=== PATIENT | female | born 1965 | race Caucasian/White ===

== ENCOUNTER 2019-08-29 07:12 | Day surgery (SDC) | payer MEDICARE, MEDICAID, SELFPAY ==
[2019-08-29 07:32] VITALS: BP 125/84; PULSE 82; RESP 16; TEMP 36.8; O2SAT 97
[2019-08-29] MEDS: Lactated Ringers 1,000 ML 80 ML IV (07:56)
--- NOTE | 2019-08-29 09:19 | HPE_ITS ---
Date of service: 08/29/19 Time of Service: : History of Present Illness History of Present Illness Chief Complaint: Bunion deformity of the right foot. Narrative: This is a 54-year-old female with progressive pain associated with a right bunion deformity. In spite of palliative treatments pain persists interfering with shoe gear daily activities. She is requesting surgical correction. 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 High cholesterol (Chronic) Migraine (Chronic) GLORIA (obstructive sleep apnea) (Chronic) Surgical History Biopsy of breast NEG RIGHT section X 2 Cholecystectomy Endometrial Ablation (~2002) EXCISION,SKIN TAG (09/15/14) [facility] MASTOIDECTOMY (~1995) X 2 Family History Mother Diabetes Father Diabetes Personal history of malignant neoplasm LUNG Social History Smoking/Tobacco Use Status: Never Alcohol Intake: current Alcohol Intake frequency: holidays/special occasions only Drug use: Occasionally Substance use type: marijuana Details: uses edibles for migraines Do you feel safe at home: Yes Additional Social history: recently . Meds Home Medications and Allergies Home Medications Medication Instructions Recorded Confirmed Type aspirin 81 mg PO DAILY 01/17/13 08/29/19 History vitamin B complex 2 ea PO BID 01/17/13 08/27/19 History Lesli Hips 1 tab PO BID 12/11/13 08/27/19 History magnesium oxide [Magox 400] 2 tab PO BID #360 tab 03/23/15 08/29/19 History ammonium lactate 1 applic TOPICAL BID 08/27/19 08/27/19 History ammonium lactate [Lac-Hydrin Five] 1 applic TOPICAL DAILY 08/27/19 08/29/19 History atorvastatin 40 mg PO DAILY 08/27/19 08/27/19 History citalopram 20 mg PO DAILY 08/27/19 08/29/19 History ketoconazole 1 applic TOPICAL DAILY 08/27/19 08/29/19 History terbinafine HCl 250 mg PO DAILY 08/27/19 08/29/19 History Allergies Allergy/AdvReac Type Severity Reaction Status Date / Time codeine Allergy Severe Anaphylaxsi Unverified 08/29/19 07:30 s diazepam [From Valium] Allergy Severe Anaphylaxsi Unverified 08/29/19 07:30 s hydrocodone Allergy Severe Anaphylaxsi Unverified 08/29/19 07:30 s morphine Allergy Severe Anaphylaxsi Unverified 08/29/19 07:30 s amoxicillin trihydrate Allergy Intermediate Rash Unverified 08/29/19 07:30 [From Augmentin] potassium clavulanate Allergy Intermediate Rash Unverified 08/29/19 07:30 [From Augmentin] Exam Narrative Exam Narrative: Carlee is awake and oriented x3. Vitals show a BP 125/84, pulse 82, respirations 16, temp 36.8, O2 sat at room air is 97%. Head is normocephalic, eyes PERRLA, hearing is adequate. Oral pharynx is clear with uvula midline. No suspicious oral lesions were identified. Heart had regular rate and rhythm without gallops rubs murmurs heard. Lung cramer are clear. Abdomen was soft. Nontender. Bowel sounds x4. Peripheral pulses are manually palpable at the ankles, CFT is under 3 seconds without edema. Calves are soft to palpation. A dorsal bunion deformity is appreciated affecting the right foot with low-grade periarticular inflammation and exostosis formations easily palpable. There is decreased range of motion with pain on dorsiflexion of the hallux. Assessment: Hallux limitus deformity right foot/dorsal bunion deformity Plan: Carlee is being brought to the OR for service surgical intervention for correction right dorsal bunion deformity. Proposed procedure is a cheilectomy bunionectomy with Adiel modification. All of her questions have been previously answered. She understands potential risk and complications pert aining to pain scarring infection wound dehiscence continued discomfort around the great toe joint potentially requiring revisional procedures. Informed consent has been obtained no promises made to the final outcome of surgery. Results Last Vital Signs Temp 36.8 C 08/29/19 07:32 Pulse 82 08/29/19 07:32 Resp 16 08/29/19 07:32 BP 125/84 08/29/19 07:32 Pulse Ox 97 08/29/19 07:32
[2019-08-29] MEDS: CLINDAMYCIN 600 MG/50 ML BAG 100 MG IVPB (09:50)
[2019-08-29] MEDS: Bupivacaine 0.5% Pres-Free 30 ML VIAL (09:53)
[2019-08-29] MEDS: Lidocaine 1% Multi-Dose 50 ML VIAL (09:53)
[2019-08-29] MEDS: Dexamethasone 4 MG/ML VIAL (10:25)
--- NOTE | 2019-08-29 10:42 | W.PM.DSUDISC ---
Discharge Plan Disposition Patient Disposition: HOME Condition: Good Discharge Details Reason For Visit: correction hallux limitus right foot Attending Provider: Chandrakant Fitch Primary Care Provider: Zaheer Fox [place] Meds and New Rx's Prescriptions: New ibuprofen 600 mg tablet 600 mg PO QID Qty: 60 RF: 0 Continued Lesli Hips 1 tab PO BID RF: 0 magnesium oxide [MagOx] 400 MG tablet 2 tab PO BID Qty: 360 RF: 12 aspirin 81 MG tablet,chewable 81 mg PO DAILY RF: 0 vitamin B complex 1 EACH capsule 2 ea PO BID RF: 0 atorvastatin 40 mg Tablet 40 mg PO DAILY RF: 0 terbinafine HCl 250 mg Tablet 250 mg PO DAILY RF: 0 citalopram 20 mg Tablet 20 mg PO DAILY RF: 0 ammonium lactate 12 % Cream 1 applic TOPICAL BID RF: 0 ketoconazole 2 % Cream 1 applic TOPICAL DAILY RF: 0 Lac-Hydrin Five 5 % Lotion 1 applic TOPICAL DAILY RF: 0 Discharge Instructions Activity:: Elevate Remove Dressings/Wound Care:: Do Not Remove Shower/Bathe:: Cover Diet:: Normal Diet Discharge Orders Discharge Orders: Discharge Order (Routine); Ordered 08/29/19 Ordered By: Chandrakant Fitch DS: Diagnosis Discharge Diagnosis (1) Hallux limitus of right foot: Status: Acute
[2019-08-29 11:15] VITALS: BP 114/58; PULSE 64; RESP 16; TEMP 36.3; O2SAT 98
--- NOTE | 2019-08-29 12:00 | ROE_ITS ---
DATE OF PROCEDURE: August 29, 2019 PREOPERATIVE DIAGNOSIS: Symptomatic right hallux limitus deformity. POSTOPERATIVE DIAGNOSIS: Same. PROCEDURE: Cheilectomy, bunionectomy with Wilder modification. SURGEON: Chandrakant Fitch D.P.M. ANESTHESIA: Monitored Anesthesia Care with local block first ray utilizing 10 cc's 50:50 mixture, 1% Lidocaine plain, 0.5% Marcaine plain, then supplemented with 3 mL of Lidocaine with epinephrine. OPERATIVE INDICATIONS: 54-year-old female with unrelenting pain associated with hallux limitus defor mity of the right foot. Nonoperative treatments have failed to provide lasting relief of symptoms. She is opting for surgical intervention. She understands risks and complications of surgery pertaini ng to pain, scarring, infection, ongoing discomfort of the joint potentially requiring revisional pro cedures. Informed consent has been obtained. No promises made to the final outcome of surgery. REPORT OF OPERATION: Carlee was brought to the operative suite, placed in the supine position, right f oot prepped and draped in the usual standard podiatric fashion. A time-out was performed. Attention was now directed to the right foot, which was exsanguinated, a well-padded ankle tourniquet inflated 250 mmHg. Attention was directed to the first MPJ where a 4 cm incision was made directly over the joint, medial to the EHL tendon. The incision was deepened in controlled depth fashion; hem ostasis acquired with electrocautery. Dissection was carried down to the joint capsule. A midline c apsulotomy was performed; the capsule was reflected. Extensive degenerative changes were noted on th e dorsal aspect of both sides of the joint. The joint surface itself showed significant erosion over the dorsal lateral portion of the metatarsal head. Picture was obtained at this point for her Chart . With power instrumentation the dorsal, medial and lateral hyperostosis from the first metatarsal h ead was resected. I then took off the top portion of the first metatarsal head through a Wilder trevor hnique. All rough and bony edges were then rasped smooth. Attention was directed to the base of the proximal phalanx. With a rongeur the dorsal hyperostoses w ere resected. All rough and bony edges were then removed with power mary jane instrumentation. She had g ood correction with much improved range of motion. Copious irrigation was performed. The joint caps ule was repaired with simple interrupted suture #3-0 Vicryl. The subcutaneous layer was repaired wit h #4-0 Vicryl and a running subcuticular stitch was used of #4-0 Monocryl. Four milligrams of dexame thasone phosphate was infused deeply into the wound. Mastisol, half-inch Steri-Strips, Xeroform, gau ze fluff compression dressings were applied. The tourniquet was released at thirty-three minutes wit h vascularity returning immediately to all toes. Carlee left the OR with vital signs stable, vascular status intact. She will be followed by me in the office next week. cc: Zaheer Fox D.O.
== END 2019-08-29 11:34 | disposition home or self-care (01) ==
PROVIDERS: PCP Neuromusculoskeletal Medicine & OMM; Visit Provider Podiatrist
PROC: (CPT 28289; principal; 2019-08-29 10:00)
DX: M20.5X1 Other deformities of toe(s) (acquired), right foot (principal); M21.611 Bunion of right foot; J45.909 Unspecified asthma, uncomplicated; G47.33 Obstructive sleep apnea (adult) (pediatric); F32.9 Major depressive disorder, single episode, unspecified
CPT/HCPCS: 28299; 99236; J1100; J2250

== ENCOUNTER 2019-11-07 17:26 | Inpatient (IN) | payer MEDICARE, MEDICAID, SELFPAY ==
[2019-11-07] VITALS (20 sets, daily range): BP systolic 111–140; BP diastolic 66–76; PULSE 54–71; RESP 13–21; TEMP 36.8–37.2; O2SAT 96–100
--- NOTE | 2019-11-07 17:30 | DI.RAD_ITS ---
EXAM: XR CHEST 2V PA AND LATERAL INDICATION: STROKE. COMPARISON: No exams were available for comparison TECHNIQUE: 2D digital imaging was performed. FINDINGS: The heart is enlarged. The lungs are not well inflated on either view. There is respiratory motion on the lateral view. There are increased densities in the left lung, which could represent atelectas is versus infiltrate. No effusions are seen. IMPRESSION: Limited exam. Question of left-sided infiltrate versus atelectasis. DATA REPOSITORY: RADIATION DOSE DELIVERED:
--- NOTE | 2019-11-07 17:32 | ED.GENADUL_ITS ---
Discharge Plan Disposition Patient Disposition: [facility] INPATIENT Condition: Poor Discharge Details Chief Complaint: CVA/TIA Clinical Impression: Acute CVA (cerebrovascular accident) Admit Date/Time: 11/07/19 20:20 Admit Provider: Bishop Fisher Attending Provider: Bishop Fisher Primary Care Provider: Zaheer Fox ED Provider: Agueda Mckeon Discharge Data Discharge Date/Time-TO BE ENTERED AT DEPARTURE: 11/07/19 21:00 Medical Decision Making Patient is a pleasant 54-year-old female presenting today with chief complaint of headache and right-sided hemiplegia. Patient reports she has a history of migraines and she will like she had migraine present approximately 3 weeks ago. She has used multiple antimigraine as options without any relief. She states that the headache did come on suddenly and has progressively worsening. She was seen by her primary care yesterday who treated her with Toradol. States that 3 days ago she began noting hemiplegia, change in her speech pattern and right- sided facial droop. Patient was seen by her daughter today who insisted she come to the hospital. 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 Family and patient report that despite the diagnosis of Marquez's palsy, she had full resolution of her symptoms and is not typically demonstrating the weakness is evident today. She reports that the stroke was around 2011 and was treated at [facility]. She denies any fevers or chills. No recent travel. No pain in her neck. Exam, patient is resting comfortably. Vital signs within normal limits. Patient has right-sided facial droop. She is able to elevate the right side of her forehead equal to the contralateral side. She does have a good gag reflex, extraocular movements are intact. She has weakness in the right upper and right lower extremity. However, her daughter reports that she was able to ambulate across the street to her house today to discuss her persistent symptoms. No sensory deficits are appreciated. Holding Patient is on daily aspirin which she did take today. Patient is out of the window for treatment given the length of her symptoms. I feel that CT and labs are appropriate at this time. Discussed this plan with the patient and her family who are in agreement. EKG was reviewed by Dr. Granda. Patient is in normal sinus rhythm with a rate of 67. No acute ischemic changes are noted. Labs reviewed. No leukocytosis, patient is not anemic. Creatinine is slightly elevated 1.18. No electrolyte abnormalities. Troponin less than 0.05. Urine significant for trace amount of blood otherwise without significant abnormality. CTA was reviewed by radiologist: FINDINGS: Right internal carotid artery: Unremarkable. Intracranial segment is patent with no significant stenosis. No aneurysm. Right anterior cerebral artery: Unremarkable. No occlusion or significant stenosis. No aneurysm. Right middle cerebral artery: Unremarkable. No occlusion or significant stenosis. No aneurysm. Right posterior cerebral artery: Unremarkable. No occlusion or significant stenosis. No aneurysm. Right vertebral artery: The right vertebral artery is hypoplastic. No occlusion or significant stenosis. No aneurysm. Left internal carotid artery: Unremarkable. Intracranial segment is patent with no significant stenosis. No aneurysm. Left anterior cerebral artery: Unremarkable. No occlusion or significant stenosis. No aneurysm. Left middle cerebral artery: Unremarkable. No occlusion or significant stenosis. No aneurysm. Left posterior cerebral artery: Unremarkable. No occlusion or significant stenosis. No aneurysm. Left vertebral artery: Unremarkable. No occlusion or significant stenosis. No aneurysm. Basilar artery: Unremarkable. No occlusion or significant stenosis. No aneurysm. IMPRESSION: No arterial occlusion or significant stenosis. No aneurysm. FINDINGS: Lungs: There is a hazy opacity in the left midlung zone, which may represent atelectasis versus pneumonia. The lung volumes are low. Pleural space: No pleural effusion. No pneumothorax. Heart/Mediastinum: Unremarkable. No cardiomegaly. Diaphragm: There is elevation of the right hemidiaphragm. Bones/joints: Unremarkable. IMPRESSION: Hazy opacity in the left midlung zone which may represent atelectasis versus pneumonia. Correlate with clinical findings. Discussed findings with the patient and her family. I did review the notes from neurology. Patient was last seen on September 26, 2019. At that time she was evaluated, patient did not have any acute neurologic complaints. In the time she was evaluated, this was apparently concerning her migraines ensuring migraine treatment was appropriate. They do note that she did have expressive language problems which is baseline for the patient associated with her migraines. Patient reports that this is a typical language change associated with her migraine which she considers aura, is what delayed her presentation today she was thinking that her symptoms would resolve as the headache began to resolve. Consulted with Dr. Fisher regarding the patient's presentation with likely CVA resulting in hemiplegia. This does come to be a recurrent issue for the patient. She did do well with speech therapy and physical therapy after her stroke which was reported to be associated with MCA occlusion and reports no lasting deficits. Dr. Fisher agrees to admission for further evaluation. Patient is unable to care for herself at home she is unable to perform simple tasks with the right-sided weakness. Family is at bedside and does seem very supportive. All the questions and concerns were addressed in agreement this plan. HPI General Mode of arrival: wheelchair . Date/Time Provider Initiated Documentation: 11/07/19 17:32 . Limitations to Documentation: no limitations . Information obtained by: patient, family (Daughters) and RN notes reviewed . History of Present Illness 54 year old F presents to the emergency department with the chief complaint of Headache, speech difficulty, right-sided hemiplegia, described as severe and similar to prior episodes (Patient reports CVA with similar episode in 2010 or 2012), Quality is described as aching, and is localized to the head. Patient reports no radiation. Patient started experiencing this week(s) (3) and it has been constant (worening with hemiplegia x 3 days). No relieving factors improve symptom(s), No exacerbating factors reported . Patient notes headaches, loss of appetite and weakness; denies confusion, chest pain, cough, diaphoresis, fever/chills, nausea/vomiting, rash, shortness of breath and syncope. Patient did receive the following treatments prior to arrival, NSAID Related Data Home Medications Medication Instructions Recorded Confirmed aspirin 81 mg PO DAILY 01/17/13 11/07/19 vitamin B complex 2 ea PO BID 01/17/13 11/07/19 Lesli Hips 1 tab PO BID 12/11/13 11/07/19 magnesium oxide [MagOx] 2 tab PO BID #360 tab 03/23/15 11/07/19 Lac-Hydrin Five 1 applic TOPICAL DAILY 08/27/19 11/07/19 ammonium lactate 1 applic TOPICAL BID 08/27/19 11/07/19 citalopram 20 mg PO DAILY 08/27/19 11/07/19 ketoconazole 1 applic TOPICAL DAILY 08/27/19 11/07/19 ibuprofen 600 mg PO QID #60 tab NS 08/29/19 11/07/19 Previous Rx's Medication Instructions Recorded ibuprofen 600 mg PO QID #60 tab NS 08/29/19 Allergies Allergy/AdvReac Type Severity Reaction Status Date / Time codeine Allergy Severe Anaphylaxsi Unverified 08/29/19 07:30 s diazepam [From Valium] Allergy Severe Anaphylaxsi Unverified 08/29/19 07:30 s hydrocodone Allergy Severe Anaphylaxsi Unverified 08/29/19 07:30 s morphine Allergy Severe Anaphylaxsi Unverified 08/29/19 07:30 s amoxicillin trihydrate Allergy Intermediate Rash Unverified 08/29/19 07:30 [From Augmentin] potassium clavulanate Allergy Intermediate Rash Unverified 08/29/19 07:30 [From Augmentin] Review of Systems Constitutional Constitutional: Reports as per HPI, Denies chills, Reports fatigue, Denies fever(s), Denies frequent falls, Reports headache(s), Reports poor appetite, Denies snoring and Reports weakness Eyes Eyes: Reports as per HPI, Denies blurry vision, Denies change in vision and Reports photophobia ENT Ears, Nose, Mouth, and Throat: Denies vertigo, Reports headache(s) and Denies neck pain Cardiovascular Cardiovascular: Reports as per HPI, Denies chest pain, Denies lightheadedness, Denies radiating jaw, neck or arm pain, Denies dyspnea and Denies dyspnea on exertion Respiratory Respiratory: Reports as per HPI, Denies chest congestion, Denies cough, Denies dyspnea, Denies dyspnea on exertion, Denies snoring, Denies stridor and Denies wheezing Gastrointestinal Gastrointestinal: Reports as per HPI, Denies abdominal pain, Denies change in bowel habits, Denies nausea and Denies vomiting Musculoskeletal Musculoskeletal: Reports as per HPI, Denies back pain, Denies myalgias, Denies muscle cramps, Denies neck pain and Denies numbness Integumentary/Breasts Skin/Breast: Reports as per HPI and Denies rash Neurologic Neurologic: Reports as per HPI, Reports abnormal movements, Reports abnormal speech, Denies behavioral changes, Denies confusion, Denies vertigo, Denies frequent falls, Reports headache(s), Reports focal weakness, Denies numbness, Denies sensory deficit and Reports weakness Psychiatric Psychiatric: Denies behavioral changes and Denies confusion Endocrine Endocrine: Reports fatigue Allergic/Immunologic Allergic/Immunologic: Denies wheezing [facility] Medical History (Updated 11/08/19 @ 00:39 by DANIELLA Castillo) Asthma (Chronic) Compression of right sciatic nerve (Acute) Depressed (Chronic) recently lost Depression (Chronic) 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 GERD (gastroesophageal reflux disease) (Chronic) High cholesterol (Chronic) Hyperlipidemia (Acute) Migraine (Chronic) GLORIA (obstructive sleep apnea) (Chronic) Type 2 diabetes mellitus (Acute) Surgical History Biopsy of breast NEG RIGHT section X 2 Cholecystectomy Endometrial Ablation (~2002) EXCISION,SKIN TAG (09/15/14) [facility] MASTOIDECTOMY (~1995) X 2 Social History Smoking/Tobacco Use Status: Never Alcohol Intake: current Alcohol Intake frequency: holidays/special occasions only Drug use: Occasionally Substance use type: marijuana Details: uses edibles for migraines Do you feel safe at home: Yes Exam Const General: cooperative, healthy appearing, comfortable, no acute distress, well developed and well groomed Nutritional Appearance: well nourished and obese Orientation: alert, awake and oriented x3 HENMT Head: normal to inspection, no palpable skull fracture, normocephalic and atraumatic Ears: hearing grossly normal bilaterally, external ears normal and TM's normal bilaterally General nose exam: external nose normal Face and sinus: abnormal facial exam (Right-sided facial droop) Mouth: oral mucosae normal and moist mucous membranes Throat: posterior oropharynx normal Eyes General: appearance normal, both eyes and all related structures Alignment and Position: alignment normal Periorbital: periorbital findings normal Eyelids: eyelids normal Sclera: sclerae normal Cornea: corneas normal Pupils: PERRL EOM: EOM intact bilaterally and No nystagmus Neck Neck: normal visual inspection, full ROM, no lymphadenopathy and no meningeal signs Resp Effort & Inspection: normal respiratory effort, able to speak in complete sentences and no respiratory distress Auscultation: clear to auscultation bilaterally, no rales, no rhonchi and no wheezes Cardio Rate: regular rate Rhythm: regular rhythm Heart Sounds: S1 normal and S2 normal GI Inspection: normal to inspection and non-distended Palpation: soft, no hepatosplenomegaly, not firm, no guarding, not rigid and nontender Percussion: normal to percussion Auscultation: normal bowel sounds Back/Spine/Pelvis Cervical Spine: normal cervical lordosis and cervical ROM normal Skin General skin exam: no rashes or lesions noted Neuro General: alert, awake and oriented x3 Cranial Nerves: abnormalities within CN's II-XII, PERRL, accommodation normal, no nystagmus, facial strength abnormal (Right-sided weakness), tongue midline, gag reflex normal, hearing abnormal (Patient family report chronic right-sided deafness), unable to rotate head bilaterally (Unable to rotate to the right), unable to elevate shoulders bilaterally (Unable to lift right side), no nystagmus and Symmetric palate elevation Cognition: normal cognition Speech: abnormal speech (Slow) Motor: tone not normal throughout, strength not 5/5 throughout (Patient is unable to elevate right upper extremity or right lower extremity), no fasciculations, no tremors, pronator drift pronator drift of right upper extremity and strength abnormal (Right upper and lower extremities) Sensory Exam: no sensory deficits noted DTR's: Rt Triceps: 1+, Lt Triceps: 1+, Rt Biceps: 1+, Lt Biceps: 1+, Rt Brachi oradialis: 1+, Lt Brachioradialis: 1+, Rt Patellar: 1+, Lt Patellar: 1+, Rt Ankle: 1+ and Lt Ankle: 1+ Plantar Reflexes: Equivocal: bilateral Coordination: [id number] test abnormal (Able to do so on the left) and [id number] test normal (Able to do so on the left) Extrem General: normal to inspection, normal capillary refill, no pedal edema and no calf tenderness Psych Appearance: grossly normal and well kempt Mental Status: mental status grossly normal Speech and Movement: speech and movement normal
--- NOTE | 2019-11-07 17:45 | DI.CT_ITS ---
EXAM: CT BRAIN AND NECK CTA CLINICAL HISTORY: RIGHT-SIDED HEMIPARESIS TECHNIQUE: Noncontrast head CT followed by CT angiography of the head and neck. Axial CT angiograph y was performed with multislice acquisition and multiplanar and/or 3D reconstructions. COMPARISON: No exams were available for comparison FINDINGS: Noncontrast Head CT: There is a right lateral posterior fossa craniotomy. There is a peripheral area of encephalomalacia involving the right cerebellar hemisphere. No intracranial hemorrhage, mass or ac sherri infarct is seen. There is no significant atrophy. The ventricles are normal in size. There is a s mall amount of fluid in the right mastoid air cells. The sinuses appear clear. CT Angiography of the Head and Neck: There are no abnormal enhancing lesions in the brain. The common , internal, external carotid arteries and the left vertebral arteries show no evidence of occlusion, stenosis or dissection. The right vertebral artery appears hypoplastic. The intracranial vasculature is patent. There is no gross evidence of an aneurysm. There is no evidence of occlusion or significan t stenosis. IMPRESSION: No evidence of acute infarct. Right cerebellar encephalomalacia and right posterior fossa craniotomy. Diminutive right vertebral artery. No evidence of dissection, occlusion or significant stenosis in t he head or neck.
[2019-11-07 17:56] LABS: Absolute Basophil Count 0.02 k/cumm (0.0-0.2); Absolute Eosinophil Count 0.14 k/cumm (0.0-0.7); Absolute Lymphocyte Count 1.62 k/cumm (1.2-3.4); Absolute Monocyte Count 0.38 k/cumm (0.11-0.7); Absolute Neutrophil Count 3.09 k/cumm (1.2-6.7); Basophils % 0.4; Eosinophils % 2.7; HCT 40.1 % (36.0-46.0); HGB 13.9 g/dL (12.0-15.5); Lymphocytes % 30.9; Mean Corp. HGB Concentration 34.7 g/dL (32.0-36.0); Mean Corpuscular Hemoglobin 30.4 pg (27.0-33.0); Mean Corpuscular Volume 87.7 fL (80-95); Mean Platelet Volume 9.2 fL (8.0-11.0); Monocytes % 7.2; Neutrophils % 58.8; Platelet Count 289 x1000/uL (130-400); RBC 4.57 m/cumm (4.00-5.20); RBC Distribution Width 12.4 % (11.7-14.6); White Blood Cell Count 5.25 k/cumm (4.4-10.8)
[2019-11-07 18:15] LABS: ALT 34 U/L (14-59); AST 17 U/L (15-37); Albumin 3.6 g/dL (3.4-5.0); Alkaline Phosphatase 84 U/L (46-116); Anion Gap 6.3 mmol/L (3-11); BUN 18 mg/dL (7-18); Bilirubin, Total 0.4 mg/dL (0.2-1.0); CO2 28.7 mmol/L (21.0-32.0); CREATININE 1.18 mg/dL (0.55-1.02); Calcium 8.5 mg/dL (8.5-10.1); Chloride 103 mmol/L (98-107); Estimated GFR 47.91 (mL/min/1.73m2); Glucose 102 mg/dL (74-106); Potassium 3.9 mmol/L (3.5-5.1); Sodium 138 mmol/L (136-145); Total Protein 6.9 g/dL (6.4-8.2)
[2019-11-07 18:16] LABS: Troponin I < 0.05 ng/Ml (<0.06)
[2019-11-07] MEDS: Omnipaque 350 MG/ML 100 ML BTL IJ (18:19)
[2019-11-07] MEDS: Normal Saline 1,000 ML 125 ML IV (18:36)
--- NOTE | 2019-11-07 18:42 | DI.VRAD_ITS ---
PROCEDURE INFORMATION: Exam: CT Angiography Head With Contrast Exam date and time: 11/07/2019 5:50 PM Age: 54 years old Clinical indication: Patient HX: R side hemiparesis; Per PT: Symptoms for 2 weeks TECHNIQUE: Imaging protocol: Computed tomography angiography of the head with intravenous contrast. 3D rendering: MIP and/or 3D reconstructed images were created by the technologist. COMPARISON: No relevant prior studies available. FINDINGS: Right internal carotid artery: Unremarkable. Intracranial segment is patent with no significant stenosis. No aneurysm. Right anterior cerebral artery: Unremarkable. No occlusion or significant stenosis. No aneurysm. Right middle cerebral artery: Unremarkable. No occlusion or significant stenosis. No aneurysm. Right posterior cerebral artery: Unremarkable. No occlusion or significant stenosis. No aneurysm. Right vertebral artery: The right vertebral artery is hypoplastic. No occlusion or significant stenosis. No aneurysm. Left internal carotid artery: Unremarkable. Intracranial segment is patent with no significant stenosis. No aneurysm. Left anterior cerebral artery: Unremarkable. No occlusion or significant stenosis. No aneurysm. Left middle cerebral artery: Unremarkable. No occlusion or significant stenosis. No aneurysm. Left posterior cerebral artery: Unremarkable. No occlusion or significant stenosis. No aneurysm. Left vertebral artery: Unremarkable. No occlusion or significant stenosis. No aneurysm. Basilar artery: Unremarkable. No occlusion or significant stenosis. No aneurysm. IMPRESSION: No arterial occlusion or significant stenosis. No aneurysm. PROCEDURE INFORMATION: Exam: CT Head Without Contrast Exam date and time: 11/07/2019 5:50 PM Age: 54 years old Clinical indication: Patient HX: R side hemiparesis; Per PT: Symptoms for 2 weeks TECHNIQUE: Imaging protocol: Computed tomography of the head without contrast. Other technique: STROKE PROTOCOL was implemented. COMPARISON: No relevant prior studies available. FINDINGS: Brain: Encephalomalacia in the right cerebellar hemisphere is likely postsurgical in nature. No hemorrhage. Unremarkable white matter. No mass effect. No large acute territorial infarct. Ventricles: Normal. No ventriculomegaly. Bones/joints: The patient is status post right occipital bone craniectomy. Right mastoidectomy changes are noted. No acute fracture. Sinuses: Visualized sinuses are unremarkable. No fluid levels. Mastoid air cells: There is a small amount of fluid in the right mastoid air cells. Soft tissues: Unremarkable. IMPRESSION: 1. No acute intracranial abnormality. 2. Small right mastoid air cell effusion. ASSESSMENT: ASPECTS (Lay Stroke Program Early CT Score) is 10. PROCEDURE INFORMATION: Exam: CT Angiography Neck With Contrast Exam date and time: 11/07/2019 5:50 PM Age: 54 years old Clinical indication: Patient HX: R side hemiparesis; Per PT: Symptoms for 2 weeks TECHNIQUE: Imaging protocol: Computed tomography angiography of the neck with intravenous contrast. 3D rendering: MIP and/or 3D reconstructed images were created by the technologist. COMPARISON: No relevant prior studies available. FINDINGS: VASCULATURE: Right common carotid artery: Unremarkable. No stenosis. No dissection or occlusion. Right internal carotid artery: Unremarkable extracranial segment. No stenosis. No dissection or occlusion. Right external carotid artery: Unremarkable. No occlusion or stenosis of the origin. Right vertebral artery: Unremarkable. No stenosis. No dissection or occlusion. Left common carotid artery: Unremarkable. No stenosis. No dissection or occlusion. Left internal carotid artery: Unremarkable extracranial segment. No stenosis. No dissection or occlusion. Left external carotid artery: Unremarkable. No occlusion or stenosis of the origin. Left vertebral artery: Unremarkable. No stenosis. No dissection or occlusion. NECK: Bones/joints: No acute fracture. Soft tissues: No significant soft tissue swelling. There is mild asymmetry of the submandibular glands. IMPRESSION: No arterial occlusion or hemodynamically significant stenosis. No dissection or pseudoaneurysm. COMMENTS: Using NASCET method for measuring degree of carotid artery stenosis: Mild is less than 50% stenosis. Moderate is 50-69% stenosis. Severe is 70-94% stenosis. Near occlusion is 95-99% stenosis. Dictated and Authenticated by: Eli Ignacio MD. Ordering:PURNIMA Romeo MD
--- NOTE | 2019-11-07 18:44 | DI.VRAD_ITS ---
PROCEDURE INFORMATION: Exam: XR Chest, 2 Views Exam date and time: 11/07/2019 6:16 PM Age: 54 years old Clinical indication: Other: Stroke TECHNIQUE: Imaging protocol: XR of the chest Views: 2 views. COMPARISON: RF BARIUM SWALLOW W PA LAT CXR 10/28/2015 10:22 AM FINDINGS: Lungs: There is a hazy opacity in the left midlung zone, which may represent atelectasis versus pneumonia. The lung volumes are low. Pleural space: No pleural effusion. No pneumothorax. Heart/Mediastinum: Unremarkable. No cardiomegaly. Diaphragm: There is elevation of the right hemidiaphragm. Bones/joints: Unremarkable. IMPRESSION: Hazy opacity in the left midlung zone which may represent atelectasis versus pneumonia. Correlate with clinical findings. Dictated and Authenticated by: Eli Ignacio MD. Ordering:PURNIMA Romeo MD
[2019-11-07] MEDS: Clopidogrel 75 MG TAB PO (19:17)
[2019-11-07 19:28] LABS: Bilirubin Negative (Negative); Blood Trace-intact (Negative); Clarity Clear (Clear); Glucose Negative (Negative); Ketones Negative (Negative); Leukocyte Esterase Negative (Negative); Nitrite Negative (Negative); Specific Gravity <= 1.005 (1.005-1.025); Urobilinogen 0.2 EU/dL (Up TO 0.2); pH 6.5 (5-8)
[2019-11-07 19:35] LABS: Epithelial Cells Moderate HPF (Negative); RBC 0-2 HPF (0-2); WBC 0-2 HPF (0-5)
[2019-11-07 19:36] LABS: Bacteria Negative HPF (Negative); C & S Indicated? No/Sq. Contamination; Casts Negative LPF (Negative); Crystals Negative HPF (Negative); Mucus Negative (Negative)
--- NOTE | 2019-11-07 20:34 | W.PM.HP.N ---
Date of service: 11/07/19 Time of Service: 20:34 Assessment and Plan Assessment and plan (1) Migraine headache: Status: Chronic Assessment and plan: It is possible that her focal neurologic findings are migraine in origin but the duration of symptoms is certainly atypical. Her treatment cascade as an outpatient has failed to control her headache which is included several different NSAIDs, Aimovig and THC products. I am going to hydrate her overnight, offer oxygen overnight, see how she responds to the diphenhydramine and Compazine given in the emergency room. Follow clinical exam. Consider neurologic consultation if none of these interventions are helpful. (2) Right hemiplegia: Status: Acute Assessment and plan: Her examination is atypical for CVA although this is certainly possible. CT of brain and CT angiography did not show any arterial occlusions or new stroke which does not rule out the possibility of an ischemic stroke. She will need an MRI, not available until Sunday. Past neurologic consultation, albeit 8 years ago, raise concern about possible conversion disorder. Presentation atypical for demyelinating disease and no symptoms to suggest an infectious process driving this. For now I am going to presume ischemic stroke, monitor rhythm on telemetry. I am not sure if this justifies dual antiplatelet therapy but will continue with her aspirin and she received a single standard dose of clopidogrel in the emergency room. Decision will need to be made as to whether or not justified to continue with dual antiplatelet therapy based on level of suspicion for stroke/TIA. Prophylactic dose of Lovenox. Monitor blood pressure. Order has been placed for echocardiogram but this can be canceled if the clinical course does not support stroke as the diagnosis. (3) Type 2 diabetes mellitus: Status: Acute Assessment and plan: Has this on her problem list but is not on any medications. Presumably diet-controlled? Check hemoglobin A1c and if it is elevated monitor fingerstick blood sugars with treatment depending upon results. (4) Hyperlipidemia: Status: Acute Assessment and plan: It is unclear why statin was discontinued. Given the ambiguity as to whether or not she has had a new ischemic event I am holding off on empirically starting a statin this evening. Check lipids tomorrow with the decision as to whether or not there is sufficient evidence to justify resuming atorvastatin. It does not sound like she had an adverse effects from the medication. (5) GERD (gastroesophageal reflux disease): Status: Chronic Assessment and plan: With use of NSAIDs she has had periodic symptoms managed with oral antacid. I will place her on pantoprazole. (6) Depression: Status: Chronic Assessment and plan: This may be contributing to her presentation. Continue citalopram at outpatient dose. History of Present Illness History of Present Illness Chief Complaint: Continued headache, right-sided weakness Narrative: 54-year-old woman with a history of focal neurologic deficits dating back since at least 2011 and perhaps 2007, presented to the emergency room with continued headache, change in speech, drooping of the face more than typical, right arm greater than right leg weakness. She reports a history of migraine headaches which have been recalcitrant to many different medications. For the past 3 weeks she has been dealing with a protracted headache that has not responded to various NSAIDs, including a dose of IM ketorolac yesterday and her primary direct care supervisor's office, Aimovig, other oral NSAIDs, and edible THC products (has medical marijuana card). 3 days ago began developing weakness more than her usual in the right arm as well as drooping of her right face. She was seen by her primary direct care supervisor yesterday because of these concerns with office note reporting some weakness of the right arm, drooping of the face and for which she was given of the IM dose of ketorolac. The ketorolac did not help with her headache nor improve the function of her right arm and so she presented to the emergency room. She has not been very hungry but has been taking oral medications and liquids. She is not had vomiting. Reports blurred vision but not necessarily double vision?history is a little difficult to clarify. She has been able to ambulate but seems struggling more than typical. She ordinarily is independent on her own and driving. She reports minimal residual from the event in 2011 or 2007?dates are uncertain from old records. There may be a little bit of right-sided facial drooping chronically as well as periodic right arm weakness. Neurology consultation note from [facility] obtained dated from 2011 in which concern is raised that although she may have cerebrovascular disease and may have had a stroke, features are atypical and on the differential were stress and conversion reaction. She has been taking low-dose aspirin daily. She had been on atorvastatin in the past but discontinued it sometime within the past few years. Reason is not clear but she alludes to the fact that during the time she was caring for her now , she did not take good care of herself and may have simply stopped the medication at that time and never refilled it. On presentation she was found to have weakness of the right arm more than right leg, right facial drooping and a somewhat staccato mono phrase speaking pattern. CT angiography of the brain and neck did not show any acute infarct nor any significant intracranial or extracranial vascular disease. No dysrhythmias have been detected on the monitor. She has no known history of any A. fib or other cardiac problems. She carries a label of sleep apnea but does not endorse this. She also has a diagnosis of type 2 diabetes but is on no medication for this. She is being admitted for further evaluation to determine whether or not current presentation is due to a subacute cerebral ischemic event versus very protracted migraine versus somatization disorder. Review of Systems Narrative: As per HPI. No choking episodes. No cough. No chest pains. No nausea or vomiting although appetite has been depressed. No incontinence. No dysuria. Reports diminished sensation in the right arm and leg. No recent falls. No seizures. No loss of consciousness. 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 GERD (gastroesophageal reflux disease) (Chronic) High cholesterol (Chronic) Hyperlipidemia (Acute) Migraine (Chronic) GLORIA (obstructive sleep apnea) (Chronic) Type 2 diabetes mellitus (Acute) Surgical History Biopsy of breast NEG RIGHT section X 2 Cholecystectomy Endometrial Ablation (~2002) EXCISION,SKIN TAG (09/15/14) [facility] MASTOIDECTOMY (~1995) X 2 Social History Smoking/Tobacco Use Status: Never Alcohol Intake: current Alcohol Intake frequency: holidays/special occasions only Drug use: Occasionally Substance use type: marijuana Details: uses edibles for migraines Do you feel safe at home: Yes Meds Home Medications and Allergies Home Medications Medication Instructions Recorded Confirmed Type aspirin 81 mg PO DAILY 01/17/13 11/07/19 History vitamin B complex 2 ea PO BID 01/17/13 11/07/19 History Lesli Hips 1 tab PO BID 12/11/13 11/07/19 History magnesium oxide [MagOx] 2 tab PO BID #360 tab 03/23/15 11/07/19 History Lac-Hydrin Five 1 applic TOPICAL DAILY 08/27/19 11/07/19 History ammonium lactate 1 applic TOPICAL BID 08/27/19 11/07/19 History citalopram 20 mg PO DAILY 08/27/19 11/07/19 History ketoconazole 1 applic TOPICAL DAILY 08/27/19 11/07/19 History ibuprofen 600 mg PO QID #60 tab NS 08/29/19 11/07/19 Rx Allergies Allergy/AdvReac Type Severity Reaction Status Date / Time codeine Allergy Severe Anaphylaxsi Unverified 08/29/19 07:30 s diazepam [From Valium] Allergy Severe Anaphylaxsi Unverified 08/29/19 07:30 s hydrocodone Allergy Severe Anaphylaxsi Unverified 08/29/19 07:30 s morphine Allergy Severe Anaphylaxsi Unverified 08/29/19 07:30 s amoxicillin trihydrate Allergy Intermediate Rash Unverified 08/29/19 07:30 [From Augmentin] potassium clavulanate Allergy Intermediate Rash Unverified 08/29/19 07:30 [From Augmentin] Exam Narrative Exam Narrative: Woman appearing a little older than her chronologic age, obvious right facial drooping including minimal lines on the forehead. She is able to speak, which is soft, 1 or 2 words at a time and somewhat staccato phrases but no gross dysarthria. She is afebrile blood pressure 111/76 pulse rate in the 60s on the monitor sinus rhythm present. SaO2 99% on room air. Right eye lid droops down, she can open it with her hand. Tracks symmetrically, ambivalent when asked if she sees double or just blurred. No nystagmus. Tongue midline. Weak effort on requested protrusion, no tremor or deviation. No JVD visible although neck is somewhat large. No carotid bruits heard. Sits up with minimal assistance. Lungs clear to the bases. Regular heart rhythm no murmur S3 or S4. Abdomen obese soft nontender with active bowel sounds. Extremities warm good pulses distally. Bruise on the left second toe dorsal surface. She has no voluntary movement of the right arm when requested to move her hand or forearm. She has a little bit of shoulder shrug. Passive elevation of her right arm results in a gradual lowering of her right arm. It is not flaccid. No resort keeper on request. Normal resort keeper on the left. She can lift her right leg against gravity, on individual limb testing it is weaker than the left. I do not get DTRs anyplace. She is alert and oriented x4. Results CT angiography of head and neck as per HPI. EKG with nonspecific T wave changes?Little change from EKG from 2012. Chest x-ray poor quality film due to positioning and poor inspiration, basically uninterpretable. Labs Result diagrams: 11/07/19 17:35 11/07/19 17:35 Labs: Laboratory Results - last 24 hr 11/07/19 11/07/19 11/07/19 17:35 17:35 19:20 WBC 5.25 RBC 4.57 Hgb 13.9 Hct 40.1 MCV 87.7 MCH 30.4 MCHC 34.7 RDW 12.4 Plt Count 289 MPV 9.2 Immature Gran % 0.0 Neutrophils % 58.8 Lymphocytes % 30.9 Monocytes % 7.2 Eosinophils % 2.7 Basophils % 0.4 Absolute Neutrophils 3.09 Absolute Lymphocytes 1.62 Absolute Monocytes 0.38 Absolute Eosinophils 0.14 Absolute Basophils 0.02 Sodium 138 Potassium 3.9 Chloride 103 Carbon Dioxide 28.7 Anion Gap 6.3 BUN 18 Creatinine 1.18 H Estimated GFR/1.73 m2 47.91 Glucose 102 Calcium 8.5 Magnesium 2.0 Total Bilirubin 0.4 AST 17 ALT 34 Alkaline Phosphatase 84 Troponin I < 0.05 Total Protein 6.9 Albumin 3.6 Urine Color Yellow Urine Clarity Clear Urine pH 6.5 Ur Specific [place] <= 1.005 Urine Protein Negative Urine Ketones Negative Urine Blood Trace-intact H Urine Nitrite Negative Urine Bilirubin Negative Urine Urobilinogen 0.2 Ur Leukocyte Esterase Negative Urine RBC 0-2 Urine WBC 0-2 Ur Epithelial Cells Moderate Urine Crystals Negative Urine Bacteria Negative Urine Casts Negative Urine Mucus Negative Ur Culture Indicated? No/sq. contamination Urine Glucose Negative Last Vital Signs Temp 36.8 C 11/07/19 17:40 Pulse 63 11/07/19 18:28 Resp 14 11/07/19 19:50 BP 140/76 11/07/19 18:28 Pulse Ox 100 11/07/19 19:00
[2019-11-07] MEDS: Enoxaparin 40 MG/0.4 ML SYR SC (21:56)
[2019-11-07] MEDS: Lactated Ringers 1,000 ML 100 ML IV (23:35)
[2019-11-08] VITALS (8 sets, daily range): BP systolic 100–137; BP diastolic 63–83; PULSE 53–64; RESP 17–24; TEMP 36.5–37; O2SAT 97–99
[2019-11-08] MEDS: Acetaminophen 325 MG TAB 650 MG PO ×2 (02:52→18:59)
[2019-11-08 06:56] LABS: HCT 38.2 % (36.0-46.0); HGB 12.7 g/dL (12.0-15.5); Mean Corp. HGB Concentration 33.2 g/dL (32.0-36.0); Mean Corpuscular Hemoglobin 29.7 pg (27.0-33.0); Mean Corpuscular Volume 89.5 fL (80-95); Mean Platelet Volume 9.1 fL (8.0-11.0); Platelet Count 248 x1000/uL (130-400); RBC 4.27 m/cumm (4.00-5.20); RBC Distribution Width 12.9 % (11.7-14.6); White Blood Cell Count 4.49 k/cumm (4.4-10.8)
[2019-11-08 07:03] LABS: Anion Gap 4.9 mmol/L (3-11); BUN 23 mg/dL (7-18); CO2 29.1 mmol/L (21.0-32.0); CREATININE 1.11 mg/dL (0.55-1.02); Calcium 8.6 mg/dL (8.5-10.1); Chloride 105 mmol/L (98-107); Estimated GFR 51.42 (mL/min/1.73m2); Glucose 93 mg/dL (74-106); Potassium 4.1 mmol/L (3.5-5.1); Sodium 139 mmol/L (136-145)
[2019-11-08 07:07] LABS: Calculated LDL 207 mg/dL (<100); Cholesterol 268 mg/dL (<200); HDL Cholesterol 33 mg/dL (40-60); Magnesium 2.1 mg/dL (1.8-2.4); Triglyceride 140 mg/dL (<150)
[2019-11-08 07:22] LABS: Hemoglobin A1C 5.5 % (3.8-5.6)
[2019-11-08] MEDS: Pantoprazole 40 MG TABCR PO (08:35)
[2019-11-08] MEDS: Magnesium Oxide 400 MG TAB 800 MG PO ×2 (08:35→20:25)
[2019-11-08] MEDS: Ibuprofen 600 MG TAB PO ×2 (08:38→12:31)
[2019-11-08] MEDS: Aspirin 81 MG CHEW PO (08:38)
[2019-11-08] MEDS: Citalopram 20 MG TAB PO (08:38)
[2019-11-08] MEDS: Lactated Ringers 1,000 ML 100 ML IV ×2 (10:25→20:24)
--- NOTE | 2019-11-08 12:50 | IN_ITS ---
PT Notes Visit Reasons: HEADACHE RIGHT HEMIPLEGIA Inpatient Physical Therapy Evaluation Date: 11/08/2019 Referring Doctor: Bishop Fisher MD PT Orders: PT CONSULT: Migraine with right hemiplegia Precautions: Fall Patient Profile/Admitting Diagnosis: 54-year-old female with chronic migraines w ho developed onset of right-sided weakness yesterday admitted to the hospital. She has CT scan which is negative and is scheduled for an MRI on Sunday. PMHX: Type 2 diabetes and hyperlipidemia, GERD's and depression Social History/Home Situation: Is a , lives alone in her home and [place]. She is 2 steps into the house and one in the doorway without a railing Current Functional Limitations: Is independent with all ADLs, driving, preparing meals etc. Would recommend an OT evaluation to further determine her functional skills. Equipment Owned/DME: Has a combo tub shower with flexible hose. No grab bars. Her washer and dryer on the first floor Subjective: [] Objective: [] General Observation: I into the room while the patient is walking from the bathroom to a chair holding onto her IV pole with good stability with standby supervision by nurse. She is pleasant and no abnormal pain behavior noted Mental Status: Alert and oriented x4 Pain: No complaints of pain offered, other than her chronic headache which she reports is mild ROM: She is full active assistive range of motion throughout without pain on movement or endrange discomfort. Her cervical rotation right creates some mild discomfort throughout the posterior lateral cervical spine on the right. Strength: Her strength along left side is 5/5. Initially she is unable to move her right upper extremity, but I passively move her right arm overhead and she is able to hold this position. She eventually is able to supinate and pronate her forearm along with wrist extension, and active MP motion of the digits individually. Muscle grade of 2/5 and she is able to move outside any synergistic pattern. Her right lower extremity strength is rated 3/5. She has a right facial droop, but is able to slightly wink on the right side and pucker her lips but with dysfunction on the right. She has positive gag reflex Neuro: Upper extremity reflexes are hyporeflexive, KJ's are +2 and AJ's are +1 and symmetrical. No spasticity or rigidity noted along the right side. She has diminished sensation light touch throughout a stocking glove distribution of her right side but proprioception is intact. She is negative Babinski bilaterally, negative hemianopsia. She has inconsistent dysarthria Bed Mobility/Transfers: Independent with assuming the supine to sitting to standing positions and vice versa. Gait: Requires contact guarding with ambulating and more so when attempting to walk on heels and toes which she is capable of doing. Her distance greater than 25 feet. I recommend using a cane for the time being Balance: Raphael balance test was performed he scored a less than a 40/56. Score 45 or less indicates a fall risk Static Sitting: Normal Dynamic Sitting: Normal Static Standing: Good Dynamic Standing: Fair, she requires contact guarding with unilateral standing of greater than 5 seconds on the right Special Tests: Mobility Limitations Standardized Measure [facility] 6 clicks Basic Mobility Inpatient Short Form: Raw Score: 16 standardized Score: 35.96 CMS Score: 53.32% CMS Modifier: Next field CK [] Informed Consent/Education: Patient instructed in purpose of PT consult and plan of care. Assessment: Patient is a 54 year old female referred to physical therapy services with the diagnosis of right hemiplegia. Patient presents with clinical signs and symptoms consistent with this diagnosis, as demonstrated by the following impairment level findings: Right-sided weakness, right upper extremity greater than lower extremity. She does have motor function in her right upper extremity outside of synergistic patterns and hopefully she will continue to have further strength gains over the next few days.. Impairments are contributing to the following functional limitations: AMPAC score. Patient is assessed as a Moderate 99590 complexity based on the following: History: See comorbidities and social history Examination: See above for functional imitations impairments Presentation: Evolving Decision Making: Moderate complexity based on her clinical findings Goals: Goals X1 week 1. Increase strength along her right side to 3/5 the right upper extremity and 4/5 in the right lower extremity 2. Improved gait stability and independent ambulation with a cane for greater than 300 feet 3. Minimize fall risk Plan of Care/Treatment Plan: 1-2x/day, 7 days/week x 1 week. Plan of care has been reviewed with the FAMILY PRESERVATION WORKER providing the service under Physical Therapy direction. Initiate Physical Therapy intervention for strengthening, bed mobility, transfers, gait, stairs, balance training, use of assistive device. She was instructed in frequent supine straight leg raises on the right along with grasping activities, etc. DISCHARGE RECOMMENDATIONS: Patient is adamant about returning home and her sister states that the family will be able to assist. I recommend an OT evaluation to assess her ADL skills. She will need a cane TREATMENT CODE/TIME: 9716 11/16 7110 Treatment time: 60 minutes Disclaimer: This note was created using [email or web address] voice recognition software. It was reviewed for major content. However, there may be multiple small discrepancies and errors due to the voice recognition aspects of the software.
--- NOTE | 2019-11-08 13:37 | W.PM.PROGNOT ---
Date of Service Date of service: 11/08/19 Time of Service: 13:38 Assessment and Plan Assessment and plan (1) Migraine headache: Status: Chronic Assessment and plan: Per patient/family, ongoing for about 3 weeks. Reviewed [facility] [place] exactly 1 year ago - the patient had similar sx then. Will trial toradol, bolus of magnesium sulfate, continue IVF and provide prn antiemetics. Long-lasting migraines can be associated with CVA from prolonged vasospasm and can be associated with PFO's. Obtain MRI brain, echo with bubble study, neurology consultation. (2) Right hemiplegia: Status: Acute Assessment and plan: These sx were also seen at [facility] 1 year ago and were felt to be due to a functional/conversion d/o and CBT was recommended. Based on the findings on today's exam, I completely agree with that assessment. On discharge, CBT is recommended. For now, consult PT/OT. (3) Type 2 diabetes mellitus: Status: Acute Assessment and plan: A1C of 5.5 does not support this diagnosis. (4) Hyperlipidemia: Status: Acute Assessment and plan: The patient has not been taking pravastatin since March of 2019, when her . Her LDL of 207 does require therapy - will start atorvastatin 40 mg PO Qhs. (5) GERD (gastroesophageal reflux disease): Status: Chronic Assessment and plan: Continue protonix. I suspect that the chest discomfort now is due to GERD. (6) Depression: Status: Chronic Assessment and plan: Agree that current presentation may be triggered by underlying grief/depression. Continue citalopram. (7) Chest discomfort: Status: Acute Assessment and plan: Check EKG. Trial mylanta as my suspicion is that this is due to GERD. Obtain echo. (8) DVT prophylaxis: Status: Acute Assessment and plan: lovenox SC (9) Discharge planning issues: Status: Acute Assessment and plan: Full code Anticipate discharge home on Sunday post neurology consultation. Subjective Subjective Interval history since last seen: Ms Rangel reports a headache 3/10 on the L-side of her head, as well as photophobia, RUE/RLE numbness and weakness. The patient states that she feels unstable, but not dizzy. Endorses mid-sternal chest tightness. Denies nausea/vomiting. Appetite poor. Got dizzy/lightheaded with oxygen on - now taken off. Exam Narrative Exam Narrative: General: Pleasant obese female, sitting up in bed, R facial droop disappears when she smiles to family, but returns when I ask her to smile for me; stuttering - speech was fluent when I first walk in, but becomes dysarthric with difficulty pronouncing the word weak and simplified sentence structure when I examine her. RUE weakness is not consistently reproduced - able to hold her arm up. 4/5 RLE strenght; intact LUE/LLE strength. HEENT: EOMI, MMM Heart: RRR, no m/r/g Lungs: CTAB Abdomen: soft, nontender, nondistended Extremities: no e/c/c BLE's Objective Objective Clinical Data: Abnormal lab results 11/07/19 11/07/19 11/08/19 Range/Units 17:35 19:20 06:42 BUN (7-18) mg/dL Creatinine 1.18 H (0.55-1.02) mg/dL Total Cholesterol 268 H (<200) mg/dL LDL Cholesterol, Calc 207 H (<100) mg/dL HDL Cholesterol 33 L (40-60) mg/dL Urine Blood Trace-intact H (Negative) 11/08/19 Range/Units 06:42 BUN 23 H (7-18) mg/dL Creatinine 1.11 H (0.55-1.02) mg/dL Total Cholesterol (<200) mg/dL LDL Cholesterol, Calc (<100) mg/dL HDL Cholesterol (40-60) mg/dL Urine Blood (Negative) Vital Signs Temperature 36.6 C 11/08/19 11:40 Temperature Source Temporal Artery Scan 11/08/19 11:40 Pulse 54 L 11/08/19 11:40 Pulse Rhythm Regular 11/08/19 08:39 Pulse 60 11/07/19 20:40 Respiratory Rate 20 11/08/19 11:40 Respiratory Effort Non-Labored 11/08/19 08:39 Respiratory Depth Normal 11/08/19 08:39 Respiratory Pattern Normal 11/08/19 08:39 Blood Pressure 126/82 11/08/19 11:40 Blood Pressure Mean 92 11/07/19 18:28 Blood Pressure Position Sitting 11/07/19 17:40 Pulse Oximetry 99 11/08/19 11:40 Oxygen Delivery Method Room Air 11/08/19 11:40 Oxygen Flow Rate 0 11/08/19 11:40 Pain Level 4 11/08/19 05:14 Intake & Output 11/07/19 11/08/19 11/08/19 23:59 11:59 23:59 Intake Total 633.333 / 323.028 3063 / 1610 Balance 633.333 / 315.183 5635 / 1610 Weight 122.47 kg Intake: IV 633.333 / 563.096 6662 / 1000 Oral 610 / 610 Other: Urine Color Yellow Urine Appearance Clear Clear Comment Voided in the toilet Voiding Methods Toilet Laboratory Results WBC 4.49 k/cumm (4.4-10.8) 11/08/19 06:42 RBC 4.27 m/cumm (4.00-5.20) 11/08/19 06:42 Hgb 12.7 g/dL (12.0-15.5) 11/08/19 06:42 Hct 38.2 % (36.0-46.0) 11/08/19 06:42 MCV 89.5 fL (80-95) 11/08/19 06:42 MCH 29.7 pg (27.0-33.0) 11/08/19 06:42 MCHC 33.2 g/dL (32.0-36.0) 11/08/19 06:42 RDW 12.9 % (11.7-14.6) 11/08/19 06:42 Plt Count 248 x1000/uL (130-400) 11/08/19 06:42 MPV 9.1 fL (8.0-11.0) 11/08/19 06:42 Immature Gran % 0.0 % 11/07/19 17:35 Neutrophils % 58.8 11/07/19 17:35 Lymphocytes % 30.9 11/07/19 17:35 Monocytes % 7.2 11/07/19 17:35 Eosinophils % 2.7 11/07/19 17:35 Basophils % 0.4 11/07/19 17:35 Absolute Neutrophils 3.09 k/cumm (1.2-6.7) 11/07/19 17:35 Absolute Lymphocytes 1.62 k/cumm (1.2-3.4) 11/07/19 17:35 Absolute Monocytes 0.38 k/cumm (0.11-0.7) 11/07/19 17:35 Absolute Eosinophils 0.14 k/cumm (0.0-0.7) 11/07/19 17:35 Absolute Basophils 0.02 k/cumm (0.0-0.2) 11/07/19 17:35 Sodium 139 mmol/L (136-145) 11/08/19 06:42 Potassium 4.1 mmol/L (3.5-5.1) 11/08/19 06:42 Chloride 105 mmol/L (98-107) 11/08/19 06:42 Carbon Dioxide 29.1 mmol/L (21.0-32.0) 11/08/19 06:42 Anion Gap 4.9 mmol/L (3-11) 11/08/19 06:42 BUN 23 mg/dL (7-18) H 11/08/19 06:42 Creatinine 1.11 mg/dL (0.55-1.02) H 11/08/19 06:42 Estimated GFR/1.73 m2 51.42 (mL/min/1.73m2) 11/08/19 06:42 Glucose 93 mg/dL (74-106) 11/08/19 06:42 Hemoglobin A1c 5.5 % (3.8-5.6) 11/08/19 06:42 Calcium 8.6 mg/dL (8.5-10.1) 11/08/19 06:42 Magnesium 2.1 mg/dL (1.8-2.4) 11/08/19 06:42 Total Bilirubin 0.4 mg/dL (0.2-1.0) 11/07/19 17:35 AST 17 U/L (15-37) 11/07/19 17:35 ALT 34 U/L (14-59) 11/07/19 17:35 Alkaline Phosphatase 84 U/L (46-116) 11/07/19 17:35 Troponin I < 0.05 ng/Ml (<0.06) 11/07/19 17:35 Total Protein 6.9 g/dL (6.4-8.2) 11/07/19 17:35 Albumin 3.6 g/dL (3.4-5.0) 11/07/19 17:35 Triglycerides 140 mg/dL (<150) 11/08/19 06:42 Total Cholesterol 268 mg/dL (<200) H 11/08/19 06:42 LDL Cholesterol, Calc 207 mg/dL (<100) H 11/08/19 06:42 HDL Cholesterol 33 mg/dL (40-60) L 11/08/19 06:42 Urine Color Yellow (Yellow) 11/07/19 19:20 Urine Clarity Clear (Clear) 11/07/19 19:20 Urine pH 6.5 (5-8) 11/07/19 19:20 Ur Specific [place] <= 1.005 (1.005-1.025) 11/07/19 19:20 Urine Protein Negative mg/dL (Negative) 11/07/19 19:20 Urine Ketones Negative mg/dL (Negative) 11/07/19 19:20 Urine Blood Trace-intact (Negative) H 11/07/19 19:20 Urine Nitrite Negative (Negative) 11/07/19 19:20 Urine Bilirubin Negative (Negative) 11/07/19 19:20 Urine Urobilinogen 0.2 EU/dL (Up TO 0.2) 11/07/19 19:20 Ur Leukocyte Esterase Negative (Negative) 11/07/19 19:20 Urine RBC 0-2 HPF (0-2) 11/07/19 19:20 Urine WBC 0-2 HPF (0-5) 11/07/19 19:20 Ur Epithelial Cells Moderate HPF (Negative) 11/07/19 19:20 Urine Crystals Negative HPF (Negative) 11/07/19 19:20 Urine Bacteria Negative HPF (Negative) 11/07/19 19:20 Urine Casts Negative LPF (Negative) 11/07/19 19:20 Urine Mucus Negative (Negative) 11/07/19 19:20 Ur Culture Indicated? No/sq. contamination 11/07/19 19:20 Urine Glucose Negative mg/dL (Negative) 11/07/19 19:20 EKG pending
[2019-11-08] MEDS: Mylanta Suspension 30 ML CUP PO (13:42)
--- NOTE | 2019-11-08 13:55 | PDOC.CMIN ---
- If Service Date Differs Date of service: 11/08/19 Time of Service: 13:55 Care Management Initial Assess REASON FOR HOSPITALIZATION:: Headache right hemiplegia PAST MEDICAL HISTORY/PAST SURGICAL HISTORY:: Medical History (Updated 11/07/19 @ 20:42 by Bishop Fisher MD). Asthma (Chronic). Compression of right sciatic nerve (Acute). Depressed (Chronic). recently lost . Depression (Chronic). 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 GERD (gastroesophageal reflux disease) (Chronic). High cholesterol (Chronic). Hyperlipidemia (Acute). Migraine (Chronic). GLORIA (obstructive sleep apnea) (Chronic). Type 2 diabetes mellitus (Acute). Surgical History . Biopsy of breast. NEG RIGHT. section. X 2. Cholecystectomy. Endometrial Ablation (~2002). EXCISION,SKIN TAG (09/15/14). WWC. MASTOIDECTOMY (~1995). X 2 PREVIOUS FUNCTIONAL STATUS/SOCIAL/FAMILY SUPPORTS:: Carlee lives in [place], [place]. She is recently , as her last year. She has three adult children who live locally. She is independent at baseline. CURRENT FUNCTIONAL STATUS:: Carlee was lying in bed when CM met with her. She had family in the room, visiting. Carlee stated that she was not feeling well, and she is hopeful to find answers, but she has struggled with terrible migraines for a long time. She reported that oxygen therapy was tried today, but it did not improve her symptoms. She stated that she would prefer to be home, but is happy to meet with the neurologist on Sunday. Throughout the conversation she had difficulty with speech and her eyes would remain closed for long periods of time. She was very pleasant and attempted to stay engaged through the conversation. CM will continue to follow. ADVANCE DIRECTIVES:: None on file. Has patient been provided with information about the portal?: No Did the patient sign up for the portal?: No CODE STATUS:: Full Code INSURANCE COVERAGE / FINANCIAL ISSUES:: [facility] CURRENT HOME/COMMUNITY SERVICES/EQUIPMENT:: Carlee currently does not have services in the community or equipment. PRIMARY CARE PHYSICIAN:: Zaheer Fox POTENTIAL DISCHARGE NEEDS:: Evaluations for further needs, follow up appointments PATIENT/FAMILY EDUCATION NEEDS:: Review discharge instructions regarding activity levels and medications, discussion of self care needs including ask me three ANTICIPATED BARRIERS TO DISCHARGE:: None identified at this time. TRANSPORTATION:: Anticipate Carlee will be driven home via private vehicle by family. PLAN:: Anticipate Carlee will return home when medically cleared. No anticipated services upon discharge. She will follow up with her PCP and discharge plan of care, as recommended. She will be driven home by family via private vehicle. CM will continue to follow and support discharge planning considerations.
[2019-11-08] MEDS: MAGNESIUM SULFATE 1 GM/100 ML BAG IVPB (14:15)
[2019-11-08] MEDS: Ketorolac 30 MG/ML VIAL IVP ×2 (14:15→21:53)
[2019-11-08] MEDS: Atorvastatin 40 MG TAB PO (20:25)
[2019-11-08] MEDS: Enoxaparin 40 MG/0.4 ML SYR SC (21:52)
[2019-11-08] MEDS: Normal Saline Flush 10 ML SYR IVP (21:54)
[2019-11-09] VITALS (8 sets, daily range): BP systolic 108–152; BP diastolic 71–101; PULSE 52–71; RESP 16–20; TEMP 36.4–37.1; O2SAT 93–100
[2019-11-09] MEDS: Ketorolac 30 MG/ML VIAL IVP ×3 (05:23→20:05)
[2019-11-09] MEDS: Lactated Ringers 1,000 ML 100 ML IV (05:55)
[2019-11-09] MEDS: Aspirin 81 MG CHEW PO (08:20)
[2019-11-09] MEDS: Acetaminophen 325 MG TAB 650 MG PO ×2 (08:20→18:24)
[2019-11-09] MEDS: Pantoprazole 40 MG TABCR PO (08:20)
[2019-11-09] MEDS: Citalopram 20 MG TAB PO (08:20)
[2019-11-09] MEDS: Magnesium Oxide 400 MG TAB 800 MG PO (08:21)
--- NOTE | 2019-11-09 10:22 | PT.INTREAT ---
Date of service: 11/09/19 Time of Service: 10:22 PT Notes Visit Reasons: HEADACHE RIGHT HEMIPLEGIA 11/09/2019 SUBJECTIVE: Carlee stating that her head is pounding today. She thinks that she is moving her right arm with better ease. OBJECTIVE: Seated in her recliner. Agreeable to PT treatment. TRANSFERS Sit to stand: I Stand to sit: I GAIT Device: No device, pt pushes IV pole Weight bearing: Full Assist: SBA Distance: 200'+25' THEREX: Pt performs seated UE/LE strengthening. Instruct pt in AAROM for the right UE if needed with use of the left arm. She also performs stating balance exercises with good tolerance and minimal sway with small JAZZ activities. ASSESSMENT: No LOB with gait today or with small JAZZ activities. She is able to actively move the right arm although slow speed. 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 Encouraged pt to continue with active shoulder flexion and seated LAQ throughout the day. PLAN: Continue current POC. Treatment time: 25' [id number], [id number] Tamy Riggs PTA
[2019-11-09] MEDS: MAGNESIUM SULFATE 1 GM/100 ML BAG IVPB (11:14)
--- NOTE | 2019-11-09 13:00 | DI.US_ITS ---
APPROVED REPORT EXAM: Comprehensive 2D, Doppler, and color-flow Echocardiogram Patient Location: In-Patient Room/Bed: 214A Indications: Possiblle CVA Conclusion Left Ventricle : The left ventricle is normal size. The left ventricular systolic function is normal . The left ventricular ejection fraction is within the normal range. There is normal left ventricula r wall thickness. There is normal LV segmental wall motion. Diastolic function is indeterminate. LVE F is 60-64%. Right Ventricle : The right ventricle is normal size. The right ventricular systolic function is norm al. Atria : The left atrium size is normal. The right atrium size is normal. There was no ASD/PFO by col or Doppler. Bubble study was not performed. Valves: There are no more dynamically significant valvular lesions Great Vessels : IVC is normal in size and collapses >50% with inspiration. There was no evidence of a cardiovascular source of emboli. If suspicion remains high would suggest JUAN M or surface study with bubbles. There is no prior echocardiogram available for comparison. Wall motion Left Ventricle The left ventricle is normal size. The left ventricular systolic function is normal. The left ventric ular ejection fraction is within the normal range. There is normal left ventricular wall thickness. T here is normal LV segmental wall motion. Diastolic function is indeterminate. LVEF is 60-64%. Right Ventricle The right ventricle is normal size. The right ventricular systolic function is normal. Atria The left atrium size is normal. The right atrium size is normal. Aortic Valve The aortic valve is normal in structure. Aortic valve is trileaflet. There is no aortic valvular sten osis. Trace aortic regurgitation. Mitral Valve The mitral valve is normal in structure. No evidence of mitral valve stenosis. Trace mitral regurgita tion. Tricuspid Valve The tricuspid valve is normal in structure. There is no tricuspid valve stenosis. Trace tricuspid reg urgitation. Pulmonic Valve The pulmonary valve is normal in structure. Trace pulmonic regurgitation. Great Vessels The aortic root is normal in size. The ascending aorta is normal in size. IVC is normal in size and c ollapses >50% with inspiration. Pericardium There is no pericardial effusion. 2D Dimensions IVSD d PLAX 0.98 cm F: 0.6-1.0 LV Vol A2C d MOD 85.9 mL LVPW d PLAX 0.96 cm F: 0.6 - 1.0 LV Vol A4C d MOD 111.5 mL LVID d PLAX 4.61 cm F: 3.8 - 5.2 LA vol/ BSA A2C s A-L 22.5 mL/m2 LVDs 2.90 cm F: 2.2 - 3.5 LA vol/ BSA A4C s A-L 39.7 mL/m2 Ao Root d 2.72 cm F: 2.7 - 3.3 LA Vol/ BSA Biplane s A-L 31.1 mL/m2 RA Area A4C 20.08 cm2 LA Area A4C s MOD 24.93 cm2 RA Vol/ BSA A4C s A-L 27.2 mL/m2 LA Area A2C s MOD 18.05 cm2 Ao Asc Diam d 3.51 cm F: 2.3 - 3.1 LV EF A4C MOD 63.4 % LV EF Teichholz 66.6 % LV EF A2C MOD 64.4 % LVEF (Munoz's) 64.56 % F: 54 - 74 LV EF Biplane MOD 64.6 % LV Volume 72.47 mL F: 46 - 106 LV Volume Index 32.64 mL/m2 F: 29 - 61 LV Vol Biplane MOD 100.0 mL FS 36.70 % LV Diastology MV E' medial 0.085 (>0.07 m/s) E/A Ratio 1.4 LV E/e MED 13.40 (<14) MV E Vmax 1.14 (0.4-1.3 m/s) MV E' lateral 0.079 (>0.1 m/s) MV A Vmax 0.80 (0.4-1.3 m/s) LV E/e LAT 14.40 (<14) MV E/A Ratio 1.40 MV E/E' medial 13.44 MV E/E' lateral 14.41 Aortic Valve LVOT Area 2.78 cm2 AoV Area Vmax 1.81 cm2 LVOT Vmax 1.22 m/s AoV Area/ BSA (Vmax) 0.81 cm2/m2 LVOT Mean Khang. 0.77 m/s AMANDA Mean Khang. 1.69 cm2 LVOT Peak Grad 5.9 mmHg AMANDA Mean Khang. Index 0.76 cm2/m2 LVOT Mean Grad 2.9 mmHg LVOT VTI 0.323 m LVOT Diam s 1.85 cm (M/F) 1.5-2.5 AoV Vmax 1.87 (0.5-1.3 m/s) Velocity Ratio 0.65 AoV Mean Khang. 1.27 m/s AoV Peak Grad 14.0 mmHg LVOT SV 89.52 mL AoV Mean Grad 7.3 (<5 mmHg) AoV VTI 0.456 (0.18-0.25 m) AoV Area VTI 1.96 (2.5-4.5 cm2) AoV Area/ BSA (VTI) 0.88 cm/m2 Mitral Valve MV DT 232 (160-240 msec) MV PHT 67 msec MV Area PHT 3.27 cm2 Pulmonary Valve PV Vmax 0.87 (0.5-1.5 m/s) RVOT Peak Gr. 2.15 mmHg PV Peak Grad 3.0 mmHg RVOT Mean Gr. 1.25 mmHg PV Mean Grad 1.9 mmHg RVOT VTI 0.198 m PV VTI 0.259 m RVOT Vmax 0.73 m/s Tricuspid Valve TR Peak Grad 26.5 mmHg TR Vmax 2.57 m/s RA Pressure 3.00 mmHg RVSP (TR) 29.5 mmHg
--- NOTE | 2019-11-09 13:35 | W.PM.PROGNOT ---
Date of Service Date of service: 11/09/19 Time of Service: 13:35 Assessment and Plan Assessment and plan (1) Migraine headache: Status: Chronic Assessment and plan: Acute on chronic. Per patient/family, ongoing for about 3 weeks. Could be related to poor sleep/untreated GLORIA. Similar sx seen a year ago at [facility]. Continue toradol; bolus of magnesium sulfate really helped today's migraine as well. Provide prn antiemetics. Long-lasting migraines can be associated with CVA from prolonged vasospasm and can be associated with PFO's. Await MRI brain, echo with bubble study, neurology consultation. (2) Right hemiplegia: Status: Resolved Assessment and plan: These sx were also seen at [facility] 1 year ago and were felt to be due to a functional/conversion d/o and CBT was recommended. The patient is aware of emotional origin of her somatic symptoms and will follow up with outpatient mental health for CBT. Continue working with PT/OT. (3) Type 2 diabetes mellitus: Status: Acute Assessment and plan: Current A1C of 5.5 does not support this diagnosis. (4) Hyperlipidemia: Status: Acute Assessment and plan: Continue atorvastatin 40 mg PO Qhs. (5) GERD (gastroesophageal reflux disease): Status: Chronic Assessment and plan: Continue protonix. (6) Depression: Status: Chronic Assessment and plan: Agree that current presentation may be triggered by underlying grief/depression. Continue citalopram. Recommend outpatient mental health follow up. (7) Chest discomfort: Status: Resolved Assessment and plan: Await echo results. Low suspicion for ACS. Could also be a part of conversion d/o. Monitor on tele. Continue PPI (8) DVT prophylaxis: Status: Acute Assessment and plan: lovenox SC (9) Discharge planning issues: Status: Acute Assessment and plan: Full code Anticipate discharge home tomorrow post neurology consultation. Subjective Subjective Interval history since last seen: The patient's headache had improved this morning, and the weakness/numbness in her RUE/RLE has also improved, to the point that she was able to ambulate without an assistive device. Numbness has not completely resolved, per patient. However, shortly after passing near the room where her had in March, the patient reported an excruciating, 20/10 L-sided headache with photophobia and was taken back to her room. After about 5 minutes of simply sitting in the dark, the headache improved to 9/10. The patient denied dizziness, chest pain, shortness of breath, nausea. I spoke with the patient in presence of her two daughters about the fact that emotional triggers can cause migraines, but that her body/brain is also choosing to process emotional information in shape of physical symptoms and that CBT would be strongly recommended. She is interested in names of therapists for follow up with whom she could work on it. Endorses difficulty sleeping. We talked about following up with sleep clinic and trying melatonin tonight. We also talked about how lack of sleep can contribute to headaches/migraines. Exam Narrative Exam Narrative: General: Pleasant obese female, sitting in a chair, improved R facial droop, 5/5 strength in BUE/BLE. No dysarthria/stuttering; fluent speech. HEENT: EOMI, MMM Heart: RRR, no m/r/g Lungs: CTAB Abdomen: soft, nontender, nondistended Extremities: no e/c/c BLE's Objective Objective Clinical Data: Vital Signs Temperature 37.1 C 11/09/19 10:45 Temperature Source Temporal Artery Scan 11/09/19 10:45 Pulse 59 L 11/09/19 10:45 Pulse Rhythm Regular 11/09/19 04:30 Pulse 60 11/07/19 20:40 Respiratory Rate 20 11/09/19 10:45 Respiratory Effort Non-Labored 11/09/19 04:30 Respiratory Depth Normal 11/09/19 04:30 Respiratory Pattern Normal 11/09/19 04:30 Blood Pressure 117/80 11/09/19 10:45 Blood Pressure Mean 92 11/07/19 18:28 Blood Pressure Position Sitting 11/07/19 17:40 Pulse Oximetry 100 11/09/19 10:45 Oxygen Delivery Method Room Air 11/09/19 10:30 Oxygen Flow Rate 0 11/09/19 10:30 Pain Level 9 11/09/19 10:45 Comment 11/08/19 13:48 Intake & Output 11/08/19 11/09/19 11/09/19 23:59 11:59 23:59 Intake Total 1238.333 / 2848.333 1481.667 / 1481.667 Output Total 550 / 550 Balance 1238.333 / 2848.333 931.667 / 931.667 Intake: IV 8.333 / 7513.520 8382.667 / 1481.667 Oral 240 / 850 Output: Urine 550 / 550 Other: Urine Color Yellow Pale Urine Appearance Clear Clear Urine Odor Normal Voiding Methods Toilet Toilet Laboratory Results WBC 4.49 k/cumm (4.4-10.8) 11/08/19 06:42 RBC 4.27 m/cumm (4.00-5.20) 11/08/19 06:42 Hgb 12.7 g/dL (12.0-15.5) 11/08/19 06:42 Hct 38.2 % (36.0-46.0) 11/08/19 06:42 MCV 89.5 fL (80-95) 11/08/19 06:42 MCH 29.7 pg (27.0-33.0) 11/08/19 06:42 MCHC 33.2 g/dL (32.0-36.0) 11/08/19 06:42 RDW 12.9 % (11.7-14.6) 11/08/19 06:42 Plt Count 248 x1000/uL (130-400) 11/08/19 06:42 MPV 9.1 fL (8.0-11.0) 11/08/19 06:42 Immature Gran % 0.0 % 11/07/19 17:35 Neutrophils % 58.8 11/07/19 17:35 Lymphocytes % 30.9 11/07/19 17:35 Monocytes % 7.2 11/07/19 17:35 Eosinophils % 2.7 11/07/19 17:35 Basophils % 0.4 11/07/19 17:35 Absolute Neutrophils 3.09 k/cumm (1.2-6.7) 11/07/19 17:35 Absolute Lymphocytes 1.62 k/cumm (1.2-3.4) 11/07/19 17:35 Absolute Monocytes 0.38 k/cumm (0.11-0.7) 11/07/19 17:35 Absolute Eosinophils 0.14 k/cumm (0.0-0.7) 11/07/19 17:35 Absolute Basophils 0.02 k/cumm (0.0-0.2) 11/07/19 17:35 Sodium 139 mmol/L (136-145) 11/08/19 06:42 Potassium 4.1 mmol/L (3.5-5.1) 11/08/19 06:42 Chloride 105 mmol/L (98-107) 11/08/19 06:42 Carbon Dioxide 29.1 mmol/L (21.0-32.0) 11/08/19 06:42 Anion Gap 4.9 mmol/L (3-11) 11/08/19 06:42 BUN 23 mg/dL (7-18) H 11/08/19 06:42 Creatinine 1.11 mg/dL (0.55-1.02) H 11/08/19 06:42 Estimated GFR/1.73 m2 51.42 (mL/min/1.73m2) 11/08/19 06:42 Glucose 93 mg/dL (74-106) 11/08/19 06:42 Hemoglobin A1c 5.5 % (3.8-5.6) 11/08/19 06:42 Calcium 8.6 mg/dL (8.5-10.1) 11/08/19 06:42 Magnesium 2.1 mg/dL (1.8-2.4) 11/08/19 06:42 Total Bilirubin 0.4 mg/dL (0.2-1.0) 11/07/19 17:35 AST 17 U/L (15-37) 11/07/19 17:35 ALT 34 U/L (14-59) 11/07/19 17:35 Alkaline Phosphatase 84 U/L (46-116) 11/07/19 17:35 Troponin I < 0.05 ng/Ml (<0.06) 11/07/19 17:35 Total Protein 6.9 g/dL (6.4-8.2) 11/07/19 17:35 Albumin 3.6 g/dL (3.4-5.0) 11/07/19 17:35 Triglycerides 140 mg/dL (<150) 11/08/19 06:42 Total Cholesterol 268 mg/dL (<200) H 11/08/19 06:42 LDL Cholesterol, Calc 207 mg/dL (<100) H 11/08/19 06:42 HDL Cholesterol 33 mg/dL (40-60) L 11/08/19 06:42 Urine Color Yellow (Yellow) 11/07/19 19:20 Urine Clarity Clear (Clear) 11/07/19 19:20 Urine pH 6.5 (5-8) 11/07/19 19:20 Ur Specific [place] <= 1.005 (1.005-1.025) 11/07/19 19:20 Urine Protein Negative mg/dL (Negative) 11/07/19 19: Urine Ketones Negative mg/dL (Negative) 11/07/19 19: Urine Blood Trace-intact (Negative) H 11/07/19 19:20 Urine Nitrite Negative (Negative) 11/07/19 19: Urine Bilirubin Negative (Negative) 11/07/19 19: Urine Urobilinogen 0.2 EU/dL (Up TO 0.2) 11/07/19 19:20 Ur Leukocyte Esterase Negative (Negative) 11/07/19 19:20 Urine RBC 0-2 HPF (0-2) 11/07/19 19:20 Urine WBC 0-2 HPF (0-5) 11/07/19 19:20 Ur Epithelial Cells Moderate HPF (Negative) 11/07/19 19:20 Urine Crystals Negative HPF (Negative) 11/07/19 19:20 Urine Bacteria Negative HPF (Negative) 11/07/19 19:20 Urine Casts Negative LPF (Negative) 11/07/19 19: Urine Mucus Negative (Negative) 11/07/19 19:20 Ur Culture Indicated? No/sq. contamination 11/07/19 19:20 Urine Glucose Negative mg/dL (Negative) 11/07/19:
[2019-11-09] MEDS: Docusate Sodium 100 MG CAP PO (14:03)
[2019-11-09] MEDS: Normal Saline Flush 10 ML SYR IVP ×2 (14:05→20:06)
--- NOTE | 2019-11-09 19:35 | PDOC.CMPRO ---
- If Service Date Differs Date of service: 11/09/19 Time of Service: 19:35 Care Management Progress Note S/O: Cralee was sitting up in her chair when CM met with her. She reported that her provider discussed the connection between her migraines and mental health today. She acknowledges that she has not had enough time to properly process her grief, as it has only been seven months since her , and he was her everything. She reported that she currently goes to a grief support group that meets once a month, and she stated that it has helped her get out of the house and it helps to have other people to talk with who can relate to her grief. She expressed concern with her children not understanding that her grief is real and that although it has been several months, she has still not adjusted to living on her own without her partner of 35 years. CM will provide additional information regarding local providers for cognitive behavioral therapy, as well as education for her family around the grief process. CM will continue to follow. A: Carlee is a 54 year old female admitted to [facility] on 11/07/19 for headache right hemiplegia. P: Anticipate Carlee will return home when medically cleared. CM will fax a referral to [facility] for insurance support, and will provide resources for local therapists. She will be driven home via private vehicle by family. She will follow up with her PCP. She will also have a referral for a new sleep study to re evaluate her GLORIA. CM will continue to provide support to Carlee and her family with discharge planning considerations.
[2019-11-09] MEDS: Atorvastatin 40 MG TAB PO (20:05)
[2019-11-09] MEDS: Melatonin 3 MG TAB PO (21:05)
[2019-11-09] MEDS: Enoxaparin 40 MG/0.4 ML SYR SC (21:05)
[2019-11-10 00:14] VITALS: BP 111/73; PULSE 57; RESP 18; TEMP 36.2; O2SAT 97
[2019-11-10 05:45] VITALS: BP 126/85; PULSE 64; RESP 20; TEMP 36.7; O2SAT 98
[2019-11-10] MEDS: Ketorolac 30 MG/ML VIAL IVP ×2 (05:47→11:34)
[2019-11-10] MEDS: Normal Saline Flush 10 ML SYR IVP ×2 (05:48→10:56)
[2019-11-10] MEDS: Acetaminophen 325 MG TAB 650 MG PO ×2 (05:48→10:56)
[2019-11-10 06:55] LABS: Anion Gap 7.3 mmol/L (3-11); BUN 13 mg/dL (7-18); CO2 28.7 mmol/L (21.0-32.0); CREATININE 0.97 mg/dL (0.55-1.02); Calcium 8.3 mg/dL (8.5-10.1); Chloride 106 mmol/L (98-107); Glucose 93 mg/dL (74-106); Potassium 3.9 mmol/L (3.5-5.1); Sodium 142 mmol/L (136-145)
[2019-11-10 07:41] VITALS: BP 132/82; PULSE 61; RESP 17; TEMP 36.8; O2SAT 97
--- NOTE | 2019-11-10 08:22 | OTIE_ITS ---
Occupational Therapy Notes Inpatient Occupational Therapy Evaluation Date: 11/10/19 Referring Doctor: Yana aWde MD OT Orders: Non-Urgent: Limited Ability Precautions: Fall, Standard PATIENT PROFILE/ADMITTING DIAGNOSIS: Pt is a 54 year old female who presented to the ER on 11/07/19 with c/o headache with hemiplegia. She was admitted to [facility] the following dx including migraine, (R) hemiplegia, Type II DM, hyperlipidemia, GERD, Depression, chest discomfort. 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 She states that she does have children who live locally and are close by as well as a sister who states that she is willing to come and stay with her. Pt states that she was (I) at her baseline level of function. She has 3 steps in with a landing and then one step into the house. She does not use an assistive device for functional mobility unless she feels unstable and then she uses a cane. 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 Pt stat es that she has a hard time getting in and out of her tub shower and reports that she has fallen due to this. Otherwise pt notes that she has a basement but this has a chairlift. Equipment owned/DME: Chairlift, cane, grab bars SUBJECTIVE: Pt was sitting in bed when OT arrived. She was agreeable to OT session and notes that she is going on week 3 of a migraine that just wont go away. She reports that she does feel that she is (I) in aspects of ADLs/IADLs. OBJECTIVE: General Observation: Pleasant and answers questions appropriately. IV (L) UE not connected. Slow speech which could be due to pts hx of CVA. Mental Status: A&Ox4 Pain: no c/o pain except headache pain at 5/10 ROM: RUE AROM WNL L UE AROM WNL STRENGTH: RUE Shoulder flexion 3+/5, bicep/tricep 3+/5, wrist extensors 4/5, wrist flexors 4/5, janitorial account manager 3+/5 symmetrically LUE Shoulder flexion 4/5, bicep/tricep 4/5, wrist extensors 4/5, wrist flexors 4/5, janitorial account manager 3+/5 symmetrically FUNCTIONAL MOBILITY/ADLS: Transfers w/o (A) device Supine-sit (I) Sit-supine (I) Sit-Stand (I) Stand-sit (I) Bed-Bathroom (S) Bathroom-Chair (S) BATHING Standing at sink Bathing UE (I) with (I) set up at sink Bathing LE (I) (B) LE, abdomen and [place] area with min vc for hand support otherwise (I) OT educates pt on use of shower bench at home to increase her safety awareness and general bathing routine completion. Pt is receptive to this. DRESSING Standing at sink Dressing UE (I) don and doffing [facility] gown Dressing LE Sitting on side of bed with leg to core (I) don and doffing (B) socks GROOMING Standing at sink (I) with washing hands. BALANCE: Static sitting Normal Dynamic Sitting Normal Static Standing Normal Dynamic Standing Normal SPECIAL TESTS: Daily Activity Limitations Standardized Measure [facility] AM -PAC ?6 clicks? Daily Activity Inpatient Short Form: Raw score: 23 Standardized score: 51.12 CMS score: 15.86% INFORMED CONSENT/EDUCATION: Pt instructed in purpose of OT Consult and plan of care. ASSESSMENT: Patient is a 54-year-old female referred to occupational therapy services with diagnosis of migraine, (R) hemiplegia, Type II DM, hyperlipidemia, GERD, Depression, chest discomfort. Pt functionally is able to perform her ADL s/IADLs at her baseline level of function. She has ideal standing and sitting tolerance. She states that her functional deficits include getting in and out of the tub, OT feels that a shower bench would present pt with increased safety awareness. Otherwise with discussion with pt, pt is at her baseline level of function. Pt states that she is not agreeable to SNF and her sister will be able to (A) her as needed. Pt is receptive to HHPT/OT which OT feels that pt may benefit just for assessment of pts functional (I) in her home setting including her bathing routine as pt has reported decreased safety awareness during this. Patient is assessed as a Low 91578 complexity based on the following: History: See Above Examination: See Above Presentation: Evolving Decision Making: AMPAC score 23 GOALS N/A PLAN OF CARE/TREATMENT PLAN: OT consult only. DISCHARGE RECOMMENDATIONS Home with HH services. OT recommends pt have a shower bench with back for pt to increase her (I) in her bathing routine and decrease her fall risk during her ADLs/IADLs. Pt has a small shower and would need this to fit into her tub. TREATMENT TIME/MINUTES/CODES 98272, [id number], 30 minutes (07:10) Tonya Buckner OTR/[facility]
--- NOTE | 2019-11-10 09:14 | DI.MRI_ITS ---
EXAM: MR BRAIN WO CLINICAL HISTORY: cva vs atypical migraine. TECHNIQUE: Multiplanar multisequence MRI was performed. COMPARISON: CT BRAIN NECK CTA from 11/07/2019 FINDINGS: There is mild frontal atrophy. A right posterior fossa craniotomy is noted. Deformity of the latera l aspect of the cerebellum on the right. No acute infarct, hemorrhage or mass is seen. Ventricles a re normal in size. There are minimal tiny high signal lesions in the white matter. The orbits and p ituitary are unremarkable. A small right mastoid air cell effusion is seen. The vascular flow voids appear intact. IMPRESSION: Old right cerebellar encephalomalacia and adjacent craniotomy defect. No acute abnormality is seen. DATA REPOSITORY:
[2019-11-10] MEDS: Aspirin 81 MG CHEW PO (09:31)
[2019-11-10] MEDS: Citalopram 20 MG TAB PO (09:31)
[2019-11-10] MEDS: Pantoprazole 40 MG TABCR PO (09:31)
[2019-11-10 11:05] VITALS: BP 123/83; PULSE 62; RESP 17; TEMP 36.9; O2SAT 98
--- NOTE | 2019-11-10 12:51 | PT.INTREAT ---
Date of service: 11/10/19 Time of Service: 11:17 PT Notes Visit Reasons: HEADACHE RIGHT HEMIPLEGIA Inpatient Physical Therapy Treatment Note [facility] Date: 11/10/2019 PRECAUTIONS: Standard. Fall. Activity as tolerated. SUBJECTIVE: Pt reports that she is still able to notice a decrease in strength on her right side. She notes that her daughter lives across the street and is able to help her. Notes that she often feels off balance due to her migraines and uses a cane once in a while or ?surfs? along the furniture in her house. OBJECTIVE: IV line detach from IV pole in R UE. PAIN: 0/10 BED MOBILITY/TRANSFERS Rolling L/R: NT Supine-sit: NT Sit-supine: NT Sit-stand: independent Stand-sit: independent Bed-Chair: independent Chair-bed: independent GAIT: Pt was able to ambulate 200 feet, full weightbearing, without the use of an assistive device. Supervision provided by PT and PT student. Reciprocal, step through gait pattern. When asked she notes an increase in her migraine. STAIRS: Pt was able to ascend and descend the 4-inch step x3 + 6-inch step x 2 using with no upper extremity support. Sideways step to pattern with descending steps and [id number] with ascending. Supervision provided by PT and PT student. ASSESSMENT: Pt demonstrated improvements in ambulation as she did not require the use of an assistive device or IV pole for safe ambulation. She was able to tolerate negotiation of the steps without upper extremity support and no losses of balance. She continues to demonstrate improvements in her balance. Pt would continue to benefit from skilled physical therapy 1x/day. PLAN: Continue with established POC. Discharge to home. TREATMENT CODE/TIME: 79375 x 16 minutes beginning at 11:17 A.M. Daysi Zavala SPT Doctor of Physical Therapy Student [facility] Supervision provided by Grace Rosales PT, DPT, CLT [facility] [place], [place]
--- NOTE | 2019-11-10 13:59 | DSE_ITS ---
Date of service: 11/10/19 Time of Service: 13:59 DS: Diagnosis Discharge Diagnosis (1) Migraine headache: Status: Chronic (2) Right hemiplegia: Status: Resolved (3) Type 2 diabetes mellitus: Status: Acute (4) Hyperlipidemia: Status: Acute (5) GERD (gastroesophageal reflux disease): Status: Chronic (6) Depression: Status: Chronic (7) Chest discomfort: Status: Resolved (8) Conversion disorder: Status: Acute (9) Mild pulmonary hypertension: Status: Acute (10) GLORIA (obstructive sleep apnea): Status: Chronic Asessment and Plan: untreated (11) Obesity, morbid, BMI 40.0-49.9: Status: Acute Discharge Plan Disposition Patient Disposition: HOME Condition: Stable Discharge Details Chief Complaint: CVA/TIA Clinical Impression: Acute CVA (cerebrovascular accident) Reason For Visit: HEADACHE RIGHT HEMIPLEGIA Admit Date/Time: 11/07/19 20:20 Admit Provider: Bishop Fisher Attending Provider: Bishop Fisher Primary Care Provider: Zaheer Fox ED Provider: Agueda Mckeon [facility] Hospital Course: Ms Rangel is a 54 year old female with h/o complex migraines, possible cerebellar infarct circa 10 years ago, functional neurological/conversion disorder, obstructive sleep apnea, noncompliant with prescription mouthpiece, h/o vestibular schwannoma s/p multiple surgeries, and depression, who was admitted to [facility] hospitalist service on 11/07/2019 with a three week-long migraine headache, accompanied by R facial droop, dysarthria, right upper and right lower extremity numbness and weakness. The patient had an almost identical presentation at [facility] neurology office 1 year ago, where her RUE/RLE symptoms we re deemed disconnected from her migraine symptoms and were attributed to functional neurological/conversion disorder with recommendation for outpatient CBT. For migraines, the patient was recommended treatment with NSAIDs, IVF, compazine/zofran, and magnesium sulfate, which is what we essentially did for Ms Rangel on this admission with significant clinical improvement. She did have a noncontrast MRI of her brain, ruling out any new infarct, given the prolonged nature of this migraine. She will see her neurologist as an outpatient later this week, but is stable for discharge home today. Of note, the patient was not compliant with her medical therapy at home, and her prescriptions are being renewed on discharge. Additionally, the patient is being given resources for CBT as outpatient. Finally, she must follow up with sleep clinic to discuss other modalities for treatment of her obstructive sleep apnea, which is also probably a factor in her headaches. She is medically stable for discharge home today. Care for patient on day of discharge as well as completion of her discharge paperwork took 45 minutes. Home Meds and New Rx's Prescriptions: New atorvastatin [Lipitor] 40 mg Tablet 40 mg PO QPM Qty: 30 RF: 0 pantoprazole 40 mg Tablet,Delayed Release (Dr/Ec) 40 mg PO DAILY@0730 Qty: 30 RF: 0 docusate sodium [Colace] 100 mg Capsule 100 mg PO BID Qty: 60 RF: 0 melatonin 3 mg Tablet Extended Release 3 mg PO HS Qty: 30 RF: 0 prochlorperazine maleate [Compazine] 10 mg tablet 10 mg PO Q8H PRN (Reason: nausea/migraines) Qty: 10 RF: 0 Continued Lesli Hips 1 tab PO BID RF: 0 aspirin 81 MG tablet,chewable 81 mg PO DAILY RF: 0 vitamin B complex 1 EACH capsule 2 ea PO BID RF: 0 ammonium lactate 12 % Cream 1 applic TOPICAL BID RF: 0 ketoconazole 2 % Cream 1 applic TOPICAL DAILY RF: 0 Lac-Hydrin Five 5 % Lotion 1 applic TOPICAL DAILY RF: 0 citalopram 20 mg Tablet 20 mg PO DAILY Qty: 30 RF: 0 magnesium oxide [MagOx] 400 MG tablet 2 tab PO BID Qty: 120 RF: 12 ibuprofen 600 mg tablet 600 mg PO QID Qty: 60 RF: 0 Discharge Instructions Instructions: Migraine Headache (DC), Depression (DC), Cognitive Behavioral Therapy (DC) Additional Instructions: Follow up with your PCP and your neurologist within 1 week. Return to the hospital with migraine unmanageable at home, fever, bleeding, chest pain, or shortness of breath. Follow up with sleep clinic for your sleep apnea. Follow up with psychotherapy for cognitive behavioral therapy. Referrals: SLEEP CLINIC,[facility] [OTHER] - Zaheer Fox [Primary Care Provider] - Eliud Jacobo [ NON-[facility] STAFF PHYSICIAN] - Activity:: Activity as Tolerated Equipment/Supplies:: No Equipment Needed Diet:: As Tolerated Discharge Orders Discharge Orders: Discharge Order (Routine); Ordered 03/02/20 Ordered By: Yana Wade DS: Summary Status at Discharge Functional status at discharge: independent ambulation Overall status at discharge: patient is back to baseline Mental Status: mental status grossly normal Speech and Movement: speech and movement normal Mood: congruent mood Affect: normal affect Exam Narrative Exam Narrative: General: Pleasant obese female, sitting in a chair, no facial droop, only occasional stuttering heard, but otherwise fluent speech, 5/5 strength in BUE/BLE. HEENT: EOMI, MMM Heart: RRR, no m/r/g Lungs: CTAB Abdomen: soft, nontender, nondistended Extremities: no e/c/c BLE's Psych Mental Status: mental status grossly normal Speech and Movement: speech and movement normal Mood: congruent mood Affect: normal affect DS: Data Vitals/I&O Vitals and I&O: Vital Signs Temperature 36.8 C 11/10/19 07:41 Temperature Source Tympanic 11/10/19 07:41 Pulse 61 11/10/19 07:41 Pulse Rhythm Regular 11/10/19 11:14 Pulse 60 11/07/19 20:40 Respiratory Rate 17 11/10/19 07:41 Respiratory Effort Non-Labored 11/10/19 11:14 Respiratory Depth Normal 11/10/19 11:14 Respiratory Pattern Normal 11/10/19 11:14 Blood Pressure 132/82 11/10/19 07:41 Blood Pressure Mean 92 11/07/19 18:28 Blood Pressure Position Sitting 11/07/19 17:40 Pulse Oximetry 97 11/10/19 07:41 Oxygen Delivery Method Room Air 11/10/19 07:41 Oxygen Flow Rate 0 11/10/19 07:41 Pain Level 3 11/10/19 11:34 Comment 11/08/19 13:48 Intake & Output 11/09/19 11/10/19 11/10/19 23:59 11:59 23:59 Intake Total 360 / 1841.667 Output Total 1999 1000 / 1000 Balance -1640 / -1408.333 -990 / -990 Intake: IV Oral 360 / 360 Output: Urine 1999 / 3249 1000 / 1000 Other: Urine Color Yellow Yellow Urine Appearance Clear Clear Urine Odor Normal Normal Comment Total of 2 voids. Voiding Methods Toilet Toilet Data Completed and Pending Completed studies during hospitalization [Text1]: CT head without contrast 11/07/2019: 1. No acute intracranial abnormality. 2. Small right mastoid air cell effusion. CTA head with contrast 11/07/2019: No arterial occlusion or significant stenosis. No aneurysm. CTA neck with contrast 11/07/2019: No arterial occlusion or hemodynamically significant stenosis. No dissection or pseudoaneurysm. CXR 11/07/2019: Hazy opacity in the left midlung zone which may represent atelectasis versus pneumonia. Correlate with clinical findings. (Clinically, atelectasis) 2D echo 11/09/2019: Left Ventricle : The left ventricle is normal size. The left ventricular systolic function is normal. The left ventricular ejection fraction is within the normal range. There is normal left ventricular wall thickness. There is normal LV segmental wall motion. Diastolic function is indeterminate. LVEF is 60-64%. Right Ventricle : The right ventricle is normal size. The right ventricular systolic function is normal. Atria : The left atrium size is normal. The right atrium size is normal. There was no ASD/PFO by color Doppler. Bubble study was not performed. Valves: There are no more dynamically significant valvular lesions Great Vessels : IVC is normal in size and collapses >50% with inspiration. RVSP: 29.5 mmHg. There was no evidence of a cardiovascular source of emboli. If suspicion remains high would suggest JUAN M or surface study with bubbles. There is no prior echocardiogram available for comparison. MR Brain w/o contrast 11/10/2019: Old right cerebellar encephalomalacia and adjacent craniotomy defect. No acute abnormality is seen. 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 GERD (gastroesophageal reflux disease) (Chronic) High cholesterol (Chronic) Hyperlipidemia (Acute) Migraine (Chronic) Obesity, morbid, BMI 40.0-49.9 (Acute) GLORIA (obstructive sleep apnea) (Chronic) Type 2 diabetes mellitus (Acute) Surgical History Biopsy of breast NEG RIGHT section X 2 Cholecystectomy Endometrial Ablation (~2002) EXCISION,SKIN TAG (09/15/14) [facility]WC MASTOIDECTOMY (~1995) X 2 Social History Smoking/Tobacco Use Status: Never Alcohol Intake: current Alcohol Intake frequency: holidays/special occasions only Drug use: Occasionally Substance use type: marijuana Details: uses edibles for migraines Do you feel safe at home: Yes
[2019-11-10 14:39] VITALS: PULSE 59
--- NOTE | 2019-11-10 14:40 | W.SPEECHNOTE ---
Date of service: 11/17/19 Time of Service: 14:40 Speech Therapy Visit Note Note: Swallow Screen Completed. Pt has no h/o dysphagia. Pt is managing regular texture solids and thin liquids without difficulty. Pt does not c/o globus sensation or other difficulty swallowing. Pt is being discharged home today and was instructed to f/u with her PCP if future concerns develop. 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
--- NOTE | 2019-11-10 14:44 | CHAPLAIN ---
Carlee was sitting in her chair when I visited. She talked about the series of deaths, her mom's, a brother in law, her father and a close friend, the she experienced before her seven months ago. They have been nearly 35 years, so met him when she was 19 or so. Carlee talked about dramatically her life has changed without her and how difficult it is to be alone. We talked about a new abnormal that is difficult to get use to. She said her children are concerned that she is not moving forward as she should. Carlee attends a monthly bereavement groups offered by [facility] and she said it has been helpful. She also recently took a five week stained glass class and created a design with two hearts, representing her and her . Carlee also has some financial concerns and is trying to get approved for disability.
--- NOTE | 2019-11-10 15:17 | CMDISCH_ITS ---
- If Service Date Differs Date of service: 11/10/19 Time of Service: 15:17 LACE Index Scoring Tool - Questions: Length of Stay (in days): 4 - 6 Acuity (Admit via E.D.?): Yes Comorbidities: Cerebrovascular Disease, Diabetes w/o Complication E.D. Visits: 1 - Answers: Total Score: 10 Risk of Readmission: High Risk Care Management Discharge Reason for Hospitalization: Headache right hemiplegia Discharge Plan: Carlee will return home with no additional services. CM offered resources for a local grief support group who gathers in [place]. CM also offered a list of cognitive behavioral therapists in [facility] for [place] to contact and begin treatment with. Carlee will be driven home via private vehicle with family. She will follow up with Neurology, a local Psychiatrist, and her PCP, as recommended. She is agreeable to the plan. Patient/Family Education Needs: Review discharge instructions regarding activity levels and medications, discussion of self care needs including ask me three
== END 2019-11-10 15:32 | disposition home or self-care (01) | DRG 880 ==
LOC: ER 20:50 → MS 21:03
PROVIDERS: Internal Medicine; Admitting Provider Internal Medicine; Emergency Provider Physician Assistant; PCP Neuromusculoskeletal Medicine & OMM; Visit Provider Internal Medicine
DX: F44.4 Conversion disorder with motor symptom or deficit (principal); G81.91 Hemiplegia, unspecified affecting right dominant side; Z68.42 Body mass index [BMI] 45.0-49.9, adult; G43.909 Migraine, unspecified, not intractable, without status migrainosus; R47.1 Dysarthria and anarthria; I27.20 Pulmonary hypertension, unspecified; E11.9 Type 2 diabetes mellitus without complications; E78.5 Hyperlipidemia, unspecified; K21.9 Gastro-esophageal reflux disease without esophagitis; F32.9 Major depressive disorder, single episode, unspecified; R29.810 Facial weakness; J45.909 Unspecified asthma, uncomplicated; E78.00 Pure hypercholesterolemia, unspecified; G47.33 Obstructive sleep apnea (adult) (pediatric); R07.89 Other chest pain; E66.01 Morbid (severe) obesity due to excess calories; Z91.14 Patient's other noncompliance with medication regimen
CPT/HCPCS: 36415; 36416; 70496; 70498; 80048; 80053; 80061; 82962; 85027; 93005; 93306; 96360; 96361; 97110; 97162; 97165; 97530; 97535; 99223; 99232; 99239; 99285; J1650; NC; 70551; 71046; 81003; 81015; 83036; 83735; 84484; 85025; 93010; J1885; J3475; J3490; L3650

== ENCOUNTER 2020-09-17 19:52 | Emergency (ER) | payer MEDICARE, MEDICAID, SELFPAY ==
[2020-09-17 19:58] VITALS: BP 148/80; PULSE 81; RESP 16; TEMP 36.6; O2SAT 96
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
--- NOTE | 2020-09-17 20:15 | RT.EKG_ITS ---
APPROVED REPORT Exam: Resting ECG Patient Location: E HR:70 bpm ECG Measurements Heart Rate 70 AXIS AZ 163 P 31 QRSd 85 QRS 15 QT 415 T 28 QTc 448 Conclusion Sinus rhythm...normal P axis, V-rate 60- 99 Consider anterior infarct...Q >30mS in V2-V5 Normal Helm Low Voltage Poor R wave progression NS ST flattening
--- NOTE | 2020-09-17 20:15 | DI.CT_ITS ---
EXAM: CT HEAD WO CLINICAL HISTORY: MOYER. TECHNIQUE: Imaging Protocol: Axial computed tomography images with coronal and sagittal reformatted images were created and reviewed COMPARISON: 07 Nov 2019 FINDINGS: Ventricles and Extra axial spaces: Normal in size and morphology for the patient's age. Hemorrhage: None. Cerebral parenchyma: Normal. Midline shift: None. Brainstem/Cerebellum: Stable area of encephalomalacia in the right lateral cerebellum. Calvarium: Old right occipital craniotomy Visualized Paranasal sinuses/Mastoids: Clear. Soft Tissues: Unremarkable. IMPRESSION: No acute intracranial process. RADIATION DOSE DELIVERED: 781.95mGy.cm Total DLP DATA REPOSITORY: All CT scans at this facility are submitted to the National Radiology Data Registry (NRDR) Dose Index Registry (DIR) with the [employer] (A[employer]). RADIATION OPTIMIZATION: All CT scans at this facility use at least one of these dose optimization te chniques: automated exposure control; mA and/or kV adjustment per patient size (includes targeted exa ms where dose is matched to clinical indication); or iterative reconstruction.
[2020-09-17] MEDS: diphenhydrAMINE 50 MG/ML VIAL 25 MG IVP (20:43)
[2020-09-17] MEDS: Prochlorperazine 10 MG/2 ML VIAL IVP (20:45)
[2020-09-17] MEDS: Dexamethasone 10 MG/ML VIAL IVP (20:46)
[2020-09-17] MEDS: Normal Saline 1,000 ML 150 ML IV (20:47)
[2020-09-17 20:56] LABS: Abs Immature Grans 0.02 10^3/uL (0.0-0.06); Absolute Basophil Count 0.03 10^3/uL (0.0-0.2); Absolute Eosinophil Count 0.11 10^3/uL (0.0-0.7); Absolute Lymphocyte Count 1.35 10^3/uL (1.2-3.4); Absolute Monocyte Count 0.48 10^3/uL (0.1-0.8); Absolute Neutrophil Count 3.94 10^3/uL (1.2-6.7); Basophils % 0.5; Eosinophils % 1.9; HGB 12.8 g/dL (11.2-15.7); Immature Grans % 0.3; Lymphocytes % 22.8; MCH 29.2 pg (27.0-33.0); MCHC 32.8 % (32.0-36.0); Monocytes % 8.1; Neutrophils % 66.4; Nucleated RBC 0 %; Platelet Count 241 10^3/uL (130-400); RBC 4.38 10^6/uL (3.93-5.22); RDW 12.8 % (11.7-14.6); RDW-SD 42.1 fL; WBC 5.93 10^3/uL (4.4-10.8)
[2020-09-17 21:09] LABS: ALT 38 U/L (14-59); AST 22 U/L (15-37); Albumin 3.4 g/dL (3.4-5.0); Alkaline Phosphatase 91 U/L (46-116); Anion Gap 5.8 mmol/L (3-11); BUN 15 mg/dL (7-18); Bilirubin, Total 0.4 mg/dL (0.2-1.0); CO2 28.2 mmol/L (21.0-32.0); CREATININE 0.99 mg/dL (0.55-1.02); Calcium 8.4 mg/dL (8.5-10.1); Chloride 105 mmol/L (98-107); Estimated GFR 58.45 (mL/min/1.73m2); Glucose 102 mg/dL (74-106); Potassium 4.1 mmol/L (3.5-5.1); Sodium 139 mmol/L (136-145); Total Protein 6.7 g/dL (6.4-8.2)
[2020-09-17 21:10] LABS: Prothrombin Time 9.7 sec (9.3-11.0)
--- NOTE | 2020-09-17 21:21 | DI.VRAD_ITS ---
PROCEDURE INFORMATION: Exam: CT Head Without Contrast Exam date and time: 09/17/2020 8:25 PM Age: 55 years old Clinical indication: Headache not specified; Patient HX: Headache x9 days, increasing pain today with visual chamges, blurry vision. No head trauma, no surgeries. TECHNIQUE: Imaging protocol: Computed tomography of the head without contrast. Radiation optimization: All CT scans at this facility use at least one of these dose optimization techniques: automated exposure control; mA and/or kV adjustment per patient size (includes targeted exams where dose is matched to clinical indication); or iterative reconstruction. COMPARISON: CT BRAIN NECK CTA 11/07/2019 6:00 PM FINDINGS: Brain: There is generalized atrophy. No acute hemorrhage. No mass effect or midline shift. No extra-axial collection. Stable encephalomalacia in the right cerebellum. Cerebral ventricles: No hydrocephalus. Bones/joints: Postsurgical changes in the right temporal bone and occipital bone. Paranasal sinuses: Visualized sinuses are unremarkable. No fluid levels. Mastoid air cells: Partial opacification of the right mastoid air cells. This is similar to prior. Soft tissues: Unremarkable. IMPRESSION: 1. No acute intracranial abnormality. 2. No significant change from the prior exam. Dictated and Authenticated by: Ousmane Reyna MD. Ordering:PURNIMA Romeo MD
[2020-09-17] MEDS: Ketorolac 30 MG/ML VIAL IVP (21:31)
[2020-09-17 22:01] VITALS: BP 140/82; PULSE 82; RESP 16; TEMP 36.6; O2SAT 96
== END 2020-09-17 21:55 | disposition home or self-care (01) ==
PROVIDERS: Emergency Provider Physician Assistant; PCP Neuromusculoskeletal Medicine & OMM
DX: G43.809 Other migraine, not intractable, without status migrainosus (principal); E11.9 Type 2 diabetes mellitus without complications
CPT/HCPCS: 36415; 80053; 93005; 96361; 96374; 96375; 99285; 70450; 85025; 85610; 85730; 93010; J0780; J1100; J1200; J1885

== ENCOUNTER 2020-12-07 15:58 | Outpatient (CLI) | payer MEDICARE, MEDICAID, SELFPAY ==
--- NOTE | 2020-12-07 14:15 | DI.RAD_ITS ---
EXAM: XR CERVICAL SPINE COMP 4-5V CLINICAL HISTORY: pain and numbness. TECHNIQUE: 2D digital imaging was performed. COMPARISON: No exams were available for comparison FINDINGS: BONES: No fracture or destructive lesion. Vertebral bodies are unremarkable. Facet joint hypertrophy is noted, greatest at C3-4. There is no significant neural foraminal narrowing. DISKS: Slight narrowing of the C3-4 and C4-5 disc spaces. The remaining intervertebral disc spaces a re maintained. ALIGNMENT: Cervical spinal alignment is within normal limits. The odontoid and atlantoaxial articulat ions are normal. SOFT TISSUE: Normal. The lung apices are clear. IMPRESSION: Mild degenerative disc changes and facet degenerative changes, greatest at C3-4 and C4-5. DATA REPOSITORY: RADIATION DOSE DELIVERED:
--- NOTE | 2020-12-07 14:15 | DI.RAD_ITS ---
EXAM: XR SHOULDER LT COMPLETE 2+V CLINICAL HISTORY: pain and numbnes. TECHNIQUE: 2D digital imaging was performed. COMPARISON: No exams were available for comparison FINDINGS: BONES: No acute fracture is present. No bony destructive lesion is seen. JOINTS: No dislocation present. No significant degenerative changes at the AC joint or glenohumeral joint. SOFT TISSUE: Normal. IMPRESSION: Unremarkable radiographs of the left shoulder. DATA REPOSITORY: RADIATION DOSE DELIVERED:
== END 2020-12-07 15:59 | disposition home or self-care (01) ==
LOC: DIORS 15:58
PROVIDERS: PCP Neuromusculoskeletal Medicine & OMM; Referring Provider Neuromusculoskeletal Medicine & OMM; Visit Provider Student in an Organized Health Care Education/Training Program
DX: M54.12 Radiculopathy, cervical region (principal); M75.52 Bursitis of left shoulder; M75.22 Bicipital tendinitis, left shoulder; E11.9 Type 2 diabetes mellitus without complications
CPT/HCPCS: 99203; 99213; 72050; 73030

== ENCOUNTER 2022-01-09 09:54 | Outpatient (REF) | payer MEDICARE, MEDICAID, SELFPAY ==
--- NOTE | 2022-01-09 09:00 | PAPFT_PTH ---
PATIENT: Carlee Rangel LOC: [facility] U#:[id number] AGE/SX: 56/F ROOM: RE01/09/[address]: IVONNE Brown : 1965 BED: DIS: 01/09/2022 SPEC #: [id number] RECD: 01/09/22 12:53 STATUS: ARMIDA REQ #: [id number] [place]: 01/09/22 09:[address]: Kaylee Beck DEPT: [facility] Cytology RECD BY: Janna Garrett ENTERED: 01/09/22 12:54 SP TYPE: PAPFT OTHR DR: Zaheer Fox Tissues: 1 - CX/ENDOCX FOR PAP SMEARS Procedures: PAP THIN PREP/UVM Screening HPV DNA PROBE Comments: [id number]
== END 2022-01-09 09:55 | disposition home or self-care (01) ==
LOC: LBN 09:54
PROVIDERS: PCP Neuromusculoskeletal Medicine & OMM; Visit Provider Nurse Practitioner Family
DX: Z12.4 Encounter for screening for malignant neoplasm of cervix (principal); Z11.51 Encounter for screening for human papillomavirus (HPV)
CPT/HCPCS: 88142; 87624

== ENCOUNTER 2022-01-10 00:33 | Outpatient (CLI) | payer MEDICARE, MEDICAID, SELFPAY ==
--- NOTE | 2022-01-10 10:15 | DI.MAMMO_ITS ---
Exam(s) MAMMO SCREENING EXAM: MAMMO SCREENING CLINICAL HISTORY: screening. TECHNIQUE: Bilateral full field digital CC and MLO mammographic images were obtained with 3D tomosyn thesis and utilizing computer aided detection (CAD). COMPARISON: Prior mammograms were reviewed, the most recent being November 2017. FINDINGS: There has been no significant change in appearance and distribution of the fibroglandular tissue most ly fatty in nature. There are no new spiculated masses nor malignant appearing microcalcification groups. There is no significant architectural distortion nor skin thickening-retraction. IMPRESSION: No radiographic evidence of malignancy. BI-RADS Category 1 - Negative Breast Density - Category A - Almost entirely fatty Breast density Category C or D implies that the patient has dense breast tissue. Dense breast tissue can make it harder to find cancer on a mammogram. Dense breast tissue is also associated with an incr eased risk of breast cancer. This information about the result of the mammogram report was provided to the patient to raise their awareness. Use this report when you speak with the patient about their risks for breast cancer, which includes their family history. At that time, you may recommend additional screening tests (Ultrasoun d or MRI) as these tests may add significant information. A negative radiographic report should not delay biopsy if a dominant or clinically suspicious mass is present. Up to ten percent of cancers are not identified on mammography. A negative report may reinforce clinical impression. Adenosis and dense breasts may obscure an underlying neoplasm. False positive reports average 6 to 10%. Patient will receive a letter notifying them of these results.
== END 2022-01-10 00:53 ==
PROVIDERS: PCP Neuromusculoskeletal Medicine & OMM; Visit Provider Nurse Practitioner Family
DX: Z12.31 Encounter for screening mammogram for malignant neoplasm of breast (principal)
CPT/HCPCS: 77063; 77067

== ENCOUNTER → 2022-03-21 10:19 | Outpatient (BNVA) | payer MEDICARE, MEDICAID, SELFPAY | PROVIDERS: PCP Neuromusculoskeletal Medicine & OMM; Referring Provider Neuromusculoskeletal Medicine & OMM; Visit Provider Psychiatry & Neurology Neurology | DX: G43.009 Migraine without aura, not intractable, without status migrainosus (principal); G43.109 Migraine with aura, not intractable, without status migrainosus; G47.33 Obstructive sleep apnea (adult) (pediatric); E11.9 Type 2 diabetes mellitus without complications; R26.89 Other abnormalities of gait and mobility; F44.7 Conversion disorder with mixed symptom presentation; F80.81 Childhood onset fluency disorder | CPT/HCPCS: 99215; G2212 ==

== ENCOUNTER 2022-04-12 12:13 | Outpatient (REF) | payer MEDICARE, MEDICAID, SELFPAY ==
--- NOTE | 2022-04-12 11:00 | ENDOMET_PTH ---
PATIENT: Carlee Rangel LOC: [facility] U#:[id number] AGE/SX: 57/F ROOM: RE04/12/[address]: Criss Peck DO : 1965 BED: DIS: 04/12/2022 SPEC #: [id number] RECD: 04/12/22 12:46 STATUS: ARMIDA REQ #: [id number] [place]: 04/12/22 11:[address]: Criss Peck DEPT: Surgical Specimen RECD BY: Janna Garrett ENTERED: 04/12/22 12:46 SP TYPE: Endomet OTHR DR: Zaheer Fox Tissues: 1 - ENDOMETRIUM BX/OSIRIS Procedures: GROSS AND MICRO LEVEL 4 Comments: [id number]
--- OUTSIDE RECORDS SUMMARY | 2022-04-12 12:19 | XMS_ITS | Encounter Summary ---
:1965 Author Organization [facility] [place] [address] Care Team Providers Name Role Phone Rhianna Cox MD Primary Care Provider Encounter Details Date Type Department Care Team Description 02/13/2015 Hospital Encounter MRI at [facility], DR BRAD[facility] Eliud Jacobo MD [address] [place] [address] [place] [address] [place] [address] Social History Tobacco Use Types Packs/Day Years Used Date Never Smoker Smokeless Tobacco: Never Used Alcohol Use Standard Drinks/Week Comments No 0 (1 standard drink = 0.6 oz pure alcoho l) Sex Assigned at Date Recorded Not on file documented as of this encounter Medications at Time of Discharge Medication Sig Dispensed Refills Start Date End Date b complex vitamins tablet Take 2 tablets by 0 mouth daily. aspirin 81 mg tablet Take 81 mg by mouth 0 daily. Once every day magnesium oxide (MAG-OX) Take 2 tablets by 0 400 mg tablet mouth daily. butalbital-acetaminophen- Take 2 tablets by 0 11/11/2015 caffeine (FIORICET, mouth every 4 hours ESGIC) per tablet as needed. May take up to 4 times daily. naproxen sodium (ANAPROX) Take 550 mg by mouth 0 08/26/2019 550 mg tablet 2 times daily as needed. pravastatin (PRAVACHOL) Take 40 mg by mouth 0 08/26/2019 40 mg tablet daily. albuterol (PROVENTIL Inhale 2 puffs into 0 08/26/2019 HFA;VENTOLIN HFA) 90 the lungs every 4 mcg/actuation inhaler hours as needed. Cholecalciferol, Vitamin Take 2,000 Int'l 0 08/26/2019 D3, (VITAMIN D-3) 2,000 Units by mouth 2 unit Cap times daily. amlodipine (NORVASC) 2.5 Take 1 tablet by 30 tablet 11 06/2011/11/2015 mg tablet mouth daily. documented as of this encounter Plan of Treatment Not on filedocumented as of this encounter Procedures Procedure Name Priority Date/Time Associated Diagnosis Comme nts MRI LUMBAR SPINE Routine 02/13/2015 12:31 PM Resu lts for this WITHOUT CONTRAST EDT procedure a re in the results section. documented in this encounter Results MRI lumbar spine without contrast (02/13/2015 12:31 PM EDT) Anatomical Region Laterality Modality L-spine Magnetic Resonance Specimen (Source) Anatomical Collection Method Collection Time Re ceived Time Location / / Volume Laterality 02/13/2015 12:31 PM EDT Impressions 02/13/2015 9:34 PM EDT IMPRESSION: ?Mild lumbar spondylosis and lower lumbar facet arthropathy. Mild to moderate right L3-L4 neural foraminal and subarti cular recess stenosis. Comment: The following findings are so c ommon in people without low back pain that while we report their presence, the y must be interpreted with caution and in context of the clinical situation (Re ace- Jamesk et al, Spine 2001). Findings: (Prevalence in patients withou t low back pain), disc degeneration (decreased T2 signal, height loss, bulge ) (91%), disc T2-signal loss (83%), disc height loss (56%), disc bulge (64%), dis c protrusion (32%), annular fissure (38%). Narrative 02/13/2015 9:34 PM EDT EXAMINATION: MR Lumbar Spine WO CLINICAL HISTORY: R SCIATICA R/O L4-5, L 5-S1 HNP R TECHNIQUE: MRI of the lumbar spine was p erformed without contrast, routine radiculopathy protocol. ? COMPARISON: MRI of the lumbar spine 2009 FINDINGS: Mild exaggerated lumbar lordos is. No spondylolisthesis. The regional bone marrow is unchanged without focal l esion. The vertebral body heights are maintained. The conus is normal in signa l and caliber, terminating at approximately L1-L2. Visualized retroper itoneal contents are unremarkable. Dependent edema in the posterior soft ti ssues. Findings at individual levels: T12-L1: ??Minimal disc bulge which inden ts the ventral thecal sac. No significant spinal canal or neural foraminal stenosi s. L1-L2: ??No significant spinal canal or neural foraminal stenosis. ? L2-L3: ??Disc desiccation and mild facet arthropathy. Mild right subarticular recess narrowing. No significant central canal or neural foraminal stenosis. ? L3-L4: Progressive disc desiccation. Sim ilar mild facet arthropathy, right greater than left. Mild to moderate righ t subarticular recess stenosis. No significant central canal stenosis. ??Mi ld to moderate right and mild left neural foraminal stenosis. ? L4-L5: ??No significant spinal canal heydi nosis. ??Mild facet arthropathy contributes to mild right neural foramin al stenosis. ? L5-S1: ??No significant spinal canal or neural foraminal stenosis. ? Procedure Note Corinne Swain MD - 02/13/2015Form atting of this note might be different from the original. EXAMINATION: MR Lumbar Spine WO CLINICAL HISTORY: R SCIATICA R/O L4-5, L 5-S1 HNP R TECHNIQUE: MRI of the lumbar spine was p erformed without contrast, routine radiculopathy protocol. COMPARISON: MRI of the lumbar spine 2009 FINDINGS: Mild exaggerated lumbar lordos is. No spondylolisthesis. The regional bone marrow is unchanged without focal l esion. The vertebral body heights are maintained. The conus is normal in signa l and caliber, terminating at approximately L1-L2. Visualized retroper itoneal contents are unremarkable. Dependent edema in the posterior soft ti ssues. Findings at individual levels: T12-L1: Minimal disc bulge which indents the ventral thecal sac. No significant spinal canal or neural foraminal stenosi s. L1-L2: No significant spinal canal or ne ural foraminal stenosis. L2-L3: Disc desiccation and mild facet a rthropathy. Mild right subarticular recess narrowing. No significant central canal or neural foraminal stenosis. L3-L4: Progressive disc desiccation. Sim ilar mild facet arthropathy, right greater than left. Mild to moderate righ t subarticular recess stenosis. No significant central canal stenosis. Mild to moderate right and mild left neural foraminal stenosis. L4-L5: No significant spinal canal steno sis. Mild facet arthropathy contributes to mild right neural foramin al stenosis. L5-S1: No significant spinal canal or ne ural foraminal stenosis. IMPRESSION IMPRESSION: Mild lumbar spondylosis and lower lumba r facet arthropathy. Mild to moderate right L3-L4 neural foraminal and subarti cular recess stenosis. Comment: The following findings are so c ommon in people without low back pain that while we report their presence, the y must be interpreted with caution and in context of the clinical situation (Re ace- Jamesk et al, Spine 2001). Findings: (Prevalence in patients withou t low back pain), disc degeneration (decreased T2 signal, height loss, bulge ) (91%), disc T2-signal loss (83%), disc height loss (56%), disc bulge (64%), dis c protrusion (32%), annular fissure (38%). 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
--- OUTSIDE RECORDS SUMMARY | 2022-04-12 12:19 | XMS_ITS | Encounter Summary ---
:1965 Author Organization [facility] Address [address] [place] [address] Care Team Providers Name Role Phone Rhianna Cox MD Primary Care Provider Reason for Visit Reason Comments Facial Pain Encounter Details Date Type Department Care Team Description 01/08/2018 Emergency Emergency Department Ana Luisa Hurtado sherri otitis media, unspecified otitis media type; [facility] Acute laryngitis; [facility] Sensation of fullness in lef t ear; [place] [address] Nasal congestion [phone] Social History Tobacco Use Types Packs/Day Years Used Date Never Smoker Smokeless Tobacco: Never Used Alcohol Use Standard Drinks/Week Comments No 0 (1 standard drink = 0.6 oz pure alcoho l) Sex Assigned at Date Recorded Not on file documented as of this encounter Last Filed Vital Signs Vital Sign Reading Time Taken Comments Blood Pressure 157/100 01/08/2018 10:29 AM EDT Pulse 76 01/08/2018 10:29 AM EDT Temperature 36.5 ??C (97.7 ??F) 01/08/2018 10:29 AM EDT Respiratory Rate 16 01/08/2018 10:29 AM EDT Oxygen Saturation 98% 01/08/2018 10:29 AM EDT Inhaled Oxygen Concentration - - Weight - - Height - - Body Mass Index - - documented in this encounter Discharge Instructions Discharge InstructionsSchAndrew quezada PA - 01/08/2018 10:48 AM EDT Continue your current medications as prescribed Azithromycin as prescribed Conserve your voice to improve your laryngitis Salt water gargles as helpful Reevaluate with any worsening symptoms. AttachmentsThe following attachments cannot be sent through Care Everywhere. OTITIS MEDIA (GABONESE)LARYNGITIS (GABONESE)documented in this encounter Medications at Time of Discharge Medication Sig Dispensed Refills Start Date End Date b complex vitamins Take 2 tablets by 0 tablet mouth daily. aspirin 81 mg tablet Take 81 mg by mouth 0 daily. Once every day magnesium oxide (MAG-OX) Take 2 tablets by 0 400 mg tablet mouth daily. indomethacin (INDOCIN) Take 25 mg by mouth 0 25 mg Capsule as needed. Migraine headaches citalopram (CELEXA) 20 Take 40 mg by mouth 0 mg Tablet daily. naproxen sodium Take 550 mg by mouth 0 08/26/2019 (ANAPROX) 550 mg tablet 2 times daily as needed. pravastatin (PRAVACHOL) Take 40 mg by mouth 0 08/26/2019 40 mg tablet daily. albuterol (PROVENTIL Inhale 2 puffs into 0 08/26/2019 HFA;VENTOLIN HFA) 90 the lungs every 4 mcg/actuation inhaler hours as needed. azithromycin (ZITHROMAX) Take 2 tablets on the 6 tablet 0 01/08/2018 08/26/2019 250 mg Tablet first day, then 1 tablet each day for the next 4 days cholecalciferol, Vitamin Take by mouth daily. 0 08/26/2019 D3, 2,000 unit Capsule topiramate (TOPAMAX) 200 Take 200 mg by mouth 0 08/26/2019 mg Tablet 2 times daily. ranitidine (ZANTAC) 150 Take 150 mg by mouth 0 08/26/2019 mg Tablet 2 times daily. Gissel Take by mouth 2 times 0 Rjjz-Oyinghcl-Lyrislipz daily. Ac 1,000 mg Capsule Cholecalciferol, Vitamin Take 2,000 Int'l 0 08/26/2019 D3, (VITAMIN D-3) 2,000 Units by mouth 2 unit Cap times daily. documented as of this encounter ED Notes Andrew Mendoza PA - 01/08/2018 10:45 AM EDT Chief Complaint Patient presents with ??? Facial Pain The history is provided by the patient. 52-year-old female comes in today for evaluation of laryngitis as well as bilateral ear discomfort and nasal congestion since Sunday. She has not had fevers or chills. Denies any cough. Denies body aches. She says both of her ears feel plugged and her left feels especially painful. She has been using o [id number] medications with minimal improvement. She denies any other associated symptoms at this time. Allergies Allergen Reactions ??? Codeine Phosphate Nausea And Vomiting Throat Swelling ??? Percocet [Oxycodone-Acetaminophen] Anaphylaxis ??? Adhesive Tape Rash Localized Reaction ??? Augmentin [Amoxicillin-Pot Clavulanate] Nausea And Vomiting and Rash ??? Divalproex Sodium Rash ??? Morphine Sulfate Nausea And Vomiting ??? Secobarbital Sodium Rash ??? Bacitracin Rash ??? Verapamil Tongue numb and tingly Review of Systems Constitutional: Negative for chills and fever. HENT: Positive for ear pain and voice change. Negative for sore throat and trouble swallowing. Respiratory: Negative for cough and shortness of breath. Gastrointestinal: Negative for nausea and vomiting. Genitourinary: Negative for dysuria, frequency and urgency. Musculoskeletal: Negative for back pain and myalgias. Skin: Negative for rash and wound. Neurological: Negative for headaches. Physical Exam Constitutional: She appears well-developed and well-nourished. HENT: Head: Normocephalic and atraumatic. Right Ear: Tympanic membrane and external ear normal. Left Ear: Hearing normal. Tympanic membrane is erythematous and retracted. Tympanic membrane is not perforated. A middle ear effusion is present. Nose: Mucosal edema and rhinorrhea present. Right sinus exhibits maxillary sinus tenderness. Left sinus exhibits maxillary sinus tenderness. Mouth/Throat: Oropharynx is clear and moist. Eyes: Conjunctivae are normal. Neck: Normal range of motion. Neck supple. Cardiovascular: Normal rate, regular rhythm and normal heart sounds. Pulmonary/Chest: Effort normal and breath sounds normal. Lymphadenopathy: She has no cervical adenopathy. Neurological: She is alert. Skin: Skin is warm and dry. Psychiatric: She has a normal mood and affect. Her behavior is normal. Nursing note and vitals reviewed. Procedures MDM ED Course: The patient was evaluated as above. She has findings consistent with left otitis media and possible early sinusitis. She will be started on azithromycin. Salt water gargles were also encouraged. Tylenol or ibuprofen as helpful though she can use her Indocin instead of ibuprofen. ED Course Andrew Mendoza PA 01/08/18 1047 documented in this encounter Miscellaneous Notes ED Triage - Lucero Torres RN - 01/08/2018 10:26 AM EDT Pt presents to ED reporting fullness in her ears and facial pressure since Sunday. Also reports somenasal congestion. Denies fever. Skin pwd. Resps equal and non labored. 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
--- OUTSIDE RECORDS SUMMARY | 2022-04-12 12:19 | XMS_ITS | Encounter Summary ---
:1965 Author Organization [facility] Address [address] [place] [address] Care Team Providers Name Role Phone Rhianna Cox MD Primary Care Provider Encounter Details Date Type Department Care Team Description 11/06/2018 Emergency Emergency Department Cespedes MD [address] [place] [address] [place] [address] Migraine without status En Moeller MD [facility] [place] [address] migrainosus, [facility] un[place] [address] Social History Tobacco Use Types Packs/Day Years Used Date Never Smoker Smokeless Tobacco: Never Used Alcohol Use Standard Drinks/Week Comments No 0 (1 standard drink = 0.6 oz pure alcoho l) Sex Assigned at Date Recorded Not on file documented as of this encounter Last Filed Vital Signs Vital Sign Reading Time Taken Comments Blood Pressure 154/86 11/06/2018 4:15 PM EST Pulse 74 11/06/2018 4:15 PM EST Temperature 36.8 ??C (98.2 ??F) 11/06/2018 3:37 PM EST Respiratory Rate 12 11/06/2018 4:15 PM EST Oxygen Saturation 97% 11/06/2018 4:15 PM EST Inhaled Oxygen Concentration - - Weight 136.1 kg (300 lb) 11/06/2018 10:49 AM EST Height - - Body Mass Index 51.49 11/11/2015 8:36 AM EST documented in this encounter Discharge Instructions Discharge InstructionsEn Pitts MD - 11/06/2018 4:25 PM EST You were seen in the emergency department for a facial droop and the neurologist evaluated you and felt this is a complex migraine. Your imaging was unremarkable. They do not recommend any additional imaging or admission. They recommend symptom medic treatment for your migraine. You should follow up with your primary care provider within 1 week for re- evaluation and to make sure you are improving. Please call your doctor to set up an appointment. Please return to the emergency department if you develop any fevers, chest pain, shortness of breath, feeling like you are going to pass out or passing out, unusual weakness or numbness, blurred or double vision, headache, or have worsening of your current symptoms or develop new symptoms that are concerning to you and require immediate attention. AttachmentsThe following attachments cannot be sent through Care Everywhere. Migraine Headache (Citizen Of [place])documented in this encounter Medications at Time of [...] Gissel Take by mouth 2 times 0 [id number] daily. Ac 1,000 mg Capsule Cholecalciferol, Vitamin Take 2,000 Int'l 0 08/26/2019 D3, (VITAMIN D-3) 2,000 Units by mouth 2 unit Cap times daily. documented as of this encounter ED Notes En Pitts MD - 11/06/2018 4:23 PM EST Emergency department attending follow-up note: I received signout from Dr. Martin. The patient has a history of complex migraine with facial droop. She was evaluated by neurology and her migraine was treated. I reevaluated her at 4:20 PM. Her symptoms were improving and she and her felt comfortable going home. We reviewed return precautions and she will follow-up with her doctor. MD Gisselle Palacios Matthew A, MD 11/06/18 1624 Geneva Montano RN - 11/06/2018 1:14 PM EST Pt to CT. Mitchell Martin MD - 11/06/2018 11:05 AM EST ED NOTE Carlee Rangel is an 53 y.o. female who presents to the ED with: No chief complaint on file. I saw this patient 11/06/2018 at ~11:05 AM HPI Carlee Rangel is a 53 y.o. female with PMH significant for stroke roughly 9 years ago, complex migraines with right facial droop in the past who presents to the Emergency Department with complains of right-sided facial droop, intermittent right upper extremity and hand weakness, right facial numbness, and right-sided headache especially with eye movements. She does states she has an aura and does havesome pain over the right side of her face mostly in the jaw area, but this does not feel typical of her complex migraines in the past. The symptoms started last Sunday, roughly 6 days ago. She thought it may be related to her migraines but this is acting differently and is lasting much longer. She hasbeen taking ibuprofen and Tylenol at home without significant relief. She has become nervous becausethe facial droop has worsened on the right side and she feels her left eye is working normally but her right eye is difficult to close and her vision is blurry mostly at the medial aspect of the right eye. She is concerned that she might have a stroke since she had symptoms very similar to this 9 years ago and was diagnosed with a stroke on MRI. She does see an outpatient neurologist. She is on baby aspirin daily. Patient denies weakness in her lower extremity's. Denies weakness in her left upper extremity. Denies numbness in her upper or lower extremities. Denies confusion. She is able to walk around and does not have any balance issues, but does states that she feels off due to the facial symptoms. Review of Symptoms: General: No fever, chills, malaise HEENT: No eye pain, sore throat Neck: No neck pain Pulm: No cough, SOB Card: No chest pain Abd: No abd pain, vomiting : No dysuria, urgency Skin: No rashes, wounds Neuro: Positive headache, right eye visual field deficit, right facial droop, right facial numbness,right hand weakness MSK: No back pain, joint pain Psych: No confusion Physical Exam: Nursing notes and vitals were reviewed Most Recent Vitals: 11/06/18 1049 BP: (!) 173/91 Pulse: 80 Resp: 16 Temp: 36.5 ??C (97.7 ??F) SpO2: 100% I have reviewed the vital signs, which demonstrate: Elevated blood pressure General: Obese female lying in bed no acute distress HEENT: PERRL, extraocular exam was limited due to discomfort but she is Neck: Supple, no midline ttp Pulm: Clear to auscultation bilaterally with no w/r/r Cardiac: normal S1S2 with no m/g/r, normal pulses throughout Abd: soft, ND, NT without rebound/guarding Skin: No rashes or petechiae Neuro: A&O x 3, mild dysarthric speech with no expressive aphasia. There is obvious facial droopto the right face involving the eyes and mouth and patient is unable to fully close the right eye. Forehead does appear symmetric., visual cramer shows a questionable homonymous hemianopsia but lookingmedial but no involvement of the left eye. Moving all extremities appropriately and has 5 out of 5 strength upper and lower extremities with the exception of the right hand brain picker where there is 4-5 strength. Patient does complain of numbness when sensation to light touch is performed over the right side of face in the V1 through 3 distribution. Sensation is intact to light touch in the upper and lowerextremities bilaterally. Negative pronator drift. Normal finger to nose and rapid alternating hand movements. MSK: No lower extremity swelling or tenderness Psych: Normal mood, thought and affect ED Course: Medications, allergies and past medical history reviewed Medications/fluids Administered: Tylenol, 1 L normal saline Labwork was reviewed by me: Recent Results (from the past 24 hour(s)) Basic Metabolic Panel (non-fasting) Result Value Ref Range Glucose Lvl 96 65 - 199 mg/dL BUN 12 8 - 18 mg/dL Creatinine 0.87 0.70 - 1.20 mg/dL Sodium 141 135 - 145 mmol/L Potassium 4.3 3.5 - 5.0 mmol/L Chloride 104 98 - 107 mmol/L CO2 25 22 - 31 mmol/L Anion Gap 12 5 - 15 mmol/L Calcium 9.1 8.5 - 10.5 mg/dL eGFR 77 >=60 mL/min/1.73 m?? eGFR 89 >=60 mL/min/1.73 m?? Troponin Result Value Ref Range Troponin-T <0.01 0.00 - 0.00 ng/mL Hemogram Result Value Ref Range WBC 4.9 4.0 - 9.5 x10(3)/mcL RBC 5.19 4.00 - 5.21 x10(6)/mcL Hemoglobin 14.9 11.7 - 15.5 gm/dL Hematocrit 45.2 35.7 - 45.8 % MCV 87.1 82.6 - 94.4 fL MCH 28.7 27.1 - 32.0 pg MCHC 33.0 31.7 - 35.0 gm/dL Platelets 276 145 - 357 x10(3)/mcL RDWSD 40.1 37.0 - 46.0 fL RDWCV 12.7 11.5 - 14.1 % MPV 9.2 7.6 - 12.9 fL nRBC % Auto 0.0 % nRBC Abs Auto 0.000 0.000 - 0.000 x10(3)/mcL Differential, Automated Result Value Ref Range Neutrophils % 64.2 % Neutr Abs (ANC) 3.17 1.70 - 6.10 x10(3)/mcL Lymphocytes % 25.1 % Lymphocytes Abs 1.2 0.9 - 3.2 x10(3)/mcL Monocytes % 7.1 % Monocyte Abs 0.4 0.3 - 0.9 x10(3)/mcL Eosinophils % 2.6 % Eosinophils Abs 0.1 0.0 - 0.4 x10(3)/mcL Basophils % 0.8 % Basophils Abs 0.0 0.0 - 0.1 x10(3)/mcL Immature Gran % 0.20 % Josephine Gran Abs 0.01 0.00 - 0.04 x10(3)/mcL Gold Tube HOLD Result Value Ref Range Gold Hold Sample in lab. Urinalysis with reflex Culture Result Value Ref Range Glucose UA Negative Negative mg/dL Protein UA Negative Negative mg/dL Bilirubin UA Negative Negative mg/dL Urobilinogen UA Normal Normal mg/dL pH UA 7.0 5.0 - 8.0 Blood UA Negative Negative mg/dL Ketones UA Negative Negative mg/dL Nitrite UA Negative Negative Leukocytes UA Negative Negative mcL Appearance UA Clear Clear Spec [place] UA 1.011 1.002 - 1.030 Color UA Yellow Yellow Culture Reflexed No Prothrombin Time Result Value Ref Range PT 12.1 9.4 - 12.5 sec INR 1.1 APTT Result Value Ref Range PTT 34 25 - 37 sec EKG was reviewed by me: NSR with no acute ST or T wave changes Imaging reviewed by me: CT head: No acute intracranial process MDM: Carlee Rangel is a 53 y.o. female who presents to the Emergency Department with complains of right-sided facial droop, right-sided facial numbness, mild dysarthric speech, right hand weakness. Patient has a complex history including complex migraines which may be contributing to her symptoms, and does report a history of stroke though I cannot see this in her past scans. This could definitely be a stroke. She is not in the TPA window as this has been going on for several days. I also considered Marquez's palsy, though the patient has forehead sparing and can wrinkle the forehead making this less likely. EKG, labs, UA, and CT head were ordered per stroke workup. Neurology was consulted. Patient treated with Tylenol and 1 L of normal saline was offered other medication for headache but did not wish to have it as this is mild. I do envision she will likely need to come in for further management and potential MRI to look for stroke if her imaging workup are unremarkable. Labs, EKG, and CT imaging are unremarkable. UA with no signs of infection. Troponin negative. Patient was evaluated by the neurology team at roughly 2:30 PM and we are awaiting their recommendations. Neuro evaluated the patient and the recommendations at 3 PM include symptomatic treatment for her complex migraine as a feel the symptoms are all related to a complex migraine in the do not have concerns for acute stroke. They recommended headache treatment with magnesium, Toradol, Compazine and reassessment. I will sign the patient out to the ED evening team with these medications ordered and patient will need symptomatic treatments and if she improves, outpatient management will be deemed safe. Diagnosis: Facial droop related to complex migraine Plan: -Currently getting IV magnesium, Toradol, Compazine -Reassess for symptomatic management -Sign out to ED evening team with anticipation for outpatient management pending symptomatic management Mitchell Martin MD 11/06/18 1501 documented in this encounter Miscellaneous Notes Consult Note - Li Beauchamp MD - 11/06/2018 1:46 PM EST Neurology Inpatient Consult Note Patient name:Carlee Rangel Date of :1965 Admit date: 11/06/2018 CC: Right Facial Droop We have been asked to see Carlee Rangel by Dr. Martin for right sided facial droop. HPI: Carlee Rangel is a 53 y.o. female with a PMH of stroke (reportedly 9 years ago, on daily aspirin), complex migraines (with right facial droop aura) who presents with right-sided facial droop. For the past 5 days she has had a right sided facial droop, which seems to have worsened over the past 2 days. She notes that she can't blink her right eye as often. There were no preceding symptoms toher facial droop. There is also some tearing and redness / swelling of her right face. The facial droop is associated with right ear pain, which has been constant for the past several days. She also notes numbness and tingling of the right arm, which has also been constant since on the onset of her right facial droop. She reports some pain on up gaze but no pain on down or lateral gaze. She denies any preceding symptoms to these events. Specifically no rashes, fevers, cold/flu like illnesses. She specifically denies a history of shingles but did have chicken pox as a child. She has a history of complex migraines with associated right facial droop. Migraines are usually preceded by an aura. She reports nearly 10 years of migraines, occurring approximately monthly. Per chart review, there are multiple ED presentations for similar complaints dating back at least 12 years. Headaches are sometimes associated with facial swelling, redness, and tearing on the right side. She recalls being told she had a stroke in the past but does not recall a specific event in the past. On review, notes from 10 years ago note a possible small cerebellar infarct seen on MRI but can find no other documented event. 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 Has had increased stress over the past year with the of her father, best friend, and . 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 Past Medical History: No past medical history on file. No past surgical history on file. Medications: Aspirin 81 mg daily B complex Vit D3 Magnesium oxide 400 mg daily Indomethacin as needed for migraine Naproxen PRN Pravastatin 40 mg daily Allergies: Allergies Allergen Reactions ??? Codeine Phosphate Nausea And Vomiting Throat Swelling ??? Percocet [Oxycodone-Acetaminophen] Anaphylaxis ??? Adhesive Tape Rash Localized Reaction ??? Augmentin [Amoxicillin-Pot Clavulanate] Nausea And Vomiting and Rash ??? Divalproex Sodium Rash ??? Morphine Sulfate Nausea And Vomiting ??? Secobarbital Sodium Rash ??? Bacitracin Rash ??? Verapamil Tongue numb and tingly Family history: No family history on file. Social history: Social History Socioeconomic History ??? Marital status: Spouse name: Not on file ??? Number of children: Not on file ??? Years of education: Not on file ??? Highest education level: Not on file Social Needs ??? Financial resource strain: Not on file ??? Food insecurity - worry: Not on file ??? Food insecurity - inability: Not on file ??? Transportation needs - medical: Not on file ??? Transportation needs - non-medical: Not on file Occupational History ??? Not on file Tobacco Use ??? Smoking status: Never Smoker ??? Smokeless tobacco: Never Used Substance and Sexual Activity ??? Alcohol use: No ??? Drug use: Yes Types: Marijuana Comment: for migraines ??? Sexual activity: Not on file Comment: question deferred Other Topics Concern ??? Not on file Social History Narrative ??? Not on file Review of systems: Constitutional: No fevers or chills Eyes: No vision changes, no diplopia, no blurry vision ENT: No rhinorrhea or pharyngitis, no meningismus CV: No chest pain or palpitations Resp: No cough, no shortness of breath GI: No nausea, vomiting, diarrhea or constipation : No dysuria, no incontinence Heme: No bleeding or bruising Endo: No diabetes or thyroid disease Neuro: See HPI Psych: No depression, normal sleep [x] Review of systems otherwise negative Physical Exam: Most Recent Vitals: 11/06/18 1049 BP: (!) 173/91 Pulse: 80 Resp: 16 Temp: 36.5 ??C (97.7 ??F) SpO2: 100% General: alert, NAD HEENT: oral mucosa moist, no thrush, no carotid bruits, no thyromegaly, no lymphadenopathy Abd: soft, nontender, nondistended Ext: no edema, adequate pulses Neuro exam: MS: Awake, alert, oriented to person, place, year, month 3/3 Immediate, 3/3 Delayed recall Able to state months of year backwards, mimic complex hand gestures Language fluent, cooperative with neuro exam Mild dysarthria with intermittent stuttering speech Stuttering does not resolve with singing or speaking in concert with examiner Slow on reading phrases CN: Pupils 4mm ERRL, EOMI, visual cramer full to confrontation Right facial droop, reduced blink on right Right face appears more swollen and reddened than left Reduced sensation to light touch over right V1-V3 distribution Hearing intact to voice Palate elevates symmetrically, tongue protrudes midline SCM and trap strength intact Motor: Normal bulk and tone. 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) LE: 4/5 R, 5/5 L Hip flexion 4/5 R, 5/5 L Knee extension 4/5 R, 5/5 L Knee flexion 4/5 R, 5/5 L Foot dorsiflexion 4/5 R, 5/5 L Foot plantar flexion + Koenig's sign on right Sensation: Intact to light touch, temperature throughout Reflexes: DTRs 2+ R, 2+ L Biceps 2+ R, 2+ L Brachioradialis 2+ R, 2+ L Triceps 2+ R, 2+ L Patellar 2+ R, 2+ L Achilles tendon Babinski - R down, L down Coordination: Finger to nose slowed but intact, no dysmetria Heel-cantor intact on left, slowed but intact on right No tremor Gait: Did not assess NIH Stroke Scale: (bold applicable choices) NIH Stroke Scale at Admission: 1.a. Level of consciousness: 0-Alert 1-Not alert, but arousable with minimal stimulation 2-Not alert, requires repeat stimulation to attend 3-Coma 1.b. Ask patient the month and their age: 0-Answers both correctly 1-Answers one correctly 2-Both incorrect 1.c. Ask patient to open and close eyes: 0-Obeys both correctly 1-Obeys one correctly 2-Both incorrect 2. Best gaze (horizontal eye movement): 0-Normal 1-Partial gaze palsy 2-Forced deviation 3. Visual field testin-No visual field loss 1-Partial hemianopia 2-Complete hemianopia 3-Bilateral hemianopia (blind including cortical blindness) 4. Facial paresis (Ask patient to show teeth or raise eyebrows and close eyes tightly): 0-Normal symmetrical movement 1-Minor paralysis (flattened nasolabial fold, asymmetry on smiling) 2-Partial paralysis (total or near paralysis of lower face) 3-Complete paralysis of one or both sides (absence of facial movement in the upper and lower face) 5. Motor function right arm: 0-Normal (extends arm 90 degrees for 10 seconds without drift) 1-Drift 2-Some effort against gravity 3-No effort against gravity 4-No movement 9-Untestable (Joint fused or limb amputated) 5. Motor function- left arm: 0-Normal (extends arm 90 degrees for 10 seconds without drift) 1-Drift 2-Some effort against gravity 3-No effort against gravity (but baseline) 4-No movement 9-Untestable (Joint fused or limb amputated) 6. Motor function right le-Normal (extends leg 30 degrees for 5 seconds without drift) 1-Drift 2-Some effort against gravity 3-No effort against gravity 4-No movement 9-Untestable (Joint fused or limb amputated) 6. Motor function-left le-Normal (extends leg 30 degrees for 5 seconds without drift) 1-Drift 2-Some effort against gravity 3-No effort against gravity 4-No movement 9-Untestable (Joint fused or limb amputated) 7. Limb ataxia: 0-No ataxia 1-Present in one limb 2-Present in two limbs 8. Sensory (Use pinprick to test arms, legs, trunk and face compare side to side): 0-Normal 1-Mild to moderate decrease in sensation 2-Severe to total sensory loss 9. Best language (describe picture, name items, read sentences): 0-No aphasia 1-Mild to moderate aphasia 2-Severe aphasia 3-Mute 10. Dysarthria (read several words): 0-Normal articulation 1-Mild to moderate slurring of words 2-Near unintelligible or unable to speak 9-Intubated or other physical barrier 11. Extinction and inattention: 0-Normal 1-Inattention or extinction to bilateral simultaneous in one of the sensory modalities 2-Severe juve-inattention or juve-inattention to more than one modality TOTAL SCORE: 3 Labs: Recent Results (from the past 24 hour(s)) Basic Metabolic Panel (non-fasting) Result Value Ref Range Glucose Lvl 96 65 - 199 mg/dL BUN 12 8 - 18 mg/dL Creatinine 0.87 0.70 - 1.20 mg/dL Sodium 141 135 - 145 mmol/L Potassium 4.3 3.5 - 5.0 mmol/L Chloride 104 98 - 107 mmol/L CO2 25 22 - 31 mmol/L Anion Gap 12 5 - 15 mmol/L Calcium 9.1 8.5 - 10.5 mg/dL eGFR 77 >=60 mL/min/1.73 m?? eGFR 89 >=60 mL/min/1.73 m?? Troponin Result Value Ref Range Troponin-T <0.01 0.00 - 0.00 ng/mL Hemogram Result Value Ref Range WBC 4.9 4.0 - 9.5 x10(3)/mcL RBC 5.19 4.00 - 5.21 x10(6)/mcL Hemoglobin 14.9 11.7 - 15.5 gm/dL Hematocrit 45.2 35.7 - 45.8 % MCV 87.1 82.6 - 94.4 fL MCH 28.7 27.1 - 32.0 pg MCHC 33.0 31.7 - 35.0 gm/dL Platelets 276 145 - 357 x10(3)/mcL RDWSD 40.1 37.0 - 46.0 fL RDWCV 12.7 11.5 - 14.1 % MPV 9.2 7.6 - 12.9 fL nRBC % Auto 0.0 % nRBC Abs Auto 0.000 0.000 - 0.000 x10(3)/mcL Differential, Automated Result Value Ref Range Neutrophils % 64.2 % Neutr Abs (ANC) 3.17 1.70 - 6.10 x10(3)/mcL Lymphocytes % 25.1 % Lymphocytes Abs 1.2 0.9 - 3.2 x10(3)/mcL Monocytes % 7.1 % Monocyte Abs 0.4 0.3 - 0.9 x10(3)/mcL Eosinophils % 2.6 % Eosinophils Abs 0.1 0.0 - 0.4 x10(3)/mcL Basophils % 0.8 % Basophils Abs 0.0 0.0 - 0.1 x10(3)/mcL Immature Gran % 0.20 % Josephine Gran Abs 0.01 0.00 - 0.04 x10(3)/mcL Gold Tube HOLD Result Value Ref Range Gold Hold Sample in lab. Urinalysis with reflex Culture Result Value Ref Range Glucose UA Negative Negative mg/dL Protein UA Negative Negative mg/dL Bilirubin UA Negative Negative mg/dL Urobilinogen UA Normal Normal mg/dL pH UA 7.0 5.0 - 8.0 Blood UA Negative Negative mg/dL Ketones UA Negative Negative mg/dL Nitrite UA Negative Negative Leukocytes UA Negative Negative mcL Appearance UA Clear Clear Spec [place] UA 1.011 1.002 - 1.030 Color UA Yellow Yellow Culture Reflexed No Prothrombin Time Result Value Ref Range PT 12.1 9.4 - 12.5 sec INR 1.1 APTT Result Value Ref Range PTT 34 25 - 37 sec Diagnostic Tests and Imaging: CT Head (11/06/18): IMPRESSION No intracranial hemorrhage. No CT evidence of acute infarct. Assessment: Carlee Rangel is a 53 y.o. female with a PMH of complex migraine and possible cerebellar infarct (approximately 9 years ago, on ASA and statin) who presents with right sided facial droop x 5 days. Her facial droop is consistent with her previous migraine headaches. She does report some preceding aura and nausea but the facial droop has not been accompanied by the associated headache as she normally has. 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 She is already followed by a neurologist, but if interested she can consider a referral to headache clinic here for further management. In the meantime, would treat her headache symptomatically with magnesium, fluids, NSAIDs and antiemetic. Regarding her new symptoms of right sided weakness, dysarthria with stuttering speech, and parasthesias, these are all non-physiologic in nature. Her stuttering speech does not improve with singing or speaking in concert with an examiner (which true stuttering does). She has significiant risk factors for functional/conversion disorders, including recent deaths in her life. Treatment for these is referral to psychiatry for cognitive behavioral therapy and reassurance. I have included patient information below that can be included in her AVS on discharge. Recommendations: Dysarthria and stuttering speech: Nonphysiological, psychogenic functional disorder Right sided weakness: Nonphysiological, psychogenic functional disorder Right facial droop: Likely part of her headache syndrome, would treat symptomatically. - She does have a neurologist but could benefit from referral to headache clinic if interested. - Treat symptomatically: - IV magnesium 1g over 15 minutes - Fluid: 500 cc bolus - Toradol - Antiemetic: Reglan or zofran Information that can be included in the patient's AVS: Functional Neurological Disorder (FND) This is when someone has: ??? NEUROLOGICAL SYMPTOMS (such as limb weakness, numbness, shaking or blackouts) ??? REAL (and not imagined) ??? and due to a PROBLEM with the FUNCTIONING of the nervous system ??? not due to damage or structural disease of the nervous system ??? causing difficulties for the person who experiences then Some people have troublesome symptoms that they wish to understand without necessarily having a 'disorder' - these are called functional neurological symptoms. FND and functional symptoms surprisingly common but can be difficult for patients and health professionals to understand. We discussed that there is no structural issue or damage to the nervous system but will take time toresolve. Often treatment of anxiety, with medication or counseling, can be useful in treating this disorder. For more information, please visit [email or web address] ?? Consult service will continue to follow patient. X Recommendations are above, please page if further consultation required. ?? Nikki Orosco MD 11/06/2018 Consult Neurology Pager [phone] Neurology Attending Attestation I evaluated the patient with Dr. Orosco in the ED. I have reviewed the medical records and patient's history, as well as the resident???s and student's history and examination findings and I agree with the details as written. My neurologic examination confirms the resident???s findings. We formulated the assessment and plan after a detailed discussion, as documented. Li Beauchamp MD Vascular Neurology ED Triage - Eddie Mendez RN - 11/06/2018 10:51 AM EST Pt presents with a worsening MOYER with Rt sided facial droop and tingling that has been progressively worse since Sunday. She states she frequently gets facial droop with her complex migraines, this one is a little different. She has no sxs in her extrems, no nausea, her pain is current under the angle of her jaw on the right side. No expressive aphasia noted. documented in this encounter Plan of Treatment Not on filedocumented as of this encounter Procedures Procedure Name Priority Date/Time Associated Comments Diagnosis CT HEAD WO CONTRAST STAT 11/06/2018 1:24 PM Re sults for this (GENERIC) EST procedure are i n the results section. APTT STAT 11/06/2018 1:12 PM Results f or this EST procedure are i n the results section. PROTHROMBIN TIME STAT 11/06/2018 1:12 PM Resul ts for this EST procedure are i n the results section. URINALYSIS WITH STAT 11/06/2018 12:27 Results for this REFLEX CULTURE PM EST procedure are in the results section. HEMOGRAM STAT 11/06/2018 11:50 Results for this AM EST procedure are i n the results section. DIFFERENTIAL, STAT 11/06/2018 11:50 Results fo r this AUTOMATED AM EST procedure are i n the results section. GOLD TUBE HOLD STAT 11/06/2018 11:50 Results f or this AM EST procedure are i n the results section. CBC (WITH DIFF) STAT 11/06/2018 11:50 AM EST TROPONIN STAT 11/06/2018 11:50 Results for this AM EST procedure are i n the results section. BASIC METABOLIC PANEL STAT 11/06/2018 11:50 Re sults for this (NON-FASTING) AM EST procedure are in the results section. EKG 12-LEAD STAT 11/06/2018 11:21 Results for this AM EST procedure are i n the results section. documented in this encounter Results CT Head wo Contrast (Generic) (11/06/2018 1:24 PM EST) Anatomical Region Laterality Modality Head Computed Tomography Specimen (Source) Anatomical Location Collection Method / Collectio n Time Received Time / Laterality Volume Impressions 11/06/2018 2:32 PM EST No intracranial hemorrhage. No CT evidence of acute infarct. Preliminary report signed by: Yash lopez at 11/06/2018 1:37 PM I have personally reviewed the image(s) and the residents interpretation and agree with the findings, Dimitry Sexton at 11/06/2018 2:32 PM Thank you for letting us participate in the care of this patient. For questions regarding this report, please contact e number below. ? Electronically signed by: Dimitry lopez [facility] ([phone]), at 11/06/2018 2:32 PM Narrative 11/06/2018 2:32 PM EST EXAMINATION: CT HEAD WO CONTRAST (GENERIC) CLINICAL HISTORY: facial droop, MOYER. Hx o f stroke TECHNIQUE: CT head performed without intravenous co ntrast administration. COMPARISON: CT head 03/05/2012. FINDINGS: Postsurgical changes consistent with pre vious right mastoidectomy and retrosigmoid craniectomy. 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 No intracranial hemorrhage. Ramos-white matter differentiation is maintained. No intracranial mass or mass effect. The ventricles are normal in size and configuration. The visualized paranasal sinuses are mirian ar. Intraorbital contents are normal. Procedure Note Dimitry Sexton MD - 11/06/2018Formatt ing of this note might be different from the original. EXAMINATION: CT HEAD WO CONTRAST (GENERI C) CLINICAL HISTORY: facial droop, MOYER. Hx o f stroke TECHNIQUE: CT head performed without intravenous co ntrast administration. COMPARISON: CT head 03/05/2012. FINDINGS: Postsurgical changes consistent with pre vious right mastoidectomy and retrosigmoid craniectomy. 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 No intracranial hemorrhage. Ramos-white matter differentiation is maintained. No intracranial mass or mass effect. The ventricles are normal in size and configuration. The visualized paranasal sinuses are mirian ar. Intraorbital contents are normal. IMPRESSION No intracranial hemorrhage. No CT eviden ce of acute infarct. Preliminary report signed by: Yash lopez at 11/06/2018 1:37 PM I have personally reviewed the image(s) and the residents interpretation and agree with the findings, Dimitry Sexton at 11/06/2018 2:32 PM Thank you for letting us participate in the care of this patient. For questions regarding this report, please contact e number below. Mitchell Martin MD IMG CT ORDERABLES APTT (11/06/2018 1:12 PM EST) P athologist Signature PTT 34 25 - 37 sec [facility] Comment: The PTT is NOT appropriate for heparin m onitoring. Use the Anti-Xa level for heparin monitoring (HEP UFH) or LMWH mon itoring (HEP LMW). A PTT less than 37 seconds generally indicates adequate hem ostasis. Specimen Anatomical Collection Method Collection Time Receive d Time (Source) Location / / Volume Laterality Blood specimen 11/06/2018 1:12 PM 019 1:21 (specimen) EST PM EST Resulting Agency Comment Spec In Lab Mitchell Martin MD HEMATOLOGY ORDERABLES Performing Organization Address City/[facility]/[place] [address] Prothrombin Time (11/06/2018 1:12 PM EST) athologist Signature PT 12.1 9.4 - 12.5 [facility] LABORATORY INR 1.1 [facility] Comment: An INR <2.0 indicates adequate procoagul ant activity for hemostasis in most patients without underlying bleeding dis orders, though the INR may not adequately reflect hemostatic capacity i n patients with liver disease and synthetic impairment. The recommended ta rget INR range for therapeutic anticoagulation is 2.0 ? 3.0 for most applications, though lower and higher ranges may be appropriate depending on c linical circumstances. Specimen Anatomical Collection Method Collection Time Receive d Time (Source) Location / / Volume Laterality Blood specimen 11/06/2018 1:12 PM 019 1:21 (specimen) EST PM EST Resulting Agency Comment Spec In Lab Mitchell Martin MD HEMATOLOGY ORDERABLES Performing Organization Address City/[facility]/[place] [address] Urinalysis with reflex Culture (11/06/2018 12:27 PM EST) Patholo gist Method Time Signature Glucose UA Negative Negative [facility] mg/dL [facility] Protein UA Negative Negative [facility] mg/dL [facility] Bilirubin UA Negative Negative [facility] mg/dL [facility] Comment: Clinical correlation required for positi ve Urine Bilirubin results as false positive may occur with some drugs and d rug related products. If a false positive is suspected a serum total bili lynn should be considered if clinically indicated. Urobilinogen UA Normal Normal mg/dL [facility] pH UA 7.0 5.0 - 8.0 [facility] Blood UA Negative Negative mg/dL [facility] Ketones UA Negative Negative mg/dL [facility] Nitrite UA Negative Negative [facility] Leukocytes UA Negative Negative [facility]ORY Appearance UA Clear Clear [facility] Spec [place] UA 1.011 1.002 - 1.030 [facility] Color UA Yellow Yellow [facility] Culture Reflexed No [facility] Specimen (Source) Anatomical Collection Method Collection Time Re ceived Time Location / / Volume Laterality Urine specimen 11/06/2018 12:27 9 1:08 obtained by clean PM EST PM EST catch procedure (specimen) Resulting Agency Comment Spec In Lab Mitchell Martin MD URINE ORDERABLES Performing Organization Address City/State/[place] [address] Gold Tube HOLD (11/06/2018 11:50 AM EST) P athologist Signature Gold Hold Sample in [facility] LABORATORY Specimen Anatomical Collection Method Collection Time Receive d Time (Source) Location / / Volume Laterality Blood specimen Venous Draw / 11/06/2018 11:50 11/06/19 19 (specimen) Unknown AM EST 12:03 PM EST Mitchell Martin MD CHEMISTRY ORDERABLES Performing Organization Address City/State/ZIP Code Phon e Number [address] Differential, Automated (11/06/2018 11:50 AM EST) P athologist Signature Neutrophils % 64.2 % [facility] Neutr Abs (ANC) 3.17 1.70 - [facility] 6.[address] [facility] x10(3)/[facility] LABORATORY Lymphocytes % 25.1 % [facility] Lymphocytes Abs 1.2 0.9 - 3.2 [facility] x10(3)/[facility] LABORATORY Monocytes % 7.1 % [facility] Monocyte Abs 0.4 0.3 - 0.9 [facility] x10(3)/[facility] LABORATORY Eosinophils % 2.6 % [facility] Eosinophils Abs 0.1 0.0 - 0.4 [facility] x10(3)/[facility] LABORATORY Basophils % 0.8 % [facility] Basophils Abs 0.0 0.0 - 0.1 [facility] x10(3)/[facility] LABORATORY Immature Gran % 0.20 % [facility] Comment: Immature granulocytes(IG's)percentage an d absolute count will include metamyelocytes, myelocytes, and promyelo cytes. Blood smears from CBCs yielding IG's will be scanned manually for concor dance. If this scan disagrees with the automated IG or if promyelocytes are not ed, a manual differential will be performed. Josephine Gran Abs 0.01 0.00 - 0.04 x10(3)/[facility] Y [facility] LABORATORY Specimen Anatomical Collection Method Collection Time Receive d Time (Source) Location / / Volume Laterality Blood specimen 11/06/2018 11:50 9 (specimen) AM EST 12:02 PM EST Resulting Agency Comment Spec In Lab Mitchell Martin MD HEMATOLOGY ORDERABLES Performing Organization Address City/State/ZIP [place] [address] Hemogram (11/06/2018 11:50 AM EST) P athologist Signature WBC 4.9 4.0 - 9.5 [facility] x10(3)/[facility] LABORATORY RBC 5.19 4.00 - [facility] [address] [facility] x10(6)/[facility] LABORATORY Hemoglobin 14.9 11.7 - [facility] 15.5 gm/dL [facility] Hematocrit 45.2 35.7 - [facility] 45.8 % [facility] MCV 87.1 82.6 - [facility] 94.4 [facility] LABORATORY MCH 28.7 27.1 - [facility] 32.0 pg [facility] MCHC 33.0 31.7 - [facility] 35.0 gm/dL [facility] Platelets 276 145 - 357 [facility] x10(3)/[facility] LABORATORY RDWSD 40.1 37.0 - [facility] 46.0 [facility] LABORATORY RDWCV 12.7 11.5 - [facility] 14.1 % [facility] MPV 9.2 7.6 - 12.9 [facility] LABORATORY nRBC % Auto 0.0 % [facility] nRBC Abs Auto 0.000 0.000 - [facility] 0.[address] [facility] x10(3)/[facility] LABORATORY Specimen Anatomical Collection Method Collection Time Receive d Time (Source) Location / / Volume Laterality Blood specimen 11/06/2018 11:50 9 (specimen) AM EST 12:02 PM EST Resulting Agency Comment Spec In Lab Mitchell Martin MD HEMATOLOGY ORDERABLES Performing Organization Address City/State/ZIP [place] [address] Troponin (11/06/2018 11:50 AM EST) P athologist Signature Troponin-T <0.01 0.00 - 0.00 [facility] ng/mL [facility] Comment: The 99th percentile for Troponin T is le ss than 0.01 ng/mL, any detectable cTnT concentration using this assay should be considered elevated. According to the third universal definit ion of myocardial infarction the following criteria with a clinical prese ntation consistent with acute myocardial ischemia meets the diagnosis for a myocardial infarction ([place]). Detection of a rise and/or fall of cTnT, with at least one value greater than the 99th percentile (> or = 0.01) and wi th at least one of the following ?? Symptoms of ischemia ?? New or presumed new significant ST-se gment-T wave (ST-T) changes or new left bundle branch block (LBBB) ?? Development of pathologic Q waves in the ECG ?? Imaging evidence of new loss of viabl e myocardium or new regional wall motion abnormality ?? Identification of an intracoronary th rombus by angiography or autopsy Samples for cTnT testing should be obtai fernando serially upon first assessment and again 3 to 6 hours later. If the clinica l suspicion is high and previous samples have been negative an additional sample may be indicated. Reference: Third Rhodes Definition of Myocardial Infarction. Journal of [employer] [place] [employer] 2012;60:1581-98 Specimen Anatomical Collection Method Collection Time Receive d Time (Source) Location / / Volume Laterality Blood specimen 11/06/2018 11:50 9 (specimen) AM EST 12:02 PM EST Resulting Agency Comment Spec In Lab Mitchell Martin MD CHEMISTRY ORDERABLES Performing Organization Address City/State/ZIP [place] [address] Basic Metabolic Panel (non-fasting) (11/06/2018 11:50 AM EST) P athologist Signature Glucose Lvl 96 65 - 199 [facility] mg/dL [facility] Comment: Diabetes: >=200 mg/dL plus symp toms BUN 12 8 - 18 mg/dL [facility] Creatinine 0.87 0.70 - 1.20 mg/dL [facility] Sodium 141 135 - 145 mmol/L [facility] Potassium 4.3 3.5 - 5.0 mmol/L [facility] Comment: Please note: ??Patients with WBC >100,00 0 may have falsely elevated Potassium levels. ??For accurate Potassium quantif ication in these patients send serum separator tube (gold top) for subsequent determinations. ??Contact the Clinical Chemistry Laboratory if there are any qu estions. Chloride 104 98 - 107 mmol/L [facility] CO2 25 22 - 31 mmol/L [facility] Anion Gap 12 5 - 15 mmol/L [facility] Calcium 9.1 8.5 - 10.5 mg/dL [facility] Estimated GFR 77 >=60 mL/min/1.73 m?? [facility] Comment: The eGFR was calculated using the CKD-EP I equation. As with all creatinine based estimates of kidney function, eGFR values calculated with the CKD-EPI equation are not accurate in patients wi th acute kidney failure, extremes of body mass or the acutely ill. [email or web address] eGFR 89 >=60 mL/min/1.73 m?? [facility] Comment: The eGFR was calculated using the CKD-EP I equation. As with all creatinine based estimates of kidney function, eGFR values calculated with the CKD-EPI equation are not accurate in patients wi th acute kidney failure, extremes of body mass or the acutely ill. [email or web address] Specimen Anatomical Collection Method Collection Time Receive d Time (Source) Location / / Volume Laterality Blood specimen 11/06/2018 11:50 9 (specimen) AM EST 12:02 PM EST Resulting Agency Comment Spec In Lab Mitchell Martin MD CHEMISTRY ORDERABLES Performing Organization Address City/State/Z[place] [address] EKG 12 Lead (11/06/2018 11:21 AM EST) Component Value Ref Range Test Analysis Performed Pathologis t Method Time At Signature Ventricular rate 74 BPM MUSE SYSTEM Atrial Rate 74 BPM MUSE SYSTEM P-R Interval 162 ms MUSE SYSTEM QRS Duration 82 ms MUSE SYSTEM Q-T Interval 416 ms MUSE SYSTEM QTC Calculated 461 ms MUSE SYSTEM (Bezet) Calculated P [place] 27 degrees MUSE SYSTEM Calculated R [place] 11 degrees MUSE SYSTEM Calculated T [place] 17 degrees MUSE SYSTEM INTERPRETATION Normal sinus rhythm MUSE SYSTEM Poor R-wave progression Abnormal ECG When compared with ECG of 05-MAR-2012 14:12, No significant change was found Confirmed by MD JAYSON, COLETTE ([id number]) on 11/06/2018 1:36:24 PM Specimen Anatomical Collection Method Collection Time Receive d Time (Source) Location / / Volume Laterality 11/06/2018 11:21 11/06/2018 1:36 AM EST PM EST Mitchell Martin MD ECG ORDERABLES Performing Organization Address City/State/ZIP Code [facility] e Number MUSE SYSTEM documented in this encounter Visit Diagnoses Diagnosis Migraine without status migrainosus, not intractable, unspecified migraine type documented in this encounter Administered Medications Inactive Administered Medications - up to 3 most recent administrations Medication Order MAR Action Action Date Dose Rate Site acetaminophen (TYLENOL) tablet Given 11/06/2018 11:46 AM EST 1,0 00 mg 1,000 mg 1,000 mg, Oral, ONCE, 1 dose, On Sun11/06/18 at 1125, Maximum dose of acetaminophen is 4000 mg from all sources in 24 hours., STAT aspirin tablet 325 mg Given 11/06/2018 2:09 PM EST 325 mg 325 mg, Oral, ONCE, 1 dose, On Sun11/06/18 at 1343, STAT ketorolac (TORADOL) injection 15 mg Given 11/06/2018 3:34 PM EST 15 mg 15 mg, Intravenous, ONCE, 1 dose, On Sun11/06/18 at 1500, Routine magnesium sulfate 2 g in sterile water New Bag 11/06/2018 3:42 PM EST 2 g 25 mL/hr 50 mL 2 g, Intravenous, ONCE, 1 dose, On Sun11/06/18 at 1500, Administer over 120 Minutes, Give over 20 minutes prochlorperazine (COMPAZINE) injection 1 0 mg Given 11/06/2018 3:36 PM EST 10 mg 10 mg, Intravenous, ONCE, 1 dose, On Sun11/06/18 at 1500, STAT sodium chloride 0.9% 1,000 mL IV bolus New Bag 11/06/2018 11:46 AM EST Intravenous, ONCE, 1 dose, On Sun11/06/18 at 1125 documented in this encounter Active and Recently Administered Medications Times are shown in EST. Scheduled Medication Order 11/04/2018 11/05/2018 11/06/2018 acetaminophen (TYLENOL) tablet 1,000 mg (COMPLETED) 1146 (Given - Provider: Geneva Montano RN) 1,000 mg, Oral, ONCE, 1 dose, Sun 9 at 1125, Maximum dose of acetaminophen is 4000 mg from all sources in 24 hours., STAT aspirin tablet 325 mg (COMPLETED) 1409 (Given - Provider: Rachel Carvajal) 325 mg, Oral, ONCE, 1 dose, Sun11/06/18 at 1343, STAT ketorolac (TORADOL) injection 15 mg (COMPLETED) 1534 (Given - Provider: Kwaku Guillory, RAQUEL) 15 mg, Intravenous, ONCE, 1 dose, Sun11/06/18 at 1500, Routine magnesium sulfate 2 g in sterile water 50 mL (COMPLETED) 1542 (New Bag - Provider: Kwaku Guillory, RAQUEL)1615 (Stopped - Provider: Kwaku Guillory RN)1742 (Due: Stopped - Provider: Kwaku Guillory RN) 2 g, Intravenous, ONCE, 1 dose, 11/06 at 1500, Administer over 120 Minutes, Give over 20 minutes prochlorperazine (COMPAZINE) injection 10 mg (COMPLETED) 1536 (Given - Provider: Kwaku Guillory RN) 10 mg, Intravenous, ONCE, 1 dose, Sun11/06/18 at 1500, STAT sodium chloride 0.9% 1,000 mL IV bolus (COMPLETED) 1146 (New Bag - Provider: Geneva Montano RN)1626 (Stopped - Provider: Jess Ng, RAQUEL) Intravenous, ONCE, 1 dose, On Sun11/06/18 at 1125 documented in this encounter Care Teams Fire Extinguisher Charger Relationship Specialty Start Date End Date Rhianna Cox MD PCP - General 12/22/11 08/25/[address] [place] [address] documented as of this encounter
--- OUTSIDE RECORDS SUMMARY | 2022-04-12 12:19 | XMS_ITS | Encounter Summary ---
:1965 Author Organization [facility] Address [address] [place] [address] Care Team Providers Name Role Phone Zaheer Fox DO Primary Care Provider Reason for Visit Consultation (Routine) - Authorized Specialty Diagnoses / Procedures Referred By Contact Refer red To Contact Neurology Diagnoses Other abnormalities of gait and mobility IMPAIRMENT OF BALANCE Zaheer Fox DO [facility] [address] [address] [place] [phone] [place] [phone] Fax: Referral ID Status Reason Start Expiration Visits Visits Date Date Requested Authorized [id number] Authorized Consult, 08/25/2022 6 6 Test & Treat 1 [facility] PCP Updated and/or Approved Encounter Details Date Type Department Care Team Description 12/15/2021 Office Visit Neurology at [facility] [place] Julianne Mark MD [address] [place] [address] [place] [address] [facility] Jin Connor MD [facility] [place] [address] with status [place], [place] migrainosus [phone] Social History Tobacco Use Types Packs/Day Years Used Date Never Smoker Smokeless Tobacco: Never Used Alcohol Use Standard Drinks/Week Comments No 0 (1 standard drink = 0.6 oz pure alcoho l) Sex Assigned at Date Recorded Not on file documented as of this encounter Last Filed Vital Signs Vital Sign Reading Time Taken Comments Blood Pressure 137/77 12/15/2021 2:18 PM EDT Pulse 80 12/15/2021 2:18 PM EDT Temperature - - Respiratory Rate - - Oxygen Saturation - - Inhaled Oxygen Concentration - - Weight 127 kg (280 lb) 12/15/2021 2:18 PM EDT reported Height 160 cm (5' 3) 12/15/2021 2:18 PM EDT reported Body Mass Index 49.6 12/15/2021 2:18 PM EDT documented in this encounter Progress Notes Jin Connor MD - 12/15/2021 2:30 PM EDT Images from the original note were not included. Admit Date (Not on file) ( Hospital Day 0 days ) Responsible Attending: No att. providers found Primary Provider: Zaheer Fox DO [phone] Consult Question Dizziness Patient ID 56 yo F with pmhx complicated migraine headaches with R sided hemiplegia + dysphasia, R meralgia paresthetica, HLD, GLORIA, asthma, depression, insomnia, presenting for evaluation and treatment of episodes of dizziness. History of Presenting Illness: She was previously followed by Dr Jacobo for her migraines and vertigo - used indomethacin and was started on Aimovig. 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 At the last visit he too noted attacksof disequilibrium, imbalance, unsteadiness that occurred with headaches. Today she describes the imbalance as occurring more recently - says it has been six months since shehas the sensation of poor balance which seems brand new. Given her prior history of endolymphatic fistula she went to Dr. Sigala her ENT and her ears checked in September. After that she went to optometry/ophthalmology for further evaluation with to clear cause. Bending over made it worse, head turns tothe right seemed to make it worse. Tilting head backwards also seems to make it worse. She gets aura prior to headaches and dizziness episodes - right sided weakness, speech difficulties,balance gets worse. If these symptoms are slight then she will try tylenol or ibuprofen (once or twice per week), fioricet - once or twice per week. She also takes a chewable marijuana tab if she has already taken the Fioricet this week. Storms/low pressure systems seem to make it worse. In a one month period she will get 18-20 days of headaches. One or two of these weeks she will have a crash and be out for the entire week. ROS (+) Headaches, dizziness ROS (-) weight loss, fevers, chills, night sweats, photophobia, rhinitis, sore throat, neck stiffness, chest pain, cough, dyspnea, abdominal pain, nausea, vomiting, diarrhea, hematemesis, hematochezia,melena, dysuria, edema. Allergies Allergen Reactions ??? Codeine Phosphate Nausea And Vomiting Throat Swelling ??? Percocet [Oxycodone-Acetaminophen] Anaphylaxis ??? Adhesive Tape Rash Localized Reaction ??? Augmentin [Amoxicillin-Pot Clavulanate] Nausea And Vomiting and Rash ??? Divalproex Sodium Rash ??? Morphine Sulfate Nausea And Vomiting ??? Secobarbital Sodium Rash ??? Bacitracin Rash ??? Verapamil Tongue numb and tingly Past Medical History: Diagnosis Date ??? Arthritis ??? Asthma ??? 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 Chronic otitis media ??? Depression ??? GERD (gastroesophageal reflux disease) ??? Kidney disease ??? Migraine ??? Obstructive sleep apnea Past Surgical History: Procedure Laterality Date ??? SECTION times 2 ??? CHOLECYSTECTOMY ??? ENDOMETRIAL ABLATION Family History Problem Relation Age of Onset ??? Cerebrovascular Accident Mother ??? Heart Disease Mother ??? Diabetes Mother ??? Diabetes Brother ??? Heart Disease Brother Social History Socioeconomic History ??? Marital status: Spouse name: Not on file ??? Number of children: Not on file ??? Years of education: Not on file ??? Highest education level: Not on file Occupational History ??? Not on file Tobacco Use ??? Smoking status: Never Smoker ??? Smokeless tobacco: Never Used Vaping Use ??? Vaping Use: Never used Substance and Sexual Activity ??? Alcohol use: No ??? Drug use: Yes Types: Marijuana Comment: for migraines ??? Sexual activity: Not on file Comment: question deferred Other Topics Concern ??? Do You live alone? Not Asked ??? Tobacco in Home Not Asked Social History Narrative ??? Not on file Social Determinants of Health Financial Resource Strain: Not on file Food Insecurity: Not on file Transportation Needs: Not on file Physical Activity: Not on file Housing Stability: Not on file Physical Exam BP 137/77 Pulse 80 Ht 160 cm (5' 3) Comment: reported Wt 127 kg (280 lb) Comment: reported BMI 49.60 kg/m?? Gen: Patient of apparent stated age, well nourished, well developed, awake, alert, NAD Neck: Supple, no meningismus Abd: soft, nontender, nondistended Ext: No edema. No bony deformity Neuro Exam: MS: AAOx4, clear language, some intermittent slowing and trailing off of speech, follows commands CN: PERRL, EOMI, visual cramer full Facial sensation intact, no facial asymmetry Hearing intact to conversation Palate elevates symmetrically, tongue protrudes midline SCM and trap strength intact Motor: Normal bulk and tone. Segment Muscle Action Left Right C5 Deltoid Shoulder Abduction 5 5 C6 Biceps Elbow flexion 5 5 C6 Extensor carpi radialis Wrist extension 5 5 C7 Triceps Elbow extension 5 5 C8 Finger flexors Grasp 5 5 T1 Interossei Finger abduction 5 5 L2 Iliopsoas Hip flexion 5 5 L3 Quadriceps Knee extension 5 5 L4 Tibialis anterior Dorsiflexion 5 5 L5 Extensor hallucis Great toe extension 5 5 S1 Gastrocnemius Plantar flexion 5 5 Sensation: Intact to light touch and vibration throughout Reflexes: DTRs 2+ R, 2+ L Biceps 2+ R, 2+ L Brachioradialis 2+ R, 2+ L Triceps 2+ R, 2+ L Patellar - brisk 2+ R, 2+ L Achilles tendon Bond's negative Toes - R down, L down Preston Daniel-Lander is negative bilaterally Coordination: Finger to nose intact, no dysmetria Rapid alternating movements & finger tapping smooth and symmetric No tremor Gait: Stable, steady, Romberg with sway but not positive BMP No results for input(s): NA, K, CL, CO2, BUN, CREATININE, GLUCOSE in the last 168 hours. No results for input(s): CALCIUM, MAGNESIUM, PHOS in the last 168 hours. CBC No results for input(s): WBC, HGB, HCT, PLATELET, MCV, NEUTROABS in the last 168 hours. Hepatic Function Tests and Coags No results for input(s): AST, ALT, ALKPHOS, BILITOT, BILIDIR, LDH in the last 168 hours. No results for input(s): INR, PT, PTT in the last 72 hours. Diabetes and Lipids No results for input(s): HA1C, NCYVQ7O, JTG3DYMH, LABGLUC2, MICROALBUR in the last 168 hours. No results for input(s): CHLPL, HDL, TRIG, LDLDIRECT in the last 168 hours. Additional Testing No results for input(s): PHART, HBG4PYO, PO2ART, FGV5TPQ in the last 168 hours. No results for input(s): LDH, HAPTOGLOBIN, URICACID in the last 168 hours. Micro Microbiology Results (Last 30 days) No results found for the last 720 hours. Pending Labwork No current labs Imaging/EKG MRI Brain wwo 03/19/2013 There is no evidence of acute infarct. ??The ventricles are unchanged in size or contour. ??There is no intracranial mass, mass effect or shift. ??There is no abnormal enhancement. ??An area of volume loss is present in the right cerebellar hemisphere, unchanged compared to the prior exam. ??There is slightly increased T2 signal in the posterior left mesial temporal lobe, but the appearance is similar to the previous exam. ?? Impression ? 1. No evidence of recent infarct. ? 2. Elevated T2 signal in the posterior left hippocampus, the etiology of this is uncertain, and this could represent an area of gliosis related to prior injury. Correlation with seizure historysuggested. 05/07/2012 Brainstem Auditory Evoked Potentials Conclusion: Absent brainstem auditory evoked response on the right. Normal on the left. ??This couldbe due to auditory tract dysfunction or technical difficulties. 04/22/2012 Visual Evoked Potentials Conclusion: Normal visual evoked potentials. ??No evidence of demyelination on this study. 05/11/2015 NM Perfusion Scan Normal-appearing symmetric activity in all cortical and subcortical regions of the brain. No significant change compared to prior exam of 11/01/20092007 EEG + 1997 EEG INTERPRETATION: This EEG is normal during the awake and sleep states as well as during the activation procedure of photic stimulation. PRIOR EE: This EEG is mildly abnormal due to brief paroxysmal bilateral posterior theta activity which has at times a left sided emphasis. No definite epileptiform activity in form of spike wave discharges were noted however this paroxysmal theta could nevertheless indicate a lower seizure threshold. CLINICAL CORRELATION: There are no findings on this EEG that suggest seizure activity. Note that a normal EEG does not exclude the possibility of seizures. Assessment/Plan 56 yo F with pmhx complicated migraine headaches with R sided hemiplegia + dysphasia, R meralgia paresthetica, HLD, GLORIA, asthma, depression, insomnia, presenting for evaluation and treatment of episodes of dizziness. This is a very interesting case which has been worked up many times over the last 20 years or so by Dr. Rodriguez, Dr. Jacobo and others on ED visits. There is some vague possibility of left sided pathology on her EEG from 1997 and MRI from 2012 but there was some concern during an EEG evaluation where her right sided deficits were notably worse in the presence of an examiner, she did say that stress seems to make things worse and her recently passed from cancer 2-3 years ago I believe around this time. As a working diagnosis Hemiplegic migraine fits best and like Dr. Jacobo would tailor treatments towards her headaches. Would resume Aimovig at the prior dose and will refer her to the headache clinic for further evaluation. I think memantine or verapamil (tongue numb and tingly as an allergy might beavoided with slow up-titration) might be good options to trial. There are genetic tests which could be sent and may provide diagnostic clarity but it is unclear to me if it would alter treatment. Regarding her dizziness as she has had evaluations with ENT, Optometry, trialed meclizine, is currently on SSRI + SNRI without much improvement despite prior trials of dose increases, and does not currently want further PT treatment options are limited. Could consider cervicogenic dizziness as a causehowever her headaches are likely contributing as well. # Dizziness # Suspected Hemiplegic Migraine Headaches - resume Aimovig - deferred vestibular PT per patient wishes - could consider MRI C-spine to assess for high cervical radiculopathy Jin Connor PGY-[address] Mark Literature Review Ofelia Duran V, Giovani MG, Ruba N, et al. Diagnostic and therapeutic aspects of hemiplegic migraine. J Neurol Neurosurg Psychiatry. 2020;91(7):764- 771. doi:10.1136/[id number] Jesse Randall M. Tolerability and Efficacy of Memantine as Add on Therapy in Patients with Migraine. Jerry J Pharm Res. 2017;16(2):791-797. Julianne Mark MD - 12/15/2021 2:30 PM EDT I saw and evaluated the patient with the resident. I have reviewed the medical records and the patient's history during the visit and I agree with the details as written. My physical examination confirms the findings. ?? The assessment and plan were formulated in discussion with me at the time of the visit and I agree with them as documented. 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
--- OUTSIDE RECORDS SUMMARY | 2022-04-12 12:19 | XMS_ITS | Encounter Summary ---
:1965 [place] [address] Care Team Providers Name Role Phone Rhianna Cox MD Primary Care Provider Reason for Visit Reason Comments Extremity Weakness Encounter Details Date Type Department Care Team Description 03/05/2012 Emergency Emergency Department Deandre Robles MD [facility] [place] [address] [place] [address] [phone] (Wo rk) Social History Tobacco Use Types Packs/Day Years Used Date Never Assessed Sex Assigned at Date Recorded Not on file documented as of this encounter Last Filed Vital Signs Vital Sign Reading Time Taken Comments Blood Pressure 151/76 03/05/2012 4:14 PM EDT Pulse 64 03/05/2012 2:45 PM EDT Temperature 38.4 ??C (101.1 ??F) 03/05/2012 1:59 PM EDT Respiratory Rate 21 03/05/2012 2:45 PM EDT Oxygen Saturation 99% 03/05/2012 4:14 PM EDT Inhaled Oxygen Concentration - - Weight 137 kg (302 lb) 03/05/2012 1:59 PM EDT Height - - Body Mass Index - - documented in this encounter Discharge Instructions Discharge InstructionsDeandre Pablo MD - 03/05/2012 4:46 PM EDT Follow up with Dr. Jacobo documented in this encounter ED Notes Francine Bui RN - 03/05/2012 4:36 PM EDT Magnesium 2 gram complete. Pt reports improved symptoms. Speech is less hesitant and right side is stronger with almost equal grasps left-right. Francine Bui RN - 03/05/2012 3:00 PM EDT Neurology in room with patient and . Deandre Pablo MD - 03/05/2012 2:20 PM EDT Chief Complaint Patient presents with ??? Extremity Weakness HPI HISTORY OF PRESENT ILLNESS: The patient is a 47-year-old female who presents with right-sided facial droop, dysarthria, and right upper extremity weakness. The patient has a history of complicated migraine with a previous admission in 2007 for right-sided facial droop and right-sided weakness. She had an extensive stroke workup at that time including carotid studies, MRI, and MRA. She has been maintained on Topamax. Over the last week, she has had a stuttering pattern according to her of difficulty speaking and he has noticed right-sided facial droop and she is complaining of weakness in her right upper extremity. She has had a frontal headache without photophobia or neck pain. She has had no visual changes. Symptoms worsened today. She presented to the emergency room. She has a history of chronic back pain. She denies chest pain, shortness of breath, or palpitations. She has had no recent cough or cold symptoms. No abdominal pain or diarrhea. No urinary symptoms. REVIEW OF SYSTEMS: As above. All other systems are negative. PAST MEDICAL HISTORY: Past medical history has been reviewed in detail. MEDICATIONS: Reviewed. ALLERGIES: REVIEWED. SOCIAL HISTORY: Nonsmoker. She is . No illicit drug use. PHYSICAL EXAMINATION: On exam, the patient is nontoxic appearing. Temperature is 38.4, pulse 68, respiratory rate 22, and blood pressure 131/85. HEENT Exam: Pupils are equal, round, and reactive to light. Funduscopic exam is normal. No nystagmus. There is very mild right-sided facial droop. Tongue deviates slightly to the right. Neck is supple. No bruits. Neck veins are not elevated. Lungs are clear. Heart has regular rate and rhythm without murmurs or gallops. Abdomen is obese, soft, and nontender. Extremities are warm and well perfused without cyanosis, clubbing, or edema. Neurologically, she is awake and alert. Cranial Nerve Exam: Notable for facial droop and the tongue deviation. She does not squeeze or will not exert any effort with the carbon paper coating machine setter testing on the right nor biceps or triceps. Reflexes are brisk in both biceps. She is able to flex her hip and knees against gravity. Toes are downgoing. She has a stuttering speech pattern. Head CT is pending. EKG was personally reviewed by me shows sinus brachycardia. No evidence of arrhythmia. Routine laboratory studies are pending. Urinalysis is pending. The patient is being treated with saline. ASSESSMENT: A 47-year-old female with right-sided facial droop, headache, and right upper extremity weakness, rule out cerebrovascular accident. Other considerations would be complicated migraine. Psychogenic disorder is also possibility. PLAN: Neurology evaluation. ADDENDUM: CT was personally reviewed, no acute abnormality. Labs reviewed. Neuro consulted- suspect migraine. Pt rxd with magnesium and saline- sxs improved. Allergies Allergen Reactions ??? Oxycodone-acetaminophen CIS - Anaphylaxis ??? Morphine Sulfate CIS - Nausea/Vomiting ??? Codeine Phos CIS - Nausea/Vomiting ??? Secobarbital Sodium CIS - Rash ??? Amoxicillin-pot Clavulanate CIS - Nausea/Vomiting ??? Divalproex Sodium CIS - Rash ??? Adhesive Tape CIS - Localized Reaction ??? Cis Free Text Allergy Bacitracin. CIS - Rash Review of Systems Physical Exam Procedures [facility] ED Course: Deandre Pablo MD 03/05/12 2143 Francine Bui RN - 03/05/2012 2:05 PM EDT Pt AOx4, denies pain. Speech is clear and logical. However, pt is exhibiting significant word finding difficulties. Pupils equal and brisk, EOMI, right sided blurry vision w/o field cut. Face asymmetrical w/ R droop, tongue midline. + sensataion throughout but right tingling. Strengths= 5/5 on the left and 4/4 on the right, + rt drift. Per pt and these symptoms have been off and on since stroke 2.5 yrs ago, Dr. Alvarado has been following. However, symptoms have progressively worsened for the last week. Pt also recently d/c'd her Lamictal per MD advise. documented in this encounter Miscellaneous Notes Discharge Summary - Provider, Scanning - 03/06/2012 9:05 AM EDT Miscellaneous - Provider, Scanning - 03/05/2012 10:48 PM EDT Consult Note - Theodore Cho Jr., DO - 03/05/2012 3:31 PM EDT NEUROLOGY CONSULTATION NOTE PATIENT DETAILS Patient name:Liana Rangel Date of :1965 Admit date: 03/05/2012 Chief complaint Worsened right sided weakness, speech disturbance History of Presenting Illness Consulted from ED for evaluation of 47 F with worsening right seided weakness and speech difficulties. History provided by as patient has dysarthria. According to him patient has history of of right sided weakness and episodic dysarthria since 2007. She was admitted here and had extensive workup at the time. She was believed to have complicated migraines. She follows with Dr. Ortez for her migraines. Her migaine medications were recently changed due to rashes. She was on lamictal and developed rashe due to which it was stopped. She was prescribed cyproheptadine by her neurologist today which she hasn't taken. Patient has been having fluctuatingweakness of right side. She was getting PT few days ago and her weakness worsened during PT. For past few days her right sided weakness and speech deficits have worsened compared to her baseline. Called Dr. Ortez today to discuss the worsening weakness and was advised to come to the ED. Past Medical History history of complicated migraines. cholecystectomy depression. anxiety asthma back pain craniotomy, vestibular nerve section in the past ? Remote cerebellar infarct Family History non contributory Personal/ Socioeconomic history non smoker, non alcoholic lives at house with , takes care of grand children Medications/ Allergy Allergiec to Morphine, codeine scolpolamine, oxycodone, depakote, amoxicillin, adhesive tape Meds; Aspirin 81 , MgO, Thorazoine, indomethacin, zoldpidem, mortrin. Vitals: Temp: [38.4 ??C (101.1 ??F)] Heart Rate: [60-68] Resp: [15-22] BP: (99-134)/(63-90) SpO2: [97 %-98 %] Physical Examination Mod built, obese Lungs clear S1S2 normal Abdomen soft No edema Neurological Examination Alert and oriented Speech: non physiologic fluctuating dysarthria Pupils equal, mild fluctuating facial asymmetry Diminished hearing right side tongue midline, no weakness Giveaway weakness on right side Normal strength on left Diminished vibration on right side of forehead in comparison to left Labs/ Imaging CT head: no acute events, encephalomalacia right cerebellum, old R suboccipital craniotomy. MRI: 12/20 : encephalomalacia right lateral inferior cerebellum Cerebral perfusion 10/2009: Negative Assessment and Plan 47 F with h/o complicated migraines, depression/ anxiety admitted with fluctuating and worsening weakness right side with speech deficits. Neurological examination suggestive of non physiologic examination findings with giveaway strength testing. CT head negative. Previous imaging workup negative . Discussed with patient's neurologist Dr Ortez at [facility]. Patient was prescribed cyproheptadine today. Impression: R sided weakness, dysarthria Etiology: not identified, ? complicated migraine Recommendation IV fluid, Magnesium IV 2g May discharge home following IV magnesium Patient has been prescribed cyproheptadine by her neurologist for migraine prophylaxis. F/up with Dr. Ortez in 1-2 days. Mikel Carrera MD Resident Physician Neurology Pager [phone] Neurology (Staff) Addendum I saw and evaluated the patient with Dr. Carrera on 03/05/2012. I have reviewed the resident's history,physical examination findings, assessment and plan during the visit and I agree with the details as written, unless otherwise specified as below. 47 y/o woman with history of right mastoid surgery for endolymphatic fistula, migraine headaches (with complicated features characterized as aphasia, right sided weakness) who is managed by Dr. Jacobo in [place] advised to come to [facility] for symptoms of aphasia and right sided weakness in setting of headache and having recently stopped lamotrigine (Rx'd for migraine) owing to rash. Pt says ( confirms) she has baseline mild word finding difficulty and right sided weakness attributed to migraine. It has been worse over the last week and particularly over the last two days after she had stopped lamotrigine 100mg daily (d/t rash). She was Rx'd cyproheptadine 4mg qid but has not started it. Shewas advised to come to the ER today. Exam shows nontoxic woman, alert, attentive. Speech is slow, deliberate, saccadic. No dysarthria. Naming worse with confrontation testing. PERRL, no ptosis, EOMI, VFIC. Pt appears to hold right side offace taut with request to smile. Vacillating R hemiparesis (MRC 3-4+ in arm and leg). Report of right anesthesia but also right side paresthesia. Splitting of midline sensory loss on face. Pt able to stand, romberg neg. Head CT -s/p right cerebellar surgery; no ICH or territorial infarct. Imp: Suspect complex migraine given history of the same, recent d/c of migraine ppx medication, >2d symptoms but nondiagnostic head CT. -IVF; Mg -if symptoms improve, suggest starting cyproheptadine, f/u w/ Dr. Jacobo. ED Triage - Francine Bui RN - 03/05/2012 2:02 PM EDT Pt arrived to ED with c/o right sided weakness, tingling, and word searching. Immediately brought back to [address] Pablo at bedside. documented in this encounter Plan of Treatment Not on filedocumented as of this encounter Procedures Procedure Name Priority Date/Time Associated Comments Diagnosis POCT URINE DIPSTICK STAT 03/05/2012 2:43 PM Re sults for this EDT procedure are i n the results section. URINALYSIS WITH STAT 03/05/2012 2:42 PM Result s for this REFLEX CULTURE EDT procedure are in the results section. BLOOD CULTURE STAT 03/05/2012 2:40 PM Results for this EDT procedure are i n the results section. CT HEAD WO CONTRAST STAT 03/05/2012 2:28 PM Re sults for this (GENERIC) EDT procedure are i n the results section. EKG 12-LEAD STAT 03/05/2012 2:12 PM Results f or this EDT procedure are i n the results section. DIFFERENTIAL, STAT 03/05/2012 2:00 PM Results for this AUTOMATED EDT procedure are i n the results section. CREATININE STAT 03/05/2012 2:00 PM Results f or this EDT procedure are i n the results section. PROTHROMBIN TIME STAT 03/05/2012 2:00 PM Resul ts for this EDT procedure are i n the results section. CBC (WITH DIFF) STAT 03/05/2012 2:00 PM Result s for this EDT procedure are i n the results section. BUN STAT 03/05/2012 2:00 PM Results f or this EDT procedure are i n the results section. GLUCOSE, RANDOM STAT 03/05/2012 2:00 PM Result s for this EDT procedure are i n the results section. ELECTROLYTES PANEL STAT 03/05/2012 2:00 PM Res ults for this EDT procedure are i n the results section. POCT URINE STAT 03/05/2012 Results for this procedure are i n the results section. documented in this encounter Results POCT urine dipstick (03/05/2012 2:43 PM EDT) P athologist Signature POC Sp Whitfield 1.010 1.002 - 1.030 POC pH, UA 5 5.0 - 8.5 POC Leuk, UA neg Negative - Negative POC Nitrite, neg Negative - UA Negative POC Protein, neg Negative - UA Negative mg/dL POC Glucose, norm Normal - UA Normal mg/dL POC Ketone, UA neg Negative - Negative POC Urobil, UA 0.8 0.2 - 1.0 mg/dL POC Bili, UA neg Negative - Negative POC Blood, UA neg Negative - Negative stanislaw/uL Specimen (Source) Anatomical Collection Method Collection Time Re ceived Time Location / / Volume Laterality Urine specimen 03/05/2012 2:43 PM (specimen) EDT Deandre Pablo MD POINT OF CARE TEST ORDERABLE S (ABNORMAL) Urinalysis with microscopic (03/05/2012 2:42 PM EDT) [facility] [employer] Method Time Signature Glucose UA Negative Negative CERNER mg/dL MILLENNIUM Protein UA Negative mg/dL CERNER MILLENNIUM Bilirubin UA Negative Negative CERNER mg/dL MILLENNIUM Urobilinogen UA Normal mg/dL CERNER MILLENNIUM pH UA 5.0 5.0 - 8.0 CERNER MILLENNIUM Blood UA Negative mg/dL CERNER MILLENNIUM Ketones UA Negative mg/dL CERNER MILLENNIUM Nitrite UA Negative CERNER MILLENNIUM Leukocytes UA Negative mcL CERNER MILLENNIUM Appearance UA Clear Clear CERNER MILLENNIUM Spec Whitfield UA 1.005 1.002 - CERNER 1.030 MILLENNIUM Color UA Yellow Yellow CERNER MILLENNIUM RBC UA Not Present 0 - 4 CERNER MILLENNIUM WBC UA <1 0 - 5 /HPF CERNER MILLENNIUM Bacteria UA Rare (A) None /HPF CERNER MILLENNIUM Squam Epith UA 2 <=4 /HPF CERNER MILLENNIUM Specimen Anatomical Collection Method Collection Time Receive d Time (Source) Location / / Volume Laterality Urine specimen 03/05/2012 2:42 PM 012 2:54 (specimen) EDT PM EDT Resulting Agency Comment Spec In Lab Deandre Pablo MD URINE ORDERABLES Performing Organization Address City/State/ZIP Code Phon e Number [place] [id number] CERNER MILLENNIUM Blood culture (03/05/2012 2:40 PM EDT) [facility] Method Time Signature Blood Culture CERNER ? Patient Name: LIANA RANGEL ?Ordered By: DEANDRE PABLOCAPE [facility] ? MR#: [id number] ?LOC: ??ED ? /Sex: ??1965 (47 years), ? Female ? PROCEDURE: Blood Culture ?SOURCE: Blood ? COLLECTED: 03/05/2012 14:40 ? BODY SITE: Peripheral ? STARTED: 03/05/2012 15:01 ?FREE TEXT SOURCE: right hand ? FINAL REPORT ? Final Report ? Verified:03/11/2012 15:07 ? No growth at 5 days. ? PRELIMINARY REPORT ? Preliminary Report ? Verified:03/09/2012 15:07 ? No growth at 4 days. ? Specimen Anatomical Collection Method Collection Time Receive d Time (Source) Location / / Volume Laterality Blood specimen 03/05/2012 2:40 PM 012 3:01 (specimen) EDT PM EDT (Peripheral) Resulting Agency Comment Spec In Lab Deandre Pablo MD MICROBIOLOGY - BLOOD ORDERAB LES Performing Organization Address City/State/[place] [address] NICOLETTE [employer] CT HEAD WO CONTRAST (03/05/2012 2:28 PM EDT) Anatomical Region Laterality Modality Head Computed Tomography Specimen (Source) Anatomical Collection Method Collection Time Re ceived Time Location / / Volume Laterality 03/05/2012 2:28 PM EDT Narrative 03/05/2012 2:[address] Head Without Contrast Clinical History Reason for exam and clinical history: ri ght sided weakness. ???CVA; Comparison MRI 12/26/2011. Technique CT Head without contrast. Findings There is encephalomalacia within the rig ht posterior inferior cerebellar hemisphere with adjacent craniectomy def ect. ??No intracranial masses mass effect or extra-axial collections. ??The christian-white differentiation is well preserved. No acute hemorrhages. Impression No evidence for acute infarct or hemorrh age. Procedure Note Vadim Choudhary MD - 03/05/2012Formatti ng of this note might be different from the original. Examination CT Head Without Contrast Clinical History Reason for exam and clinical history: ri ght sided weakness. ?CVA; Comparison MRI 12/26/2011. Technique CT Head without contrast. Findings There is encephalomalacia within the rig ht posterior inferior cerebellar hemisphere with adjacent craniectomy def ect. No intracranial masses mass effect or extra-axial collections. The g ray-white differentiation is well preserved. No acute hemorrhages. Impression No evidence for acute infarct or hemorrh age. Deandre Pablo MD IMG CT ORDERABLES EKG 12 Lead (03/05/2012 2:12 PM EDT) Component Value Ref Range Test Analysis Performed Pathologis t Method Time At Signature Ventricular rate 59 BPM MUSE SYSTEM Atrial Rate 59 BPM MUSE SYSTEM P-R Interval 158 ms MUSE SYSTEM QRS Duration 92 ms MUSE SYSTEM Q-T Interval 426 ms MUSE SYSTEM QTC Calculated 421 ms MUSE SYSTEM (Bezet) Calculated P Markle 35 degrees MUSE SYSTEM Calculated R Markle 19 degrees MUSE SYSTEM Calculated T Markle 16 degrees MUSE SYSTEM INTERPRETATION Sinus bradycardia MUSE SY STEM Otherwise normal ECG When compared with ECG of 20-JUL-2008 16:43, No significant change was found Confirmed by MD Sreedhar, Misael ([id number]) on 03/06/2012 7:27:48 AM Specimen Anatomical Collection Method Collection Time Receive d Time (Source) Location / / Volume Laterality 03/05/2012 2:12 PM 2 7:27 EDT AM EDT Deandre Pablo MD ECG ORDERABLES Performing Organization Address City/State/ZIP Code Phon e Number MUSE SYSTEM DIFFERENTIAL, AUTOMATED (03/05/2012 2:00 PM EDT) P athologist Signature Neutrophils % 61.7 34.0 - CERNER 71.0 % MILLENNIUM Neutr Abs (ANC) 3.94 1.50 - CERNER 6.30 MILLENNIUM x10(3)/mcL Lymphocytes % 30.5 19.0 - CERNER 53.0 % MILLENNIUM Lymphocytes Abs 2.0 1.0 - 3.6 CERNER x10(3)/mcL MILLENNIUM Monocytes % 5.3 4.0 - 13.0 CERNER % MILLENNIUM Monocyte Abs 0.3 0.2 - 1.0 CERNER x10(3)/mcL MILLENNIUM Eosinophils % 2.0 0.0 - 7.0 CERNER % MILLENNIUM Eosinophils Abs 0.1 0.0 - 0.5 CERNER x10(3)/mcL MILLENNIUM Basophils % 0.3 0.0 - 2.0 CERNER % MILLENNIUM Basophils Abs 0.0 0.0 - 0.2 CERNER x10(3)/mcL MILLENNIUM Immature Gran % 0.20 0.00 - CERNER 0.66 % MILLENNIUM Comment: Immature granulocytes(IG's)percentage an d absolute count will include metamyelocytes, myelocytes, and promyelo cytes. Blood smears from CBCs yielding IG's will be scanned manually for concor dance. If this scan disagrees with the automated IG or if promyelocytes are not ed, a manual differential will be performed. Josephine Gran Abs 0.01 0.00 - 0.05 x10(3)/mcL CER NER MILLENNIUM Specimen Anatomical Collection Method Collection Time Receive d Time (Source) Location / / Volume Laterality Blood specimen 03/05/2012 2:00 PM 012 2:12 (specimen) EDT PM EDT Deandre Pablo MD HEMATOLOGY ORDERABLES Performing Organization Address City/State/[place] [address] CERNER MILLENNIUM Prothrombin Time (03/05/2012 2:00 PM EDT) P athologist Signature PT 12.0 11.9 - 14.7 CERNER sec MILLENNIUM Comment: [facility] Transfusion Committee Guidelines: I NR less than 2.0, PTT less than OR equal to 43.5 seconds, or Fibrinogen gre ater than or equal to 100 mg/dl indicate adequate procoagulant activity for hemostasis in patients without underlying bleeding disorders. INR 0.9 0.9 - 1.1 CERNER MILLENNIUM Specimen Anatomical Collection Method Collection Time Receive d Time (Source) Location / / Volume Laterality Blood specimen 03/05/2012 2:00 PM 012 2:12 (specimen) EDT PM EDT Resulting Agency Comment Spec In Lab Deandre Pablo MD HEMATOLOGY ORDERABLES Performing Organization Address City/[facility]/ZIP [facility] [place] [address] CERNER MILLENNIUM Glucose, random (03/05/2012 2:00 PM EDT) athologist Signature Glucose Lvl 116 60 - 199 CERNER mg/dL MILLENNIUM Comment: Diabetes: >=200 mg/dL plus symp toms Specimen Anatomical Collection Method Collection Time Receive d Time (Source) Location / / Volume Laterality Blood specimen 03/05/2012 2:00 PM 012 2:12 (specimen) EDT PM EDT Resulting Agency Comment Spec In Lab Deandre Pablo MD CHEMISTRY ORDERABLES Performing Organization Address City/[facility] [place] [address] CERNER MILLENNIUM Creatinine, serum (03/05/2012 2:00 PM EDT) athologist Signature Creatinine 0.70 0.70 - 1.20 CERNER mg/dL MILLENNIUM Comment: Please note that the pediatric reference intervals supplied above were not validated at [facility]. Results from pediatri c patients should be interpreted in conjunction to the patient's age, height and muscle mass. Estimated GFR >60 >=60 NICOLETTE REEVESU M Comment: The National Kidney Disease Education Pr ogram (NKDEP) has recommended all laboratories report estimated GFR (eGFR) along with plasma creatinine measurements to assist you with recognit ion of early kidney disease. Caveats: ??Plasma creatinine should be a t steady-state (unchanged within the past week). For patient s multiply eGFR by 1.2. The MDRD equation was developed using patients be tween the ages of 18 and 70 years. ?? The MDRD equation has not been validated for patients < 18 years of age and should not be used to assess renal function in the pediatric population. ??The MDRD eGFR equation will also overestimate the true GFR of patients above the age of 70. ??This overestimation is variable bu t increases with age. At present, NKDEP does NOT recommend usi ng the MDRD equation for drug dosing purposes and pharmacists should continue to use their current dosing methods. In addition, numerical eGFR values great er than 60 ml/min/1.73 square meters should be treated as > 60, and not an ex act number due to greater inaccuracies at these higher values. Per NKDEP, they classify normal renal function as any GFR >60ml/min/1.73 square meters; chronic kidney disease wh en GFR <60, and renal failure when GFR <15. ??This calculation may not be valid for patients with atypical muscle mass (very lean or obese), acute renal failur e, and in patients with diabetic kidney disease. References: http://nkdep.nih.gov/resources/NKDEP_Sug gestn4Labs_0606_508.pdf http://www.kidney.org/professionals/kls/ pdf/faq_gfr.pdf Ranjana K, Cristal NA, Annalise AK, Ernie TS, Keisha AD, Efren CLAIRE. Relative performance of the MDRD and CKD-EPI equa tions for estimating glomerular filtration rate among patients with vari ed clinical presentations. Clin J Am Soc Nephrol;6:1963-72. Specimen Anatomical Collection Method Collection Time Receive d Time (Source) Location / / Volume Laterality Blood specimen 03/05/2012 2:00 PM 012 2:12 (specimen) EDT PM EDT Resulting Agency Comment Spec In Lab Deandre Pablo MD CHEMISTRY ORDERABLES Performing Organization Address City/State/ZIP [place] [address] CERNER MILLENNIUM BUN (03/05/2012 2:00 PM EDT) P athologist Signature BUN 12 8 - 18 CERNER mg/dL MILLENNIUM Specimen Anatomical Collection Method Collection Time Receive d Time (Source) Location / / Volume Laterality Blood specimen 03/05/2012 2:00 PM 012 2:12 (specimen) EDT PM EDT Resulting Agency Comment Spec In Lab Deandre Pablo MD CHEMISTRY ORDERABLES Performing Organization Address City/[facility]/[place] [address] CERNER MILLENNIUM Electrolytes panel (03/05/2012 2:00 PM EDT) athologist Signature Sodium 139 135 - 145 CERNER mmol/L MILLENNIUM Potassium 3.8 3.5 - 5.0 CERNER mmol/L MILLENNIUM Comment: Please note: ??Patients with WBC >100,00 0 may have falsely elevated Potassium levels. ??For accurate Potassium quantif ication in these patients send serum separator tube (gold top) for subsequent determinations. ??Contact the Clinical Chemistry Laboratory if there are any qu estions. Chloride 106 98 - 107 mmol/L CERNER MILLENN IUM CO2 26 22 - 31 mmol/L CERNER MILLENNI UM Anion Gap 7 5 - 15 mmol/L CERNER MILLENNIU M Specimen Anatomical Collection Method Collection Time Receive d Time (Source) Location / / Volume Laterality Blood specimen 03/05/2012 2:00 PM 012 2:12 (specimen) EDT PM EDT Resulting Agency Comment Spec In Lab Deandre Pablo MD CHEMISTRY ORDERABLES Performing Organization Address [facility] [place] [address] CERNER MILLENNIUM CBC (with Diff) (03/05/2012 2:00 PM EDT) P athologist Signature WBC 6.4 4.0 - 10.0 CERNER x10(3)/mcL MILLENNIUM RBC 4.55 3.93 - 5.22 CERNER x10(6)/mcL MILLENNIUM Hemoglobin 13.6 11.2 - 15.7 CERNER gm/dL MILLENNIUM Hematocrit 39.4 34.0 - 45.0 CERNER % MILLENNIUM MCV 86.6 79.0 - 94.0 CERNER fL MILLENNIUM MCH 29.9 26.6 - 32.2 CERNER pg MILLENNIUM MCHC 34.5 32.0 - 36.5 CERNER gm/dL [facility] Platelets 248 145 - 370 CERNER x10(3)/mcL MILLENNIUM RDWSD 39.1 35.0 - 46.0 CERNER fL MILLENNIUM RDWCV 12.4 10.9 - 14.4 CERNER % [facility] MPV 9.4 9.0 - 12.0 [facility]ERNER fL [facility] Specimen Anatomical Collection Method Collection Time Receive d Time (Source) Location / / Volume Laterality Blood specimen 03/05/2012 2:00 PM 012 2:12 (specimen) EDT PM EDT Resulting Agency Comment Spec In Lab Deandre Pablo MD HEMATOLOGY ORDERABLES Performing Organization Address City/State/ZIP Code Phon e Number [place] [phone] [facility] POCT urine (03/05/2012) [facility] gist Method Time Signature POC Urine HCG Negative Negative - Negative POC Control Internal Controls Acceptable Specimen (Source) Anatomical Location Collection Method / Collectio n Time Received Time / Laterality Volume Urine specimen (specimen) Deandre Pablo MD POINT OF CARE TEST ORDERABLE S documented in this encounter Visit Diagnoses Not on filedocumented in this encounter Administered Medications Inactive Administered Medications - up to 3 most recent administrations Medication Order MAR Action Action Date Dose Rate Site magnesium sulfate 1g in Given 03/05/2012 3:45 PM EDT 1 g 100 mL/hr dextrose 5% 100mL 1 g, Intravenous, ONCE, 1 dose, On Sun03/05/12 at 1545, Administer over 60 Minutes magnesium sulfate 1g in dextrose 5% Given 03/05/2012 4:16 PM EDT 1 g 100 mL/hr 100mL 1 g, Intravenous, ONCE, 1 dose, On e 03/05/12 at 1545, Administer over 60 Minutes sodium chloride 0.9% 1,000 mL IV bolus Given 03/05/2012 3:22 PM EDT 1 L 1 L, Intravenous, ONCE, 1 dose, On Sun03/05/12 at 1445 documented in this encounter Active and Recently Administered Medications Times are shown in EDT. Scheduled Medication Order 03/03/2012 03/04/2012 03/05/2012 magnesium sulfate 1g in dextrose 5% 100mL (COMPLETED) 1545 (Given - Provider: Francine Bui, RN) 1 g, Intravenous, ONCE, 1 dose, 03/05/12 at 1545, for 60 Marcie ashley magnesium sulfate 1g in dextrose 5% 100mL (COMPLETED) 1616 (Given - Provider: Francine Bui, RN) 1 g, Intravenous, ONCE, 1 dose, 03/05/12 at 1545, for 60 Marcie ashley sodium chloride 0.9% 1,000 mL IV bolus (COMPLETED) 1522 (Given - Provider: Francine Bui, RAQUEL) 1 L, Intravenous, ONCE, 1 dose, 03/05/12 at 1445 documented in this encounter Care Teams Manager Investment Relationship Specialty Start Date End Date Rhianna Cox MD PCP - General 12/22/11 08/25/[address] [place] [address] documented as of this encounter
--- OUTSIDE RECORDS SUMMARY | 2022-04-12 12:19 | XMS_ITS | Encounter Summary ---
:1965 Author Organization [facility] [place] [address] Care Team Providers Name Role Phone Rhianna Cox MD Primary Care Provider Reason for Visit Reason Comments Headache Encounter Details Date Type Department Care Team Description 04/22/2012 Office Visit Neurology at [facility] Mikel Rodriguez, Migraine (Primary Dx) [facility] [place] [address] NEUROLOGY DEPT. [phone] [place], [place] [address] Social History Tobacco Use Types Packs/Day Years Used Date Never Smoker Smokeless Tobacco: Never Used Alcohol Use Standard Drinks/Week Comments No 0 (1 standard drink = 0.6 oz pure alcoho l) Sex Assigned at Date Recorded Not on file documented as of this encounter Last Filed Vital Signs Vital Sign Reading Time Taken Comments Blood Pressure 122/82 04/22/2012 10:41 AM EDT Pulse 74 04/22/2012 10:41 AM EDT Temperature - - Respiratory Rate - - Oxygen Saturation - - Inhaled Oxygen Concentration - - Weight 136.1 kg (300 lb) 04/22/2012 10:41 AM EDT report ed Height 162.6 cm (5' 4) 04/22/2012 10:41 AM EDT reporte d Body Mass Index 51.49 04/22/2012 10:41 AM EDT documented in this encounter Patient Instructions Patient InstructionsMikel Rodriguez MD - 04/22/2012 12:37 PM EDT This is somewhat complicated, but basically I don't think you have any new or serious neurological disease. I don't think you have multiple sclerosis. 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 You do definitely have damage to your brain, and organs of balance near your ear, from her earlier surgeries and the small stroke that you suffered. I suggest we adjust your medicines for migraine, and my advice is that you take 3 pills of the Cyproheptadine all at night, and not to take it one pill 4 times a day. I also suggest that you start taking verapamil one pill daily. I sent a prescription to your pharmacy. We will do some blood tests today and I will arrange for some electrical tests to be done when I seeyou next in a few weeks. I also suggest that you speak to Dr. Cox about an overnight sleep study, since sleep apnea is associated with a worsening of headaches. I'll see you back in a few weeks documented in this encounter Progress Notes Mikel Rodriguez MD - 04/22/2012 1:50 PM EDT Neurology attending consultation note CC: dizziness History: The patient is 47 years old and right handed, and is referred for second opinion and neurological consultation by Dr. Cox. The patient had a normal and early development. She walked and talked normally. She did all right in school. There is no history of major childhood illnesses. She started to have dizzy spells at age 15. These were not diagnosed or treated for a long time. 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 Symptoms were still not relieved, and she had sectioning of vestibular nerves in 1998. In 1999 she required labyrinthectomy with resultant loss of hearing. Her balance and dizziness improved markedly. About 6 years ago, around 2005 she developed migrainous headaches which begin posteriorly and radiates to the vertex. These are bilateral. Sometimes they're associated with blurring of vision and tinnitus. She also feels off balance. Sometimes her right side feels weak. She also describes cutaneous allodynia of the scalp. These happen every few weeks. They respond to treatment with Fioricet. She can also get milder not specifically migrainous headaches for which she takes naproxen. Some headaches are associated with dysphasia, but can also had episodic dysphagia with a headache. This has been investigated with MRI scan and nuclear medicine SPECT scan which was unrevealing. She has been treated prophylactically with Depakote and Topamax, which helped, but then she had breakthrough headaches. She has more recently been placed on cyproheptadine which she is taking 4 mg 4 times a day. This has helped the headaches. However, the past month she is complaining of imbalance precious loss of depth perception and some rather vague feelings in the head that are not exactly dizzinessor vertigo. The picture is complicated by some unusual events in 2007. She appeared to present with a right-sided weakness that was thought initially to be a stroke. However, MRI scan of the brain and MRA of extracranial intracranial vessels was unremarkable. Lumbar puncture was unremarkable including special inflammatory studies in such as oligoclonal bands in mind basic protein. There was concern about seizureactivity, and she was placed on video EEG monitoring, and her right side was noted to move more thanit did when she was being tested. There was concern about a conversion disorder. Her symptoms improved spontaneously. She thinks she was left with residual mild right facial droop. The MRI scan of the b rain did show a right cerebellar scar/infarct, but that is seen on MRI scans as far back as 1997, and is thought to be a complication of her suboccipital craniectomy one of her other surgeries. Her complaints of the last month enter around bad balance, dizziness, visual disturbance, and I noteshe had a visual field study that appeared to show a right-sided visual field deficit. PMH: Patient Active Problem List Diagnoses Code ??? S/P cholecystectomy V45.79D ??? S/P 669.70BS ??? Depression 311L ??? Arthritis 716.90R ??? Migraine 346.90A ??? Stroke 434.91FW FH: Family history is positive for diabetes, heart disease and cancer. This is in her mother son. She does not know who her father was. SH: The patient is . She is on disability. She has 3 children. ROS: 1. Eating: Normal 2. Sleeping: Normal 3. Bowels: Normal 4. Bladder: Normal 5. All other systems were reviewed and were normal except as otherwise noted in history Medications: Current outpatient prescriptions Medication Sig Dispense Refill ??? cholecalciferol, Vitamin D3, (VITAMIN D) 1,000 unit Tab tablet Take 1,000 Units by mouth daily. ??? b complex vitamins tablet Take 2 tablets by mouth daily. ??? ulkgzhpbme-naroypivqalri-ywroliqd (FIORICET, ESGIC) per tablet Take 2 tablets by mouth every 4 hours as needed. May take up to 4 times daily. ??? naproxen sodium (ANAPROX) 550 mg tablet Take 550 mg by mouth 2 times daily as needed. ??? pravastatin (PRAVACHOL) 40 mg tablet Take 40 mg by mouth daily. ??? citalopram (CELEXA) 20 mg tablet Take 20 mg by mouth daily. ??? cyproheptadine (PERIACTIN) 4 mg tablet Take by mouth. Take 3 pills at night 90 tablet 11 ??? albuterol (PROVENTIL HFA;VENTOLIN HFA) 90 mcg/actuation inhaler Inhale 2 puffs into the lungs every 4 hours as needed. ??? aspirin 81 mg tablet Take 81 mg by mouth daily. ??? magnesium oxide (MAG-OX) 400 mg tablet Take 2 tablets by mouth 4 times daily. ??? verapamil (CALAN-SR) 120 mg CR tablet Take 1 tablet by mouth nightly. 30 tablet 11 Allergies: Codeine phos, Percocet, Morphine sulfate, Secobarbital sodium, Divalproex sodium, Adhesive tape and Bacitracin Physical Exam: VS: BP 122/82 Pulse 74 Ht 162.6 cm (5' 4) Wt 136.079 kg (300 lb) BMI 51.49 kg/m2 HEENT: Normal Heart: Normal S1, S2, no abnormal sounds Lungs: Clear Abdomen: Benign Extremities: Normal Neurological exam: Mental state: Normal Speech: Normal Cranial nerves: I: Not tested II: Normal vision 20/25 left and 20/30 right using the 14 inch card and without her reading glasses.Optic discs are flat. Visual cramer are normal to confrontation testing with with a height and red pin-heads III, IV, : EOMs full V: Facial sensation decreased on the right side VII: Facial strength normal, possible very mild right facial droop with flattening of the nasolabialfold VIII: Hearing normal on the left, absent on the right. Preston-Hallpike maneuvers produced discomfort but no pathological nystagmus. IX, X: Palate movement normal XI: Shoulder shrug normal XII: Tongue movement normal Motor: Strength: Normal 5/5 on the left, 5-/5 on the right, with some give way weakness Fine motor: Normal left, slow right Tone: Normal Abnormal movements: None DTR: 1+ Babinski sign: None Other reflexes: Not tested Sensation: Touch: Normal left, decreased right Pin: Normal left, decreased right Position: Normal Vibration: Normal left, decreased right Neglect/extinction: None Graphesthesia: Normal Cerebellar: Finger to nose: Normal left, slow right Heel to cantor: Normal but somewhat awkward because of her weight Gait: Mildly ataxic in a nonspecific manner Labs: Orders Placed This Encounter Procedure ??? Hepatic function panel ??? Basic metabolic panel (non-fasting) ??? Tsh ??? Vitamin b12 ??? T4 ??? Cbc (with diff) ??? Sedimentation rate ? ? Lyme igg & igm antibody ??? Tissue transglutaminase, iga ??? Garth ??? Protein electrophoresis, serum ??? Hemoglobin a1c ??? Ck ??? Angiotensin converting enzyme ??? Vit d total evaluation ??? Cardiolipin antibody screen ??? Differential, automated ??? Brainstem auditory evoked potentials ??? Visual evoked potential test MRI scan: Findings as noted above Impression and suggestions: This is a rather complex situation with several inter-related issues. #1 It seems certain that she had chronic vestibular dysfunction with perilymph fistula, culminating in a labyrinthectomy which relieved dizziness and vertigo. However it left her with hearing loss and perhaps mildly impaired balance. I also suspect that as a complication of one of her surgeries she had some scarring of the right cerebellum which partially explains some of her weakness and awkwardnesson that side. I think these issues are stable. #2 She appears to have a migraine headache. I could not at this point given her a diagnosis of hemiplegic migraine, but intermittent vestibular dysfunction dysphasia and right-sided weakness seemed to be part of it. There is also evidence that some of her symptoms represent a stress reaction or conversion disorder. Her headaches are better on the cyproheptadine which was started a month ago by Dr. Jacobo. However I believe that 4 milligrams 4 times a day may be contributing to daytime sedation as well as to her rather nonspecific complaints of imbalance. I suggested instead that she take 12 mg eachbedtime. In addition for migraine prevention I have taken the liberty of starting her on verapamil 120 mg daily. Her acute symptomatic relief we can use naproxen or Fioricet. #3 Some of her dysphasic and visual symptoms may be part of a migraine disorder, but I also wonder about a stress reaction. Concern is raised about multiple sclerosis, but I doubt she has that based onthe results of her MRI scans, and also the normal lumbar puncture a few years ago. I am screening her with blood tests to rule out imitators of multiple sclerosis as well as comorbid conditions, and I will obtain a brainstem and visual evoked potential study. Visual testing today with careful confrontation testing revealed no visual field deficit, and I don't think is necessary to repeat a formal visual field study, or to refer her to neuro-ophthalmology at this time #4. I suspect that the lesion seen in her right cerebellum is a postsurgical scar, but it is also possible that she has had one or more strokes. I am screening her with blood tests as noted above. I don't think necessary to reimage her brain or blood vessels at this time. She should stay on aspirin. #5 She is obese, and according to her snores a lot at night. He does not describe sleep apnea. However she is certainly at risk. I think a sleep study would be reasonable since intractable headaches often remain intractable until sleep apnea has been treated. Thank you for this consultation I will see the patient back in 4-6 weeks Mikel Rodriguez MD Department [place] [address] Pager: [phone], #[phone] Email: [email or web address] CC: Dr. Kenny Jacobo documented in this encounter Plan of Treatment Not on filedocumented as of this encounter Procedures Procedure Name Priority Date/Time Associated Comments Diagnosis LYME IGG & IGM Routine 04/22/2012 1:09 PM Migraine Results for this ANTIBODY EDT procedure are i n the results section. DIFFERENTIAL, Routine 04/22/2012 1:09 PM Results for this AUTOMATED EDT procedure are i n the results section. TISSUE Routine 04/22/2012 1:09 PM Migraine Results f or this TRANSGLUTAMINASE, IGA EDT proced ure are in the results section. VITAMIN D, 25-HYDROXY Routine 04/22/2012 1:09 PM Migraine Results for this EDT procedure are i n the results section. CARDIOLIPIN ANTIBODY Routine 04/22/2012 1:09 PM Migraine R esults for this SCREEN EDT procedure are i n the results section. SEDIMENTATION RATE Routine 04/22/2012 1:09 PM Migraine Res ults for this EDT procedure are i n the results section. CBC (WITH DIFF) Routine 04/22/2012 1:09 PM Migraine Result s for this EDT procedure are i n the results section. ANGIOTENSIN CONVERTING Routine 04/22/2012 1:09 PM Migraine Results for this ENZYME EDT procedure are i n the results section. GARTH Routine 04/22/2012 1:09 PM Migraine Results f or this EDT procedure are i n the results section. TSH Routine 04/22/2012 1:09 PM Migraine Results f or this EDT procedure are i n the results section. T4 TOTAL Routine 04/22/2012 1:09 PM Migraine Results f or this EDT procedure are i n the results section. PROTEIN Routine 04/22/2012 1:09 PM Migraine Results f or this ELECTROPHORESIS, SERUM EDT proce dure are in the results section. HEMOGLOBIN A1C Routine 04/22/2012 1:09 PM Migraine Results for this EDT procedure are i n the results section. VITAMIN B12 Routine 04/22/2012 1:09 PM Migraine Results f or this EDT procedure are i n the results section. CK Routine 04/22/2012 1:09 PM Migraine Results f or this EDT procedure are i n the results section. HEPATIC FUNCTION PANEL Routine 04/22/2012 1:09 PM Migraine Results for this EDT procedure are i n the results section. BASIC METABOLIC PANEL Routine 04/22/2012 1:09 PM Migraine Results for this (NON-FASTING) EDT procedure are in the results section. documented in this encounter Results BRAINSTEM AUDITORY EVOKED POTENTIALS (05/07/2012 10:19 AM EDT) Narrative Davie Hernandez MD - 05/07/2012 1 0:19 AM EDT ? BAEP#: 143/12 Brainstem Auditory Evoked Potentials (BA EP) Patient: ? Carlee Rangel Date of Study: ?? 04/30/2012 Referring Physician: ? Willow Cox Patient's Date of : ?1965 Clinical History: ?This is a 47 year old female with possible demyelination disease. Procedure: ??Brainstem auditory evoked p otentials were recorded with click ?stimulation at ??(60 dB above threshold) ??in one ear with white ? noise in the opposite ear. ? Latency (msec) Generator Wave Left ??Right Normal ?? Dorsal Cochlear Nucleus I 1.26 NR < 2.15 Superior Olivary Body III 3.56 NR < 4.47 Inferior Colliculus V 5.86 NR < 6.65 ?Latency (msec) Interwave Left ??Right Normal ?? I - III 2.30 NA ??< 2.55 III - V 2.30 NA < 2.44 I - V 4.60 NA < 4.63 NR = Not Reproducible NA = Not Applicable Findings: Waveforms are well formed, rep roducible, with normal amplitude and latency on the left side. ??On the r ight side waveforms are not seen. ?? Conclusion: Absent brainstem auditory ev oked response on the right. ?? Normal on the left. ??This could be due to auditory tract dysfunction or technical difficulties. Lakeshia Jaquez MD I reviewed the ADAIR and I agree with the interpretation as written. Procedure Note PalomaLucas mack Teo - 04/30/2012 10:04 AM EDT BAEP#: 143/12 Brainstem Auditory Evoked Potentials (BA EP) Patient: Carlee Rangel Date of Study: 04/30/2012 Referring Physician: Rhianna Cox Patient's Date of : 1965 Clinical History: This is a 47 year old female with possible demyelination disease. Procedure: Brainstem auditory evoked pot entials were recorded with click stimulation at (60 dB above threshold) in one ear with white noise in the opposite ear. Latency (msec) Generator Wave Left Right Normal Dorsal Cochlear Nucleus I 1.26 NR < 2.15 Superior Olivary Body III 3.56 NR < 4.47 Inferior Colliculus V 5.86 NR < 6.65 Latency (msec) Interwave Left Right Normal I - III 2.30 NA < 2.55 III - V 2.30 NA < 2.44 I - V 4.60 NA < 4.63 NR = Not Reproducible NA = Not Applicable Findings: Waveforms are well formed, rep roducible, with normal amplitude and latency on the left side. On the right side waveforms are not seen. Conclusion: Absent brainstem auditory ev oked response on the right. Normal on the left. This could be due to auditory tract dysfunction or technical difficulties. Lakeshia Jaquez MD I reviewed the ADAIR and I agree with the interpretation as written. Mikel Rodriguez MD NEUROLOGY ORDERABLES Visual evoked potential test (05/07/2012 10:17 AM EDT) Narrative Davie Hernandez MD - 05/07/2012 1 0:17 AM EDT ? VEP#: 142/12 Visual Evoked Potentials (VEP) Name: ?Carlee Rangel Date of Study: ??04/30/2012 Referring Provider: Rhianna Cox Clinical History: This is a 47 year old female with possible demyelination disease. Procedure: ??Monocular, whole field, 16- check pattern-reversal visual evoked potentials ??were recorded over mid-occipital and right and left occipital cortices. Visual Acuity Left ??Right 20/70 20/50 ?Latency (msec) Generator Wave Left Right Left/Right Difference Normal Occipital Neocortex P100 106.0 100.0 7.2 < 117.6 (Difference < 7.3) NR = Not Reproducible NA = Not Applicable Findings: Waveforms are well formed, rep roducible, with normal amplitude and latency. Conclusion: Normal visual evoked potenti als. ??No evidence of demyelination on this study. Lakeshia Jaquez MD I reviewed the VEPs and I agree with the interpretation as written. Procedure Note Lucas Dow - 04/30/2012 10:00 AM EDT VEP#: 142/12 Visual Evoked Potentials (VEP) Name: Carlee Rangel Date of Study: 04/30/2012 Referring Provider: Rhianna Cox Clinical History: This is a 47 year old female with possible demyelination disease. Procedure: Monocular, whole field, 16-ch chilo pattern-reversal visual evoked potentials were recorded over mid-occipital and ri ght and left occipital cortices. Visual Acuity Left Right 20/70 20/50 Latency (msec) Generator Wave Left Right Left/Right Difference Normal Occipital Neocortex P100 106.0 100.0 7.2 < 117.6 (Difference < 7.3) NR = Not Reproducible NA = Not Applicable Findings: Waveforms are well formed, rep roducible, with normal amplitude and latency. Conclusion: Normal visual evoked potenti als. No evidence of demyelination on this study. Lakeshia Jaquez MD I reviewed the VEPs and I agree with the interpretation as written. Mikel Rodriguez MD NEUROLOGY ORDERABLES DIFFERENTIAL, AUTOMATED (04/22/2012 1:09 PM EDT) P athologist Signature Neutrophils % 64.2 34.0 - CERNER 71.0 % MILLENNIUM Neutr Abs (ANC) 3.57 1.50 - CERNER 6.30 MILLENNIUM x10(3)/mcL Lymphocytes % 28.4 19.0 - CERNER 53.0 % MILLENNIUM Lymphocytes Abs 1.6 1.0 - 3.6 CERNER x10(3)/mcL MILLENNIUM Monocytes % 4.7 4.0 - 13.0 CERNER % MILLENNIUM Monocyte Abs 0.3 0.2 - 1.0 CERNER x10(3)/mcL MILLENNIUM Eosinophils % 2.3 0.0 - 7.0 CERNER % MILLENNIUM Eosinophils Abs 0.1 0.0 - 0.5 CERNER x10(3)/mcL MILLENNIUM Basophils % 0.4 0.0 - 2.0 CERNER % MILLENNIUM Basophils Abs 0.0 0.0 - 0.2 CERNER x10(3)/mcL MILLENNIUM Immature Gran % 0.00 0.00 - CERNER 0.66 % MILLENNIUM Comment: Immature granulocytes(IG's)percentage an d absolute count will include metamyelocytes, myelocytes, and promyelo cytes. Blood smears from CBCs yielding IG's will be scanned manually for hosea danaraceli. If this scan disagrees with the automated IG or if promyelocytes are not ed, a manual differential will be performed. Josephine Gran Abs 0.00 0.00 - 0.05 x10(3)/mcL CER NER MILLENNIUM Specimen Anatomical Collection Method Collection Time Receive d Time (Source) Location / / Volume Laterality Blood specimen 04/22/2012 1:09 PM 012 1:12 (specimen) EDT PM EDT Mikel Rodriguez MD HEMATOLOGY ORDERABLES Performing Organization Address City/State/ZIP [place] [address] [facility] Cardiolipin Antibody Screen (04/22/2012 1:09 PM EDT) P athologist Signature Cardiolipin IgG <23 <=22 GPL CERNER unit(s) MILLENNIUM Comment: Ranges ? GPL ------- ? ------ Normal ?<23 Low Positive ? 23-35 Moderate Positive ?36 -50 High Positive ? >5 0 Cardiolipin IgM <11 <=10 MPL unit(s) CERNER MILLENNIUM Comment: Ranges ?MPL ----- ?----- Normal ?<11 Low Positive ? 11-20 Moderate Positive ?21 -30 High Positive ? >3 0 Specimen Anatomical Collection Method Collection Time Receive d Time (Source) Location / / Volume Laterality Blood specimen 04/22/2012 1:09 PM 012 8:25 (specimen) EDT AM EDT Resulting Agency Comment Spec In Lab Mikel Rodriguez MD IMMUNOLOGY ORDERABLES Performing Organization Address City/[facility]/[place] [address] CERNER MILLENNIUM (ABNORMAL) VIT D Total Evaluation (04/22/2012 1:09 PM EDT) P athologist Signature 25-OH Vit D 28 (L) 30 - 100 CERNER Total ng/mL MILLENNIUM Comment: Deficient <10 ng/mL Insufficient 10 to 29 ng/mL Sufficient 30 to 100 ng/mL Potential Intoxication >100 ng/mL According to the [place] National Osteoporosi s Foundation, Vitamin D concentrations >30 ng/mL are sufficient to protect bone health. ??The National Kidney Foundation has similarly stated that pat ients with Vitamin D concentrations <30ng/mL should be considered to be insu fficient or deficient. http://www.kidney.org/professionals/KDOQ I/guidelines_bone/Guide7.htm http://www.nof.org/professionals/clinica l-guidelines The IDS iSYS Vitamin D Immunoassay detec ts both 25-OH Vitamin D2 and 25-OH Vitamin D3, but only a total Vitamin D c oncentration is reported. Specimen Anatomical Collection Method Collection Time Receive d Time (Source) Location / / Volume Laterality Blood specimen 04/22/2012 1:09 PM 012 1:12 (specimen) EDT PM EDT Resulting Agency Comment Spec In Lab Mikel Rodriguez MD CHEMISTRY ORDERABLES Performing Organization Address City/[facility]/[place] [address] [facility] MILLENNIUM Angiotensin Converting Enzyme (04/22/2012 1:09 PM EDT) P athologist Signature PRINCE 51 8 - 53 CERNER unit/L MILLENNIUM Comment: Test Performed by: [employer] [address], [place] [address] Guest Services Director: Janna Delarosa, Ph. D. Specimen Anatomical Collection Method Collection Time Receive d Time (Source) Location / / Volume Laterality Blood specimen 04/22/2012 1:09 PM 012 3:45 (specimen) EDT PM EDT Resulting Agency Comment Spec In Lab Mikel Rodriguez MD CHEMISTRY ORDERABLES Performing Organization Address City/State/ZIP Code Phon e Number [place] [address] CERNER MILLENNIUM CK (04/22/2012 1:09 PM EDT) athologist Signature CK, Total 96 0 - 160 CERNER unit/L MILLENNIUM Specimen Anatomical Collection Method Collection Time Receive d Time (Source) Location / / Volume Laterality Blood specimen 04/22/2012 1:09 PM 012 1:12 (specimen) EDT PM EDT Resulting Agency Comment Spec In Lab Mikel Rodriguez MD CHEMISTRY ORDERABLES Performing Organization Address City/[facility]/ZIP Code Phon e Number [place] [address] CERNER MILLENNIUM Hemoglobin A1c (04/22/2012 1:09 PM EDT) athologist Signature Hemoglobin A1C 5.5 4.3 - 6.1 CERNER % MILLENNIUM Est Avg Gluc 111 mg/dL CERNER MILLENNIUM Comment: eAG equivalents for HbA1c percentages: HbA1c(%) ?eAG(mg/dL) 6.0 ?126 6.5 ?140 7.0 ?154 7.5 ?169 8.0 ?183 8.5 ?197 9.0 ?212 9.5 ?226 10.0 ? 240 Limitations: The eAG calculation has not been validated on women, individuals below 18 years old and above 70 years old, and individuals with hemoglobinopathies. Additional resources are available on th e ADA website: ??http://professional.diabetes.org/gluc osecalculator.aspx Reference: Grover ARIZA, Teresa J, Michelle R, et al. ??Tr anslating the A1C assay into estimated average glucose values. ??Diabetes Care 2008:31(8):6795-7378. Specimen Anatomical Collection Method Collection Time Receive d Time (Source) Location / / Volume Laterality Blood specimen 04/22/2012 1:09 PM 012 1:12 (specimen) EDT PM EDT Resulting Agency Comment Spec In Lab Mikel Rodriguez MD CHEMISTRY ORDERABLES Performing Organization Address City/[facility] Phon e Number [address] CERNER MILLENNIUM Protein Electrophoresis, serum (04/22/2012 1:09 PM EDT) [facility] gist Method Time Signature Total Prot 6.6 6.1 - 8.0 CERNER Elec gm/dL MILLENNIUM Albumin Elect 4.17 3.60 - 6.00 CERNER gm/dL MILLENNIUM Alpha1-Globul 0.18 0.10 - 0.30 CERNER in gm/dL MILLENNIUM Alpha2-Globul 0.75 0.40 - 0.90 CERNER in gm/dL MILLENNIUM Beta Globulin 0.76 0.50 - 1.00 CERNER gm/dL MILLENNIUM Gamma 0.74 0.50 - 1.30 CERNER Globulin gm/dL MILLENNIUM M1 Band None None CERNER Detected Detected MILLENNIUM gm/dL Scan See Note CERNER MILLENNIUM Comment: Please see scanned report in Ch art Review under the [facility] Laboratory Heading. Specimen Anatomical Collection Method Collection Time Receive d Time (Source) Location / / Volume Laterality Blood specimen 04/22/2012 1:09 PM 012 1:12 (specimen) EDT PM EDT Narrative This result has an attachment that is no t available. Resulting Agency Comment Spec In Lab Mikel Rodriguez MD CHEMISTRY ORDERABLES Performing Organization Address City/[facility]/ZIP [facility] Phon e Number [address] CERNER MILLENNIUM GARTH (04/22/2012 1:09 PM EDT) athologist Signature GARTH Neg Neg CERNER MILLENNIUM Specimen Anatomical Collection Method Collection Time Receive d Time (Source) Location / / Volume Laterality Blood specimen 04/22/2012 1:09 PM 012 8:18 (specimen) EDT AM EDT Resulting Agency Comment Spec In Lab Mikel Rodriguez MD IMMUNOLOGY ORDERABLES Performing Organization Address City/[facility]/ZIP Code Phon e Number [address] CERNER MILLENNIUM Tissue transglutaminase, IgA (04/22/2012 1:09 PM EDT) athologist Signature TTG IgA Ab <4.0 <=3.9 u/ml CERNER MILLENNIUM Comment: Result Interpretation: Negative: ?<4 U/mL Weak Positive: ??4-10 U/mL Positive: ?>10 U/mL Specimen Anatomical Collection Method Collection Time Receive d Time (Source) Location / / Volume Laterality Blood specimen 04/22/2012 1:09 PM 012 8:25 (specimen) EDT AM EDT Resulting Agency Comment Spec In Lab Mikel Rodriguez MD IMMUNOLOGY ORDERABLES Performing Organization Address City/[facility]/ZIP Code Phon e Number [address] CERNER MILLENNIUM Lyme IgG & IgM Antibody (04/22/2012 1:09 PM EDT) Analysis Performed At [facility] logist Time Signature Lyme Screening Negative Negative CERNER Antibody MILLENNIUM Specimen Anatomical Collection Method Collection Time Receive d Time (Source) Location / / Volume Laterality Blood specimen 04/22/2012 1:09 PM 012 9:12 (specimen) EDT AM EDT Resulting Agency Comment Spec In Lab Mikel Rodriguez MD IMMUNOLOGY ORDERABLES Performing Organization Address City/[facility]/ZIP [facility] [address] CERNER MILLENNIUM Sedimentation rate (04/22/2012 1:09 PM EDT) athologist Signature Sed Rate 19 0 - 20 CERNER mm/hr MILLENNIUM Specimen Anatomical Collection Method Collection Time Receive d Time (Source) Location / / Volume Laterality Blood specimen 04/22/2012 1:09 PM 012 1:12 (specimen) EDT PM EDT Resulting Agency Comment Spec In Lab Mikel Rodriguez MD HEMATOLOGY ORDERABLES Performing Organization Address City/[facility]/ZIP Code Phon e Number [address] CERNER MILLENNIUM CBC (with Diff) (04/22/2012 1:09 PM EDT) athologist Signature WBC 5.6 4.0 - 10.0 CERNER x10(3)/mcL MILLENNIUM RBC 4.33 3.93 - 5.22 CERNER x10(6)/mcL MILLENNIUM Hemoglobin 13.1 11.2 - 15.7 CERNER gm/dL MILLENNIUM Hematocrit 38.3 34.0 - 45.0 CERNER % MILLENNIUM MCV 88.5 79.0 - 94.0 CERNER fL MILLENNIUM MCH 30.3 26.6 - 32.2 CERNER pg MILLENNIUM MCHC 34.2 32.0 - 36.5 CERNER gm/dL MILLENNIUM Platelets 221 145 - 370 CERNER x10(3)/mcL MILLENNIUM RDWSD 41.6 35.0 - 46.0 CERNER fL MILLENNIUM RDWCV 12.8 10.9 - 14.4 CERNER % MILLENNIUM MPV 9.1 9.0 - 12.0 CERNER fL MILLENNIUM Specimen Anatomical Collection Method Collection Time Receive d Time (Source) Location / / Volume Laterality Blood specimen 04/22/2012 1:09 PM 012 1:12 (specimen) EDT PM EDT Resulting Agency Comment Spec In Lab Mikel Rodriguez MD HEMATOLOGY ORDERABLES Performing Organization Address City/[facility]/ZIP Code Phon e Number [address] CERNER MILLENNIUM T4 (04/22/2012 1:09 PM EDT) athologist Signature T4, total 5.2 5.1 - 10.8 CERNER mcg/dL [facility] Comment: Reference Range: Bly Cord Blood: ??6.9-14.4 mcg/dL Females: ??7.2-14.2 mcg/dL Pediatric ranges: ??Interpret with cauti on-ranges have not been verified Specimen Anatomical Collection Method Collection Time Receive d Time (Source) Location / / Volume Laterality Blood specimen 04/22/2012 1:09 PM 012 1:12 (specimen) EDT PM EDT Resulting Agency Comment Spec In Lab Mikel Rodriguez MD CHEMISTRY ORDERABLES Performing Organization Address City/[facility]/ZIP [facility] Phon e Number [address] [facility] (ABNORMAL) Vitamin B12 (04/22/2012 1:09 PM EDT) Analysis Performed At Patho logist Time Signature Vitamin B-12 >2000 (H) 207 - 974 CERNER pg/mL [facility] Specimen Anatomical Collection Method Collection Time Receive d Time (Source) Location / / Volume Laterality Blood specimen 04/22/2012 1:09 PM 012 1:12 (specimen) EDT PM EDT Resulting Agency Comment Spec In Lab Mikel Rodriguez MD CHEMISTRY ORDERABLES Performing Organization Address City/[facility]/ZIP Code Phon e Number [address] [facility] TSH (04/22/2012 1:09 PM EDT) P athologist Signature TSH 2.49 0.27 - 4.20 CERNER mcIU/mL [facility] Specimen Anatomical Collection Method Collection Time Receive d Time (Source) Location / / Volume Laterality Blood specimen 04/22/2012 1:09 PM 012 1:12 (specimen) EDT PM EDT Resulting Agency Comment Spec In Lab Mikel Rodriguez MD CHEMISTRY ORDERABLES Performing Organization Address City/[facility]/ZIP [facility] Phon e Number [address] [facility] Basic Metabolic Panel (non-fasting) (04/22/2012 1:09 PM EDT) athologist Signature Glucose Lvl 94 60 - 199 CERNER mg/dL MILLENNIUM Comment: Diabetes: >=200 mg/dL plus symp toms BUN 12 8 - 18 mg/dL CERNER MILLENNIUM Creatinine 0.74 0.70 - 1.20 mg/dL CERNER MILL ENNIUM Comment: Please note that the pediatric reference intervals supplied above were not validated at [facility]. Results from pediatri c patients should be interpreted in conjunction to the patient's age, height and muscle mass. Sodium 139 135 - 145 mmol/L CERNER CESAR NIUM Potassium 3.9 3.5 - 5.0 mmol/L CERNER CESAR NIUM Comment: Please note: ??Patients with WBC >100,00 0 may have falsely elevated Potassium levels. ??For accurate Potassium quantif ication in these patients send serum separator tube (gold top) for subsequent determinations. ??Contact the Clinical Chemistry Laboratory if there are any qu estions. Chloride 103 98 - 107 mmol/L CERNER MILLENN IUM CO2 27 22 - 31 mmol/L CERNER MILLENNI UM Anion Gap 9 5 - 15 mmol/L CERNER MILLENNIU M Calcium 9.1 8.5 - 10.5 mg/dL CERNER CESAR NIUM Estimated GFR >60 >=60 CERNER MILLENNIU M Comment: The National Kidney Disease Education [...] Location / / Volume Laterality Blood specimen 04/22/2012 1:09 PM 012 1:12 (specimen) EDT PM EDT Resulting Agency Comment Spec In Lab Mikel Rodriguez MD CHEMISTRY ORDERABLES Performing Organization Address City/State/ZIP Code Phon e Number [place] [phone] CERNER MILLENNIUM (ABNORMAL) Hepatic Function Panel (04/22/2012 1:09 PM EDT) P athologist Signature Total Protein 7.0 6.4 - 8.3 CERNER gm/dL MILLENNIUM Albumin 4.2 3.2 - 5.2 CERNER gm/dL MILLENNIUM AST 30 0 - 30 CERNER unit/L MILLENNIUM ALT 44 (H) 0 - 30 CERNER unit/L MILLENNIUM Alk Phos 86 40 - 104 CERNER unit/L MILLENNIUM Total 0.2 0.2 - 1.3 CERNER Bilirubin mg/dL MILLENNIUM Bili, Direct 0.1 0.0 - 0.3 CERNER mg/dL MILLENNIUM Specimen Anatomical Collection Method Collection Time Receive d Time (Source) Location / / Volume Laterality Blood specimen 04/22/2012 1:09 PM 012 1:12 (specimen) EDT PM EDT Resulting Agency Comment Spec In Lab Mikel Rodriguez MD CHEMISTRY ORDERABLES Performing Organization Address City/State/[place] [address] [facility] documented in this encounter Visit Diagnoses Diagnosis Migraine - Primary Migraine, unspecified, without mention o f intractable migraine without mention of status migrainosus Migraine - Primary Migraine, unspecified, without mention o f intractable migraine without mention of status migrainosus Migraine Migraine, unspecified, without mention o f intractable migraine without mention of status migrainosus documented in this encounter Care Teams Floor Coverings Installer Relationship Specialty Start Date End Date Rhianna Cox MD PCP - General 12/22/11 08/25/[address] [place] [address] documented as of this encounter
--- OUTSIDE RECORDS SUMMARY | 2022-04-12 12:19 | XMS_ITS | Encounter Summary ---
:1965 Author Organization [facility] [place] [address] Care Team Providers Name Role Phone Rhianna Cox MD Primary Care Provider Reason for Visit Reason Onset Date Comments Other 05/20/2012 results of tests Encounter Details Date Type Department Care Team Description 05/20/[address] [facility] [place]el Gillespie, Santos (results of [facility] MD tests) [place] [address] NEUROLOGY DEPT. [place], [place] [address] (Wo rk) Social History Tobacco Use Types Packs/Day Years Used Date Never Smoker Smokeless Tobacco: Never Used Alcohol Use Standard Drinks/Week Comments No 0 (1 standard drink = 0.6 oz pure alcoho l) Sex Assigned at Date Recorded Not on file documented as of this encounter Miscellaneous Notes Telephone Encounter - Brenda Horvath RN - 05/20/2012 4:34 PM EDT Called patient and reviewed results briefly. Advised she call back on Sunday when Dr. gillespie is back to discuss results Telephone Encounter - Amy Woodson - 05/20/2012 2:15 PM EDT Please call the patient with the results of recent tests. Evoked potentials. documented in this encounter Plan of Treatment Not on filedocumented as of this encounter Visit Diagnoses Not on filedocumented in this encounter Care Teams Link Trainer Relationship Specialty Start Date End Date Rhianna Cox MD PCP - General 12/22/11 08/25/[address] [place] [address] documented as of this encounter
--- OUTSIDE RECORDS SUMMARY | 2022-04-12 12:19 | XMS_ITS | Encounter Summary ---
:1965 Author Organization [facility] [place] [address] Care Team Providers Name Role Phone Rhianna Cox MD Primary Care Provider Reason for Visit Reason Onset Date Comments Other 04/22/2012 vitamin d Encounter Details Date Type Department Care Team Description 04/22/2012 Telephone Neurology at [facility] Olivia Hines MD Other (vitamin d) [facility] [place] [address] NEUROLOGY DEPT. [phone] [place], [place] [address] (Wo rk) Social History Tobacco Use Types Packs/Day Years Used Date Never Smoker Smokeless Tobacco: Never Used Alcohol Use Standard Drinks/Week Comments No 0 (1 standard drink = 0.6 oz pure alcoho l) Sex Assigned at Date Recorded Not on file documented as of this encounter Miscellaneous Notes Telephone Encounter - Brenda Horvath RN - 04/22/2012 4:35 PM EDT Noted. Called patient left message on machine with info noted below. Telephone Encounter - Brenda Horvath RN - 04/22/2012 4:33 PM EDT Message copied by BRENDA HORVATH on SunApr 22, 2012 4:33 PM ------ Message from: OLIVIA HINES Created: SunApr 22, 2012 4:17 PM Hi, Would you please give hear call, and put her on vitamin D 1000 units daily. olivia Cruz ----- Message ----- From: Lab [facility] Sent: 04/22/2012 1:24 PM To: Olivia Hines MD documented in this encounter Plan of Treatment Not on filedocumented as of this encounter Visit Diagnoses Not on filedocumented in this encounter Care Teams Demonstrator Knitting Relationship Specialty Start Date End Date Rhianna Cox MD PCP - General 12/22/11 08/25/19 [facility] [address] [place] [address] documented as of this encounter
--- OUTSIDE RECORDS SUMMARY | 2022-04-12 12:19 | XMS_ITS | Encounter Summary ---
:1965 [place] [address] Care Team Providers Name Role Phone Rhianna Cox MD Primary Care Provider Reason for Visit Reason Onset Date Comments Other 06/18/2012 Pt needs prior- auth orization for PERIACTIN Encounter Details Date Type Department Care Team Description 06/18/2012 Telephone Neurology at [facility] Mikel Rodriguez, Other (Pt needs prior- [facility] authorization for [facility] PERIACTIN) [place] [address] NEUROLOGY DEPT. [place], [place] [address] Social History Tobacco Use Types Packs/Day Years Used Date Never Smoker Smokeless Tobacco: Never Used Alcohol Use Standard Drinks/Week Comments No 0 (1 standard drink = 0.6 oz pure alcoho l) Sex Assigned at Date Recorded Not on file documented as of this encounter Miscellaneous Notes Telephone Encounter - Ana Luisa Whitten LPN - 06/18/2012 10:59 AM EDT 06/18/12 Follow up call: I spoke to Carlee and explained that when Dr Rodriguez wrote the script for periactin on 04/22/12 it required a prior authorization from [employer] Part D. A PA was submitted but denied outright. Patient tells me there have been no changes in her insurance coverage. When it wasoriginally prescribed by Dr Alvarado she was able to get it twice so she doesn't understand why the insurance refuses to pay for it now. I advised that she would have to call her insurance company to ask that exact question. I asked that she call our office if there was any way we could help if she hadnew information. She was appreciative of this gesture and agreed to do so. Telephone Encounter - Clara Robles - 06/18/2012 10:26 AM EDT Med was denied, per other note. Telephone Encounter - Kimber Torrez - 06/18/2012 8:43 AM EDT cyproheptadine (PERIACTIN) 4 mg tablet 90 tablet 11 04/22/2012 Sig - Route: Take by mouth. Take 3 pills at night - Oral Pharmacy: [address] documented in this encounter Plan of Treatment Not on filedocumented as of this encounter Visit Diagnoses Not on filedocumented in this encounter Care Teams Tank Worker Relationship Specialty Start Date End Date Rhianna Cox MD PCP - General 12/22/11 08/25/[address] [place] [address] documented as of this encounter
--- OUTSIDE RECORDS SUMMARY | 2022-04-12 12:19 | XMS_ITS | Encounter Summary ---
:1965 Author Organization [facility] [address] Care Team Providers Name Role Phone Zaheer Fox DO Primary Care Provider Reason for Visit Reason Onset Date Comments Migraine 09/30/2020 Encounter Details Date Type Department Care Team Description 09/30/2020 Telephone Neurology at [facility] [address] [place] [address] Social History Tobacco Use Types Packs/Day Years Used Date Never Smoker Smokeless Tobacco: Never Used Alcohol Use Standard Drinks/Week Comments No 0 (1 standard drink = 0.6 oz pure alcoho l) Sex Assigned at Date Recorded Not on file documented as of this encounter Miscellaneous Notes Telephone Encounter - Selene Rios - 09/30/2020 10:55 AM EST Pt reports migraine is going on week three. Wants to hear from Dr. Jacobo. Please call. Pt did not want to go into detail. Victorina documented in this encounter Plan of Treatment Not on filedocumented as of this encounter Visit Diagnoses Not on filedocumented in this encounter Care Teams Insulation Power Unit Tender Relationship Specialty Start Date End Date Zaeher Fox DO PCP - General Family Medicine 08/26/[address] [place] [id number] documented as of this encounter
--- OUTSIDE RECORDS SUMMARY | 2022-04-12 12:19 | XMS_ITS | Encounter Summary ---
:1965 Author Organization [facility] [place] [address] Care Team Providers Name Role Phone Rhianna Cox MD Primary Care Provider Reason for Visit Reason Comments Migraine Encounter Details Date Type Department Care Team Description 06/20/2012 Follow-Up Neurology at [facility] Mikel Rodriguez, Migraine (Primary Dx) [place] [address] NEUROLOGY DEPT. [place], [place] [address] (Wo rk) Social History Tobacco Use Types Packs/Day Years Used Date Never Smoker Smokeless Tobacco: Never Used Alcohol Use Standard Drinks/Week Comments No 0 (1 standard drink = 0.6 oz pure alcoho l) Sex Assigned at Date Recorded Not on file documented as of this encounter Last Filed Vital Signs Vital Sign Reading Time Taken Comments Blood Pressure 140/87 06/20/2012 10:18 AM EDT Pulse 90 06/20/2012 10:18 AM EDT Temperature - - Respiratory Rate - - Oxygen Saturation - - Inhaled Oxygen Concentration - - Weight 150.2 kg (331 lb 1.6 oz) 06/20/2012 10:18 AM EDT Height 162.6 cm (5' 4) 06/20/2012 10:18 AM EDT Body Mass Index 56.83 06/20/2012 10:18 AM EDT documented in this encounter Patient Instructions Patient InstructionsMikel Rodriguez MD - 06/20/2012 11:13 AM EDT I think you're doing reasonably well. I think we have fairly good explanation for the weakness in the right side. MRI scan shows signs of an old stroke that the brain which I suspect is a complication of one of the surgeries. For prevention I suggest to stay on aspirin. For prevention of headaches I think you should try some Norvasc, take one pill daily. If you get a headache you can start treatment with naproxen as you do, and if that doesn't work then go on to the Fioricet. Please wean off the periactin. Go down from 3 pills at night to 2 now, next week go down to 1 every night, and the week after stop it completely, so that you are off it for a week before you do the sleep study. If your headache or dizziness gets worse, then we will been a strong position to write a letter to the insurance company to get it paid for. I would like to see you back in August, please call if any problems arise before that documented in this encounter Progress Notes Mikel Rodriguez MD - 06/20/2012 11:09 AM EDT Neurology attending consultation note CC: dizziness History: She is seen in followup today. The patient is 47 years old and right handed, and is referred for second opinion and neurological consultation by Dr. Cox . The patient had a normal and early [...] around bad balance, dizziness, visual disturbance, and and persistent headaches usually to 4 days a month around the time of her period. She is not sure whether she has benefited at all from Periactin. She thinks she had an allergic reaction verapamil with numbness and tingling in the mouth, and she has discontinued it PMH: Patient Active Problem List Diagnoses Code ??? S/P cholecystectomy V45.79D ??? S/P 669.70BS ??? Depression 311L ??? Arthritis 716.90R ??? Migraine 346.90A ??? Stroke 434.91FW FH: Family history is positive for diabetes, heart disease and cancer. This is in her mother's family. She does not know who her father was. SH: The patient is . She is on disability. She has 3 children. ROS: 1. Eating: Normal 2. Sleeping: snoring and some disturbance according to her 3. Bowels: Normal 4. Bladder: Normal Medications: Current outpatient prescriptions Medication Sig Dispense Refill ??? Cholecalciferol, Vitamin D3, (VITAMIN D-3) 2,000 unit Cap Take 2,000 Int'l Units by mouth 2 times daily. ??? b complex vitamins tablet Take 2 tablets by mouth daily. ??? cphunpzdje-opfhbvtpkthzt-bxnvrkqj (FIORICET, ESGIC) per tablet Take 2 tablets by mouth every 4 hours as needed. May take up to 4 times daily. ??? naproxen sodium (ANAPROX) 550 mg tablet Take 550 mg by mouth 2 times daily as needed. ??? pravastatin (PRAVACHOL) 40 mg tablet Take 40 mg by mouth daily. ??? DISCONTD: cyproheptadine (PERIACTIN) 4 mg tablet Take by mouth. Take 3 pills at night 90 tablet 11 ??? albuterol (PROVENTIL HFA;VENTOLIN HFA) 90 mcg/actuation inhaler Inhale 2 puffs into the lungs every 4 hours as needed. ??? aspirin 81 mg tablet Take 81 mg by mouth daily. ??? magnesium oxide (MAG-OX) 400 mg tablet Take 2 tablets by mouth 4 times daily. ??? amlodipine (NORVASC) 2.5 mg tablet Take 1 tablet by mouth daily. 30 tablet 11 Allergies: Codeine phos, Percocet, Morphine sulfate, Secobarbital sodium, Divalproex sodium, Adhesive tape, Verapamil, and Bacitracin Physical Exam: BP 140/87 Pulse 90 Ht 162.6 cm (5' 4) Wt 150.186 kg (331 lb 1.6 oz) BMI 56.83 kg/m2 HEENT: Normal Heart: Normal S1, S2, no abnormal sounds Lungs: Clear Abdomen: Benign Extremities: Normal Neurological exam: Mental state: Normal Speech: Normal Cranial nerves: I: Not tested II: Normal vision 20/25 left and 20/30 right using the 14 inch card and without her reading glasses.Optic discs are flat. Visual cramer are normal to confrontation testing with white and red pin-heads III, IV, : EOMs full V: Facial sensation decreased on the right side VII: Facial strength normal , possible very mild right facial droop with flattening of the nasolabial fold VIII: Hearing normal on the left, absent on the right. Preston-Hallpike maneuvers produced discomfort but no pathological nystagmus. IX, X: Palate movement normal XI: Shoulder shrug normal XII: Tongue movement normal Motor: Strength: Normal 5/5 on the left, 5-/5 on the right, with some give way weakness Fine motor: Normal left, slow right Tone: Normal Abnormal movements: None DTR: 1 +, Babinski sign: None Sensation: Touch: Normal left, decreased right Pin: Normal left, decreased right Position: Normal Vibration: Normal left, decreased right Neglect/extinction: None Graphesthesia: Normal Cerebellar: Finger to nose: Normal left, slow right Heel to cantor: Normal but somewhat awkward because of her weight Gait: Mildly ataxic in a nonspecific manner Labs: All unremarkable ??? Hepatic function panel ??? Basic metabolic panel (non-fasting) ??? Tsh ??? Vitamin b12 ??? T4 ??? Cbc (with diff) ??? Sedimentation rate ? ? Lyme igg & igm antibody ??? Tissue transglutaminase, iga ??? Taya ??? Protein electrophoresis, serum ??? Hemoglobin a1c ??? Ck ??? Angiotensin converting enzyme ??? Vit d total evaluation ??? Cardiolipin antibody screen ??? Differential, automated ??? Brainstem auditory evoked potentials: Normal except for hearing loss on one side ??? Visual evoked potential test : Normal MRI scan: No signs of demyelination. Normal orbits. Old right cerebellar infarct Impression and suggestions: This is a rather [...] side. I think these issues are stable. I think she should stay on aspirin #2 She appears to have migraine headaches. I could not at this point given her a diagnosis of hemiplegic migraine, but intermittent vestibular dysfunction dysphasia and right-sided weakness seemed to be part of it. There is also evidence that some of her symptoms represent a stress reaction or conversion disorder. Her headaches seemed better on the cyproheptadine which was started a month ago by Dr. Jacobo. However I believed that 4 milligrams 4 times a day may be contributing to daytime sedation aswell as to her rather nonspecific complaints of imbalance. I suggested instead that she take 12 mg each bedtime. She is not sure that any of it is made any difference. Also insurance is not willing to pay for it. I suggested she taper it off over the next 2 weeks, and I given her a schedule. We will also get a more balanced the study she's not taking it. If her symptoms worsen we can always put her back on it and I will be the decision of the insurance company. In addition for migraine prevention I h ramo taken the liberty of starting her on Norvasc 2.5 mg daily, in place of the verapamil. For acute symptomatic relief she can use naproxen or Fioricet. #3 Some of her dysphasic and visual symptoms may be part of a migraine disorder, but I also wonder about a stress reaction. Concern is raised about multiple sclerosis, but I doubt she has that based onthe results of her MRI scans, and also the normal lumbar puncture a few years ago. blood tests to rule out imitators of multiple sclerosis as well as comorbid conditions are all unremarkable. Brainstemand visual evoked potential study also do not suggest a demyelinating process. Visual testing today with careful confrontation testing revealed no visual field deficit, and I don't think is necessary to repeat a formal visual field study, or to refer her to neuro-ophthalmology at this time #4. I suspect that the lesion seen in her right cerebellum is a postsurgical scar, but it is also possible that she has had one or more strokes. I screened her with blood tests as noted above. I don't think necessary to reimage her brain or blood vessels at this time. She should stay on aspirin. #5 She is obese, and according to her snores a lot at night. He does not describe sleep apnea. However she is certainly at risk. He is going to get a sleep study, and in anticipation of that has been taken off citalopram. I have also recommended tapering the pericatin Thank you for this consultation I will see the patient back in 4-6 weeks Mikel Rodriguez MD [place] [address] Pager: [phone], #[phone] Email: [email or web address] CC: Dr. Kenny Jacobo documented in this encounter Plan of Treatment Not on filedocumented as of this encounter Visit Diagnoses Diagnosis Migraine - Primary Migraine, unspecified, without mention o f intractable migraine without mention of status migrainosus documented in this encounter Care Teams Branch Associate Teller Relationship Specialty Start Date End Date Rhianna Cox MD PCP - General 12/22/11 08/25/[address] [place] [address] documented as of this encounter
--- OUTSIDE RECORDS SUMMARY | 2022-04-12 12:19 | XMS_ITS | Encounter Summary ---
:1965 Author Organization [facility] [place] [address] Care Team Providers Name Role Phone Rhianna Cox MD Primary Care Provider Encounter Details Date Type Department Care Team Description 04/15/2012 Abstract Neurology at [facility] Mikel Rodriguez MD [facility] [place] [address] NEUROLOGY DEPT. [phone] [place], [place] [address] (Wo rk) Social History Tobacco Use Types Packs/Day Years Used Date Never Assessed Sex Assigned at Date Recorded Not on file documented as of this encounter Plan of Treatment Not on filedocumented as of this encounter Visit Diagnoses Not on filedocumented in this encounter Care Teams Corporate Compliance Manager Relationship Specialty Start Date End Date Rhianna Cox MD PCP - General 12/22/11 08/25/[address] [place], [place] [id number] documented as of this encounter
--- OUTSIDE RECORDS SUMMARY | 2022-04-12 12:19 | XMS_ITS | Encounter Summary ---
:1965 Author Organization [facility] [place] [address] Care Team Providers Name Role Phone Rhianna Cox MD Primary Care Provider Encounter Details Date Type Department Care Team Description 04/12/2012 Hospital Encounter MRI at [facility] [place] [address] Social History Tobacco Use Types Packs/Day Years Used Date Never Assessed Sex Assigned at Date Recorded Not on file documented as of this encounter Miscellaneous Notes Miscellaneous - Provider, Scanning - 05/09/2012 10:46 AM EDT documented in this encounter Plan of Treatment Not on filedocumented as of this encounter Procedures Procedure Name Priority Date/Time Associated Diagnosis Comme nts MRI ORBIT WWO Routine 04/12/2012 2:10 PM Results for this CONTRAST EDT procedure are i n the results section. documented in this encounter Results MRI ORBIT WITH/WO CONTRAST (04/12/2012 2:10 PM EDT) Anatomical Region Laterality Modality Head Magnetic Resonance Specimen (Source) Anatomical Collection Method Collection Time Re ceived Time Location / / Volume Laterality 04/12/2012 2:10 PM EDT Narrative 04/12/2012 3:01 PM EDT Examination MR BRAIN W/WO CONTRAST Clinical History IMPINGEMENT ON OPTIC NERVE PER OPTOMOTRI ST Comparison MRI of the brain of 12/26/2011. ??CT hea d of 03/05/2012. Technique MRIs of the brain and orbits rage perfor med both before and after the administration of 20 mL Magnevist. Findings Ventricles and sulci are unchanged in si ze and configuration. ??The postsurgical changes and area of tissue loss in the l ateral right cerebellar hemisphere show no interval alteration. ??No new intra-a xial lesion is present. ??There is no mass, abnormal enhancement, extra-axial collection, or intracranial hemorrhage. ?? Intracranial flow voids show no abnormal ity. ??Paranasal sinuses and mastoids are clear. Orbits Orbital structures including the eyeball , optic nerve, and extraocular muscles appear normal. ??There is no mass or abn ormal enhancement. ??The optic chiasm and pituitary appear normal. Impression ? 1. Area of tissue loss in the rig ht lateral cerebellar hemisphere without change. ? 2. Normal MRI of the orbits. Procedure Note Quentin Chong MD - 04/12/2012Format ting of this note might be different from the original. Examination MR BRAIN W/WO CONTRAST Clinical History IMPINGEMENT ON OPTIC NERVE PER OPTOMOTRI ST Comparison MRI of the brain of 12/26/2011. CT head of 03/05/2012. Technique MRIs of the brain and orbits rage perfor med both before and after the administration of 20 mL Magnevist. Findings Ventricles and sulci are unchanged in si ze and configuration. The postsurgical changes and area of tissue loss in the l ateral right cerebellar hemisphere show no interval alteration. No new intra-axi al lesion is present. There is no mass, abnormal enhancement, extra-axial collection, or intracranial hemorrhage. Intracranial flow voids show no abnormal ity. Paranasal sinuses and mastoids are clear. Orbits Orbital structures including the eyeball , optic nerve, and extraocular muscles appear normal. There is no mass or abnor mal enhancement. The optic chiasm and pituitary appear normal. Impression 1. Area of tissue loss in the right lat eral cerebellar hemisphere without change. 2. Normal MRI of the orbits. Rhianna Cox MD IMG MRI ORDERABLES documented in this encounter Visit Diagnoses Not on filedocumented in this encounter Care Teams Hr Assistant Relationship Specialty Start Date End Date Rhianna Cox MD PCP - General 12/22/11 08/25/[address] [place] [address] documented as of this encounter
--- OUTSIDE RECORDS SUMMARY | 2022-04-12 12:19 | XMS_ITS | Clinical Summary ---
:1965 Author Organization [facility] Address [address] [place] [address] Care Team Providers Name Role Phone Ruddy Zaheer Webber Primary Care Provider Allergies Active Allergy Reactions Severity Noted Date Comments Adhesive Tape Rash Medium Localized Reac tion Amoxicillin-Pot Nausea And Vomiting, Medium Clavulanate Rash Bacitracin Rash 03/29/2012 Codeine Phosphate Nausea And Vomiting High Thr oat Swelling Divalproex Sodium Rash Medium Morphine Sulfate Nausea And Vomiting Medium Oxycodone-Acetaminophen Anaphylaxis High Secobarbital Sodium Rash Medium Verapamil 06/20/2012 Tongue numb and tingly Medications Medication Sig Dispensed Refills Start Date End Date Status aspirin 81 mg Take 81 mg by mouth 0 Active tablet daily. Once every day magnesium oxide Take 2 tablets by 0 Active (MAG-OX) 400 mg mouth daily. tablet b complex vitamins Take 2 tablets by 0 Active tablet mouth daily. indomethacin Take 25 mg by mouth 0 Active (INDOCIN) 25 mg as needed. Migraine Capsule headaches citalopram (CELEXA) Take 40 mg by mouth 0 Active 20 mg Tablet daily. famotidine (PEPCID) 1 tablet as needed. 0 07/30/2019 Active 20 mg Tablet atorvastatin Take 40 mg by mouth 0 07/26/2021 Active (Lipitor) 40 mg daily. Tablet venlafaxine XR Take 150 mg by mouth 0 10/16/2021 Active (Effexor-XR) 75 mg daily. Once a day Capsule, Sust. Release 24 hr erenumab-aooe Inject 2 mLs 2 mL 5 12/21/2021 Ac tive (Aimovig subcutaneously every Autoinjector) 70 30 days. mg/mL Auto-Injector Active Problems Problem Noted Date Bronchitis 09/17/2020 Laryngitis 09/17/2020 Paralysis 09/17/2020 Increased body mass index 09/17/2020 Hyperlipidemia 09/17/2020 Hearing loss 09/17/2020 Elevation of level of transaminase or lactic acid dehy drogenase (LDH) 09/17/2020 Asthma 09/17/2020 Low back pain, non-specific 08/26/2019 Right lumbar radiculitis 08/26/2019 Sacroiliac joint somatic dysfunction 08/26/2019 Segmental and somatic dysfunction of lumbar region Ear, nose and throat disorder 10/25/2015 Skin tag 09/29/2014 S/P cholecystectomy 04/22/2012 S/P 04/22/2012 Overview: Two C-sections, 1 . Depression 04/22/2012 Arthritis 04/22/2012 Migraine 04/22/2012 Stroke 04/22/2012 Immunizations Name Administration Dates Next Due Influenza Vaccine, Whole 08/04/2009, 07/17/2008, 07/12/2006 Td, adult 09/30/2004 Family History Medical History Relation Comments Diabetes Brother Heart Disease Brother Cerebrovascular Accident Mother Diabetes Mother Heart Disease Mother Relation Status Comments Brother Mother Social History Tobacco Use Types Packs/Day Years Used Date Never Smoker Smokeless Tobacco: Never Used Alcohol Use Standard Drinks/Week Comments No 0 (1 standard drink = 0.6 oz pure alcoho l) Sex Assigned at Date Recorded Not on file Last Filed Vital Signs Vital Sign Reading Time Taken Comments Blood Pressure 137/77 12/15/2021 2:18 PM EDT Pulse 80 12/15/2021 2:18 PM EDT Temperature 36.8 ??C (98.2 ??F) 11/06/2018 3:37 PM EST Respiratory Rate 12 11/06/2018 4:15 PM EST Oxygen Saturation 97% 11/06/2018 4:15 PM EST Inhaled Oxygen Concentration - - Weight 127 kg (280 lb) 12/15/2021 2:18 PM EDT reported Height 160 cm (5' 3) 12/15/2021 2:18 PM EDT reported Body Mass Index 49.6 12/15/2021 2:18 PM EDT Plan of Treatment Health Maintenance Due Date Last Done Comments Covid-19 Vaccine (#1) 1971 Pneumococcal Vaccine: At-Risk 01/21/1972 5-64yrs (1 - PCV) HIV screen 01/21/1984 Hepatitis C Screening 01/21/1984 Tdap adult 1985 HPV test 01/21/1996 PAP Smear 01/21/1996 Breast Cancer Share Decision 2006 Needed Colonoscopy 2011 Tetanus vaccine 09/30/2014 09/30/2004 Breast Cancer screening 01/21/2016 Zoster vaccine (1 of 2) 01/21/2016 Advance Directive 2021 Diabetes Screening (HgbA1C or 11/06/2021 11/06/2018, 2011, Glucose) 04/22/2012, Additional history exists Influenza (Flu) vaccine (1 of 1 - 05/11/2022 08/04/2009, , Influenza standard series) 07/12/2006 Insurance Payer Benefit Plan / Subscriber ID Effective Dates Phone Addre ss Type Group MEDICARE MEDICARE PART [id number] 2012-Elvi [phone] [place] [address] [place] [id number] 2019-Jeison [phone] [address] [place] [address] Care Teams Car Ferry Master Relationship Specialty Start Date End Date Zaheer Fox DO PCP - General Family Medicine 08/26/19 [address] [place] [address]
--- OUTSIDE RECORDS SUMMARY | 2022-04-12 12:19 | XMS_ITS | Encounter Summary ---
:1965 Author Organization [facility] Address [facility] [place] [address] Care Team Providers Name Role Phone Rhianna Cox MD Primary Care Provider Encounter Details Date Type Department Care Team Description 02/13/2015 Hospital Encounter XRay at [address] [place] [address] Social History Tobacco Use Types Packs/Day [...] Name Priority Date/Time Associated Diagnosis Comme nts XR SHOULDER Routine 02/13/2015 10:18 AM Results for this EDT procedure are i n the results section . documented in this encounter Results XR shoulder (02/13/2015 10:18 AM EDT) Anatomical Region Laterality Modality Shoulder N/A Radiographic Imaging Specimen (Source) Anatomical Collection Method Collection Time Re ceived Time Location / / Volume Laterality 02/13/2015 10:18 AM EDT Impressions 02/13/2015 1:50 PM EDT IMPRESSION: No significant osseous findings. Narrative 02/13/2015 1:50 PM EDT EXAMINATION: SHOULDER MINIMUM TWO VIEWS/RIGHT CLINICAL HISTORY: right shoulder pain. ? ?r/o djd, bursitis TECHNIQUE: 4 views of the right shoulder . COMPARISON: None FINDINGS: The osseous structures are nor zara mineralized and aligned. The glenohumeral and acromioclavicular joint s appear intact. No fracture is seen. The humeral head is rounded and smooth i n contour. No productive, cystic or erosive changes are identified. No soft tissue calcifications are observed. Procedure Note Joleen Ponce MD - 02/13/2015Formatt ing of this note might be different from the original. EXAMINATION: SHOULDER MINIMUM TWO VIEWS/ RIGHT CLINICAL HISTORY: right shoulder pain. r /o djd, bursitis TECHNIQUE: 4 views of the right shoulder . COMPARISON: None FINDINGS: The osseous structures are nor zara mineralized and aligned. The glenohumeral and acromioclavicular joint s appear intact. No fracture is seen. The humeral head is rounded and smooth i n contour. No productive, cystic or erosive changes are identified. No soft tissue calcifications are observed. IMPRESSION IMPRESSION: No significant osseous findings. Eliud Jacobo MD IMG DX ORDERABLES documented in this encounter Visit Diagnoses Not on filedocumented in this encounter Care Teams Road Traffic Controller Relationship Specialty Start Date End Date Rhianna Cox MD PCP - General 12/22/11 08/25/[address] [place] [address] documented as of this encounter
--- OUTSIDE RECORDS SUMMARY | 2022-04-12 12:19 | XMS_ITS | Encounter Summary ---
:1965 [place] [address] Care Team Providers Name Role Phone Rhianna Cox MD Primary Care Provider Reason for Referral Speech Therapy (Routine) - Closed Specialty Diagnoses / Procedures Referred By Contact Refer red To Contact Speech Pathology / Diagnoses Voice disorder Jeremy Chappell PA [facility] Piece Dye Worker Rehab Speech Therapy [facility] enter [address] [phone] Fax: Referral ID Status Reason Start Date Expiration Date Visits V isits Requested Authorized [id number] Closed Evaluate and 11/11/2015 11/10/2016 12 12 Treat Reason for Visit Reason Comments Establish Care throat disorder Consultation (Routine) - Closed Specialty Diagnoses / Procedures Referred By Contact Refer red To Contact Otolaryngology Diagnoses throat disorder Rhianna Cox MD [facility] [address] [address] [address] [place], [place] [address] Referral ID Status Reason Start Date Expiration Date Visits V isits Requested Authorized [id number] Closed Consult, 10/26/2015 10/25/2016 1 1 [facility] Encounter Details Date Type Department Care Team Description 11/11/2015 Office Visit Otolaryngology at [facility] Jeremy Chappell PA Voice disorder [facility] [place] [address] OTOLARYNGOLOGY DEPT. [place], [place] [address] (Wo rk) Social History Tobacco Use Types Packs/Day Years Used Date Never Smoker Smokeless Tobacco: Never Used Alcohol Use Standard Drinks/Week Comments No 0 (1 standard drink = 0.6 oz pure alcoho l) Sex Assigned at Date Recorded Not on file documented as of this encounter Last Filed Vital Signs Vital Sign Reading Time Taken Comments Blood Pressure 114/67 11/11/2015 8:36 AM EST Pulse 61 11/11/2015 8:36 AM EST Temperature - - Respiratory Rate - - Oxygen Saturation - - Inhaled Oxygen - - Concentration Weight 129.3 kg (285 lb) 11/11/2015 8:36 AM Reported by patient. EST Height 162.6 cm (5' 4) 11/11/2015 8:36 AM EST Body Mass Index 48.92 11/11/2015 8:36 AM EST documented in this encounter Progress Notes Jeremy Chappell PA - 11/11/2015 9:11 AM EST Carlee Rangel is 50 years of age and presents today for evaluation of cough and voice change. She also describes a sense that her throat closes up at times. She reports a year ago she developed a cough which she found very annoying. She was seen by her primary care physician who recommended oesu-tyb-eqzhlnh medications such as Robitussin. She tried other siwi-nfp-hvmwior medications also without any relief of her chronic cough. The cough seems to be worseeven though she did not feel sick. Last month she noted increasing cough and some voice change. She has had 2 chest x-rays and a CT of the chest which she reports were normal. She has been tried on antibiotics with no change in her symptoms. She describes the symptoms localizing to the throat feeling as though there is some restriction. With physical activity standing up she feels it is hard to catchher breath. She actually reports she has lost consciousness with it. Yawning will hurt her throat. She denies any dysphasia or any reflux symptoms. She has been placed on Zantac over the last 2 weeks with no change in her symptoms. Her health otherwise is significant for migraine headache and a history of stroke. She is followed by neurology for this. Otherwise her health is stable other than being overweight. Surgical history includes cholecystectomy. Social history: She is . Tobacco: Lifelong non-user. Alcohol: Very occasional use. On physical exam she appears healthy in no acute distress. She did not cough during our 30 minute visit today. She speaks in a whisper. Palpation of the neck reveals no palpable adenopathy or mass. Oral cavity: Tongue, floor of mouth, buccal mucosa, buccal gutters, gums, palate, and posterior pharyngeal wall appear normal. Otologic exam reveals patent external auditory canals bilaterally. The right tympanic membrane demonstrates surgical change but no middle ear pathology detected. The left tympanic membrane appears normal without middle ear pathology. Procedure note: Fiberoptic laryngoscopy was completed through the right nostril under topical lidocaine and Privine. No intranasal pathology was identified. The nasopharynx, oropharynx, hypopharynx andunremarkable. A severe tongue and vallecula are clear. Epiglottis is crisp without erythema or edema. Vocal cords are normal without discrete lesion, irritation, or paralysis. Postcricoid region and piriform sinuses are clear. The esophageal inlet demonstrate no erythema or edema. I did have the patient phonate and speak and she was using her true vocal cords during this exam at her voice normalized. After the exam her voice did normalize although she was still straining a bit. My impression is that she has developed a voice disorder. I cannot tell whether or not this may be contributing to her cough but certainly may be contributing to excess use of her laryngeal muscles which may be perceived as straining. I do feel she would benefit with evaluation in speech therapy. The patient would like to pursue this. I have strongly reassured her I see no other laryngeal pathology. Jeremy Chappell PA-C Department of Otolaryngology [facility] [place] [address] Office Phone - documented in this encounter Plan of Treatment Scheduled Referrals Name Type Priority Associated Diagnoses Order S chedule Referral to Speech Outpatient Referral Routine Voice disorder Ordered: Therapy 11/11/2015 documented as of this encounter Visit Diagnoses Diagnosis Voice disorder Voice and resonance disorder, unspecifie d documented in this encounter Care Teams Antichecking Iron Worker Relationship Specialty Start Date End Date Rhianna Cox MD PCP - General 12/22/11 08/25/[address] [place] [address] documented as of this encounter
--- OUTSIDE RECORDS SUMMARY | 2022-04-12 12:19 | XMS_ITS | Encounter Summary ---
:1965 Author Organization [facility] [place] [address] Care Team Providers Name Role Phone Rhianna Cox MD Primary Care Provider Reason for Visit Reason Onset Date Comments Other 04/24/2012 clarification on dos age of medications Encounter Details Date Type Department Care Team Description 04/24/2012 Telephone Neurology at [facility] Mikel Rodriguez Other (clarification on [facility] MD dosage of medications) [place] [address] NEUROLOGY DEPT. [place], [place] [address] (Wo rk) Social History Tobacco Use Types Packs/Day Years Used Date Never Smoker Smokeless Tobacco: Never Used Alcohol Use Standard Drinks/Week Comments No 0 (1 standard drink = 0.6 oz pure alcoho l) Sex Assigned at Date Recorded Not on file documented as of this encounter Miscellaneous Notes Telephone Encounter - Ana Luisa Whitten LPN - 04/24/2012 12:35 PM EDT Follow up call: I spoke to the patient to inform her to take it as prescribed which says nightly on her script. She was agreeable and appreciative of my call back. Telephone Encounter - Lala Cleary - 04/24/2012 10:55 AM EDT Patient called today for clarification on when the new medication, Verapamil should be taken. Patient is not sure if it should be taken in the evening or in the morning. Please call the patient to advise. documented in this encounter Plan of Treatment Not on filedocumented as of this encounter Visit Diagnoses Not on filedocumented in this encounter Care Teams Rag Sorter Relationship Specialty Start Date End Date Rhianna Cox MD PCP - General 12/22/11 08/25/[address] [place] [address] documented as of this encounter
--- OUTSIDE RECORDS SUMMARY | 2022-04-12 12:19 | XMS_ITS | Encounter Summary ---
:1965 [place] [address] Care Team Providers Name Role Phone Rhianna Cox MD Primary Care Provider Reason for Visit Reason Comments Procedure VEP Encounter Details Date Type Department Care Team Description 04/30/2012 Procedure visit Neurology at [facility] [place] [address] Social History Tobacco Use Types Packs/Day Years Used Date Never Smoker Smokeless Tobacco: Never Used Alcohol Use Standard Drinks/Week Comments No 0 (1 standard drink = 0.6 oz pure alcoho l) Sex Assigned at Date Recorded Not on file documented as of this encounter Procedure Notes Lucas Dow - 04/30/2012 10:00 AM EDTAssociated Order(s): VISUAL EVOKED POTENTIAL TEST Pre-Procedure Diagnose(s): Migraine; Tinnitus Post-Procedure Diagnose(s): Tinnitus; Visual disturbance VEP#: 142/12 Visual Evoked Potentials (VEP) Name: Carlee Rangel Date of Study: 04/30/2012 Referring Provider: Rhianna Cox Clinical History: This is a 47 year old female with possible demyelination disease. Procedure: Monocular, whole field, 16-check pattern-reversal visual evoked potentials were recorded over mid-occipital and right and left occipital cortices. Visual Acuity Left Right 20/70 20/50 Latency (msec) Generator Wave Left Right Left/Right Difference Normal Occipital Neocortex P100 106.0 100.0 7.2 < 117.6 (Difference < 7.3) NR = Not Reproducible NA = Not Applicable Findings: Waveforms are well formed, reproducible, with normal amplitude and latency. Conclusion: Normal visual evoked potentials. No evidence of demyelination on this study. Lakeshia Jaquez MD I reviewed the VEPs and I agree with the interpretation as written. documented in this encounter Plan of Treatment Not on filedocumented as of this encounter Procedures Procedure Name Priority Date/Time Associated Diagnosis Comme nts VISUAL EVOKED Routine 05/07/2012 10:17 AM Migraine Results for this POTENTIAL TEST EDT procedure are in the results section. documented in this encounter Results Visual evoked potential test (05/07/2012 10:17 AM [...] as written. Mikel Rodriguez MD NEUROLOGY ORDERABLES documented in this encounter Visit Diagnoses Diagnosis Migraine Migraine, unspecified, without mention o f intractable migraine without mention of status migrainosus documented in this encounter Care Teams Hospitality Manager Relationship Specialty Start Date End Date Rhianna Cox MD PCP - General 12/22/11 08/25/[address] [place] [address] documented as of this encounter
--- OUTSIDE RECORDS SUMMARY | 2022-04-12 12:19 | XMS_ITS | Encounter Summary ---
:1965 [place] [address] Care Team Providers Name Role Phone Rhianna Cox MD Primary Care Provider Reason for Visit Reason Comments Procedure BAR Encounter Details Date Type Department Care Team Description 04/30/2012 Procedure visit Neurology at [facility] ELECTROENCEPHALOGRAM, NEURO [facility] [place] [address] Migraine ([facility] Rhianna Cox MD [address] [place], [place] [address] Dx) [place] [id number] Social History Tobacco Use Types Packs/Day Years Used Date Never Smoker Smokeless Tobacco: Never Used Alcohol Use Standard Drinks/Week Comments No 0 (1 standard drink = 0.6 oz pure alcoho l) Sex Assigned at Date Recorded Not on file documented as of this encounter Procedure Notes Lucas Dow - 04/30/2012 10:04 AM EDTAssociated Order(s): BRAINSTEM AUDITORY EVOKED POTENTIALS Procedure(s): BRAINSTEM AUDITORY EVOKED POTENTIALS Pre-Procedure Diagnose(s): Tinnitus Post-Procedure Diagnose(s): Tinnitus BAEP#: 143/12 Brainstem Auditory Evoked Potentials (BAEP) Patient: Carlee Rangel Date of Study: 04/30/2012 Referring Physician: Rhianna Cox Patient's Date of : 1965 Clinical History: This is a 47 year old female with possible demyelination disease. Procedure: Brainstem auditory evoked potentials were recorded with click stimulation at (60 dB abovethreshold) in one ear with white noise in [...] well formed, reproducible, with normal amplitude and latency on the left side. On the right side waveforms are not seen. Conclusion: Absent brainstem auditory evoked response on the right. Normal on the left. This could be due to auditory tract dysfunction or technical difficulties. Lakeshia Jaquez MD I reviewed the ADAIR and I agree with the interpretation as written. documented in this encounter Plan of Treatment Not on filedocumented as of this encounter Procedures Procedure Name Priority Date/Time Associated Comments Diagnosis BRAINSTEM AUDITORY Routine 05/07/2012 10:19 AM Migraine Re sults for this EVOKED POTENTIALS EDT procedure are in the results section. documented in this encounter Results BRAINSTEM AUDITORY EVOKED POTENTIALS (05/07/2012 10:19 AM EDT) Narrative Davie Hernandez MD - 05/07/2012 1 0:19 AM EDT ? BAEP#: 143/12 Brainstem Auditory Evoked Potentials (BA EP) Patient: ? Cralee Rangel Date of Study: ?? 04/30/2012 Referring [...] written. Procedure Note Lucas Dow - 04/30/2012 10:04 AM EDT BAEP#: 143/12 [...] migrainosus documented in this encounter Care Teams Municipal Court Magistrate Relationship Specialty Start Date End Date Rhianna Cox MD PCP - General 12/22/11 08/25/[address] [place] [address] documented as of this encounter
--- OUTSIDE RECORDS SUMMARY | 2022-04-12 12:19 | XMS_ITS | Encounter Summary ---
:1965 Author Organization [facility] [place] [address] Care Team Providers Name Role Phone Rhianna Cox MD Primary Care Provider Encounter Details Date Type Department Care Team Description 03/19/2013 Hospital Encounter MRI [place] [facility] Eliud Jacobo MD [address] [place] [address] [place] [address] [place] [address] Social History Tobacco Use Types Packs/Day Years Used Date Never Smoker Smokeless Tobacco: Never Used Alcohol Use Standard Drinks/Week Comments No 0 (1 standard drink = 0.6 oz pure alcoho l) Sex Assigned at Date Recorded Not on file documented as of this encounter Last Filed Vital Signs Vital Sign Reading Time Taken Comments Blood Pressure - - Pulse - - Temperature - - Respiratory Rate - - Oxygen Saturation - - Inhaled Oxygen Concentration - - Weight 136.1 kg (300 lb) 03/19/2013 6:47 AM EDT Height - - Body Mass Index 51.49 06/20/2012 10:18 AM EDT documented in this encounter Medications at Time of [...] mouth daily. documented as of this encounter Miscellaneous Notes Miscellaneous - Provider, Scanning - 03/31/2013 8:26 AM EDT documented in this encounter Plan of Treatment Not on filedocumented as of this encounter Procedures Procedure Name Priority Date/Time Associated Diagnosis Comme nts MRI BRAIN WWO Routine 03/19/2013 7:10 PM Results for this CONTRAST (GENERIC) EDT procedure are in the results section. documented in this encounter Results MRI brain with/WO contrast (03/19/2013 7:10 PM EDT) Anatomical Region Laterality Modality Head Magnetic Resonance Specimen (Source) Anatomical Collection Method Collection Time Re ceived Time Location / / Volume Laterality 03/19/2013 7:10 PM EDT Narrative 03/19/2013 8:32 PM EDT Examination MR BRAIN W/WO CONTRAST Clinical History RIGHT HEMIPARESIS WEAKNESS AND DYSARTHRI A R/O NEW STROKE Comparison 04/12/2012. Technique MRI of the brain performed prior to and following intravenous administration of 20 mL Magnevist. Findings There is no evidence of acute infarct. ? ?The ventricles are unchanged in size or contour. ??There is no intracranial mass , mass effect or shift. ??There is no abnormal enhancement. ??An area of volum e loss is present in the right cerebellar hemisphere, unchanged compare d to the prior exam. ??There is slightly increased T2 signal in the posterior lef t mesial temporal lobe, but the appearance is similar to the previous ex am. Impression ? 1. No evidence of recent infarct. ? 2. Elevated T2 signal in the post erior left hippocampus, the etiology of this is uncertain, and this could repres ent an area of gliosis related to prior injury. ??Correlation with seizure histo ry suggested. Procedure Note Sukumar Perez MD - 03/19/2013Format ting of this note might be different from the original. Examination MR BRAIN W/WO CONTRAST Clinical History RIGHT HEMIPARESIS WEAKNESS AND DYSARTHRI A R/O NEW STROKE Comparison 04/12/2012. Technique MRI of the brain performed prior to and following intravenous administration of 20 mL Magnevist. Findings There is no evidence of acute infarct. T he ventricles are unchanged in size or contour. There is no intracranial mass, mass effect or shift. There is no abnormal enhancement. An area of volume loss is present in the right cerebellar hemisphere, unchanged compare d to the prior exam. There is slightly increased T2 signal in the posterior lef t mesial temporal lobe, but the appearance is similar to the previous ex am. Impression 1. No evidence of recent infarct. 2. Elevated T2 signal in the posterior left hippocampus, the etiology of this is uncertain, and this could repres ent an area of gliosis related to prior injury. Correlation with seizure history suggested. Eliud Jacobo MD IMG MRI ORDERABLES documented in this encounter Visit Diagnoses Not on filedocumented in this encounter Administered Medications Inactive Administered Medications - up to 3 most recent administrations Medication Order MAR Action Action Date Dose Rate Site gadopentetate dimeglumine Given 03/19/2013 6:48 PM EDT 20 mLs (MAGNEVIST) injection 27 mL 27 mL (0.2 mL/kg/dose ? 136.1 kg), Intravenous, ONCE PRN, 1 dose, Starting on Sun03/19/13 at 0648, Until Sun03/19/13 at 1848, Per Protocol, Routine documented in this encounter Care Teams Internal Recruiter Relationship Specialty Start Date End Date hRianna Cox MD PCP - General 12/22/11 08/25/[address] [place] [address] documented as of this encounter
--- OUTSIDE RECORDS SUMMARY | 2022-04-12 12:19 | XMS_ITS | Encounter Summary ---
:1965 Author Organization [facility] [place] [address] Care Team Providers Name Role Phone Zaheer Fox DO Primary Care Provider Encounter Details Date Type Department Care Team Description 09/17/2020 Telephone Neurology at [facility] [address] [place] [address] Social History Tobacco Use Types Packs/Day Years Used Date Never Smoker Smokeless Tobacco: Never Used Alcohol Use Standard Drinks/Week Comments No 0 (1 standard drink = 0.6 oz pure alcoho l) Sex Assigned at Date Recorded Not on file documented as of this encounter Miscellaneous Notes Telephone Encounter - Mesha Gramajo - 09/20/2020 8:35 AM EST Patient is calling stating she has had a headache for 10 days. Nothing is working, she even went to [facility] at the ER and it did not help. Telephone Encounter - Marquita Chin - 09/17/2020 9:38 AM EST Pt is requesting a call back, she did not state what it was regarding, but she didn't sound very good documented in this encounter Plan of Treatment Not on filedocumented as of this encounter Visit Diagnoses Not on filedocumented in this encounter Care Teams Trimming Operator Relationship Specialty Start Date End Date Zaheer Fox DO PCP - General Family Medicine 08/26/[address] [place] [phone] documented as of this encounter
--- OUTSIDE RECORDS SUMMARY | 2022-04-12 12:19 | XMS_ITS | Encounter Summary ---
:1965 Author Organization [facility] [place] [address] Care Team Providers Name Role Phone Rhianna Cox MD Primary Care Provider Reason for Visit Reason Onset Date Comments Other 04/23/2012 error Encounter Details Date Type Department Care Team Description 04/23/2012 Telephone Neurology at [facility] [place] Mikel Rodriguez MD Other (error) [facility] [place] [address] NEUROLOGY DEPT. [phone] [place], [place] [address] (Wo rk) Social History Tobacco Use Types Packs/Day Years Used Date Never Smoker Smokeless Tobacco: Never Used Alcohol Use Standard Drinks/Week Comments No 0 (1 standard drink = 0.6 oz pure alcoho l) Sex Assigned at Date Recorded Not on file documented as of this encounter Miscellaneous Notes Telephone Encounter - Lala Cleary - 04/23/2012 10:45 AM EDT error documented in this encounter Plan of Treatment Not on filedocumented as of this encounter Visit Diagnoses Not on filedocumented in this encounter Care Teams Bending Machine Operator Relationship Specialty Start Date End Date Rhianna Cox MD PCP - General 12/22/11 08/25/[address] [place] [address] documented as of this encounter
--- OUTSIDE RECORDS SUMMARY | 2022-04-12 12:19 | XMS_ITS | Encounter Summary ---
:1965 Author Organization [facility] [place] [address] Care Team Providers Name Role Phone Rhianna Cox MD Primary Care Provider Encounter Details Date Type Department Care Team Description 05/11/2015 Hospital Encounter Nuclear Medicine at CLINIC, Eliud Vargas MD [address] [place] [address] [place] [address] [place] [address] Social History Tobacco Use Types Packs/Day [...] Name Priority Date/Time Associated Diagnosis Comme nts NM INJECTION Routine 05/11/2015 12:56 PM Results for this EDT procedure are i n the results section . documented in this encounter Results NM injection (05/11/2015 12:56 PM EDT) Anatomical Region Laterality Modality Other Specimen (Source) Anatomical Collection Method Collection Time Re ceived Time Location / / Volume Laterality 05/11/2015 12:56 PM EDT Narrative 05/11/2015 12:57 PM EDT This is a Non-reportable exam Procedure Note AYSE, UNSIGNED REPORT - 05/11/2015Formatt ing of this note might be different from the original. This is a Non-reportable exam Eliud Jacobo MD IMG REPORTABLE ONLY documented in this encounter Visit Diagnoses Not on filedocumented in this encounter Care Teams Director Mobile Relationship Specialty Start Date End Date Rhianna Cox MD PCP - General 12/22/11 08/25/[address] [place] [address] documented as of this encounter
--- OUTSIDE RECORDS SUMMARY | 2022-04-12 12:19 | XMS_ITS | Encounter Summary ---
:1965 Author [place] [address] Care Team Providers Name Role Phone Zaheer Fox DO Primary Care Provider Reason for Referral Physical Therapy (Routine) - Specialty Diagnoses / Procedures Referred By Contact Refer red To Contact Physical Therapy Diagnoses Low back pain, non-specific Right lumbar radiculitis Sacroiliac joint somatic dysfunction Segmental and somatic dysfunction of lumbar region [place] [address] Referral ID Status Reason Start Date Expiration Date Visits V isits Requested Authorized [id number] Evaluate and 08/26/2019 02/22/2020 12 12 Treat Reason for Visit Reason Comments Back Pain Right Leg Pain Consultation (Routine) - Closed Specialty Diagnoses / Procedures Referred By Contact Refer red To Contact [facility] Diagnoses Lumbago with sciatica, right side Spine - Lumbar radiculopathy/ ?imaging Zaheer Fox, [facility] [address] [place] [address] [address] [place] [address] Phone: Fax: Referral ID Status Reason Start Date Expiration Date Visits Requ ested Visits Authorized [id number] Closed 08/19/2019 08/18/2020 1 1 Encounter Details Date Type Department Care Team Description 08/26/2019 Office Visit [facility] Varun Chua dd, MD Low back pain, non-specific (Primary Dx) ; at [facility] Right lumbar radiculitis; [facility] Sacroiliac joint somatic dysfunction; [place] [address] Segmental and somatic dysfunction of lum bar region AIDE Fraga [phone] (Work) [phone] Social History Tobacco Use Types Packs/Day Years Used Date Never Smoker Smokeless Tobacco: Never Used Alcohol Use Standard Drinks/Week Comments No 0 (1 standard drink = 0.6 oz pure alcoho l) Sex Assigned at Date Recorded Not on file documented as of this encounter Last Filed Vital Signs Vital Sign Reading Time Taken Comments Blood Pressure 148/97 08/26/2019 1:52 PM EST Pulse - - Temperature - - Respiratory Rate - - Oxygen Saturation - - Inhaled Oxygen Concentration - - Weight 117.9 kg (260 lb) 08/26/2019 1:52 PM EST Height 160 cm (5' 3) 08/26/2019 1:52 PM EST Body Mass Index 46.06 08/26/2019 1:52 PM EST documented in this encounter Progress Notes Medhat Chua MD - 08/26/2019 2:00 PM EST Images from the original note were not included. Chief Complaint Patient presents with ??? Back Pain ??? Right Leg Pain Subjective: Carlee Rangel is a 54 y.o. female who presents for Physical Medicine and Rehabilitation consultation, at the request of Zaheer Fox DO. She presents with primary symptoms of sacral to right sacroiliac pain with intermittent radiation into the buttock, right posterolateral thigh and posterolateral calf. The symptoms began gradually approximately 10 years ago and have increased in frequency and intensity over time. The pain is constant and is aching to sharp in quality. It is graded as 8-9/10. Pain is increased byambulation, essentially all positions when lying in bed and by sit to stand, bed and car transfers. The transitional movements cause her pain to become sharp. The patient reports intermittent numbness that is most typically experienced in the anterior aspect of the right thigh. She denies focal lower extremity weakness, but can have generalized weakness and fatigue throughout the right lower extremity. She denies bowel or bladder dysfunction. Current treatments include Motrin and home stretching exercises provided to her by Dr. Fox. Past medical history is significant for migraine headache with associated intermittent vestibular dysfunction, dysphagia and right-sided weakness. She was last seen by [facility] in 2011. She has continued neurological care in the community with Dr. Alvarado. When the patient was last seen by Dr. Rodriguez, he questioned whether a component of the patient's symptoms were due to a stress or conversion reaction. The patient reports ongoing sensory impairment in the right upper and right lower extremities. Approximately 6 days ago, the right lower extremity was asensate for a few hours. The problem resolved spontaneously and has not recurred. Migraine headaches began in 2005. 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 She was ultimately treated with l abyrinthectomy in 1999. The patient states that, as a result of her extensive neurological work-up and treatment, she was poked and poked and poked. She apparently had a number of lumbar punctures and she attributes her current pain symptoms to these procedures. She blames them for causing arthritis and hot spots in her low back. Outside reports reviewed: Medical office note of Zaheer Fox DO, 08/12/2019. Past Medical History: Diagnosis Date ??? Arthritis [...] Brother ??? Heart Disease Brother Social History Tobacco Use ??? Smoking status: Never Smoker ??? Smokeless tobacco: Never Used Substance Use Topics ??? Alcohol use: No ??? Drug use: Yes Types: Marijuana Comment: for migraines Current Outpatient Medications on File Prior to Visit Medication Sig Dispense Refill ??? famotidine (PEPCID) 20 mg Tablet 1 tablet as needed. ??? indomethacin (INDOCIN) 25 mg Capsule Take 25 mg by mouth as needed. Migraine headaches ??? citalopram (CELEXA) 20 mg Tablet Take 20 mg by mouth daily. ??? b complex vitamins tablet Take 2 tablets by mouth daily. ??? aspirin 81 mg tablet Take 81 mg by mouth daily. ??? magnesium oxide (MAG-OX) 400 mg tablet Take 2 tablets by mouth daily. No current facility-administered medications on file prior to visit. Allergies Allergen Reactions ??? Codeine Phosphate Nausea And Vomiting Throat Swelling ??? Percocet [Oxycodone-Acetaminophen] Anaphylaxis ??? Adhesive Tape Rash Localized Reaction ??? Augmentin [Amoxicillin-Pot Clavulanate] Nausea And Vomiting and Rash ??? Divalproex Sodium Rash ??? Morphine Sulfate Nausea And Vomiting ??? Secobarbital Sodium Rash ??? Bacitracin Rash ??? Verapamil Tongue numb and tingly Review of Systems: A comprehensive review of systems was negative except for: as noted above. Spine Center Response Trends Patient-reported scores: myD-H Spine Questionnaire responses 08/26/2019 Oswestry Disability Index (Range: 0-100) 53.33 (Severe disability) PROMIS-10 Physical Health Score 34.9 PROMIS-10 Mental Health Score 36.3 Objective: BP (!) 148/97 Ht 160 cm (5' 3) Wt 117.9 kg (260 lb) BMI 46.06 kg/m?? Morbidly obese female in no apparent distress. Respiratory effort normal and unlabored. Skin of the lower extremities intact. No rashes observed. Lower extremities warm and well perfused. Pedal pulses are 2+ and palpable bilaterally. Alert and oriented x3. Affect is appropriate. Multiple pain behaviors are noted throughout the encounter. The patient exhibits knee buckling and loud exhalation to palpation throughout the lumbopelvic region. Pain reactivity is increased. Gait and station: Antalgic on the right. The right foot is externally rotated throughout the gait cycle. Patient unweight the right lower extremity in standing. Lumbar motion: Patient reports focal right sacroiliac pain with active lumbar flexion and extension.Lumbosacral excursion measures 5.5 cm on modified Es's testing. Pelvic alignment/motion: Pelvis is shifted posteriorly and is anteriorly rotated. The interval between ribs and pelvis is minimal bilaterally. Standing iliac crest palpation is elevated on the right and there is right-sided tenderness associated with assessment. Sitting and standing flexion tests are p ositive on the right. There is apparent lengthening of the right lower extremity with supine/long sitting. Palpation: Tenderness present over bilateral quadratus lumborum. Tender over bilateral sacroiliac joints and throughout the buttocks and hip bursae, left greater than right. Pain is elicited at 8/18 defined tender points. LE flexibility: Marked tightness present in bilateral iliotibial bands and rectus femoris. There is tightness in left glutei, although to a lesser degree. Pelvic/SI provocation: Sacral thrust is positive for right sacroiliac joint pain. Patient reports bilateral iliac pain with pelvic compression. SATHISH is negative bilaterally. Motor: Patient exhibits ratcheting and inconsistent motor effort to testing of right knee flexors. Bilateral hip abductors are graded as 3+/5 right and 4- to 4/5 left. Lower extremity motor exam is otherwise 5/5 throughout. Sensation: Nondermatomal decrease in sensation throughout the right upper extremity and right lower extremity. Straight leg raising: Negative bilaterally in the sitting and supine positions. Muscle stretch reflexes 2+ bilaterally for quadriceps and Achilles tendon. Tone normal throughout the lower extremities. No ankle clonus. Great toes nonreactive bilaterally. Assessment: Encounter Diagnoses Name Primary? Low back pain, non-specific Yes ??? Right lumbar radiculitis ??? Sacroiliac joint somatic dysfunction ??? Segmental and somatic dysfunction of lumbar region The patient is a 54-year-old female with a history of chronic focal right sacroiliac pain and intermittent right lower extremity pain radiation. There are no radicular signs on examination to support the presence of a lumbar radicular process. Its presence, however, cannot be completely excluded. Diagnosis is complicated by the history of migraine headache and associated right hemisensory dysfunction, as well as by the presence of increased pain reactivity and non- organic signs on examination. It isnoted that a previous examiner questioned the presence of stress versus conversion reaction. There is evidence of sacroiliac mechanical dysfunction on examination. Pertinent findings include multiplanar pelvic misalignment and functional leg length discrepancy, focally impaired lumbopelvic motion, focal hip girdle weakness, focal sacroiliac joint tenderness and pain localization to the right sacroiliac joint with provocative stress maneuvers across the pelvis. I believe that the posterior pelvis and the right sacroiliac joint, in particular, are significant pain generators in this case. The patient is morbidly obese and is markedly deconditioned. She exhibits poor core strength and capacity for pelvic stabilization. This status increases the risk for sacroiliac pain and dysfunction. I have recommended a course of outpatient physical therapy to address the observed sacroiliac mechanical dysfunction, as well as postural and mechanical dysfunction throughout the lumbar region. A prescription has been written for postural advent, manual therapy to the pelvis and sacroiliac joints, flexibility training with attention to iliopsoas, quadratus lumborum, bilateral iliotibial bands and quadriceps, progression to pelvic stabilization and core strengthening. The patient would like to proceed with the recommended treatment. Plan: 1. Outpatient physical therapy, as above. A prescription has been provided for treatment in the patient's local area. 2. Follow-up with me in 6 weeks during PT treatment. 3. Consideration will be given to diagnostic/therapeutic right sacroiliac joint steroid injection, depending on the response to PT and the further evolution of the patient's symptoms and examination. 4. Consideration will be given to lumbar imaging if right lower extremity pain radiation persists following PT treatment. Dr. Fox' request for consultation is greatly appreciated. Medhat Chua MD, MS 08/26/2019 documented in this encounter Plan of Treatment Scheduled Referrals Name Type Priority Associated Diagnoses Order S chedule Referral to Outpatient Referral Routine Low back pain, Ordere d: Physical Therapy non-specific 08/26/2019 Right lumbar radiculitis Sacroiliac joint somatic dysfunct ion Segmental and somatic dysfunction of lumbar region documented as of this encounter Visit Diagnoses Diagnosis Low back pain, non-specific - Primary Right lumbar radiculitis Thoracic or lumbosacral neuritis or radi culitis, unspecified Sacroiliac joint somatic dysfunction Nonallopathic lesion of sacral region, n ot elsewhere classified Segmental and somatic dysfunction of lum bar region Nonallopathic lesion of lumbar region, n ot elsewhere classified documented in this encounter Care Teams [employer] Content Marketing Relationship Specialty Start Date End Date Zaheer Fox DO PCP - General Family Medicine 08/26/[address] [place] [phone] documented as of this encounter
--- OUTSIDE RECORDS SUMMARY | 2022-04-12 12:19 | XMS_ITS | Encounter Summary ---
:1965 Author Organization [facility] [place] [address] Care Team Providers Name Role Phone Rhianna Cox MD Primary Care Provider Encounter Details Date Type Department Care Team Description 05/11/2015 Hospital Encounter Nuclear Medicine at [facility] [place] [id number] Social History Tobacco Use Types Packs/Day [...] Priority Date/Time Associated Diagnosis Comme nts NM CEREBRAL Routine 05/11/2015 1:46 PM Results f or this PERFUSION SCAN EDT procedure are in the results section. documented in this encounter Results NM cerebral perfusion scan (05/11/2015 1:46 PM EDT) Anatomical Region Laterality Modality Other Specimen (Source) Anatomical Collection Method Collection Time Re ceived Time Location / / Volume Laterality 05/11/2015 1:46 PM EDT Impressions 05/11/2015 3:08 PM EDT IMPRESSION: Normal study and unchanged compared to p rior exam of 11/01/2009. Narrative 05/11/2015 3:08 PM EDT EXAMINATION: CEREBRAL PERFUSION SCAN CLINICAL HISTORY: Stroke, Progressive vi sual loss TECHNIQUE: Approximately 30 to 60 minute s following IV administration of 25 mCi technetium 99m SALES ACCOUNT LEADER, tomographic images o f the brain were acquired. COMPARISON: SPECT brain perfusion study 11/01/2009 FINDINGS: Normal-appearing symmetric activity in a ll cortical and subcortical regions of the brain. No significant change compare d to prior exam of 11/01/2009 Procedure Note David Hopson MD - 05/11/2015Formatti ng of this note might be different from the original. EXAMINATION: CEREBRAL PERFUSION SCAN CLINICAL HISTORY: Stroke, Progressive vi sual loss TECHNIQUE: Approximately 30 to 60 minute s following IV administration of 25 mCi technetium 99m SALES ACCOUNT LEADER, tomographic images o f the brain were acquired. COMPARISON: SPECT brain perfusion study 11/01/2009 FINDINGS: Normal-appearing symmetric activity in a ll cortical and subcortical regions of the brain. No significant change compare d to prior exam of 11/01/2009 IMPRESSION IMPRESSION: Normal study and unchanged compared to p rior exam of 11/01/2009. Eliud Jacobo MD IMG NM ORDERABLES documented in this encounter Visit Diagnoses Not on filedocumented in this encounter Care Teams Health And Wellness Instructor Relationship Specialty Start Date End Date Rhianna Cox MD PCP - General 12/22/11 08/25/[address] [place] [address] documented as of this encounter
--- OUTSIDE RECORDS SUMMARY | 2022-04-12 12:19 | XMS_ITS | Encounter Summary ---
:1965 Author Organization [facility] [address] Care Team Providers Name Role Phone Rhianna Cox MD Primary Care Provider Encounter Details Date Type Department Care Team Description 04/12/2012 Hospital Encounter MRI at [facility] Rhianna Cox MD [address] [place] [address] [facility], [place] [address] Social History Tobacco Use Types Packs/Day Years Used Date Never Assessed Sex Assigned at Date Recorded Not on file documented as of this encounter Last Filed Vital Signs Vital Sign Reading Time Taken Comments Blood Pressure - - Pulse - - Temperature - - Respiratory Rate - - Oxygen Saturation - - Inhaled Oxygen Concentration - - Weight 141.5 kg (312 lb) 04/12/2012 1:04 PM EDT Height - - Body Mass Index - - documented in this encounter Plan of Treatment Not on filedocumented as of this encounter Procedures Procedure Name Priority Date/Time Associated Diagnosis Comme nts MRI BRAIN WWO Routine 04/12/2012 1:40 PM Results for this CONTRAST (GENERIC) EDT procedure are in the results section. documented in this encounter Results MRI BRAIN WITH/WO CONTRAST (04/12/2012 1:40 PM EDT) Anatomical Region Laterality Modality Head Magnetic Resonance Specimen (Source) Anatomical Collection Method Collection Time Re ceived Time Location / / Volume Laterality 04/12/2012 1:40 PM EDT Narrative 04/12/2012 3:01 PM EDT [...] Date Dose Rate Site gadopentetate dimeglumine Given 04/12/2012 1:49 PM EDT 20 mLs (MAGNEVIST) injection 20 mL 20 mL, Intravenous, ONCE PRN, 1 dose, Starting on Sun04/12/12 at 1304, Until Sun04/12/12 at 1349, Per Protocol, Routine documented in this encounter Care Teams Claim Specialist Relationship Specialty Start Date End Date Rhianna Cox MD PCP - General 12/22/11 08/25/[address] [place] [address] documented as of this encounter
--- OUTSIDE RECORDS SUMMARY | 2022-04-12 12:19 | XMS_ITS | Encounter Summary ---
:1965 Author Organization [facility] [place] [address] Care Team Providers Name Role Phone Rhianna Cox MD Primary Care Provider Encounter Details Date Type Department Care Team Description 12/26/2011 Hospital Encounter MRI at [facility] [place] [facility] Eliud Jacobo MD [address] [place] [address] [place] [address] [place] [address] Social History Tobacco Use Types Packs/Day Years Used Date Never Assessed Sex Assigned at Date Recorded Not on file documented as of this encounter Miscellaneous Notes Miscellaneous - Provider, Scanning - 01/03/2012 11:12 AM EDT documented in this encounter Plan of Treatment Not on filedocumented as of this encounter Procedures Procedure Name Priority Date/Time Associated Diagnosis Comme nts MRI BRAIN WO Routine 12/26/2011 2:07 PM Results f or this CONTRAST EDT procedure are i n the results section. documented in this encounter Results MRI BRAIN WO CONTRAST (12/26/2011 2:07 PM EDT) Anatomical Region Laterality Modality Head Magnetic Resonance Specimen (Source) Anatomical Collection Method Collection Time Re ceived Time Location / / Volume Laterality 12/26/2011 2:07 PM EDT Narrative 12/26/2011 7:03 PM EDT Examination MR Brain without Contrast Clinical History CHRONIC RIGHT SIDE WEAKNESS SPEECH PROBLEMS Comparison 10/09/2009. Technique Routine noncontrast MR images of the bra in were obtained. Findings Encephalomalacia in the lateral aspect o f the right inferior cerebellar hemisphere is unchanged in appearance. ? ?No acute or interval infarctions identified. ??The ventricles and sulci a re proportional size. ??No intra-axial masses mass effect or extra-axial collec tions. 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 Procedure Note Vadim Choudhary MD - 12/26/2011Formatti ng of this note might be different from the original. Examination MR Brain without Contrast Clinical History CHRONIC RIGHT SIDE WEAKNESS SPEECH PROBLEMS Comparison 10/09/2009. Technique Routine noncontrast MR images of the bra in were obtained. Findings Encephalomalacia in the lateral aspect o f the right inferior cerebellar hemisphere is unchanged in appearance. N o acute or interval infarctions identified. The ventricles and sulci are proportional size. No intra-axial masses mass effect or extra-axial collec tions. 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 Eliud Jacobo MD IMG MRI ORDERABLES documented in this encounter Visit Diagnoses Not on filedocumented in this encounter Care Teams Harness Worker Relationship Specialty Start Date End Date Rhianna Cox MD PCP - General 12/22/11 08/25/[address] [facility] [place] [address] documented as of this encounter
--- OUTSIDE RECORDS SUMMARY | 2022-04-12 12:20 | XMS_ITS | Encounter Summary ---
:[address] [facility] Address [address] [place] [address] Care Team Providers Name Role Phone Rhianna Cox MD Primary Care Provider Encounter Details Date Type Department Care Team Description 09/15/2014 Hospital Encounter [facility], Provider, [facility] [address] [facility] [phone] [place] [address] (Work) [phone] Social History Tobacco Use Types Packs/Day Years Used Date Never Assessed Sex Assigned at Date Recorded Not on file documented as of this encounter Discharge Disposition Disposition Code Departure Means Destination Home or Self [facility]pc documented in this encounter Plan of Treatment Not on filedocumented as of this encounter Visit Diagnoses Not on filedocumented in this encounter Care Teams Goods Layer Relationship Specialty Start Date End Date Rhianna Cox MD PCP - General 05/21/12 03/30/[address] [place] [id number] documented as of this encounter
--- OUTSIDE RECORDS SUMMARY | 2022-04-12 12:20 | XMS_ITS | Encounter Summary ---
:[address] [facility] Address [address] [place] [address] Care Team Providers Name Role Phone Unavailable Primary Care Provider Unavailable Encounter Details Date Type Department Care Team Description 09/19/2002 Results Only [facility] - Kaylee Resendiz od, JOB DEVELOPER [address] [place] [phone] (Wo rk) Social History Tobacco Use Types Packs/Day Years Used Date Never Assessed Sex Assigned at Date Recorded Not on file documented as of this encounter Plan of Treatment Not on filedocumented as of this encounter Procedures Procedure Name Priority Date/Time Associated Diagnosis Comme [facility] CYTOPATHOLOGY Routine 09/19/2002 0:00 EST Results for this procedure are i n the results section . documented in this encounter Results CYTOPATHOLOGY (09/19/2002 0:00 EST) Pathology Report: CYTOPATHOLOGY REPORT [facility] Reports generated via electronic interface contain alix ginal data; however they are lacking the format of the original re port. Caution should be taken when reading/interpreting unfo rmatted reports. Name: ? CARLEE RANGEL ? Accession #: ? [id number] : ? 1965 (Age: 37) ??F ?Collect Date: ? 09/10 Location: ? [facility] ? Receive Date : ? 09/23/2002 Provider: ?KAYLEE MCGOWAN JOB DEVELOPER Copy to: ? Specimen/Source: ?ThinPrep Pap Test, Cervix/ Endocervix Last Menstrual Period: ? 09/06/02 ? SPECIMEN ADEQUACY ? Satisfactory for Evaluation - transformation zone component present GENERAL CATEGORIZATION ? Negative for Intraepithelial Lesion or Malignan cy ? Document reviewed and electronically signed by: ? RASHEED Condon(ASCP) ? Report Date: ??09/24/2002 08:47 End of Report Specimen Performing Organization Address City/State/ZIP Code Phon e Number [facility] [address] [place] [address] SERVICES [facility] [address] [place] [address] documented in this encounter Visit Diagnoses Not on filedocumented in this encounter
--- OUTSIDE RECORDS SUMMARY | 2022-04-12 12:20 | XMS_ITS | Encounter Summary ---
:1965 Author Organization [facility] Address [address] [place] [address] Care Team Providers Name Role Phone Unavailable Primary Care Provider Unavailable Encounter Details Date Type Department Care Team Description 09/24/2002 Results Only [facility] - Bentley Mukherjee MD conversion [address] [place] [address] Social History Tobacco Use Types Packs/Day Years Used Date Never Assessed Sex Assigned at Date Recorded Not on file documented as of this encounter Plan of Treatment Not on filedocumented as of this encounter Procedures Procedure Name Priority Date/Time Associated Diagnosis Comme nts SURGICAL PATHOLOGY Routine 09/24/2002 0:00 EST Re sults for this procedure are i n the results section. documented in this encounter Results SURGICAL PATHOLOGY (09/24/2002 0:00 EST) Pathology Report: SURGICAL PATHOLOGY REPORT [facility] Reports generated via electronic interface contain alix ginal data; LAB however they are lacking the format of the original re port. Caution should be taken when reading/interpreting unfo rmatted reports. Name: ? CARLEE RANGEL ? Accession #: ? [id number] ? : ? 1965 (Age: 37) ??F ? Collect Date: ? 09/24/2002 ? Location: ? [facility] ? Receive Date: ? 003 ? Provider: BENTLEY KAUR MD Copy to: JONNY BRADSHAW DO ? Final Pathologic Diagnosis: ? Endometrium, biopsy: 1. ?Benign proliferative endometrium. 2. ?No evidence of chronic endometritis, polyp, hyperplasia, or malignancy. Document reviewed and electronically signed by: Jah Joseph MD Report ??Date: 09/26/2002 17:53 By the signature above, the attending physician certif ies that he/she has personally conducted a gross and/or microscopic examin ation of the described specimens and rendered or confirmed the above diagnosi s. Specimen(s) Received: ? Em Bx Clinical History: ? Metromenorrhagia. Gross Description: ? Received in formalin labelled Juan Carlos and endometrial are 2.5 x 2.0 x 0.3 cm of multiple collado-pink slightly mucoid irregular soft tissue fragments. ??The specimen is entirely submitted in one cassette. ??(Garth Aldana)/edr End of Report Specimen Performing Organization Address City/State/ZIP Code Phon e Number [facility] [address] [place] [address] SERVICES [facility] [address] [place] [address] documented in this encounter Visit Diagnoses Not on filedocumented in this encounter
--- OUTSIDE RECORDS SUMMARY | 2022-04-12 12:20 | XMS_ITS | Encounter Summary ---
:1965 Author Organization [facility] Address [address] [place] [address] Care Team Providers Name Role Phone Unavailable Primary Care Provider Unavailable Encounter Details Date Type Department Care Team Description 06/17/2009 Orders Only [facility] Thang Beck, LIVESTOCK SALES REPRESENTATIVE Laboratory Services - [address] [place], [place] [address] [facility] [address] [place], [place] [id number] [phone] Social History Tobacco Use Types Packs/Day Years Used Date Never Assessed Sex Assigned at Date Recorded Not on file documented as of this encounter Plan of Treatment Not on filedocumented as of this encounter Procedures Procedure Name Priority Date/Time Associated Diagnosis Comme nts CYTOPATHOLOGY Routine 06/17/2009 0:00 EDT Results for this procedure are i n the results section . documented in this encounter Results CYTOPATHOLOGY (06/17/2009 0:00 EDT) Pathology Report: CYTOPATHOLOGY REPORT ? ORTIZ ALL EN ? LAB Reports generated via [email or web address] interface contain original data; ? however they are lacking the format of the original report. ? Caution should be taken when reading/interpreting unformatted reports. ? Name: ? LILLIAN CARLEE Teo ? Accession #: ? [id number] ? : ? 1965 (Age: 44) ??F ?Collect Date: ? 06/17/2009 ? Location: ? [facility] ? Receive Date: ? 06/17/2009 ? Provider: ?ESTER ALVARADO OOD LIVESTOCK SALES REPRESENTATIVE ? Copy to: ? Specimen/Source: ? Pap Test, Cervix/Endocervix, ThinPrep Imaging System ? with manual evaluation ? Last Menstrual Period: ? 10/01/09 ? Other: ? HPVA - HPV testing requested if ASC-US on the current ThinPrep Pap test. ? SPECIMEN ADEQUACY ? Satisfactory for Eval uation ? - transformation zone compon ent present ? GENERAL CATEGORIZATION ? Negative for Intraepi thelial Lesion or Malignancy ? Document reviewed and electr onically signed by: ? Lynan Magdi, CT(ASCP) ? Report Date: ??10/14/ 2009 16:09 ? End of Report ? Specimen Performing Organization Address City/State/[facility] Code Phon e Number [facility] [address] [place] [address] SERVICES [facility] [address] [place] [address] documented in this encounter Visit Diagnoses Not on filedocumented in this encounter
--- OUTSIDE RECORDS SUMMARY | 2022-04-12 12:20 | XMS_ITS | Encounter Summary ---
:1965 Author Organization [facility] Address [address] [place] [address] Care Team Providers Name Role Phone Unavailable Primary Care Provider Unavailable Encounter Details Date Type Department Care Team Description 07/10/2006 Results Only [facility] - Kaylee Resendiz od, WET PROCESS HEAD MILLER [address] [place] [phone] (Wo rk) Social History Tobacco Use Types Packs/Day Years Used Date Never Assessed Sex Assigned at Date Recorded Not on file documented as of this encounter Plan of Treatment Not on filedocumented as of this encounter Procedures Procedure Name Priority Date/Time Associated Diagnosis Comme [facility] CYTOPATHOLOGY Routine 07/10/2006 0:00 EST Results for this procedure are i n the results section . documented in this encounter Results CYTOPATHOLOGY (07/10/2006 0:00 EST) Pathology Report: CYTOPATHOLOGY REPORT [facility] Reports generated via electronic interface contain alix ginal data; however they are lacking the format of the original re port. Caution should be taken when reading/interpreting unfo rmatted reports. Name: ? CARLEE RANGEL ? Accession #: ? [id number] : ? 1965 (Age: 41) ??F ?Collect Date: ? 06/12 Location: ? [facility] ? Receive Date : ? 07/12/2006 Provider: ?KAYLEE MCGOWAN WET PROCESS HEAD MILLER Copy to: ? Specimen/Source: ? ThinPrep Pap Test, Cervix/Endocervix, processed on SensorTran ThinPrep Imaging System, with manual evaluation Last Menstrual Period: ? 06/12/06 Other: ? HPVA - HPV testing requested if ASC-US on the current ThinPrep Pap test. ? SPECIMEN ADEQUACY ? Satisfactory for Evaluation - transformation zone component present GENERAL CATEGORIZATION ? Negative for Intraepithelial Lesion or Malignan cy ? Document reviewed and electronically signed by: ? RASHEED Emerson(ASCP) ? Report Date: ??07/18/2006 09:56 End of Report Specimen Performing Organization Address City/State/ZIP Code Phon e Number [facility] [address] [place] [address] SERVICES [facility] [address] [place] [address] documented in this encounter Visit Diagnoses Not on filedocumented in this encounter
--- OUTSIDE RECORDS SUMMARY | 2022-04-12 12:20 | XMS_ITS | Clinical Summary ---
:1965 Author Organization [facility] Address [address] [place] [address] Care Team Providers Name Role Phone Vadim Roman MD Primary Care Provider Social History Tobacco Use Types Packs/Day Years Used Date Never Assessed Sex Assigned at Date Recorded Not on file Plan of Treatment Health Maintenance Due Date Last Done Comments Hepatitis C Screen 1965 COVID-19 Vaccine (1) 1971 Care Teams Local Company Flatbed Truck Driver Relationship Specialty Start Date End Date Vadim Roman MD PCP - General 03/31/[address] [place] [phone]
--- OUTSIDE RECORDS SUMMARY | 2022-04-12 12:20 | XMS_ITS | Encounter Summary ---
:[address] [facility] Address [address] [place] [address] Care Team Providers Name Role Phone Pascale Dent MD Primary Care Provider Encounter Details Date Type Department Care Team Description 11/23/2017 Results Only [facility] Kaylee Beck, [facility] [phone] [facility] [place] [address] (Wo rk) Social History Tobacco Use Types Packs/Day Years Used Date Never Assessed Sex Assigned at Date Recorded Not on file documented as of this encounter Plan of Treatment Not on filedocumented as of this encounter Procedures Procedure Name Priority Date/Time Associated Diagnosis Comme nts PAP TEST- RESULT Routine 11/23/2017 0:00 EDT Resu lts for this ONLY procedure are i n the results section. documented in this encounter Results PAP TEST- RESULT ONLY (11/23/2017 0:00 EDT) Pathology Report: CYTOPATHOLOGY REPORT [facility] Reports generated via electronic interface contain alix ginal data; SERVICES however they are lacking the format of the original re port. Caution should be taken when reading/interpreting unfo rmatted reports. Name: ? CARLEE RANGEL ? Accession #: ? [id number] : ? 1965 (Age: [age]) ??F ?Collect Date: ? 11/23 Location: ? [facility] ? Receive Date : ? 11/26/2017 Provider: ?KAYLEE BECK SOFTWARE DEVELOPER MID LEVEL Copy to: ?PASCALE DENT MD ? Specimen/Source: ? Pap Test, Cervix, ThinPrep Imaging System with manual evaluation Last Menstrual Period: ? 10/11/17 ? SPECIMEN ADEQUACY ? Satisfactory for Evaluation - transformation zone component present GENERAL CATEGORIZATION ? Negative for Intraepithelial Lesion or Malignan cy ? Document reviewed and electronically signed by: ? Sruthi Mcknight [facility](ASCP) ? Report Date: ??11/30/2017 14:59 End of Report Specimen Performing Organization Address City/State/ZIP Code Phon e Number [facility] [address] [place] [address] SERVICES documented in this encounter Visit Diagnoses Not on filedocumented in this encounter Care Teams Home Care Assistant Relationship Specialty Start Date End Date Pascale Dent MD PCP - General 03/31/[address] [place] [phone] documented as of this encounter
--- OUTSIDE RECORDS SUMMARY | 2022-04-12 12:20 | XMS_ITS | Encounter Summary ---
:1965 Author Organization [facility] Address [address] [place] [address] Care Team Providers Name Role Phone Rhianna Cox MD Primary Care Provider Encounter Details Date Type Department Care Team Description 03/28/2016 Hospital Encounter [facility] Unknown, Provider, [facility] [address] [facility] [phone] [place] [address] (Work) [phone] Social History Tobacco Use Types Packs/Day Years Used Date Never Assessed Sex Assigned at Date Recorded Not on file documented as of this encounter Discharge Disposition Disposition Code Departure Means Destination Home or Self [facility]pc documented in this encounter Plan of Treatment Not on filedocumented as of this encounter Visit Diagnoses Not on filedocumented in this encounter Care Teams Chucking Lathe Operator Relationship Specialty Start Date End Date Rhianna Cox MD PCP - General 05/21/12 03/30/[address] [place] [phone] documented as of this encounter
--- OUTSIDE RECORDS SUMMARY | 2022-04-12 12:20 | XMS_ITS | Encounter Summary ---
:1965 Author Organization [facility] Address [address] [place] [address] Care Team Providers Name Role Phone Unavailable Primary Care Provider Unavailable Encounter Details Date Type Department Care Team Description 12/12/2011 Results Only [facility] Thang Beck, [facility] Laboratory Services - [address] [place], [place] [address] [facility] [address] [place], [place] [id number] [phone] Social History Tobacco Use Types Packs/Day Years Used Date Never Assessed Sex Assigned at Date Recorded Not on file documented as of this encounter Plan of Treatment Not on filedocumented as of this encounter Procedures Procedure Name Priority Date/Time Associated Diagnosis Comme nts PAP TEST- RESULT Routine 12/12/2011 0:00 EDT Resu lts for this ONLY procedure are i n the results section. documented in this encounter Results PAP TEST- RESULT ONLY (12/12/2011 0:00 EDT) Pathology Report: CYTOPATHOLOGY REPORT [facility] Reports generated via electronic interface contain alix ginal data; however they are lacking the format of the original re port. Caution should be taken when reading/interpreting unfo rmatted reports. Name: ? CARLEE RANGEL ? Accession #: ? [id number] ? : ? 1965 (Age: 46) ??F ?Collect Da te: ? 12/12/2011 ? Location: ? [facility] ? Receive Date: ? 012 ? Provider: ESTER BECK CONE TRUCKER Copy to: LEIGHTON BROWN MD ? Final Report SPECIMEN ADEQUACY ? Satisfactory for Evaluation - transformation zone component present GENERAL CATEGORIZATION ? Negative for Intraepithelial Lesion or Malignan cy ?? Last Menstural Period: 11/23/2011 Specimen/Source: ??Pap Test, Cervix/Endocervix, ThinPr ep Imaging System with manual evaluation Document reviewed and electronically signed by: ? Christal Fairbanks, RASHEED(ASCP) ? Report ??Date: 12/15/2011 11:25 HPV with Pap Test ? Date Ordered: ? 12/15/2011 ? Status: ?? Signed Out ?Date Complete: ? 12/19/2011 ? By: ??S ystem Interface ? Date Reported: ? 12/19/2011 ? Interpretation RESULT: Negative for HPV. No E6 or E7 mRNA is detected from HPV types 16,18,31,3 3,35, 39,45,51,52,56,58,59,66, and 68 by fish technologist media heath amplification. Comments Document reviewed and electronically signed by: ? System Interface ? Report date: 12/19/2011 By the signature above, the attending physician certif ies that he/she has personally conducted a gross and/or microscopic examin ation of the described specimens and rendered or confirmed the above diagnosi s. End of Report Specimen Performing Organization Address City/State/ZIP Code Phon e Number [facility] [address] [place] [address] SERVICES [facility] [address] [place] [address] documented in this encounter Visit Diagnoses Not on filedocumented in this encounter
--- OUTSIDE RECORDS SUMMARY | 2022-04-12 12:20 | XMS_ITS | Encounter Summary ---
:1965 Author Organization [facility] Address [address] [place] [address] Care Team Providers Name Role Phone Unavailable Primary Care Provider Unavailable Encounter Details Date Type Department Care Team Description 12/21/1999 Results Only [facility] - Bentley Mukherjee MD conversion [address] [place] [address] Social History Tobacco Use Types Packs/Day Years Used Date Never Assessed Sex Assigned at Date Recorded Not on file documented as of this encounter Plan of Treatment Not on filedocumented as of this encounter Procedures Procedure Name Priority Date/Time Associated Diagnosis Comme nts SURGICAL PATHOLOGY Routine 12/21/1999 15:22 Resul ts for this EDT procedure are i n the results section. documented in this encounter Results SURGICAL PATHOLOGY (12/21/1999 15:22 EDT) Pathology Report: SURGICAL PATHOLOGY REPORT [facility] Reports generated via electronic interface contain alix ginal data; LAB however they are lacking the format of the original re port. Caution should be taken when reading/interpreting unfo rmatted reports. Name: ? CARLEE RANGEL ? Accession #: ? [id number] ? : ? 1965 (Age: 34) ??F ? Collect Date: ? 12/21/1999 ? Location: ?Receive Date: ? 12/21/1999 ? Provider: BENTLEY KAUR MD Copy to: BENTLEY BRADSHAW DO JONNY COLLINS MD ? Final Pathologic Diagnosis: MICROSCOPIC DIAGNOSIS: ? Endometrium, biopsy: ? - Fragments of proliferative endometrium with n o specific ? pathologic features. ? - Fragment of benign endocervical tissue. Document reviewed and electronically signed by: Conversion for DAKSHA MYERS Report ??Date: 12/23/1999 00:00 By the signature above, the attending physician certif ies that he/she has personally conducted a gross and/or microscopic examin ation of the described specimens and rendered or confirmed the above diagnosi s. Specimen(s) Received: TISSUE SUBMITTED: ? EMBx CLINICAL DATA: ? No hormones; menorrhagia; LMP 12/09/99 Gross Description: GROSS: ? Received in formalin labelled Juan Carlos and endo metrial are ? multiple collado-pink mucoid and hemorrhagic soft t issues which ? measure 2.0 x 1.5 x 0.3 cm in aggregate. ??They are submitted ? entirely as (A) and (B). ??(Shannan Harper)/chelle End of Report Specimen Performing Organization Address City/State/ZIP Code Phon e Number [facility] [address] [place] [address] SERVICES [facility] [address] [place] [address] documented in this encounter Visit Diagnoses Not on filedocumented in this encounter
--- OUTSIDE RECORDS SUMMARY | 2022-04-12 12:20 | XMS_ITS | Encounter Summary ---
:1965 Author Organization [facility] Address [address] [place] [address] Care Team Providers Name Role Phone Rhianna Cox MD Primary Care Provider Encounter Details Date Type Department Care Team Description 09/15/2014 Results Only [facility] Reji Dean MD [phone] [place] [address] Social History Tobacco Use Types Packs/Day Years Used Date Never Assessed Sex Assigned at Date Recorded Not on file documented as of this encounter Plan of Treatment Not on filedocumented as of this encounter Procedures Procedure Name Priority Date/Time Associated Diagnosis Comme nts SURGICAL PATHOLOGY Routine 09/15/2014 8:29 EST Re sults for this procedure are i n the results section. documented in this encounter Results SURGICAL PATHOLOGY (09/15/2014 8:29 EST) Pathology Report: SURGICAL PATHOLOGY REPORT [facility] Reports generated via electronic interface conta in original data; [facility] however they are lacking the format of the original re port. SERVICES Caution should be taken when reading/interpreting unfo rmatted reports. Name: ? CARLEE RANGEL ? Accession #: ? [id number] ? : ? 1965 (Age: 49) ??F ? Collect Date: ? 09/15/2014 ? Location: ? [facility] ? Receive Date: ? 015 ? Provider: REJI DEAN MD Copy to: RHIANNA COX MD ? Final Pathologic Diagnosis: SKIN OF VULVA, EXCISION: - Fibroepithelial skin tag. ?? Microscopic Description: There is a polypoid papule with a papillated epi dermal surface. ??The stratum corneum is composed of a rel atively normal layer of orthokeratin. ??The dermis is composed of loose fibrous co nnective tissue and dilated vessels. ??(Dr. Wakefield)/hectorn Document reviewed and electronically signed by: GUNNER WAKEFIELD MD Report ??Date: 09/17/2014 15:14 By the signature above, the attending physician certif ies that he/she has personally conducted a gross and/or microscopic examin ation of the described specimens and rendered or confirmed the above diagnosi s. Specimen(s) Received: Vulvar growth excision Clinical History: Abnormal vulvar growth Gross Description: ? Received in formalin labelled with proper patient identification (initials D, L) and skin tag vulvar is a single collado-pink skin covered polypoid tissue (0.7 x 0.5 x 0.3 cm). The ma rgin is inked black. ??The specimen is trisected and entirely submitted in block 1. Regina Suresh 09/16/2014 10:47 AM End of Report Specimen Performing Organization Address City/State/ZIP Code Phon e Number [facility] [address] [place] [phone] SERVICES documented in this encounter Visit Diagnoses Not on filedocumented in this encounter Care Teams Liquor Tester Relationship Specialty Start Date End Date Rhianna Cox MD PCP - General 05/21/12 03/30/[address] [place] [phone] documented as of this encounter
--- OUTSIDE RECORDS SUMMARY | 2022-04-12 12:20 | XMS_ITS | Encounter Summary ---
:1965 Author Organization [facility] Address [address] [place] [address] Care Team Providers Name Role Phone Unavailable Primary Care Provider Unavailable Encounter Details Date Type Department Care Team Description 12/22/1999 Results Only [facility] - Bentley Mukherjee MD conversion [address] [place] [address] Social History Tobacco Use Types Packs/Day Years Used Date Never Assessed Sex Assigned at Date Recorded Not on file documented as of this encounter Plan of Treatment Not on filedocumented as of this encounter Procedures Procedure Name Priority Date/Time Associated Diagnosis Comme nts CYTOPATHOLOGY Routine 12/22/1999 13:09 EDT Result s for this procedure are i n the results section . documented in this encounter Results CYTOPATHOLOGY (12/22/1999 13:09 EDT) Pathology Report: CYTOPATHOLOGY REPORT [facility] Reports generated via electronic interface contain alix ginal data; however they are lacking the format of the original re port. Caution should be taken when reading/interpreting unfo rmatted reports. Name: ? CARLEE RANGEL ? Accession #: ? [id number] : ? 1965 (Age: 34) ??F ?Collect Date: ? 12/09 Location: ?Receive Date: ? 12/22/1999 Provider: ?BENTLEY KAUR MD Copy to: ?BENTLEY KAUR MD ? Specimen/Source: ?Pap Smear (One Slide) Last Menstrual Period: ? GYNECOLOGIC ??CYTOPATHOLOG Y ??REPORT Name: CARLEE RANGEL ? [facility] : 1965 ?? 34Y F ?Client ID: [id number] SS#: ? Clinician: BENTLEY KAUR MD ?? [facility] ??Copy to: ?? Specimen: ?Pap Smear (One Slide) ? Source: Cervix/Endocervix ?Collected: ? Received: 12/22/1999 ?LMP: 12/09/99 ? Hormone Therapy: No ? : No ? Radiation Therapy: No ?? Post : No ?Chemotherapy: No ?IUD: No ? Prev Abnormal Pap: No ?? Clinical Hx: ?(Blank cramer indicate information not provided on requisition) SPECIMEN ADEQUACY: ? Satisfactory But Limited By ? Scant Squamous Epithelial Component ?? GENERAL CATEGORIZATION: ? WITHIN NORMAL LIMITS ? Reviewed And Electronically Signed By: ? Anais Orozco lasacco, CT(ASCP) ? Report Date : ?? 12/22/1999 [facility] Archived Tests - Final Diagnosis Text Field: Clinical History : ? Document reviewed and electronically signed by: ? Conversion ? Report Date: ??12/22/1999 00:00 End of Report Specimen Performing Organization Address City/State/ZIP Code Phon e Number [facility] [address] [place] [address] SERVICES [facility] [address] [place] [address] documented in this encounter Visit Diagnoses Not on filedocumented in this encounter
--- OUTSIDE RECORDS SUMMARY | 2022-04-12 12:20 | XMS_ITS | Encounter Summary ---
:1965 Author Organization [facility] Address [address] [place] [address] Care Team Providers Name Role Phone Vadim Roman MD Primary Care Provider Encounter Details Date Type Department Care Team Description 01/10/2022 Lab Requisition [facility] Kaylee Beck E ncounter for other Pathology & [place] general examination Laboratory Medicine [address], [place] [address] [facility] [id number] [place], [place] [id number] Social History Tobacco Use Types Packs/Day Years Used Date Never Assessed Sex Assigned at Date Recorded Not on file documented as of this encounter Plan of Treatment Not on filedocumented as of this encounter Procedures Procedure Name Priority Date/Time Associated Comments Diagnosis PAP TEST Today 01/09/2022 12:00 Encounter for other Resu lts for this EDT general examination procedur e are in the results section. HUMAN PAPILLOMAVIRUS Today 01/09/2022 12:00 Encounter for ot her Results for this (HPV) DETECTION-HIGH EDT general examination procedure are in RISK TYPES the results section. documented in this encounter Results HUMAN PAPILLOMAVIRUS (HPV) DETECTION-HIGH RISK TYPES (01/09/2022 12:00 EDT) Human Papillomavirus NegativeComment: No Negative [facility] MED[facility] (HPV) Detection-High E6 or E7 mRNA is CENTER LABORATOR Y Types detected from HPV SERVICES types 16,18,31,33,35,39,45 ,51,52,56,58,59,66, and 68 by security agent mediated amplification. Specimen Pap Test - Cervix and/or Endocervix Performing Organization Address City/State/ZIP Code Phon e Number [facility] [address] [place] [address] SERVICES PAP TEST (01/09/2022 12:00 EDT) Specimens A. Cervix and/or [facility] Endocervix , ThinPrep CENTER Imaging System with LABORATORY Manual Evaluation SERVICES Specimen Adequacy Satisfactory for [facility] MEDICAL Evaluation - CENTER transformation zone LABORATORY component absent SERVICES General Negative for [facility] intraepithelial [place] lesion or malignancy LABORATORY SERVICES Attestation . [facility] Electronically CENTER signed by AUDREY Rangel CT(ASCP ) on SERVICES 01/17/2022 at 15 12 Clinical History See below [facility] SERVICES HPV The result for the Human Pap illomavirus (HPV) Detection-High Risk Types is Negative. No E6 or E7 mRNA is detected from HPV types 16,18,31,33,35,39,45,51,52,56,58,59,66, and [address] [facility] amplification.Testing was pe rformed on specimen [id number] and was resulted on 01/17/2022 1440 EDT by AYSE, LAB INSTRUMENT RESULTS IN [facility] SERVICES Performing Lab [facility] SERVICES Scanned Images [facility] SERVICES Specimen Pap Test - Cervix and/or Endocervix Performing Organization Address City/State/ZIP Code Phon e Number [facility] [address] [place] [address] SERVICES documented in this encounter Visit Diagnoses Diagnosis Encounter for other general examination documented in this encounter Care Teams Store Deli Manager Relationship Specialty Start Date End Date Vadim Roman MD PCP - General 03/31/[address] [place] [id number] documented as of this encounter
--- OUTSIDE RECORDS SUMMARY | 2022-04-12 12:20 | XMS_ITS | Encounter Summary ---
:1965 Author Organization [facility] Address [address] [place] [address] Care Team Providers Name Role Phone Unavailable Primary Care Provider Unavailable Encounter Details Date Type Department Care Team Description 11/03/2002 Results Only [facility] - Bentley Mukherjee MD conversion [address] [place] [id number] Social History Tobacco Use Types Packs/Day Years Used Date Never Assessed Sex Assigned at Date Recorded Not on file documented as of this encounter Plan of Treatment Not on filedocumented as of this encounter Procedures Procedure Name Priority Date/Time Associated Diagnosis Comme nts SURGICAL PATHOLOGY Routine 11/03/2002 0:00 EST Re sults for this procedure are i n the results section. documented in this encounter Results SURGICAL PATHOLOGY (11/03/2002 0:00 EST) Pathology Report: SURGICAL PATHOLOGY REPORT DIANA EUGENE Reports generated via electronic interface contain alix ginal data; LAB however they are lacking the format of the original re port. Caution should be taken when reading/interpreting unfo rmatted reports. Name: ? CARLEE RANGEL ? Accession #: ? [id number] ? : ? 1965 (Age: 37) ??F ? Collect Date: ? 11/03/2002 ? Location: ? [facility] ? Receive Date: ? 003 ? Provider: BENTLEY KAUR MD Copy to: JONNY BRADSHAW DO ? Final Pathologic Diagnosis: ? Endocervix, curettings: 1. ?Proliferative endometrium. 2. ?Focal cystic changes. Document reviewed and electronically signed by: ALBAN KHAN MD Report ??Date: 11/06/2002 09:29 By the signature above, the attending physician certif ies that he/she has personally conducted a gross and/or microscopic examin ation of the described specimens and rendered or confirmed the above diagnosi s. Specimen(s) Received: ? Endometrial curettings Clinical History: Menorrhagia and dysmenorrhea Gross Description: ? Received in formalin labelled Juan Carlos and endometrial curettings are multiple collado to brown hemorr hagic irregular soft tissue fragments measuring 3.0 x 3.0 x 0.5 cm in aggregate. ??The specimen is e ntirely submitted as (A1) and (A2). ??(Garth Saldana/mago End of Report Specimen Performing Organization Address City/State/ZIP Code Phon e Number [facility] [address] [place] [address] SERVICES [facility] [address] [place] [address] documented in this encounter Visit Diagnoses Not on filedocumented in this encounter
== END 2022-04-12 12:14 | disposition home or self-care (01) ==
LOC: LBN 12:13
PROVIDERS: PCP Neuromusculoskeletal Medicine & OMM; Visit Provider Obstetrics & Gynecology
DX: N95.0 Postmenopausal bleeding (principal)
CPT/HCPCS: 88305

== ENCOUNTER → 2022-04-25 01:03 | Outpatient (CLI) | payer MEDICARE, MEDICAID, SELFPAY ==
--- NOTE | 2022-04-25 07:00 | DI.US_ITS ---
Exam(s) US PELVIS TRANSVAGINAL EXAM: US PELVIS TRANSVAGINAL CLINICAL HISTORY: check stripe,POSTMENOPAUSAL BLEEDING,N95.0 TECHNIQUE: Ultrasound of the pelvis was performed both transabdominal and transvaginal. COMPARISON: No exams were available for comparison FINDINGS: Study somewhat difficult due to patient body habitus. UTERUS: Nongravid and anteverted Measures 11 cm length x 8 cm AP x 9 cm wide. There is a large fibroid at the fundus level measuring approximately 7.7 x 7.8 x 7.0 cm. This makes visualization of the endometrium difficult.Endometrial stripe thickness was apparently not able to be measured on today's study as the endometrium was not discernible relative to the myometrium. There is no obvious fluid in the endometrial canal. Smaller posterior myometrial fibroid is seen in the lower uterine segment measuring 3 x 2.7 x 3.8 cm . CERVIX: There are no obvious nabothian cysts. OVARIES: Both ovaries were not able to be identified both on transabdominal and transvaginal study. CUL-DE-SAC: No free fluid evident. IMPRESSION: 1. Endometrium was not able to be delineated for measurement due to combination of body habitus and l arge fibroid present at the level the fundus measuring 7.7 x 7.8 x 7.0 cm. Smaller fibroid noted pos teriorly measuring 3 x 2.7 x 3.8 cm. 2. Ovaries were not able to be identified. 3. No obvious free fluid in the adnexal regions are cul-de-sac. DATA REPOSITORY:
== END ==
PROVIDERS: PCP Neuromusculoskeletal Medicine & OMM; Visit Provider Obstetrics & Gynecology
DX: N95.0 Postmenopausal bleeding (principal); D25.9 Leiomyoma of uterus, unspecified
CPT/HCPCS: 76830; 76856

== ENCOUNTER 2022-04-28 14:39 | Emergency (ER) | payer MEDICARE, MEDICAID, SELFPAY ==
[2022-04-28 14:39] VITALS: PULSE 111; RESP 18; TEMP 36.8
--- NOTE | 2022-04-28 14:45 | RT.EKG_ITS ---
APPROVED REPORT Exam: Resting ECG Reason for Exam: weakness Patient Location: E HR:91 bpm ECG Measurements Heart Rate 91 AXIS OR 162 P 37 QRSd 129 QRS 11 QT 390 T 151 QTc 479 Conclusion Sinus rhythm...normal P axis, V-rate 60- 99 Left bundle branch block...QRSd>120, broad/notched R ST elevation secondary to IVCD...Multiple VCG criteria. Sinus. New LBBB? No STEMI.
--- NOTE | 2022-04-28 14:45 | DI.MRI_ITS ---
Exam(s) MR BRAIN WO EXAM: MR BRAIN WO CLINICAL HISTORY: headache, tremors, r/o acute cva TECHNIQUE: Multiplanar multisequence MRI of the brain was performed. COMPARISON: MR MR BRAIN WO from 11/10/2019 FINDINGS: The exam is limited by patient motion. VENTRICLES AND EXTRA AXIAL SPACES: Normal in size and morphology for the patient's age. MIDLINE SHIFT: None. CEREBRAL PARENCHYMA: Mild atrophy. There are few scattered tiny foci of high signal, unchanged. No focus of restricted diffusion to suggest acute infarct. No space-occupying lesion identified. HEMORRHAGE: None. BRAINSTEM/CEREBELLUM: Stable defect lateral aspect right cerebellum with overlying craniotomy defect. VISUALIZED PARANASAL SINUSES/MASTOIDS:Clear. [place] OF [place]: Normal flow void. PITUITARY GLAND: Unremarkable. OTHER FINDINGS: None. 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 No acute abnormality . Results of this exam have been verbally communicated with the emergency department provider. DATA REPOSITORY:
--- NOTE | 2022-04-28 14:47 | DI.CT_ITS ---
Exam(s) CT HEAD - STROKE PROTOCOL EXAM: CT HEAD - STROKE PROTOCOL CLINICAL HISTORY: right sided weakness and headache. TECHNIQUE: Imaging Protocol: Axial computed tomography images with coronal and sagittal reformatted images were created and reviewed CT CT HEAD WO CONTRAST (GENERIC) from 11/06/[address] HEAD WO from 09/17/2020 FINDINGS: Ventricles and Extra axial spaces: Normal in size and morphology for the patient's age. Hemorrhage: None. Cerebral parenchyma: Normal. Midline shift: None. Brainstem/Cerebellum: Stable appearance of presumed postsurgical defect of the right lateral cerebell ar hemisphere. Calvarium: Craniotomy defect in the right infero lateral occipital bone. No fracture or destructive lesion. Visualized Paranasal sinuses/Mastoids: Prior resection of portion of the right mastoid air cells. No mastoid fluid or destruction. Size paranasal sinuses are clear. Soft Tissues: Unremarkable. IMPRESSION: No acute intracranial process. Results of this exam have been verbally communicated with emergency department provider. RADIATION DOSE DELIVERED: 1,061.48mGy.cm Total DLP DATA REPOSITORY: All CT scans at this facility are submitted to the National Radiology Data Registry (NRDR) Dose Index Registry (DIR) with the [employer] (A[employer]). RADIATION OPTIMIZATION: All CT scans at this facility use at least one of these dose optimization te chniques: automated exposure control; mA and/or kV adjustment per patient size (includes targeted exa ms where dose is matched to clinical indication); or iterative reconstruction.
[2022-04-28 14:49] VITALS: RESP 18
[2022-04-28 15:05] LABS: Abs Immature Grans 0.01 10^3/uL (0.0-0.06); Absolute Basophil Count 0.05 10^3/uL (0.0-0.2); Absolute Eosinophil Count 0.09 10^3/uL (0.0-0.7); Absolute Lymphocyte Count 1.66 10^3/uL (1.2-3.4); Absolute Monocyte Count 0.45 10^3/uL (0.1-0.8); Absolute Neutrophil Count 4.77 10^3/uL (1.2-6.7); Basophils % 0.7; Eosinophils % 1.3; HCT 40.6 % (36.0-46.0); HGB 13.7 g/dL (11.2-15.7); Immature Grans % 0.1; Lymphocytes % 23.6; MCH 29.8 pg (27.0-33.0); MCHC 33.7 % (32.0-36.0); MCV 88 fL (80-95); MPV 9.1 fL (8.0-11.0); Monocytes % 6.4; Neutrophils % 67.9; Platelet Count 271 10^3/uL (130-400); RDW 12.8 % (11.7-14.6); RDW-SD 41.6 fL; WBC 7.03 10^3/uL (4.4-10.8)
[2022-04-28 15:20] LABS: INR 0.9 (0.9-1.1); PTT Activated 25.3 sec (21.0-27.5); Prothrombin Time 9.4 sec (9.3-11.0)
[2022-04-28 15:27] LABS: ALT 26 U/L (14-59); AST 18 U/L (15-37); Albumin 3.7 g/dL (3.4-5.0); Alkaline Phosphatase 64 U/L (46-116); Anion Gap 11.5 mmol/L (3-11); BUN 13 mg/dL (7-18); Bilirubin, Total 0.6 mg/dL (0.2-1.0); CO2 22.5 mmol/L (21.0-32.0); CREATININE 1.1 mg/dL (0.55-1.02); Calcium 8.6 mg/dL (8.5-10.1); Chloride 108 mmol/L (98-107); Estimated GFR 51.38 (mL/min/1.73m2); Glucose 98 mg/dL (74-106); Magnesium 2.1 mg/dL (1.8-2.4); Potassium 4.2 mmol/L (3.5-5.1); Sodium 142 mmol/L (136-145); Total Protein 7.4 g/dL (6.4-8.2); Troponin I < 50 ng/L (<or=60)
--- NOTE | 2022-04-28 15:27 | W.ED.GENAD ---
Discharge Plan Disposition Patient Disposition: HOME Condition: Stable Discharge Details Clinical Impression: Headache, Shaking Primary Care Provider: Zaheer Fox ED Provider: Theodore Vazquez Home Meds and New Rx's Prescriptions: Continued citalopram 10 mg tablet 10 mg PO DAILY norethindrone acetate [Aygestin] 5 mg tablet 5 mg PO BID Qty: 120 0RF aripiprazole 5 mg tablet 5 mg PO DAILY aspirin 81 MG tablet,chewable 81 mg PO DAILY vitamin B complex 1 EACH capsule 2 ea PO BID atorvastatin [Lipitor] 40 mg Tablet 40 mg PO QPM Qty: 30 0RF pantoprazole 40 mg Tablet,Delayed Release (Dr/Ec) 40 mg PO DAILY@0730 Qty: 30 0RF citalopram 20 mg Tablet 20 mg PO DAILY Qty: 30 0RF magnesium oxide [MagOx] 400 MG tablet 2 tab PO BID Qty: 120 12RF ibuprofen 600 mg tablet 600 mg PO QID Qty: 60 0RF Discharge Instructions Instructions: General Headache (ED) Additional Instructions: Your workup today was reassuring. Home to rest in a dark quiet room. Return for any acute concerns Discharge Data Discharge Date/Time-TO BE ENTERED AT DEPARTURE: 04/28/22 18:19 Medical Decision Making <Kerry Granda DO - Last Filed: 04/30/22 09:56> 1445 -- 57-year-old female with a history of obesity, diabetes, hypertension, hyperlipidemia, conversion disorder, stuttering speech, migraines, obstructive sleep apnea presents as a possible stroke alert per EMS. EMS noted patient alert, responsive with somewhat slurred speech with a reported history of headache, right-sided weakness, facial droop and witnessed whole body tremors. Patient initially assessed by nurse practitioner Larry Stiles on arrival to the ED and sent for noncontrast CT head which was negative. Upon my assessment, patient awake and alert and oriented x3 and able to answer questions appropriately. During my neurological exam, patient began with stuttering speech and began 30 seconds of whole body tremors. At this time, her head, arms, legs and whole body began shaking. During this time she was able to answer questions and follow commands without loss of consciousness. After 30 seconds, there was no postictal period noted. She is tachycardic otherwise vitals within normal limits. Upon full neurologic exam, there is no obvious facial droop or right-sided weakness. Her muscle strength is 5/5 bilateral upper and lower extremities. Considering her age and history, will refer for MRI brain, screening labs and continue to monitor and consult [facility] neurology for further recommendations if needed. 1545 --MRI discussed with radiologist and no acute findings. Labs reviewed and unremarkable. Troponin negative. Patient has multiple medication allergies. She states she cannot take diazepam due to history of anaphylaxis and is unsure if she can take lorazepam. Nursing has noted she still has had additional episodes of whole body shaking. Other allergies include Decadron and morphine. Review of medical records note that patient was seen by Dr. Arthur last month and diagnosed with Functional Neurological Disorder and referred for outpatient MRI brain. It was thought that her multiple abnormalities of imbalance and stuttering speech were functional in nature. 1610 --results and recent visit with Dr. Arthur discussed. Discussed that she likely will not need to obtain the MRI brain next week as this was obtained today. Patient states her headache is improving but still 3/10. Discussed that I can consult [facility] neurology for her symptoms today but she is declining stating she has seen them in the past and they had not given her diagnosis and she would rather follow-up with Dr. Arthur. We will give IV Toradol, IV Compazine, IV Benadryl and continue IV fluid hydration. Patient states she feels that she would like to go home if her headache continues to improve. We will place patient on care management list for follow-up with Dr. Arthur. 1630 --Case endorsed to Dr. Vazquez to follow-up on patient response to medication and final disposition. Medical Records Medical records reviewed: Yes I reviewed the patient's medical records. Imaging Data Radiologic Study: Radiologist's impression: CT HEAD - STROKE PROTOCOL CLINICAL HISTORY: ? right sided weakness and headache. ? TECHNIQUE:? Imaging Protocol: Axial computed tomography images with coronal and sagittal reformatted images were created and reviewed CT CT HEAD WO CONTRAST (GENERIC) from 11/06/[address] HEAD WO from 09/17/2020 FINDINGS: Ventricles and Extra axial spaces: Normal in size and morphology for the patient's age. Hemorrhage: None. Cerebral parenchyma: Normal. Midline shift: None. Brainstem/Cerebellum: Stable appearance of presumed postsurgical defect of the right lateral cerebellar hemisphere.? Calvarium: Craniotomy defect in the right infero lateral occipital bone.? No fracture or destructive lesion. Visualized Paranasal sinuses/Mastoids: Prior resection of portion of the right mastoid air cells.? No mastoid fluid or destruction.? Size paranasal sinuses are clear. Soft Tissues: Unremarkable. IMPRESSION: No acute intracranial process. Results of this exam have been verbally communicated with emergency department provider. ?MR BRAIN WO CLINICAL HISTORY:? headache, tremors, r/o acute cva TECHNIQUE:? Multiplanar multisequence MRI of the brain was performed. COMPARISON:? MR MR BRAIN WO from 11/10/2019 FINDINGS: The exam is limited by patient motion. VENTRICLES AND EXTRA AXIAL SPACES: Normal in size and morphology for the patient's age. MIDLINE SHIFT: None. CEREBRAL PARENCHYMA: Mild atrophy.? There are few scattered tiny foci of high signal, unchanged.? No focus of restricted diffusion to suggest acute infarct. No space-occupying lesion identified. HEMORRHAGE: None. BRAINSTEM/CEREBELLUM: Stable defect lateral aspect right cerebellum with overlying craniotomy defect. VISUALIZED PARANASAL SINUSES/MASTOIDS:Clear. [place]: Normal flow void. PITUITARY GLAND: Unremarkable. OTHER FINDINGS: None. IMPRESSION: Stable postsurgical deformity of the right cerebellum with adjacent craniotomy.? No acute abnormality. Results of this exam have been verbally communicated with the emergency department provider. Lab Data Lab results reviewed: Yes I reviewed the patient's lab results. Labs: Laboratory Tests Range/Units 04/28/22 04/28/22 04/28/22 14:58 14:58 14:58 WBC (4.4-10.8) 10^3/uL 7.03 RBC (3.93-5.22) 10^6/uL 4.60 Hgb (11.2-15.7) g/dL 13.7 Hct (36.0-46.0) % 40.6 MCV (80-95) fL 88 MCH (27.0-33.0) pg 29.8 MCHC (32.0-36.0) % 33.7 RDW (11.7-14.6) % 12.8 Plt Count (130-400) 10^3/uL 271 MPV (8.0-11.0) fL 9.1 Immature Gran % 0.1 Neutrophils % 67.9 Lymphocytes % 23.6 Monocytes % 6.4 Eosinophils % 1.3 Basophils % 0.7 Nucleated RBC % (0.0-0.3) % 0.0 Absolute Neutrophils (1.2-6.7) 10^3/uL 4.77 Absolute Lymphocytes (1.2-3.4) 10^3/uL 1.66 Absolute Monocytes (0.1-0.8) 10^3/uL 0.45 Absolute Eosinophils (0.0-0.7) 10^3/uL 0.09 Absolute Basophils (0.0-0.2) 10^3/uL 0.05 PT (9.3-11.0) sec 9.4 INR (0.9-1.1) 0.9 APTT (21.0-27.5) sec 25.3 Sodium (136-145) mmol/L 142 Potassium (3.5-5.1) mmol/L 4.2 Chloride (98-107) mmol/L 108 H Carbon Dioxide (21.0-32.0) mmol/L 22.5 Anion Gap (3-11) mmol/L 11.5 H BUN (7-18) mg/dL 13 Creatinine (0.55-1.02) mg/dL 1.1 H Estimated GFR/1.73 m2 (mL/min/1.73m2) 51.38 Glucose (74-106) mg/dL 98 Calcium (8.5-10.1) mg/dL 8.6 Magnesium (1.8-2.4) mg/dL 2.1 Total Bilirubin (0.2-1.0) mg/dL 0.6 AST (15-37) U/L 18 ALT (14-59) U/L 26 Alkaline Phosphatase (46-116) U/L 64 Troponin I (<or=60) ng/L < 50 Total Protein (6.4-8.2) g/dL 7.4 Albumin (3.4-5.0) g/dL 3.7 ECG Data Attestation: I personally reviewed and interpreted this ECG (s) as follows: Interpretation: Rate of 91, sinus, new LBBB, no STEMI <Theodore Vazquez MD - Last Filed: 04/28/22 17:06> Medical Records Medical records reviewed: Yes I reviewed the patient's medical records. Medical records narrative: PT IMPROVED AND REQUESTED DC HOME HPI <Kerry Granda DO - Last Filed: 04/30/22 09:56> General Mode of arrival: EMS. Date/Time Provider Initiated Documentation: 04/28/22 14:40. Limitations to Documentation: no limitations. Information obtained by: patient. HPI Narrative: Patient is a 57-year-old female with a history of obesity, diabetes, hypertension, hyperlipidemia, GERD, obstructive sleep apnea, migraines, stuttering speech, conversion disorder presents with a possible stroke alert per EMS. EMS reported that patient was noted to have a right-sided facial droop, right-sided weakness, slurred speech and whole body tremors. Patient states that she was driving with her grandson in the car approximately 2 hours ago when she noted an occipital headache. She states after this she felt she had right-sided weakness and slurred speech. She states the symptoms are similar to when she has a migraine headache. She states she usually has a migraine a few times weekly and states this feels similar to her usual migraine. She states she has an aura usually daily which is usually slurred speech, right facial droop and right-sided weakness. She states she has not had shaking like this today as she has had with her other migraines. She denies any history of seizures. She states she has seen [facility] neurology in the past for her symptoms and states they had not given her a diagnosis and feels that they were not helpful. Related Data Home Medications Medication Instructions Recorded Confirmed aspirin 81 mg chewable tablet 81 mg PO DAILY 01/17/13 03/21/22 vitamin B complex 2 ea PO BID 01/17/13 03/21/22 atorvastatin 40 mg tablet (Lipitor) 40 mg PO QPM #30 tabs 11/10/19 03/21/22 citalopram 20 mg tablet 20 mg PO DAILY #30 tabs 11/10/19 03/21/22 ibuprofen 600 mg tablet 600 mg PO QID pain #60 tabs 11/10/19 03/21/22 magnesium oxide 400 mg (241.3 mg 2 tab PO BID #120 tabs 11/10/19 03/21/22 magnesium) tablet (MagOx) pantoprazole 40 mg tablet,delayed 40 mg PO DAILY@0730 #30 tabs 11/10/19 03/21/22 release aripiprazole 5 mg tablet 5 mg PO DAILY 05/25/21 03/21/22 citalopram 10 mg tablet 10 mg PO DAILY 04/12/22 norethindrone acetate 5 mg tablet 5 mg PO BID #120 tabs 04/12/22 04/12/22 (Aygestin) Previous Rx's Medication Instructions Recorded atorvastatin 40 mg tablet (Lipitor) 40 mg PO QPM #30 tabs 11/10/19 citalopram 20 mg tablet 20 mg PO DAILY #30 tabs 11/10/19 ibuprofen 600 mg tablet 600 mg PO QID pain #60 tabs 11/10/19 magnesium oxide 400 mg (241.3 mg 2 tab PO BID #120 tabs 11/10/19 magnesium) tablet (MagOx) pantoprazole 40 mg tablet,delayed 40 mg PO DAILY@0730 #30 tabs 11/10/19 release norethindrone acetate 5 mg tablet 5 mg PO BID #120 tabs 04/12/22 (Aygestin) Allergies Allergy/AdvReac Type Severity Reaction Status Date / Time codeine Allergy Severe Anaphylaxsi Verified 04/28/22 14:59 s diazepam [From Valium] Allergy Severe Anaphylaxsi Verified 04/28/22 14:59 s hydrocodone Allergy Severe Anaphylaxsi Verified 04/28/22 14:59 s morphine Allergy Severe Anaphylaxsi Verified 04/28/22 14:59 s amoxicillin trihydrate Allergy Intermediate Rash Verified 04/28/22 14:59 [From Augmentin] potassium clavulanate Allergy Intermediate Rash Verified 04/28/22 14:59 [From Augmentin] dexamethasone Allergy Itching Verified 04/28/22 14:59 [From Maxitrol (neomycin sulf)] fluticasone Allergy Swelling Verified 04/28/22 14:59 neomycin Allergy Itching Verified 04/28/22 14:59 [From Maxitrol (neomycin sulf)] polymyxin B Allergy Itching Verified 04/28/22 14:59 [From Maxitrol (neomycin sulf)] salmeterol Allergy Hives Verified 04/28/22 14:59 secobarbital Allergy Hives Verified 04/28/22 14:59 General Stated Complaint: CVA/TIA GLADYS: 2 Review of Systems <Kerry Granda DO - Last Filed: 04/30/22 09:56> All systems reviewed & are unremarkable except as noted in HPI and below Constitutional Constitutional: Denies chills, Denies excessive sweating, Denies fatigue, Denies fever(s), Reports headache(s), Denies weakness and Denies weight loss Eyes Eyes: Reports system reviewed and no additional complaints, except as documented and Denies blurry vision ENT Ears, Nose, Mouth, and Throat: Denies vertigo, Denies dizziness, Denies otalgia, Reports headache(s), Denies nasal congestion, Denies sore throat and Denies throat swelling Cardiovascular Cardiovascular: Denies chest pain, Denies syncope, Denies rapid heart rate and Denies dyspnea Respiratory Respiratory: Denies chest congestion, Denies cough, Denies pain on inspiration and Denies dyspnea Gastrointestinal Gastrointestinal: Denies abdominal pain, Denies diarrhea and Denies vomiting Genitourinary Genitourinary: Denies hematuria, Denies dysuria and Denies flank pain Musculoskeletal Musculoskeletal: Denies back pain and Denies joint swelling Integumentary/Breasts Skin/Breast: Denies lesions and Denies rash Neurologic Neurologic: Denies behavioral changes, Denies confusion, Denies vertigo, Denies dizziness, Denies syncope, Reports headache(s), Reports localized weakness and Denies weakness Psychiatric Psychiatric: Denies behavioral changes, Denies confusion and Denies depression Endocrine Endocrine: Denies excessive sweating and Denies fatigue Hematologic/Lymphatic Hematologic/Lymphatic: Denies easy bruising and Denies lymphadenopathy Allergic/Immunologic Allergic/Immunologic: Denies throat swelling PFSH <Kerry Granda DO - Last Filed: 04/30/22 09:56> All Active Problems (Updated 04/28/22 @ 15:52 by Kerry Granda DO) Headache (Acute) Shaking (Acute) Post-menopausal bleeding (Acute) Functional neurological symptom disorder with mixed symptoms (Acute) Stuttering (Acute) Encephalomalacia (Acute) Imbalance (Acute) Sensorineural hearing loss (SNHL) of right ear with unrestricted hearing of left ear (Acute) Ear itching (Acute) Hypercholesterolemia (Acute) Breast lump (Acute) Arthritis (Acute) Cervical radiculopathy (Acute) Tendinitis of long head of biceps brachii of left shoulder (Acute) Bursitis of shoulder, left (Acute) Obesity, morbid, BMI 40.0-49.9 (Acute) Mild pulmonary hypertension (Acute) Conversion disorder (Acute) Depression (Chronic) GERD (gastroesophageal reflux disease) (Chronic) Hyperlipidemia (Acute) Type 2 diabetes mellitus (Acute) GLORIA (obstructive sleep apnea) (Chronic) Migraine headache (Chronic) Hallux limitus of right foot (Acute) Medical History Asthma Compression of right sciatic nerve Depressed recently lost Disorder of sciatic nerve rt side High cholesterol Migraine Sleep apnea ORAL APPLIANCE Surgical History History of section History of ear surgery Labyrinthectomy; multipel Status post breast biopsy Status post cholecystectomy Status post endometrial ablation Family History Mother Diabetes Heart disease Father Diabetes Personal history of malignant neoplasm LUNG Son No problems noted. Daughter No problems noted. Daughter No problems noted. Social History Smoking/Tobacco Use Status: Never Smoking risk assessment performed?: Yes Alcohol Intake: current Alcohol Intake frequency: holidays/special occasions only Drug use: Occasionally Substance use type: marijuana Details: uses edibles for migraines Household members: none Number of Children: 3 current occupation: disabled Pets and animals: Yes (1) Pets and animals: dog(s) Current gender identity: female What is your relationship status?: Panel score (0-1 are the most socially isolated patients): 0 Do you feel safe at home: Yes Do you feel safe in your relationship?: Yes Exam <Kerry Granda DO - Last Filed: 04/30/22 09:56> Const General: cooperative Nutritional Appearance: obese morbidly obese Orientation: alert, awake and oriented x3 HENMT Head: normal to inspection Ears: hearing grossly normal bilaterally, external ears normal and TM's normal bilaterally General nose exam: external nose normal Face and sinus: normal facial exam Mouth: oral mucosae normal Teeth and gingiva: dentition normal Throat: posterior oropharynx normal Eyes General: appearance normal, both eyes and all related structures Eyelids: eyelids normal Pupils: PERRL EOM: EOM intact bilaterally Neck Neck: normal visual inspection Lymphatic: no lymphadenopathy noted Chest Chest: normal inspection of the chest Resp Effort & Inspection: normal respiratory effort and able to speak in complete sentences Auscultation: clear to auscultation bilaterally Cardio Rate: regular rate Rhythm: regular rhythm GI Inspection: normal to inspection and obesity Palpation: soft, not firm, no guarding, no hepatosplenomegaly, no masses and nontender Auscultation: hypoactive bowel sounds Back/Spine/Pelvis Back: no CVA tenderness Skin General skin exam: no rashes or lesions noted Neuro General: patient alert, patient awake, patient oriented x3, moves all extremities, no meningeal signs and no focal motor deficits Cranial Nerves: CN's II-XI intact bilaterally Cognition: normal cognition Speech: speech normal Gait: normal gait Motor: muscle tone normal throughout and strength 5/5 throughout Sensory Exam: no sensory deficits noted Extrem General: normal to inspection, full ROM and capillary refill normal Other: B/L DP/PT pulses intact. Psych Appearance: grossly normal Mental Status: mental status grossly normal Speech and Movement: speech and movement normal Affect: normal affect Thought Process: normal Course <Kerry Granda, DO - Last Filed: 04/30/22 09:56> Vital Signs Vital signs: Vital Signs Temperature 98.2 F 04/28/22 14:39 Pulse 111 H 04/28/22 14:39 Respiratory Rate 18 04/28/22 14:39 Temperature 98.2 F 04/28/22 14:39 Temperature Source Temporal Artery Scan 04/28/22 14:39 Pulse 111 H 04/28/22 14:39 Respiratory Rate 18 04/28/22 14:49 Respiratory Effort Non-Labored 04/28/22 14:52 Respiratory Depth Normal 04/28/22 14:49 Respiratory Pattern Normal 04/28/22 14:49 Blood Pressure Position Supine 04/28/22 14:39 Oxygen Delivery Method Room Air 04/28/22 14:39 Oxygen Flow Rate 0 04/28/22 14:39 Lab/Test Results Lab/Test Results: Laboratory Tests Range/Units 04/28/22 04/28/22 14:58 14:58 WBC (4.4-10.8) 10^3/uL 7.03 RBC (3.93-5.22) 10^6/uL 4.60 Hgb (11.2-15.7) g/dL 13.7 Hct (36.0-46.0) % 40.6 MCV (80-95) fL 88 MCH (27.0-33.0) pg 29.8 MCHC (32.0-36.0) % 33.7 RDW (11.7-14.6) % 12.8 Plt Count (130-400) 10^3/uL 271 MPV (8.0-11.0) fL 9.1 Immature Gran % 0.1 Neutrophils % 67.9 Lymphocytes % 23.6 Monocytes % 6.4 Eosinophils % 1.3 Basophils % 0.7 Nucleated RBC % (0.0-0.3) % 0.0 Absolute Neutrophils (1.2-6.7) 10^3/uL 4.77 Absolute Lymphocytes (1.2-3.4) 10^3/uL 1.66 Absolute Monocytes (0.1-0.8) 10^3/uL 0.45 Absolute Eosinophils (0.0-0.7) 10^3/uL 0.09 Absolute Basophils (0.0-0.2) 10^3/uL 0.05 PT (9.3-11.0) sec 9.4 INR (0.9-1.1) 0.9 APTT (21.0-27.5) sec 25.3 Sign Out <Kerry Granda DO - Last Filed: 04/30/22 09:56> Sign Out Data: Sign Out Comment: Presented as a possible stroke alert. CT head and MRI brain negative for acute findings. Seen recently by Dr. Arthur and diagnosed for functional neurological disorder. She has a history of migraines with intermittent right sided weakness, facial droop, imbalance and stuttering speech. She is declining consult with [facility] neurology. Follow-up on patient response to medication for headache and final disposition. If patient continues to improve, will plan for discharge home with follow-up with Dr. Arthur next week. Last updated by Kerry Granda DO at 04/28/22 16:21
--- NOTE | 2022-04-28 15:30 | DI.RAD_ITS ---
Exam(s) XR PORTABLE CHEST AP EXAM: XR PORTABLE CHEST AP CLINICAL HISTORY: possible stroke, r/o acute disease TECHNIQUE: 2D digital imaging was performed. COMPARISON: CR,XR XR CHEST 2V PA LATERAL from 11/07/2019 FINDINGS: The exam is extremely limited due to expiratory lung cramer and patient body habitus as well as alma rosa ble technique. Leads overlie the chest. The heart appears enlarged which could be in part secondary to poor pulmonary inflation and magnification. The visualized portions of the lung cramer appear cl ear. Large majority of the left lung is obscured by the cardiac silhouette. IMPRESSION: Extremely limited exam. No acute findings. DATA REPOSITORY: RADIATION DOSE DELIVERED:
[2022-04-28] MEDS: ACETAMINOPHEN 1,000 MG/100 ML BTL 400 MG IVPB (15:43)
[2022-04-28] MEDS: Normal Saline 1,000 ML 1000 ML IV (15:44)
[2022-04-28] MEDS: diphenhydrAMINE 50 MG/ML VIAL 25 MG IVP (16:25)
[2022-04-28] MEDS: Ketorolac 30 MG/ML VIAL IVP (16:25)
[2022-04-28] MEDS: Prochlorperazine 10 MG/2 ML VIAL IVP (16:25)
[2022-04-28 17:56] VITALS: BP 110/74; PULSE 83; RESP 18; TEMP 36.6; O2SAT 98
== END 2022-04-28 18:19 | disposition home or self-care (01) ==
PROVIDERS: Physician Assistant; Emergency Provider Emergency Medicine; PCP Neuromusculoskeletal Medicine & OMM
DX: R51.9 Headache, unspecified (principal); R25.1 Tremor, unspecified; R47.81 Slurred speech; J45.909 Unspecified asthma, uncomplicated; R00.0 Tachycardia, unspecified; I10 Essential (primary) hypertension; E11.9 Type 2 diabetes mellitus without complications; Z79.82 Long term (current) use of aspirin
CPT/HCPCS: 36416; 80053; 82962; 93005; 96361; 96374; 96375; 99284; 70450; 70551; 71045; 83735; 84484; 85025; 85610; 85730; 93010; 99285; J0131; J0780; J1200; J1885

== ENCOUNTER 2022-05-16 02:14 | Outpatient (CLI) | payer MEDICARE, MEDICAID, SELFPAY ==
[2022-05-16 09:34] LABS: Source Nasal/Nares
[2022-05-16 11:31] LABS: COVID-19 PCR Negative (Negative)
== END 2022-05-16 02:15 | disposition home or self-care (01) ==
LOC: LBO 02:14
PROVIDERS: PCP Neuromusculoskeletal Medicine & OMM; Visit Provider Obstetrics & Gynecology
DX: Z01.818 Encounter for other preprocedural examination (principal); Z20.822 Contact with and (suspected) exposure to COVID-19
CPT/HCPCS: 36415; 86850; 86900; 86901; 87635; 99215; 85025

== ENCOUNTER 2022-05-16 02:27 | Outpatient (CLI) | payer MEDICARE, MEDICAID, SELFPAY ==
[2022-05-16 09:16] LABS: Abs Immature Grans 0.02 10^3/uL (0.0-0.06); Absolute Basophil Count 0.03 10^3/uL (0.0-0.2); Absolute Eosinophil Count 0.14 10^3/uL (0.0-0.7); Absolute Lymphocyte Count 1.33 10^3/uL (1.2-3.4); Absolute Neutrophil Count 2.93 10^3/uL (1.2-6.7); Basophils % 0.6; Eosinophils % 2.9; HCT 40.4 % (36.0-46.0); HGB 13.2 g/dL (11.2-15.7); Immature Grans % 0.4; Lymphocytes % 27.4; MCH 29.7 pg (27.0-33.0); MCHC 32.7 % (32.0-36.0); MCV 91 fL (80-95); MPV 9.2 fL (8.0-11.0); Monocytes % 8.2; Neutrophils % 60.5; Platelet Count 257 10^3/uL (130-400); RBC 4.45 10^6/uL (3.93-5.22); RDW 13.1 % (11.7-14.6); RDW-SD 43.5 fL; WBC 4.85 10^3/uL (4.4-10.8)
== END 2022-05-16 02:28 | disposition home or self-care (01) ==
LOC: LBO 02:27
PROVIDERS: PCP Neuromusculoskeletal Medicine & OMM; Visit Provider Obstetrics & Gynecology
DX: Z01.818 Encounter for other preprocedural examination (principal)
CPT/HCPCS: 36415; 86850; 86900; 86901; 99215; 85025

== ENCOUNTER 2022-05-17 06:09 | Day surgery (SDC) | payer MEDICARE, MEDICAID, SELFPAY ==
[2022-05-17] VITALS (9 sets, daily range): BP systolic 100–156; BP diastolic 48–88; PULSE 59–79; RESP 16–24; TEMP 36.3–37; O2SAT 97–100; BMI 52.7
--- NOTE | 2022-05-17 07:04 | W.ANESPRE ---
General Info Date of Service Date Performed: 05/17/22 Height: 5 ft 3 in Weight: 135.2 kg Body Mass Index (BMI): 52.7 Surgical Procedure: Operation Date: 05/17/22 07:40 Proposed Procedure Side Surgeon p Dilation & Curettage with Hysteroscopy Criss Peck DO Meds Allergies and Home Medications Allergies Allergy/AdvReac Type Severity Reaction Status Date / Time codeine Allergy Severe Anaphylaxsi Verified 05/17/22 06:50 s diazepam [From Valium] Allergy Severe Anaphylaxsi Verified 05/17/22 06:50 s hydrocodone Allergy Severe Anaphylaxsi Verified 05/17/22 06:50 s morphine Allergy Severe Anaphylaxsi Verified 05/17/22 06:50 s amoxicillin trihydrate Allergy Intermediate Rash Verified 05/17/22 06:50 [From Augmentin] potassium clavulanate Allergy Intermediate Rash Verified 05/17/22 06:50 [From Augmentin] dexamethasone Allergy Itching Verified 05/17/22 06:50 [From Maxitrol (neomycin sulf)] fluticasone Allergy Swelling Verified 05/17/22 06:50 neomycin Allergy Itching Verified 05/17/22 06:50 [From Maxitrol (neomycin sulf)] polymyxin B Allergy Itching Verified 05/17/22 06:50 [From Maxitrol (neomycin sulf)] salmeterol Allergy Hives Verified 05/17/22 06:50 secobarbital Allergy Hives Verified 05/17/22 06:50 Home Medication Medication Instructions Recorded aspirin 81 mg chewable tablet 81 mg PO HS 01/17/13 vitamin B complex 2 ea PO BID 01/17/13 atorvastatin 40 mg tablet (Lipitor) 40 mg PO QPM #30 tabs 11/10/19 ibuprofen 600 mg tablet 600 mg PO QID pain #60 tabs 11/10/19 magnesium oxide 400 mg (241.3 mg 2 tab PO BID #120 tabs 11/10/19 magnesium) tablet (MagOx) aripiprazole 5 mg tablet 5 mg PO HS 05/25/21 norethindrone acetate 5 mg tablet 5 mg PO BID #120 tabs 04/12/22 (Aygestin) citalopram 20 mg tablet 20 mg PO HS 05/16/22 pantoprazole 40 mg tablet,delayed 40 mg PO HS 05/16/22 release Current Visit Medications: Current Medications Generic Name Dose Route Start Last Admin Trade Name Magi PRN Reason Stop Dose Admin Ringer's Solution 1,000 mls @ 125 mls/hr 05/17/22 06:00 IV 06/15/22 23:59 INFUSION ROBERTH IV Miscellaneous Supplies 1 each 05/17/22 06:00 Iv Access IV 06/15/22 23:59 DIRECTED ROBERTH Sodium Chloride 0 ml 05/17/22 06:00 Normal Saline Flush 10 Ml Syr IV 06/15/22 23:59 PRN PRN Sodium Chloride 0 ml 05/17/22 06:00 Normal Saline 10 Ml Vial IJ 06/15/22 23:59 DIRECTED PRN Sterile Water 0 ml 05/17/22 06:00 Water,Injection,Sterile 10 Ml Vial IJ 06/15/22 23:59 DIRECTED PRN PFSH Active Problems Active Problems: Problem Status Onset Code GLORIA (obstructive sleep apnea) G47.33 Hallux limitus of right foot M20.5X1 Migraine headache G43.909 Right hemiplegia G81.91 Type 2 diabetes mellitus E11.9 Hyperlipidemia E78.5 GERD (gastroesophageal reflux disease) K21.9 Depression F32.9 Chest discomfort R07.89 Conversion disorder F44.9 Mild pulmonary hypertension I27.20 Obesity, morbid, BMI 40.0-49.9 E66.01 Bursitis of shoulder, left M75.52 Tendinitis of long head of biceps brachii of left shoulder M75.22 Cervical radiculopathy M54.12 Arthritis M19.90 Breast lump N63.0 Hypercholesterolemia E78.00 Ear itching L29.9 Sensorineural hearing loss (SNHL) of right ear with unrestricted hearing of left ear H90.41 Imbalance R26.89 Encephalomalacia G93.89 Stuttering F80.81 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 states she always gets VERY VERY sick post-operatively, however the surgery she had with Dr. membreno on 08/30/19 went the best she's ever had. Surgical History Surgical History (Updated 05/17/22 @ 06:48 by Ying Gant RN) History of section History of ear surgery Labyrinthectomy; multipel Hx of foot surgery Status post breast biopsy Status post cholecystectomy Status post endometrial ablation Tobacco Smoking/Tobacco Use Status: Never Alcohol Alcohol Intake: current Alcohol intake frequency: holidays/special occasions only Alcohol type: hard liquor Substance Use Substance use: Occasionally Substance use type: marijuana Details: uses edibles for migraines. 05/17/22 last used 1 week ago. Vital Signs and Lab Results Vital Signs Most Recent Vital Signs in EMR: Most Recent Vital Signs Temp Pulse Resp BP Pulse Ox 36.4 C L 79 16 156/88 H 98 05/17/22 06:36 05/17/22 06:36 05/17/22 06:36 05/17/22 06:36 05/17/22 06:36 Point of Care Results Point of Care Results: Finger Stick Blood Glucose 95 05/17/22 07:01 Lab Results Blood Type / Crossmatch: Patient ABO/Rh O Positive 05/16/22 Antibody Screen NEGATIVE 05/16/22 Complete Blood Count: White Blood Count 4.85 10^3/uL (4.4-10.8) 05/16/22 09:08 Red Blood Count 4.45 10^6/uL (3.93-5.22) 05/16/22 09:08 Hemoglobin 13.2 g/dL (11.2-15.7) 05/16/22 09:08 Hematocrit 40.4 % (36.0-46.0) 05/16/22 09:08 Platelet Count 257 10^3/uL (130-400) 05/16/22 09:08 Complete Metabolic Panel: Sodium Level 142 mmol/L (136-145) 04/28/22 14:58 Potassium Level 4.2 mmol/L (3.5-5.1) 04/28/22 14:58 Chloride Level 108 mmol/L (98-107) H 04/28/22 14:58 Carbon Dioxide Level 22.5 mmol/L (21.0-32.0) 04/28/22 14:58 Blood Urea Nitrogen 13 mg/dL (7-18) 04/28/22 14:58 Creatinine 1.1 mg/dL (0.55-1.02) H 04/28/22 14:58 Estimated GFR/1.73 m2 51.38 (mL/min/1.73m2) 04/28/22 14:58 Magnesium Level 2.1 mg/dL (1.8-2.4) 04/28/22 14:58 Calcium Level 8.6 mg/dL (8.5-10.1) 04/28/22 14:58 Albumin 3.7 g/dL (3.4-5.0) 04/28/22 14:58 Glucose Level 98 mg/dL (74-106) 04/28/22 14:58 Liver Function Panel: Alanine Aminotransferase (ALT/SGPT) 26 U/L (14-59) 04/28/22 14:58 Aspartate Amino Transf (AST/SGOT) 18 U/L (15-37) 04/28/22 14:58 Coagulation Panel: INR International Normalized Ratio 0.9 (0.9-1.1) 04/28/22 14:58 Prothrombin Time 9.4 sec (9.3-11.0) 04/28/22 14:58 Activated Partial Thromboplast Time 25.3 sec (21.0-27.5) 04/28/22 14:58 Cardiac Panel: Troponin I < 50 ng/L (<or=60) 04/28/22 Arterial Blood Gas: No Data to Display Venous Blood Gas: No Data to Display Pancreas Panel: No Data to Display Thyroid Panel: No Data to Display Infectious Disease: Coronavirus (COVID-19)(PCR) Negative (Negative) 05/16/22 09:19 Coronavirus 2019 Source Nasal/Nares 05/16/22 09:19 Blood Cultures: No Data to Display Toxicology Panel: No Data to Display Imaging and Studies Imaging and Studies Study information below may be from another EMR and interpreted by another provider. Please see original notes in EMR for more complete details. EKG Summary: 04/28/2022: Conclusion Sinus rhythm...normal P axis, V-rate 60- 99 Left bundle branch block...QRSd>120, broad/notched R ST elevation secondary to IVCD...Multiple VCG criteria. Sinus. New LBBB? No STEMI. Echocardiogram Summary: 11/09/2019: Conclusion Left Ventricle : The left ventricle is normal size. The left ventricular systolic function is normal. The left ventricular ejection fraction is within the normal range. There is normal left ventricular wall thickness. There is normal LV segmental wall motion. Diastolic function is indeterminate. LVEF is 60-64%. Right Ventricle : The right ventricle is normal size. The right ventricular systolic function is normal. Atria : The left atrium size is normal. The right atrium size is normal. There was no ASD/PFO by color Doppler. Bubble study was not performed. Valves: There are no more dynamically significant valvular lesions Great Vessels : IVC is normal in size and collapses >50% with inspiration. There was no evidence of a cardiovascular source of emboli. If suspicion remains high would suggest JUAN M or surface study with bubbles. There is no prior echocardiogram available for comparison. Anesthesia Assessment and Plan Anesthesia History Personal History: PONV Family History: No Family History of Anesthesia Complications Exercise Tolerance Exercise Tolerance: Metabolic Equivalents>4 Cardiac & Pulmonary Exam Cardiac Exam: Normal S1/S2 Heart Sounds Pulmonary Exam: Clear Bilateral Breath Sounds Implantable Cardiac Device Does patient have a Pacemaker or an ICD?: No Airway Exam Known Difficult Airway: No Mallampati Class: 1 Mouth Opening: Normal (> 3cm) Thyromental Distance: Greater than 3 cm Neck Range of Motion: Full ROM Neck Circumference: Normal Teeth Condition: Normal Dentition ASA Classification ASA Score: ASA 3 Emergency Case?: No NPO Status NPO Status: NPO Clears >2 hours, Solids >8 hours Anesthesia Plan Resuscitation Status: Full Code Anesthesia Technique: General Anesthesia Airway Planned: Endotracheal Tube Monitors Used: Standard Monitors
[2022-05-17] MEDS: Lactated Ringers 1,000 ML 125 ML IV (07:14)
--- NOTE | 2022-05-17 08:20 | ENDO_PTH ---
PATIENT: Carlee Rangel LOC: [facility] U#:[id number] AGE/SX: 57/F ROOM: RE05/17/[address]: Criss Peck DO : 1965 BED: DIS: 05/17/2022 SPEC #: [id number] RECD: 05/17/22 12:05 STATUS: ARMIDA RE #: [id number] [place]: 05/17/22 08:[address]: Criss Peck DEPT: Surgical Specimen RECD BY: Janna Garrett ENTERED: 05/17/22 12:07 SP TYPE: Endo OTHR DR: Zhaeer Fox Tissues: 1 - ENDOCERVICAL BX/CURRETTE 2 - ENDOMETRIUM BX/CURRETTE Procedures: GROSS AND MICRO LEVEL 4 Comments: [id number]
--- NOTE | 2022-05-17 08:44 | ROE_ITS ---
Date of service: 05/17/22 Time of Service: 08:44 Operative Note Operative Note DATE OF PROCEDURE: 05/17/22 PRE-OP DIAGNOSIS: Postmenopausal bleeding Bulky enlarged uterus PROCEDURE: Hysteroscopy with dilation and curettage SURGEON: Criss Peck ANESTHESIA TYPE: General LMA/ETT Refer to Anesthesia Record ESTIMATED BLOOD LOSS: 10 PATHOLOGY: other (1. Endocervical curettage 2. Endometrial curettage) Patient was transported to: PACU Patient's condition: stable Indications: Postmenopausal bleeding, failed endometrial biopsy Findings: Bulky enlarged uterus. Normal-appearing cervical and endometrial canal. Procedure Description: Patient was taken the operating suite with an IV running where she placed in the dorsal supine position. Endotracheal intubation performed for the administration of general anesthesia with ease. As of note, her airway was somewhat challenging to manage per anesthesia and she is not a surgical candidate for a major procedure at [facility]. If she has a more significant surgical procedure, she may benefit from a tertiary care center. After administration of general anesthesia she was placed in knee modified dorsolithotomy position in yellowfin stirrups and prepped and draped in the usual sterile fashion. Exam was somewhat limited due to body habitus, however her uterus is enlarged approximately 12 cm. Speculum was inserted into the posterior vaginal vault and single-tooth tenaculum used to grasp the anterior lip of the cervix. Cervical os dilated to the point that hysteroscope could be passed with ease. With instillation of normal saline exploration of the endocervical endometrial cavity was undertaken showing a smooth regular endometrial cavity. At this point hysteroscope portion was terminated and a fractional dilation and curettage with endocervical curettings followed by endometrial curettings was performed for scant tissue. Tenaculum and speculum were then removed and the patient was returned to the dorsal supine position and awoke from anesthesia. She was taken to the postoperative care unit in stable condition. Complications: None apparent Findings: Bulky enlarged uterus with relatively thin endometrium Pathology: 1. Endocervical curettage 2. Endometrial curettage Fluids: Crystalloid per anesthesia EBL: 10 mL Fluid deficit, 15 mL of normal saline.
--- NOTE | 2022-05-17 10:22 | W.ANESPOSTOP ---
Postoperative Evaluation Date, Time and Location Date Performed: 05/17/22 Time Performed: :22 Patient Location: Day Surgery Unit Vital Signs Most Recent Imported Vital Signs: Most Recent Vital Signs Temp Pulse Resp BP Pulse Ox 36.3 C L 67 23 100/58 L 97 05/17/22 10:08 05/17/22 10:08 05/17/22 10:08 05/17/22 10:08 05/17/22 09:32 Pain Score Most Recent Pain Score: Most Recent Pain Score Pain Level 0 05/17/22 10:08 Assessment Mental Status: Awake (Alert & Oriented to Patient Baseline) Airway and Respiratory Function: Patent airway with normal (patient baseline) respiratory exam Cardiovascular Function: Hemodynamically Stable Hydration Status: Adequately Hydrated Nausea & Vomiting: No Nausea or Vomiting Pain: Pt. Denies Any Pain Peripheral Nerve Block: Patient did not receive a nerve block Postoperative Comments:: Hoarse voice/sore throat. Discussed normal postop course, patient demonstated understanding. Patient educated to numbers to call anesthesia if any concerns.
== END 2022-05-17 10:40 | disposition home or self-care (01) ==
PROVIDERS: PCP Neuromusculoskeletal Medicine & OMM; Visit Provider Obstetrics & Gynecology
PROC: 0UDB8ZZ Extraction of Endometrium, Via Natural or Artificial Opening Endoscopic (ICD-10-PCS; CPT 58558; principal; 2022-05-17 07:30)
DX: N95.0 Postmenopausal bleeding (principal); N85.2 Hypertrophy of uterus; E11.9 Type 2 diabetes mellitus without complications; E66.01 Morbid (severe) obesity due to excess calories; Z68.43 Body mass index [BMI] 50.0-59.9, adult; D26.0 Other benign neoplasm of cervix uteri
CPT/HCPCS: 58558; 88305; J1885; J2405; J2704

== ENCOUNTER 2022-08-17 21:25 | Emergency (ER) | payer MEDICARE, MEDICAID, SELFPAY ==
[2022-08-17 21:40] VITALS: BP 147/80; PULSE 84; RESP 15; TEMP 36.9; O2SAT 99
--- NOTE | 2022-08-17 22:39 | ED.GENADUL_ITS ---
Discharge Plan Disposition Patient Disposition: Home Condition: Stable Discharge Details Clinical Impression: Acute pain of left thigh Primary Care Provider: Zaheer Fox ED Provider: Viet Stiles Home Meds and New Rx's Prescriptions: New diclofenac sodium 50 mg tablet,delayed release (DR/EC) 50 mg PO TID PRNQty: 20 0RF Continued norethindrone acetate [Aygestin] 5 mg tablet 5 mg PO BID Qty: 120 0RF aripiprazole 5 mg tablet 5 mg PO HS aspirin 81 MG tablet,chewable 81 mg PO HS vitamin B complex 1 EACH capsule 2 ea PO BID atorvastatin [Lipitor] 40 mg Tablet 40 mg PO QPM Qty: 30 0RF magnesium oxide [MagOx] 400 MG tablet 2 tab PO BID Qty: 120 12RF citalopram 20 mg tablet 20 mg PO HS pantoprazole 40 mg tablet,delayed release (DR/EC) 40 mg PO HS Discontinued indomethacin 50 mg capsule 50 mg PO TID PRN (Reason: headache) Qty: 15 5RF Rx Instructions: administer with food or milk ibuprofen 600 mg tablet 600 mg PO QID Qty: 60 0RF Discharge Instructions Instructions: Leg Pain (ED) Additional Instructions: You may perform activity as tolerated by pain or discomfort. Please take medic ation as prescribed and you may also use [id number] acetaminophen/Tylenol as well as prescribed medications. If you have any new or significant worsening of symptoms feel free to return to the emergency department for reassessment otherwise if not improving please follow with your primary care provider next week for recheck and further treatment as needed Referrals: Zaheer Fox [Primary Care Provider] - 1 week (If not improving) Discharge Data Discharge Date/Time-TO BE ENTERED AT DEPARTURE: 08/17/22 23:00 Medical Decision Making Patient presenting the emergency department for chief complaint of left thigh pain. She does state that she had a hysterectomy at the beginning of July and has been healing well but over the last week she has noted some left lateral thigh pain radiating down to her knee with occasional weakness. Patient denies any injury or trauma, fever chills, chest pain or shortness of breath. Physical exam shows left lateral thigh tenderness with tenderness outpatient of the hip. Patient does also have buttock and pain to palpation of lower back. No findings are noted on the right side or right extremity. I feel this is highly suspicious of left lateral thigh strain versus radiculopathy. We will start patient on NSAIDs which she does report that helped her significantly given her multiple opioid allergies and have her follow-up with her primary care provider for reassessment. Patient has no medial thigh pain so do not feel that this is DVT or thrombosis which patient was concerned for but I have no concern of that. After discussion of diagnosis and plan of care patient has no further needs, questions, or concerns and states clear understanding to return to the emergency department for any worsening symptoms. This documentation was generated using [employer]ation system, please disregard any oddities of phrase or misspellings. Sign Out No HPI General Mode of arrival: ambulatory . Date/Time Provider Initiated Documentation: 08/17/22 21:54 . Limitations to Documentation: no limitations . Information obtained by: patient and RN notes reviewed . History of Present Illness 57 year old F presents to the emergency department with the chief complaint of left thigh pain , described as moderate, with intensity rated at 8. Quality is described as aching and sharp, and is localized to the left and lower extremity. Patient reports no radiation. Patient started experiencing this week(s) (1) and it has been constant. Rest improves symptom(s), Movement worsens symptoms . Patient notes no other symptoms.. Patient did receive the following treatments prior to arrival, none Related Data Home Medications Medication Instructions Recorded Confirmed aspirin 81 mg chewable tablet 81 mg PO HS 01/17/13 05/17/22 vitamin B complex 2 ea PO BID 01/17/13 05/17/22 atorvastatin 40 mg tablet (Lipitor) 40 mg PO QPM #30 tabs 11/10/19 05/17/22 magnesium oxide 400 mg (241.3 mg 2 tab PO BID #120 tabs 11/10/19 05/17/22 magnesium) tablet (MagOx) aripiprazole 5 mg tablet 5 mg PO HS 05/25/21 05/17/22 norethindrone acetate 5 mg tablet 5 mg PO BID #120 tabs 04/12/22 05/17/22 (Aygestin) citalopram 20 mg tablet 20 mg PO HS 05/16/22 05/17/22 pantoprazole 40 mg tablet,delayed 40 mg PO HS 05/16/22 05/17/22 release diclofenac sodium 50 mg 50 mg PO TID PRN #20 tabs 08/17/22 tablet,delayed release Previous Rx's Medication Instructions Recorded atorvastatin 40 mg tablet (Lipitor) 40 mg PO QPM #30 tabs 11/10/19 magnesium oxide 400 mg (241.3 mg 2 tab PO BID #120 tabs 11/10/19 magnesium) tablet (MagOx) norethindrone acetate 5 mg tablet 5 mg PO BID #120 tabs 04/12/22 (Aygestin) diclofenac sodium 50 mg 50 mg PO TID PRN #20 tabs 08/17/22 tablet,delayed release Allergies Allergy/AdvReac Type Severity Reaction Status Date / Time codeine Allergy Severe Anaphylaxsi Verified 05/31/22 14:44 s diazepam [From Valium] Allergy Severe Anaphylaxsi Verified 05/31/22 14:44 s hydrocodone Allergy Severe Anaphylaxsi Verified 05/31/22 14:44 s morphine Allergy Severe Anaphylaxsi Verified 05/31/22 14:44 s amoxicillin trihydrate Allergy Intermediate Rash Verified 05/31/22 14:44 [From Augmentin] potassium clavulanate Allergy Intermediate Rash Verified 05/31/22 14:44 [From Augmentin] dexamethasone Allergy Itching Verified 05/31/22 14:44 [From Maxitrol (neomycin sulf)] fluticasone Allergy Swelling Verified 05/31/22 14:44 neomycin Allergy Itching Verified 05/31/22 14:44 [From Maxitrol (neomycin sulf)] polymyxin B Allergy Itching Verified 05/31/22 14:44 [From Maxitrol (neomycin sulf)] salmeterol Allergy Hives Verified 05/31/22 14:44 secobarbital Allergy Hives Verified 05/31/22 14:44 General Stated Complaint: GenMedical GLADYS: 4 Review of Systems Constitutional Constitutional: Denies chills and Denies fever(s) Cardiovascular Cardiovascular: Denies chest pain, Denies syncope and Denies dyspnea Respiratory Respiratory: Denies cough and Denies dyspnea Gastrointestinal Gastrointestinal: Denies abdominal pain Genitourinary Genitourinary: Reports system reviewed and no additional complaints, except as documented Musculoskeletal Musculoskeletal: Reports as per HPI, Denies back pain, Denies joint swelling and Reports muscle weakness Integumentary/Breasts Skin/Breast: Denies erythema, Denies rash, Denies unusual bruising and Denies wounds Neurologic Neurologic: Denies syncope PFSH All Active Problems (Updated 08/17/22 @ 22:46 by Viet Stiles NP) Acute pain of left thigh (Acute) Status post hysteroscopy (Acute) GLORIA (obstructive sleep apnea) (Chronic) Hallux limitus of right foot (Acute) Migraine headache (Chronic) Type 2 diabetes mellitus (Acute) Hyperlipidemia (Acute) GERD (gastroesophageal reflux disease) (Chronic) Depression (Chronic) Conversion disorder (Acute) Mild pulmonary hypertension (Acute) Obesity, morbid, BMI 40.0-49.9 (Acute) Bursitis of shoulder, left (Acute) Tendinitis of long head of biceps brachii of left shoulder (Acute) Cervical radiculopathy (Acute) Arthritis (Acute) Breast lump (Acute) Hypercholesterolemia (Acute) Ear itching (Acute) Sensorineural hearing loss (SNHL) of right ear with unrestricted hearing of left ear (Acute) Imbalance (Acute) Encephalomalacia (Acute) Stuttering (Acute) Functional neurological symptom disorder with mixed symptoms (Acute) Post-menopausal bleeding (Acute) Chronic migraine with aura (Acute) Vestibular migraine (Acute) Medical History Asthma Compression of right sciatic nerve Depressed recently lost Disorder of sciatic nerve rt side High cholesterol Migraine Sleep apnea ORAL APPLIANCE Surgical History History of section History of ear surgery Labyrinthectomy; multipel Hx of foot surgery Status post breast biopsy Status post cholecystectomy Status post endometrial ablation Family History Mother Diabetes Heart disease Father Diabetes Personal history of malignant neoplasm LUNG Son No problems noted. Daughter No problems noted. Daughter No problems noted. Social History Smoking/Tobacco Use Status: Never Smoking risk assessment performed?: Yes Alcohol Intake: current Alcohol Intake frequency: holidays/special occasions only Alcohol type: hard liquor Drug use: Occasionally Substance use type: marijuana Details: uses edibles for migraines. 05/17/22 last used 1 week ago. Household members: none Number of Children: 3 current occupation: disabled Pets and animals: Yes (1) Pets and animals: dog(s) Current gender identity: female What is your relationship status?: Panel score (0-1 are the most socially isolated patients): 0 Do you feel safe at home: Yes Do you feel safe in your relationship?: Yes Additional Social history: lives alone Exam Const General: cooperative, no acute distress and not ill appearing Orientation: alert, awake and oriented x3 Resp Effort & Inspection: normal respiratory effort, able to speak in complete sentences and no respiratory distress Cardio Rate: regular rate Rhythm: regular rhythm Pulses: normal peripheral pulses Back/Spine/Pelvis Thoracic/Lumbar Spine: paraspinal tenderness Pelvis: buttock tenderness on the left Skin General skin exam: no rashes or lesions noted Neuro General: patient alert, patient awake, patient oriented x3, moves all extremities and no focal motor deficits Sensory Exam: no sensory deficits noted Extrem Left lower extremity: normal to inspection, hip/thigh Details: tenderness Location: of the hip Location: laterally, of the proximal upper leg Location: laterally; not medially and of the mid upper leg Location: laterally; not medially and normal ROM and knee Details: normal ROM and knee ligament exam normal; no tenderness and no swelling Course Vital Signs Vital signs: Vital Signs Temperature 36.9 C 08/17/22 21:40 Pulse 84 08/17/22 21:40 Respiratory Rate 15 08/17/22 21:40 Blood Pressure 147/80 H 08/17/22 21:40 Pulse Oximetry 99 08/17/22 21:40 Temperature 36.9 C 08/17/22 21:40 Temperature Source Oral 08/17/22 21:40 Pulse 84 08/17/22 21:40 Respiratory Rate 15 08/17/22 21:40 Blood Pressure 147/80 H 08/17/22 21:40 Blood Pressure Position Sitting 08/17/22 21:40 Pulse Oximetry 99 08/17/22 21:40 Oxygen Delivery Method Room Air 08/17/22 21:40 Oxygen Flow Rate 0 08/17/22 21:40 Pain Level 7 08/17/22 21:40
[2022-08-17 22:49] VITALS: BP 138/89; PULSE 81; RESP 12; O2SAT 98
[2022-08-17] MEDS: Ketorolac 30 MG/ML VIAL IM (22:53)
[2022-08-17 22:58] VITALS: RESP 15
== END 2022-08-17 23:00 | disposition home or self-care (01) ==
PROVIDERS: Emergency Provider Nurse Practitioner Family; PCP Neuromusculoskeletal Medicine & OMM
DX: M79.652 Pain in left thigh (principal)
CPT/HCPCS: 96372; 99284; 99283; J1885

== ENCOUNTER → 2022-09-27 08:53 | Outpatient (BNVA) | payer MEDICARE, MEDICAID, SELFPAY | PROVIDERS: PCP Neuromusculoskeletal Medicine & OMM; Referring Provider Neuromusculoskeletal Medicine & OMM; Visit Provider Psychiatry & Neurology Neurology | DX: G43.709 Chronic migraine without aura, not intractable, without status migrainosus (principal); G43.109 Migraine with aura, not intractable, without status migrainosus; E11.9 Type 2 diabetes mellitus without complications; I10 Essential (primary) hypertension; R26.89 Other abnormalities of gait and mobility; F80.81 Childhood onset fluency disorder; F44.7 Conversion disorder with mixed symptom presentation | CPT/HCPCS: 99214 ==

== ENCOUNTER 2022-10-27 11:49 | Outpatient (CLI) | payer MEDICARE, MEDICAID, SELFPAY ==
--- NOTE | 2022-10-27 11:15 | DI.RAD_ITS ---
Exam(s) XR KNEE LT 4V+ EXAM: XR KNEE LT 4V+ CLINICAL HISTORY: LEFT KNEE PAIN. TECHNIQUE: 2D digital imaging was performed. Three views. COMPARISON: CR XR KNEE COMPLETE MIN 4V LT from 09/28/2022 FINDINGS: BONES: No acute fracture is present. Fracture with question of the patella on the previous exam whi ch is not identified current LEEP. No bony destructive lesion is seen. JOINTS: Severe narrowing of the medial femoral tibial joint space. Appears to have worsened when com pared with the previous exam although differences could be due to weight-bearing versus nonweightbear ing. Mild periarticular spurring is noted throughout. No joint effusion is seen. SOFT TISSUE: Normal. IMPRESSION: Degenerative changes, greatest of the medial femoral tibial joint. DATA REPOSITORY: RADIATION DOSE DELIVERED:
== END 2022-10-27 11:50 | disposition home or self-care (01) ==
LOC: DIORS 11:49
PROVIDERS: PCP Neuromusculoskeletal Medicine & OMM; Referring Provider Neuromusculoskeletal Medicine & OMM; Visit Provider Physician Assistant
DX: M17.12 Unilateral primary osteoarthritis, left knee
CPT/HCPCS: 99213; 73564; J1040

== ENCOUNTER → 2022-12-07 09:48 | Outpatient (BNVA) | payer MEDICARE, MEDICAID, SELFPAY | PROVIDERS: PCP Neuromusculoskeletal Medicine & OMM; Referring Provider Neuromusculoskeletal Medicine & OMM; Visit Provider Student in an Organized Health Care Education/Training Program | DX: M17.12 Unilateral primary osteoarthritis, left knee (principal); M17.11 Unilateral primary osteoarthritis, right knee | CPT/HCPCS: 99213 ==

== ENCOUNTER 2022-12-13 07:52 | Day surgery (SDC) | payer MEDICARE, MEDICAID, SELFPAY ==
--- NOTE | 2022-12-13 07:38 | W.PM.DSUDISC ---
Date of service: 12/13/22 Time of Service: 07:38 Discharge Plan Disposition Patient Disposition: Home Condition: Good Discharge Details Reason For Visit: Knee injections Attending Provider: En Grider Primary Care Provider: Zaheer Fox [place] [facility] and New Rx's Prescriptions: Continued magnesium oxide [MagOx] 400 mg (241.3 mg magnesium) tablet 400 mg PO DAILY meloxicam 15 mg tablet 15 mg PO DAILY Qty: 30 2RF Rx Instructions: Take one tablet daily for inflammation and pain indomethacin 25 mg capsule 25 mg PO TID PRN (Reason: headache) Qty: 30 0RF Rx Instructions: administer with food or milk aripiprazole 5 mg tablet 5 mg PO HS aspirin 81 MG tablet,chewable 81 mg PO HS vitamin B complex 1 EACH capsule 2 ea PO BID atorvastatin [Lipitor] 40 mg Tablet 40 mg PO QPM Qty: 30 0RF citalopram 20 mg tablet 20 mg PO HS Discharge Instructions Additional Instructions: Dressings: You make take off the Band-Aid in 24 hours Referrals: En Grider MD [ [facility] STAFF PHYSICIAN] - Remove Dressings/Wound Care:: 24 hours Shower/Bathe:: 24 hours Diet:: As Tolerated Discharge Orders Discharge Orders: Discharge Order (Routine); Ordered 12/13/22 Ordered By: Santiago Doss DS: Diagnosis Discharge Diagnosis (1) Left knee DJD: Status: Acute (2) Degenerative joint disease of right knee: Status: Acute
[2022-12-13 08:20] VITALS: BP 144/90; PULSE 80; RESP 18; TEMP 36.1; O2SAT 97
[2022-12-13] MEDS: Lactated Ringers 1,000 ML 80 ML IV (08:50)
--- NOTE | 2022-12-13 08:59 | ANES.PREOP_ITS ---
General Info Date of Service Date Performed: 12/13/22 Height: 5 ft 3.5 in Weight: 129.9 kg Body Mass Index (BMI): 49.9 Surgical Procedure: Operation Date: 12/13/22 09:40 Proposed Procedure Side Surgeon p Knee Injections Bilateral En Grider MD Meds Allergies and Home Medications Allergies Allergy/AdvReac Type Severity Reaction Status Date / Time codeine Allergy Severe Anaphylaxsi Verified 12/13/22 08:14 s diazepam [From Valium] Allergy Severe Anaphylaxsi Verified 12/13/22 08:14 s hydrocodone Allergy Severe Anaphylaxsi Verified 12/13/22 08:14 s morphine Allergy Severe Anaphylaxsi Verified 12/13/22 08:14 s amoxicillin trihydrate Allergy Intermediate Rash Verified 12/13/22 08:14 [From Augmentin] potassium clavulanate Allergy Intermediate Rash Verified 12/13/22 08:14 [From Augmentin] dexamethasone Allergy Itching Verified 12/13/22 08:14 [From Maxitrol (neomycin sulf)] fluticasone Allergy Swelling Verified 12/13/22 08:14 neomycin Allergy Itching Verified 12/13/22 08:14 [From Maxitrol (neomycin sulf)] polymyxin B Allergy Itching Verified 12/13/22 08:14 [From Maxitrol (neomycin sulf)] salmeterol Allergy Hives Verified 12/13/22 08:14 secobarbital Allergy Hives Verified 12/13/22 08:14 Home Medication Medication Instructions Recorded aspirin 81 mg chewable tablet 81 mg PO HS 01/17/13 vitamin B complex 2 ea PO BID 01/17/13 atorvastatin 40 mg tablet (Lipitor) 40 mg PO QPM #30 tabs 11/10/19 aripiprazole 5 mg tablet 5 mg PO HS 05/25/21 citalopram 20 mg tablet 20 mg PO HS 05/16/22 indomethacin 25 mg capsule 25 mg PO TID PRN headache #30 caps 09/27/22 magnesium oxide 400 mg (241.3 mg 400 mg PO DAILY 10/27/22 magnesium) tablet (MagOx) meloxicam 15 mg tablet 15 mg PO DAILY #30 tabs 10/27/22 Current Visit Medications: Current Medications Generic Name Dose Route Start Last Admin Trade Name Freq PRN Reason Stop Dose Admin Ringer's Solution 1,000 mls @ 80 mls/hr 12/13/22 06:00 12/13/22 08:50 IV 01/11/23 23:59 80 mls/hr INFUSION ROBERTH Administration IV Miscellaneous Supplies 1 each 12/13/22 06:00 Iv Access IV 01/11/23 23:59 DIRECTED ROBERTH Sodium Chloride 0 ml 12/13/22 06:00 Normal Saline Flush 10 Ml Syr IV 01/11/23 23:59 PRN PRN Sodium Chloride 0 ml 12/13/22 06:00 Normal Saline 10 Ml Vial IJ 01/11/23 23:59 DIRECTED PRN Sterile Water 0 ml 12/13/22 06:00 Water,Injection,Sterile 10 Ml Vial IJ 01/11/23 23:59 DIRECTED PRN PFSH Active Problems Active Problems: Problem Status Onset Code GLORIA (obstructive sleep apnea) G47.33 Hallux limitus of right foot M20.5X1 Migraine headache G43.909 Right hemiplegia G81.91 Type 2 diabetes mellitus E11.9 Hyperlipidemia E78.5 GERD (gastroesophageal reflux disease) K21.9 Depression F32.9 Chest discomfort R07.89 Conversion disorder F44.9 Mild pulmonary hypertension I27.20 Obesity, morbid, BMI 40.0-49.9 E66.01 Bursitis of shoulder, left M75.52 Tendinitis of long head of biceps brachii of left shoulder M75.22 Cervical radiculopathy M54.12 Arthritis M19.90 Breast lump N63.0 Hypercholesterolemia E78.00 Ear itching L29.9 Sensorineural hearing loss (SNHL) of right ear with unrestricted hearing of left ear H90.41 Imbalance R26.89 Encephalomalacia G93.89 Stuttering F80.81 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 denies 12/13/22 Compression of right sciatic nerve Depressed recently lost Disorder of sciatic nerve rt side High cholesterol Migraine Sleep apnea ORAL APPLIANCE Medical History Comments:: Pt. states she always gets VERY VERY sick post- operatively, however the surgery she had with Dr. membreno on 08/30/19 went the best she's ever had. Surgical History Surgical History (Updated 12/13/22 @ 08:18 by Melva Carias) History of section History of ear surgery Labyrinthectomy; multiple Hx of foot surgery Hx of hysterectomy Status post breast biopsy Status post cholecystectomy Status post endometrial ablation Tobacco Smoking/Tobacco Use Status: Never Alcohol Alcohol Intake: current Alcohol intake frequency: holidays/special occasions only Alcohol type: hard liquor Substance Use Substance use: Occasionally Substance use type: marijuana Details: uses edibles for migraines,last use t-4. Alcohol: unknown Vital Signs and Lab Results Vital Signs Most Recent Vital Signs in EMR: Most Recent Vital Signs Temp Pulse Resp BP Pulse Ox 36.1 C L 80 18 144/90 H 97 12/13/22 08:20 12/13/22 08:20 12/13/22 08:20 12/13/22 08:20 12/13/22 08:20 Lab Results Blood Type / Crossmatch: No Data to Display Complete Blood Count: No Data to Display Complete Metabolic Panel: No Data to Display Liver Function Panel: No Data to Display Coagulation Panel: No Data to Display Cardiac Panel: No Data to Display Arterial Blood Gas: No Data to Display Venous Blood Gas: No Data to Display Pancreas Panel: No Data to Display Thyroid Panel: No Data to Display Infectious Disease: No Data to Display Blood Cultures: No Data to Display Toxicology Panel: No Data to Display Imaging and Studies Imaging and Studies Study information below may be from another EMR and interpreted by another provider. Please see original notes in EMR for more complete details. EKG Summary: 04/28/2022: Conclusion Sinus rhythm...normal P axis, V-rate 60- 99 Left bundle branch block...QRSd>120, broad/notched R ST elevation secondary to IVCD...Multiple VCG criteria. Sinus. New LBBB? No STEMI. Echocardiogram Summary: 11/09/2019: Conclusion Left Ventricle : The left ventricle is normal size. The left ventricular systolic function is normal. The left ventricular ejection fraction is within the normal range. There is normal left ventricular wall thickness. There is normal LV segmental wall motion. Diastolic function is indeterminate. LVEF is 60-64%. Right Ventricle : The right ventricle is normal size. The right ventricular systolic function is normal. Atria : The left atrium size is normal. The right atrium size is normal. There was no ASD/PFO by color Doppler. Bubble study was not performed. Valves: There are no more dynamically significant valvular lesions Great Vessels : IVC is normal in size and collapses >50% with inspiration. There was no evidence of a cardiovascular source of emboli. If suspicion remains high would suggest JUAN M or surface study with bubbles. There is no prior echocardiogram available for comparison. Anesthesia Assessment and Plan Anesthesia History Personal History: PONV Family History: No Family History of Anesthesia Complications Exercise Tolerance Exercise Tolerance: Metabolic Equivalents>4 Pertinent Negatives Pertinent Negatives: No Major Cardiovascular Symptoms or Complaints and No Major Pulmonary Symptoms or Complaints Cardiac & Pulmonary Exam Cardiac Exam: Normal S1/S2 Heart Sounds Pulmonary Exam: Clear Bilateral Breath Sounds Implantable Cardiac Device Does patient have a Pacemaker or an ICD?: No Airway Exam Known Difficult Airway: No Mallampati Class: 1 Mouth Opening: Normal (> 3cm) Thyromental Distance: Greater than 3 cm Neck Range of Motion: Full ROM Neck Circumference: Normal Teeth Condition: Normal Dentition ASA Classification ASA Score: ASA 3 Emergency Case?: No NPO Status NPO Status: NPO Clears >2 hours, Solids >8 hours Anesthesia Plan Resuscitation Status: Full Code Anesthesia Technique: General Anesthesia Airway Planned: Natural Airway Monitors Used: Standard Monitors
[2022-12-13 09:02] VITALS: BMI 49.9
[2022-12-13] MEDS: methylPREDNISolone ACETATE 80 MG/ML VIAL (09:38)
[2022-12-13] MEDS: Bupivacaine 0.5% Pres-Free 30 ML VIAL (09:38)
[2022-12-13 09:49] VITALS: BP 114/65; PULSE 72; RESP 16; TEMP 36.7; O2SAT 94
[2022-12-13 10:18] VITALS: BP 123/77; PULSE 70; RESP 16; TEMP 36.4; O2SAT 100
--- NOTE | 2022-12-13 10:25 | W.PM.OP ---
Date of service: 12/13/22 Time of Service: 09:50 Operative Note Operative Note DATE OF PROCEDURE: 12/13/22 PRE-OP DIAGNOSIS: Bilateral Knee Arthritis PROCEDURE: Bilateral Knee Intra-articular Injections SURGEON: En Grider ANESTHESIA TYPE: General:No Airway Refer to Anesthesia Record ESTIMATED BLOOD LOSS: 0 COMPLICATIONS: None Indications: Carlee is a 57-year-old who has bilateral knee pain. She was offered injections in the office was unable to tolerate them due to pain and discomfort. Therefore, I offered bilateral knee injections under sedation. I reviewed the risk to include continued pain, stiffness. Despite these risks, she elected to proceed. Findings: Bilateral knee injections were administered without difficulty. Procedure Description: Carlee was greeted in the preoperative holding area. Her identity was confirmed the correct side was identified and marked. The consent was reviewed the patient and signed. She was taken to the operating room. No peripheral at antibiotics were necessary. A timeout was performed for safe procedure. A general, uninstrumented airway, anesthetic was administered. The lateral aspect of each knee was prepped ChloraPrep. Using aseptic technique, each knee was injected with 7 cc of 0.5% bupivacaine and 80 mg of Depo-Medrol. There was some mild resistance on the left side with osteophyte around the patellofemoral joint. No resistance at all on the right side. Both injections flowed easily. Band-Aids were applied. She tolerated procedure well was awakened from her sedation taken to the PACU in a stable condition.
--- NOTE | 2022-12-13 10:34 | W.ANESPOSTOP ---
Postoperative Evaluation Date, Time and Location Date Performed: 12/13/22 Time Performed: 10:34 Patient Location: Day Surgery Unit Vital Signs Most Recent Imported Vital Signs: Most Recent Vital Signs Temp Pulse Resp BP Pulse Ox 36.4 C L 70 16 123/77 100 12/13/22 10:18 12/13/22 10:18 12/13/22 10:18 12/13/22 10:18 12/13/22 10:18 Pain Score Most Recent Pain Score: Most Recent Pain Score Pain Level 0 12/13/22 10:18 Assessment Mental Status: Awake (Alert & Oriented to Patient Baseline) Airway and Respiratory Function: Patent airway with normal (patient baseline) respiratory exam Cardiovascular Function: Hemodynamically Stable Hydration Status: Adequately Hydrated Nausea & Vomiting: No Nausea or Vomiting Pain: Pt. Denies Any Pain Peripheral Nerve Block: Patient did not receive a nerve block
== END 2022-12-13 11:00 | disposition home or self-care (01) ==
PROVIDERS: PCP Neuromusculoskeletal Medicine & OMM; Visit Provider Student in an Organized Health Care Education/Training Program
PROC: (CPT 20610; principal; 2022-12-13 09:30)
DX: M17.0 Bilateral primary osteoarthritis of knee (principal)
CPT/HCPCS: 20610; J1040; J2250; J2704

== ENCOUNTER → 2023-01-22 10:27 | Outpatient (BNVA) | payer MEDICARE, MEDICAID, SELFPAY | PROVIDERS: PCP Neuromusculoskeletal Medicine & OMM; Referring Provider Neuromusculoskeletal Medicine & OMM; Visit Provider Student in an Organized Health Care Education/Training Program | DX: M17.0 Bilateral primary osteoarthritis of knee (principal) | CPT/HCPCS: 99213 ==

== ENCOUNTER → 2023-01-29 13:04 | Outpatient (BNVA) | payer MEDICARE, MEDICAID, SELFPAY | PROVIDERS: PCP Neuromusculoskeletal Medicine & OMM; Referring Provider Neuromusculoskeletal Medicine & OMM; Visit Provider Psychiatry & Neurology Neurology | DX: F44.7 Conversion disorder with mixed symptom presentation (principal); R26.89 Other abnormalities of gait and mobility; F80.81 Childhood onset fluency disorder; G43.709 Chronic migraine without aura, not intractable, without status migrainosus; G43.109 Migraine with aura, not intractable, without status migrainosus | CPT/HCPCS: 99215 ==

== ENCOUNTER 2023-02-19 02:11 | Outpatient (CLI) | payer MEDICARE, MEDICAID, SELFPAY ==
--- NOTE | 2023-02-19 07:30 | DI.RAD_ITS ---
Exam(s) RF BARIUM SWALLOW EXAM: RF BARIUM SWALLOW CLINICAL HISTORY: dysphagia,r13.14 TECHNIQUE: 2D and realtime digital imaging was performed. CONTRAST MATERIAL: Oral barium Oral water soluble contrast was administered. COMPARISON: No exams were available for comparison FINDINGS: This study was performed both upright and recumbent with both single and air contrast technique. ESOPHAGRAM: Swallowing mechanism is grossly intact. No obvious aspiration. No evidence of obvious h ypertense upper esophageal sphincter-cricopharyngeal bar. No evidence of Zenker's diverticulum. The re is no evidence of Schatzki ring nor hiatal hernia or gastroesophageal reflux. No evidence of obvio us stricture at the GE junction. Caliber of the esophagus is normal. No tertiary waves demonstrated . No esophageal diverticuli. No obvious posterior indentation to suggest the presence of an obvious aberrant right subclavian artery. GE junction appears unremarkable. IMPRESSION: 1. No significant findings on this esophagram study. 2. This patient informs me that she feels a lump in her lower anterior right neck. Recommend follow- up thyroid ultrasound. RADIATION DOSE DELIVERED: joon Bustamante=63.8 mGy
[2023-02-19] MEDS: Simethicone/Sod Bicarb/Cit Ac, 4 gram PACKET 1 PACKET PO (11:23)
[2023-02-19] MEDS: Barium Sulfate 98% W/W 140 ML BTL PO (11:23)
[2023-02-19] MEDS: Barium Sulfate 60% W/V 355 ML BTL PO (11:24)
== END 2023-02-19 02:31 ==
LOC: DI 02:12
PROVIDERS: PCP Neuromusculoskeletal Medicine & OMM; Visit Provider Otolaryngology
DX: R13.14 Dysphagia, pharyngoesophageal phase (principal); R22.9 Localized swelling, mass and lump, unspecified
CPT/HCPCS: 74221; J3490

== ENCOUNTER 2023-03-09 00:09 | Outpatient (CLI) | payer MEDICARE, MEDICAID, SELFPAY ==
[2023-03-09] MEDS: Normal Saline Flush 10 ML SYR IJ (08:36)
[2023-03-09] MEDS: Omnipaque 350 MG/ML 500 ML BTL-Imaging package 100 ML IJ (08:48)
--- NOTE | 2023-03-09 08:49 | DI.CT_ITS ---
Exam(s) CT NECK W EXAM: CT NECK W CLINICAL HISTORY: swelling right medial clavicle,neck mass, r22.1. TECHNIQUE: Imaging Protocol: Axial computed tomography images with coronal and sagittal reformatted images were created and reviewed. CONTRAST MATERIAL: Intravenous: Omnipaque 350 Contrast volume:100 mL COMPARISON: CT CT BRAIN NECK CTA from 11/07/2019 US US SOFT TISSUE HEAD/NECK from 02/15/2023 FINDINGS: Orbits and orbital soft tissues: Within normal limits. Visualized paranasal sinuses: Within normal limits. Mastoid air cells: Left within normal limits. Surgery on right Nasopharynx: Within normal limits. Oropharynx: Within normal limits. Hypopharynx: Within normal limits. Larynx: Within normal limits. Retropharyngeal space: Within normal limits. Parotids/submandibular: Within normal limits. Thyroid gland: Question of an area of low attenuation of the inferior pole of the right lobe. There is some artifact in this area. This could represent a thyroid nodule. This is beneath the area marked as the region of palpable abnormality. Lymphadenopathy: None Trachea: Within normal limits. Lung apices: Respiratory motion. Bones: Right-sided posterior fossa craniotomy defect. Minimal degenerative changes in the cervical s pine. Sternoclavicular joints appear normal and symmetric bilaterally. No surrounding soft tissue swe lling, bony destruction or soft tissue mass. Carotids/Jugular: Within normal limits. Soft tissues: Within normal limits. IMPRESSION: No evidence of a mass or other abnormality near the medial right clavicle. There is a question of a nodule at the lower pole of the right thyroid versus artifact. Thyroid ultr asound could be considered for further evaluation. RADIATION DOSE DELIVERED: 558.93mGy.cm Total DLP 558.93mGy.cm Total DLP DATA REPOSITORY: All CT scans at this facility are submitted to the National Radiology Data Registry (NRDR) Dose Index Registry (DIR) with the [employer] (A[employer]). RADIATION OPTIMIZATION: All CT scans at this facility use at least one of these dose optimization te chniques: automated exposure control; mA and/or kV adjustment per patient size (includes targeted exa ms where dose is matched to clinical indication); or iterative reconstruction.
== END 2023-03-09 00:29 ==
LOC: DI 00:10
PROVIDERS: PCP Neuromusculoskeletal Medicine & OMM; Visit Provider Otolaryngology
DX: R22.1 Localized swelling, mass and lump, neck (principal)
CPT/HCPCS: 70491

== ENCOUNTER → 2023-03-28 08:22 | Outpatient (BNVA) | payer MEDICARE, SELFPAY | PROVIDERS: PCP Neuromusculoskeletal Medicine & OMM; Referring Provider Neuromusculoskeletal Medicine & OMM; Visit Provider Psychiatry & Neurology Neurology | DX: R26.89 Other abnormalities of gait and mobility (principal); F80.81 Childhood onset fluency disorder; F44.7 Conversion disorder with mixed symptom presentation; R51.9 Headache, unspecified; E11.9 Type 2 diabetes mellitus without complications | CPT/HCPCS: 64405; 99214 ==

== ENCOUNTER 2023-04-25 10:58 | Day surgery (SDC) | payer MEDICARE, SELFPAY ==
--- NOTE | 2023-04-25 08:17 | PDOC.DSDIS_ITS ---
Date of service: 04/25/23 Time of Service: 08:18 Discharge Plan Disposition Patient Disposition: Home Condition: Good Discharge Details Reason For Visit: Bilateral knee DJD Attending Provider: En Grider Primary Care Provider: Zaheer Fox [place] Meds and New Rx's Prescriptions: Continued Qulipta 10 mg tablet 10 mg PO DAILY Qty: 30 5RF magnesium oxide [MagOx] 400 mg (241.3 mg magnesium) tablet 400 mg PO DAILY meloxicam 15 mg tablet 15 mg PO DAILY Qty: 30 2RF Rx Instructions: Take one tablet daily for inflammation and pain indomethacin 25 mg capsule 25 mg PO TID PRN (Reason: headache) Qty: 30 0RF Rx Instructions: administer with food or milk aripiprazole 5 mg tablet 5 mg PO HS aspirin 81 MG tablet,chewable 81 mg PO HS vitamin B complex 1 EACH capsule 2 ea PO BID atorvastatin [Lipitor] 40 mg Tablet 40 mg PO QPM Qty: 30 0RF citalopram 20 mg tablet 20 mg PO HS Discharge Instructions Additional Instructions: You make take the Band-aides off in 24 hours. Remove Dressings/Wound Care:: 24 hours Shower/Bathe:: 24 hours Diet:: As Tolerated Discharge Orders Discharge Orders: Discharge Order (Routine); Ordered 04/25/23 Ordered By: Estrella Hall
[2023-04-25 11:00] VITALS: BP 145/101; PULSE 69; RESP 16; TEMP 36.3; O2SAT 98
[2023-04-25] MEDS: Lactated Ringers 1,000 ML 80 ML IV (11:45)
--- NOTE | 2023-04-25 12:52 | ANES.PREOP_ITS ---
General Info Date of Service Date Performed: 04/25/23 Height: 5 ft 3 in Weight: 129.5 kg Body Mass Index (BMI): 50.5 Surgical Procedure: Operation Date: 04/25/23 15:10 Proposed Procedure Side Surgeon p Knee Injections Bilateral En Grider MD Actual Procedure Side Surgeon p Knee Injections Bilateral En Grider MD Pre-Op Diagnosis Post-Op Diagnosis Bilateral knee DJD Bilateral knee DJD Meds Allergies and Home Medications Allergies Allergy/AdvReac Type Severity Reaction Status Date / Time codeine Allergy Severe Anaphylaxsi Verified 04/25/23 11:21 s diazepam [From Valium] Allergy Severe Anaphylaxsi Verified 04/25/23 11:21 s hydrocodone Allergy Severe Anaphylaxsi Verified 04/25/23 11:21 s morphine Allergy Severe Anaphylaxsi Verified 04/25/23 11:21 s amoxicillin trihydrate Allergy Intermediate Rash Verified 04/25/23 11:21 [From Augmentin] potassium clavulanate Allergy Intermediate Rash Verified 04/25/23 11:21 [From Augmentin] dexamethasone Allergy Itching Verified 04/25/23 11:21 [From Maxitrol (neomycin sulf)] fluticasone Allergy Swelling Verified 04/25/23 11:21 neomycin Allergy Itching Verified 04/25/23 11:21 [From Maxitrol (neomycin sulf)] polymyxin B Allergy Itching Verified 04/25/23 11:21 [From Maxitrol (neomycin sulf)] salmeterol Allergy Hives Verified 04/25/23 11:21 secobarbital Allergy Hives Verified 04/25/23 11:21 Home Medication Medication Instructions Recorded aspirin 81 mg chewable tablet 81 mg PO HS 01/17/13 vitamin B complex 2 ea PO BID 01/17/13 atorvastatin 40 mg tablet (Lipitor) 40 mg PO QPM #30 tabs 11/10/19 aripiprazole 5 mg tablet 5 mg PO HS 05/25/21 citalopram 20 mg tablet 20 mg PO HS 05/16/22 indomethacin 25 mg capsule 25 mg PO TID PRN headache #30 caps 09/27/22 magnesium oxide 400 mg (241.3 mg 400 mg PO DAILY 10/27/22 magnesium) tablet (MagOx) meloxicam 15 mg tablet 15 mg PO DAILY #30 tabs 10/27/22 atogepant 10 mg tablet (Qulipta) 10 mg PO DAILY #30 tabs 03/28/23 Current Visit Medications: Current Medications Generic Name Dose Route Start Last Admin Trade Name Magi PRN Reason Stop Dose Admin Acetaminophen 650 mg 04/25/23 08:16 Acetaminophen 325 Mg Tab PO 05/25/23 08:15 Q4H PRN PRN Ringer's Solution 1,000 mls @ 80 mls/hr 04/25/23 06:00 04/25/23 11:45 IV 04/25/23 23:59 80 mls/hr INFUSION ROBERTH Administration IV Miscellaneous Supplies 1 each 04/25/23 06:00 Iv Access IV 04/25/23 23:59 DIRECTED ROBERTH Sodium Chloride 0 ml 04/25/23 06:00 Normal Saline Flush 10 Ml Syr IV 04/25/23 23:59 PRN PRN Sodium Chloride 0 ml 04/25/23 06:00 Normal Saline 10 Ml Vial IJ 04/25/23 23:59 DIRECTED PRN Sterile Water 0 ml 04/25/23 06:00 Water,Injection,Sterile 10 Ml Vial IJ 04/25/23 23:59 DIRECTED PRN PFSH Active Problems Active Problems: Problem Status Onset Code Acute otitis externa of right ear H60.501 Neck mass R22.1 Pharyngoesophageal dysphagia R13.14 Bilateral primary osteoarthritis of knee M17.0 GLORIA (obstructive sleep apnea) G47.33 Hallux limitus of right foot M20.5X1 Migraine headache G43.909 Right hemiplegia G81.91 Type 2 diabetes mellitus E11.9 Hyperlipidemia E78.5 GERD (gastroesophageal reflux disease) K21.9 Depression F32.9 Chest discomfort R07.89 Conversion disorder F44.9 Mild pulmonary hypertension I27.20 Obesity, morbid, BMI 40.0-49.9 E66.01 Bursitis of shoulder, left M75.52 Tendinitis of long head of biceps brachii of left shoulder M75.22 Cervical radiculopathy M54.12 Arthritis M19.90 Breast lump N63.0 Hypercholesterolemia E78.00 Ear itching L29.9 Sensorineural hearing loss (SNHL) of right ear with unrestricted hearing of left ear H90.41 Imbalance R26.89 Encephalomalacia G93.89 Stuttering F80.81 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 denies 12/13/22 Compression of right sciatic nerve Depressed recently lost Disorder of sciatic nerve rt side High cholesterol Migraine Sleep apnea ORAL APPLIANCE Medical History Comments:: Pt. states she always gets VERY VERY sick post- operatively, however the surgery she had with Dr. membreno on 08/30/19 went the best she's ever had. Surgical History Surgical History History of section History of ear surgery Labyrinthectomy; multiple Hx of foot surgery Hx of hysterectomy Status post breast biopsy Status post cholecystectomy Status post endometrial ablation Tobacco Smoking/Tobacco Use Status: Never Alcohol Alcohol Intake: current Alcohol intake frequency: holidays/special occasions only Alcohol type: hard liquor Substance Use Substance use: Occasionally Substance use type: marijuana Details: uses edibles for migraines, Vital Signs and Lab Results Vital Signs Most Recent Vital Signs in EMR: Most Recent Vital Signs Temp Pulse Resp BP Pulse Ox 36.3 C L 69 16 145/101 H 98 04/25/23 11:00 04/25/23 11:00 04/25/23 11:00 04/25/23 11:00 04/25/23 11:00 Lab Results Blood Type / Crossmatch: No Data to Display Complete Blood Count: No Data to Display Complete Metabolic Panel: No Data to Display Liver Function Panel: No Data to Display Coagulation Panel: No Data to Display Cardiac Panel: No Data to Display Arterial Blood Gas: No Data to Display Venous Blood Gas: No Data to Display Pancreas Panel: No Data to Display Thyroid Panel: No Data to Display Infectious Disease: No Data to Display Blood Cultures: No Data to Display Toxicology Panel: No Data to Display Imaging and Studies Imaging and Studies Study information below may be from another EMR and interpreted by another provider. Please see original notes in EMR for more complete details. EKG Summary: 04/28/2022: Conclusion Sinus rhythm...normal P axis, V-rate 60- 99 Left bundle branch block...QRSd>120, broad/notched R ST elevation secondary to IVCD...Multiple VCG criteria. Sinus. New LBBB? No STEMI. Echocardiogram Summary: 11/09/2019: Conclusion Left Ventricle : The left ventricle is normal size. The left ventricular systolic function is normal. The left ventricular ejection fraction is within the normal range. There is normal left ventricular wall thickness. There is normal LV segmental wall motion. Diastolic function is indeterminate. LVEF is 60-64%. Right Ventricle : The right ventricle is normal size. The right ventricular systolic function is normal. Atria : The left atrium size is normal. The right atrium size is normal. There was no ASD/PFO by color Doppler. Bubble study was not performed. Valves: There are no more dynamically significant valvular lesions Great Vessels : IVC is normal in size and collapses >50% with inspiration. There was no evidence of a cardiovascular source of emboli. If suspicion remains high would suggest JUAN M or surface study with bubbles. There is no prior echocardiogram available for comparison. Anesthesia Assessment and Plan Anesthesia History Personal History: PONV Family History: No Family History of Anesthesia Complications Exercise Tolerance Exercise Tolerance: Metabolic Equivalents>4 Pertinent Negatives Pertinent Negatives: No Symptoms of GERD Cardiac & Pulmonary Exam Cardiac Exam: Normal S1/S2 Heart Sounds Pulmonary Exam: Clear Bilateral Breath Sounds Implantable Cardiac Device Does patient have a Pacemaker or an ICD?: No Airway Exam Known Difficult Airway: No Mallampati Class: 1 Mouth Opening: Normal (> 3cm) Thyromental Distance: Greater than 3 cm Neck Range of Motion: Full ROM Neck Circumference: Normal Teeth Condition: Normal Dentition ASA Classification ASA Score: ASA 3 Emergency Case?: No NPO Status NPO Status: NPO Clears >2 hours, Solids >8 hours Anesthesia Plan Resuscitation Status: Full Code Anesthesia Technique: General Anesthesia Airway Planned: Natural Airway Monitors Used: Standard Monitors
--- NOTE | 2023-04-25 13:06 | HPE_ITS ---
I interviewed and examined the patient with Santiago Doss PA-C. I agree with the documentation as above. The assessment and plan were formulated with my direct involvement. Gila has known arthritis about both knees and has had a return of pain. She had success with previous injections. Due to her anxiety and pain with needles, I offered to do this in the operating room with sedation. All of her questions were answered. She agrees to proceed. En Grider MD FAAOS FAAHKS Assessment and Plan Assessment and plan (1) Bilateral primary osteoarthritis of knee: Status: Acute Assessment and plan: Bilateral knee injections under anesthesia. History of Present Illness History of Present Illness Chief Complaint: B/L Knee pain Narrative: Carlee is a 58-year-old female who comes in today for bilateral knee injections under anesthesia. She has known arthritis of both knees and has been unable to tolerate steroid injections in the office. Steroid injections have been working well for her, however unfortunately, due to her inability to tolerate bilateral injections in the office, she is scheduled for bilateral knee injections under anesthesia today. Her last injections were approximately 4 months ago in December 2022 which did provide some relief. Pertinent Surgical Information Previously underwent bilateral knee injections under anesthesia 4 months ago in December 2022. Review of Systems Constitutional Constitutional: Denies fever(s) ENT Ears, Nose, Mouth, and Throat: Denies dizziness and Denies sore throat Cardiovascular Cardiovascular: Denies chest pain, Denies palpitations and Denies dyspnea Respiratory Respiratory: Denies cough and Denies dyspnea Gastrointestinal Gastrointestinal: Denies abdominal pain, Denies melena, Denies hematochezia, Denies diarrhea, Denies nausea and Denies vomiting Genitourinary Genitourinary: Denies hematuria and Denies dysuria Neurologic Neurologic: Denies dizziness Endocrine Endocrine: Denies palpitations PFSH All Active Problems Acute otitis externa of right ear (Acute) Neck mass (Acute) Pharyngoesophageal dysphagia (Acute) Bilateral primary osteoarthritis of knee (Acute) GLORIA (obstructive sleep apnea) (Chronic) Hallux limitus of right foot (Acute) Migraine headache (Chronic) Type 2 diabetes mellitus (Acute) Hyperlipidemia (Acute) GERD (gastroesophageal reflux disease) (Chronic) Depression (Chronic) Conversion disorder (Acute) Mild pulmonary hypertension (Acute) Obesity, morbid, BMI 40.0-49.9 (Acute) Bursitis of shoulder, left (Acute) Tendinitis of long head of biceps brachii of left shoulder (Acute) Cervical radiculopathy (Acute) Arthritis (Acute) Breast lump (Acute) Hypercholesterolemia (Acute) Ear itching (Acute) Sensorineural hearing loss (SNHL) of right ear with unrestricted hearing of left ear (Acute) Imbalance (Acute) Encephalomalacia (Acute) Stuttering (Acute) Functional neurological symptom disorder with mixed symptoms (Acute) Post-menopausal bleeding (Acute) Chronic migraine with aura (Acute) Vestibular migraine (Acute) Status post hysteroscopy (Acute) Left knee DJD (Acute) Degenerative joint disease of right knee (Acute) Medical History Asthma pt. denies 12/13/22 Compression of right sciatic nerve Depressed recently lost Disorder of sciatic nerve rt side High cholesterol Migraine Sleep apnea ORAL APPLIANCE Surgical History History of section History of ear surgery Labyrinthectomy; multiple Hx of foot surgery Hx of hysterectomy Status post breast biopsy Status post cholecystectomy Status post endometrial ablation Family History Mother Diabetes Heart disease Father Diabetes Personal history of malignant neoplasm LUNG Son No problems noted. Daughter No problems noted. Daughter No problems noted. Social History Smoking/Tobacco Use Status: Never Smoking risk assessment performed?: Yes Alcohol Intake: current Alcohol Intake frequency: holidays/special occasions only Alcohol type: hard liquor Drug use: Occasionally Substance use type: marijuana Details: uses edibles for migraines, Household members: none Housing: house Number of Children: 3 current occupation: disabled Pets and animals: Yes (1) Pets and animals: dog(s) Current gender identity: female What is your relationship status?: Panel score (0-1 are the most socially isolated patients): 0 Do you feel safe at home: Yes Additional Social history: lives alone Meds Allergies and Home Medications Allergies Allergy/AdvReac Type Severity Reaction Status Date / Time codeine Allergy Severe Anaphylaxsi Verified 04/25/23 11:21 s diazepam [From Valium] Allergy Severe Anaphylaxsi Verified 04/25/23 11:21 s hydrocodone Allergy Severe Anaphylaxsi Verified 04/25/23 11:21 s morphine Allergy Severe Anaphylaxsi Verified 04/25/23 11:21 s amoxicillin trihydrate Allergy Intermediate Rash Verified 04/25/23 11:21 [From Augmentin] potassium clavulanate Allergy Intermediate Rash Verified 04/25/23 11:21 [From Augmentin] dexamethasone Allergy Itching Verified 04/25/23 11:21 [From Maxitrol (neomycin sulf)] fluticasone Allergy Swelling Verified 04/25/23 11:21 neomycin Allergy Itching Verified 04/25/23 11:21 [From Maxitrol (neomycin sulf)] polymyxin B Allergy Itching Verified 04/25/23 11:21 [From Maxitrol (neomycin sulf)] salmeterol Allergy Hives Verified 04/25/23 11:21 secobarbital Allergy Hives Verified 04/25/23 11:21 Home Medications Medication Instructions Recorded Confirmed Type aspirin 81 mg chewable tablet 81 mg PO HS 01/17/13 04/25/23 History vitamin B complex 2 ea PO BID 01/17/13 04/25/23 History atorvastatin 40 mg tablet (Lipitor) 40 mg PO QPM #30 tabs 11/10/19 04/25/23 Rx aripiprazole 5 mg tablet 5 mg PO HS 05/25/21 04/25/23 History citalopram 20 mg tablet 20 mg PO HS 05/16/22 04/25/23 History indomethacin 25 mg capsule 25 mg PO TID PRN headache #30 caps 09/27/22 04/25/23 Rx magnesium oxide 400 mg (241.3 mg 400 mg PO DAILY 10/27/22 04/25/23 History magnesium) tablet (MagOx) meloxicam 15 mg tablet 15 mg PO DAILY #30 tabs 10/27/22 04/25/23 Rx atogepant 10 mg tablet (Qulipta) 10 mg PO DAILY #30 tabs 03/28/23 04/25/23 Rx Exam Const General: cooperative and no acute distress Orientation: alert and awake [facility] Head: normocephalic and atraumatic General nose exam: no nasal discharge Eyes Conjunctivae: conjunctivae normal Sclera: sclerae normal Resp Effort & Inspection: normal respiratory effort Auscultation: clear to auscultation bilaterally and no wheezes Cardio Rate: regular rate Rhythm: regular rhythm Heart Sounds: S1 normal, S2 normal and no murmurs Results Last Vital Signs Temp 97.3 F L 04/25/23 11:00 Pulse 69 04/25/23 11:00 Resp 16 04/25/23 11:00 BP 145/101 H 04/25/23 11:00 Pulse Ox 98 04/25/23 11:00
[2023-04-25] MEDS: Bupivacaine 0.5% Pres-Free 30 ML VIAL (13:38)
[2023-04-25] MEDS: methylPREDNISolone ACETATE 80 MG/ML VIAL (13:38)
[2023-04-25 13:48] VITALS: BP 126/77; PULSE 71; RESP 16; TEMP 36.4; O2SAT 95
[2023-04-25 13:52] VITALS: BMI 50.5
--- NOTE | 2023-04-25 14:01 | W.ANESPOSTOP ---
Postoperative Evaluation Date, Time and Location Date Performed: 04/25/23 Time Performed: 14:01 Patient Location: Day Surgery Unit Vital Signs Most Recent Imported Vital Signs: Most Recent Vital Signs Temp Pulse Resp BP Pulse Ox 36.4 C L 71 16 126/77 95 04/25/23 13:48 04/25/23 13:48 04/25/23 13:48 04/25/23 13:48 04/25/23 13:48 Pain Score Most Recent Pain Score: Most Recent Pain Score Pain Level 0 04/25/23 13:48 Assessment Mental Status: Arousable with meaningful communication Airway and Respiratory Function: Patent airway with normal (patient baseline) respiratory exam Cardiovascular Function: Hemodynamically Stable Hydration Status: Adequately Hydrated Nausea & Vomiting: No Nausea or Vomiting Pain: Pt. Denies Any Pain Peripheral Nerve Block: Patient did not receive a nerve block
[2023-04-25 14:15] VITALS: BP 134/74; PULSE 73; RESP 18; TEMP 36.4; O2SAT 99
--- NOTE | 2023-04-25 18:12 | W.PM.OP ---
Date of service: 04/25/23 Time of Service: 14:00 Operative Note Operative Note DATE OF PROCEDURE: 04/25/23 PRE-OP DIAGNOSIS: Bilateral knee osteoarthritis POST-OP DIAGNOSIS: same PROCEDURE: Bilateral knee injections SURGEON: En Grider ANESTHESIA TYPE: General:No Airway Refer to Anesthesia Record ESTIMATED BLOOD LOSS: 0 TOURNIQUET TIME: 0 COMPLICATIONS: None Patient's condition: stable Indications: Carlee is a 58-year-old female who has known arthritis about both knees. She has tolerated injections well, although with sedation due to her significant pain and anxiety. She returns today for repeat injections. I once again reviewed the risk of the procedure to include continued pain and symptoms, stiffness, potential infection. Despite these, she elects to proceed. Procedure Description: Carlee was greeted in the preoperative holding area. Identity was confirmed the correct site was identified. History and physical was updated. She was taken to the procedure room and kept on the stretcher for the procedure. A timeout was performed for safe surgery. A general, uninstrumented airway, anesthetic was administered. A timeout was performed for safe surgery. Starting with the left knee, the superolateral space of the knee was cleaned with alcohol. I was then able to easily inject the left knee without resistance, 6 cc of 0.25% bupivacaine and 80 mg of Depo-Medrol. There was no significant bleeding. A bandage was applied. Moving to the right knee, the superolateral area of the knee was cleaned with alcohol. I was once again easily able to inject without resistance 6 cc of 0.25% bupivacaine and 80 mg of Depo-Medrol within the knee. There is no significant bleeding. A bandage was applied.
== END 2023-04-25 14:54 | disposition home or self-care (01) ==
PROVIDERS: PCP Neuromusculoskeletal Medicine & OMM; Visit Provider Student in an Organized Health Care Education/Training Program
PROC: (CPT 20610; principal; 2023-04-25 15:00)
DX: M17.0 Bilateral primary osteoarthritis of knee (principal); J45.909 Unspecified asthma, uncomplicated; G47.33 Obstructive sleep apnea (adult) (pediatric); K21.9 Gastro-esophageal reflux disease without esophagitis; E66.01 Morbid (severe) obesity due to excess calories; Z68.43 Body mass index [BMI] 50.0-59.9, adult
CPT/HCPCS: 20610; J1040; J2250; J2405

== ENCOUNTER 2023-07-23 14:22 | Outpatient (CLI) | payer MEDICARE, SELFPAY ==
--- NOTE | 2023-07-23 13:30 | DI.RAD_ITS ---
Exam(s) XR KNEE RT 3V AP,LAT,ANDREW EXAM: XR KNEE RT 3V AP,LAT,ANDREW CLINICAL HISTORY: RIGHT KNEE PAIN. TECHNIQUE: 2D digital imaging was performed. Three views. COMPARISON: CR RIGHT KNEE 3 VIEWS from 01/17/2013 FINDINGS: BONES: No acute fracture is present. No bony destructive lesion is seen. There is a small exostosis of the proximal medial tibial metaphysis. JOINTS: There is severe narrowing of the medial femoral tibial joint space. There is periarticular s purring. Mild spurring at the articular aspect of the patella. No joint effusion is seen. SOFT TISSUE: Normal. IMPRESSION: Severe degenerative changes of the medial femoral tibial joint. DATA REPOSITORY: RADIATION DOSE DELIVERED:
--- NOTE | 2023-07-23 13:30 | DI.RAD_ITS ---
Exam(s) XR STANDING ALIGNMENT EXAM: XR STANDING ALIGNMENT CLINICAL HISTORY: RIGHT KNEE PAIN. TECHNIQUE: 2D digital imaging was performed. Standing AP views were performed from the pelvis throu gh the ankles. COMPARISON: No exams were available for comparison FINDINGS: BONES: No acute fracture is present. No bony destructive lesion is seen. Leg length discrepancy: The right femoral head projects a few millimeters superior to the left. JOINTS: Knees: Severe narrowing of both medial femoral tibial joints with varus angulation, left gr eater than right. The ankle joints are unremarkable. The hip joints are unremarkable. SOFT TISSUE: Normal. IMPRESSION: Severe degenerative changes of both medial femoral tibial joints.. Minimal leg length discrepancy. DATA REPOSITORY: RADIATION DOSE DELIVERED:
== END 2023-07-23 14:23 | disposition home or self-care (01) ==
LOC: DIORS 14:23
PROVIDERS: PCP Neuromusculoskeletal Medicine & OMM; Referring Provider Neuromusculoskeletal Medicine & OMM; Visit Provider Student in an Organized Health Care Education/Training Program
DX: M17.0 Bilateral primary osteoarthritis of knee (principal)
CPT/HCPCS: 73562; 99213; 77073

== ENCOUNTER 2023-08-10 01:55 | Outpatient (CLI) | payer MEDICARE, SELFPAY ==
[2023-08-10 11:14] LABS: HCT 42.6 % (36.0-46.0); HGB 14.3 g/dL (11.2-15.7); MCH 29.5 pg (27.0-33.0); MCHC 33.6 % (32.0-36.0); MCV 88 fL (80-95); MPV 9.1 fL (8.0-11.0); Platelet Count 289 10^3/uL (130-400); RBC 4.85 10^6/uL (3.93-5.22); RDW 12.2 % (11.7-14.6); RDW-SD 39.3 fL; WBC 4.78 10^3/uL (4.4-10.8)
[2023-08-10 11:49] LABS: BUN 14 mg/dL (7-18); CREATININE 0.9 mg/dL (0.55-1.02); Calcium 9.2 mg/dL (8.5-10.1); Chloride 105 mmol/L (98-107); Estimated GFR 74.57 (mL/min/1.73m2); Glucose 94 mg/dL (74-106); Potassium 3.8 mmol/L (3.5-5.1); Sodium 142 mmol/L (136-145)
== END 2023-08-10 01:56 | disposition home or self-care (01) ==
LOC: LBO 01:55
PROVIDERS: PCP Neuromusculoskeletal Medicine & OMM; Visit Provider Student in an Organized Health Care Education/Training Program
DX: M17.11 Unilateral primary osteoarthritis, right knee (principal); Z01.818 Encounter for other preprocedural examination
CPT/HCPCS: 36415; 80048; 85027

== ENCOUNTER 2023-08-22 08:22 | Day surgery (SDC) | payer MEDICARE, SELFPAY ==
[2023-08-22] VITALS (11 sets, daily range): BP systolic 107–154; BP diastolic 63–115; PULSE 62–76; RESP 16–19; TEMP 36.1–36.7; O2SAT 98–100; BMI 50.8
[2023-08-22] MEDS: Acetaminophen 500 MG TAB 1000 MG PO (09:06)
[2023-08-22] MEDS: Gabapentin 300 MG CAP PO (09:06)
--- NOTE | 2023-08-22 09:06 | ANES.PREOP_ITS ---
General Info Date of Service Date Performed: 08/22/23 Height: 5 ft 3 in Weight: 130 kg Body Mass Index (BMI): 50.8 Surgical Procedure: Operation Date: 08/22/23 09:55 Proposed Procedure Side Surgeon p Knee Total Arthroplasty, Cementless CR Right En Grdier MD Meds Allergies and Home Medications Allergies Allergy/AdvReac Type Severity Reaction Status Date / Time codeine Allergy Severe Anaphylaxsi Verified 08/22/23 09:09 s diazepam [From Valium] Allergy Severe Anaphylaxsi Verified 08/22/23 09:09 s hydrocodone Allergy Severe Anaphylaxsi Verified 08/22/23 09:09 s morphine Allergy Severe Anaphylaxsi Verified 08/22/23 09:09 s amoxicillin trihydrate Allergy Intermediate Rash Verified 08/22/23 09:09 [From Augmentin] potassium clavulanate Allergy Intermediate Rash Verified 08/22/23 09:09 [From Augmentin] dexamethasone Allergy Itching Verified 08/22/23 09:09 [From Maxitrol (neomycin sulf)] fluticasone Allergy Swelling Verified 08/22/23 09:09 neomycin Allergy Itching Verified 08/22/23 09:09 [From Maxitrol (neomycin sulf)] polymyxin B Allergy Itching Verified 08/22/23 09:09 [From Maxitrol (neomycin sulf)] salmeterol Allergy Hives Verified 08/22/23 09:09 secobarbital Allergy Hives Verified 08/22/23 09:09 Home Medication Medication Instructions Recorded aspirin 81 mg chewable tablet 81 mg PO HS 01/17/13 vitamin B complex 2 ea PO BID 01/17/13 atorvastatin 40 mg tablet (Lipitor) 40 mg PO QPM #30 tabs 11/10/19 aripiprazole 5 mg tablet 5 mg PO HS 05/25/21 citalopram 20 mg tablet 20 mg PO HS 05/16/22 indomethacin 25 mg capsule 25 mg PO TID PRN headache #30 caps 09/27/22 magnesium oxide 400 mg (241.3 mg 400 mg PO DAILY 10/27/22 magnesium) tablet (MagOx) meloxicam 15 mg tablet 15 mg PO DAILY #30 tabs 10/27/22 atogepant 10 mg tablet (Qulipta) 10 mg PO DAILY #30 tabs 03/28/23 ibuprofen 600 mg tablet 600 mg PO BID 07/23/23 Current Visit Medications: Current Medications Generic Name Dose Route Start Last Admin Trade Name Magi PRN Reason Stop Dose Admin Acetaminophen 1,000 mg 08/22/23 06:00 Acetaminophen 500 Mg Tab PO 09/21/23 05:59 PREOP ROBERTH Celecoxib 400 mg 08/22/23 06:00 Celecoxib 200 Mg Cap PO 09/21/23 05:59 PREOP ROBERTH Gabapentin 300 mg 08/22/23 06:00 Gabapentin 300 Mg Cap PO 09/21/23 05:59 PREOP ROBERTH Tranexamic Acid 1,000 mg/ 60 mls @ 360 mls/hr 08/22/23 06:00 Sodium Chloride IVPB 09/21/23 05:59 PREOP ROBERTH Ringer's Solution 1,000 mls @ 80 mls/hr 08/22/23 06:00 IV 09/20/23 23:59 INFUSION ROBERTH Cefazolin Sodium 3,000 mg/ 100 mls @ 200 mls/hr 08/22/23 06:00 Sodium Chloride IVPB 08/22/23 23:59 PREOP ROBERTH IV Miscellaneous Supplies 1 each 08/22/23 06:00 Iv Access IV 09/20/23 23:59 DIRECTED ROBERTH Sodium Chloride 0 ml 08/22/23 06:00 Normal Saline Flush 10 Ml Syr IV 09/20/23 23:59 PRN PRN Sodium Chloride 0 ml 08/22/23 06:00 Normal Saline 10 Ml Vial IJ 09/20/23 23:59 DIRECTED PRN Sterile Water 0 ml 08/22/23 06:00 Water,Injection,Sterile 10 Ml Vial IJ 09/20/23 23:59 DIRECTED PRN PFSH Active Problems Active Problems: Problem Status Onset Code Acute otitis externa of right ear H60.501 Neck mass R22.1 Pharyngoesophageal dysphagia R13.14 Bilateral primary osteoarthritis of knee M17.0 GLORIA (obstructive sleep apnea) G47.33 Hallux limitus of right foot M20.5X1 Migraine headache G43.909 Right hemiplegia G81.91 Hyperlipidemia E78.5 GERD (gastroesophageal reflux disease) K21.9 Depression F32.9 Chest discomfort R07.89 Conversion disorder F44.9 Mild pulmonary hypertension I27.20 Obesity, morbid, BMI 40.0-49.9 E66.01 Bursitis of shoulder, left M75.52 Tendinitis of long head of biceps brachii of left shoulder M75.22 Cervical radiculopathy M54.12 Arthritis M19.90 Breast lump N63.0 Hypercholesterolemia E78.00 Ear itching L29.9 Sensorineural hearing loss (SNHL) of right ear with unrestricted hearing of left ear H90.41 Imbalance R26.89 Encephalomalacia G93.89 Stuttering F80.81 Functional neurological symptom disorder with mixed symptoms F44.7 Post-menopausal bleeding N95.0 Chronic migraine with aura G43.109 Vestibular migraine G43.809 Status post hysteroscopy Z98.890 Left knee DJD M17.12 Degenerative joint disease of right knee M17.11 Medical History Medical History (Updated 08/22/23 @ 09:30 by DANIELLA Carias) Sleep apnea ORAL APPLIANCE High cholesterol Asthma pt. 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 states she always gets VERY VERY sick post- operatively, however the surgery she had with Dr. membreno on 08/30/19 went the best she's ever had. 08/22/23: pt is deaf in R ear Surgical History Surgical History Hx of hysterectomy Hx of foot surgery Status post endometrial ablation Status post cholecystectomy Status post breast biopsy History of section History of ear surgery Labyrinthectomy; multiple Tobacco Smoking/Tobacco Use Status: Never Alcohol Alcohol Intake: current Alcohol intake frequency: holidays/special occasions only Alcohol type: hard liquor Substance Use Substance use: Occasionally Substance use type: marijuana Details: uses edibles for migraines, last ate an edible 08/14/23 Vital Signs and Lab Results Vital Signs Most Recent Vital Signs in EMR: Most Recent Vital Signs Temp Pulse Resp BP Pulse Ox 36.6 C 74 16 151/95 H 99 08/22/23 08:51 08/22/23 08:51 08/22/23 08:51 08/22/23 08:51 08/22/23 08:51 Lab Results Blood Type / Crossmatch: No Data to Display Complete Blood Count: White Blood Count 4.78 10^3/uL (4.4-10.8) 08/10/23 11:00 Red Blood Count 4.85 10^6/uL (3.93-5.22) 08/10/23 11:00 Hemoglobin 14.3 g/dL (11.2-15.7) 08/10/23 11:00 Hematocrit 42.6 % (36.0-46.0) 08/10/23 11:00 Platelet Count 289 10^3/uL (130-400) 08/10/23 11:00 Complete Metabolic Panel: Sodium 142 mmol/L (136-145) 08/10/23 11:00 Potassium 3.8 mmol/L (3.5-5.1) 08/10/23 11:00 Chloride 105 mmol/L (98-107) 08/10/23 11:00 Carbon Dioxide 26.0 mmol/L (21.0-32.0) 08/10/23 11:00 BUN 14 mg/dL (7-18) 08/10/23 11:00 Creatinine 0.9 mg/dL (0.55-1.02) 08/10/23 11:00 Est GFR (CKD-EPI 2020) 74.57 (mL/min/1.73m2) 08/10/23 11:00 Calcium 9.2 mg/dL (8.5-10.1) 08/10/23 11:00 Glucose 94 mg/dL (74-106) 08/10/23 11:00 Liver Function Panel: No Data to Display Coagulation Panel: No Data to Display Cardiac Panel: No Data to Display Arterial Blood Gas: No Data to Display Venous Blood Gas: No Data to Display Pancreas Panel: No Data to Display Thyroid Panel: No Data to Display Infectious Disease: No Data to Display Blood Cultures: No Data to Display Toxicology Panel: No Data to Display Imaging and Studies Imaging and Studies Study information below may be from another EMR and interpreted by another provider. Please see original notes in EMR for more complete details. EKG Summary: 04/28/2022: Conclusion Sinus rhythm...normal P axis, V-rate 60- 99 Left bundle branch block...QRSd>120, broad/notched R ST elevation secondary to IVCD...Multiple VCG criteria. Sinus. New LBBB? No STEMI. Echocardiogram Summary: 11/09/2019: Conclusion Left Ventricle : The left ventricle is normal size. The left ventricular systolic function is normal. The left ventricular ejection fraction is within t he normal range. There is normal left ventricular wall thickness. There is normal LV segmental wall motion. Diastolic function is indeterminate. LVEF is 60-64%. Right Ventricle : The right ventricle is normal size. The right ventricular systolic function is normal. Atria : The left atrium size is normal. The right atrium size is normal. There was no ASD/PFO by color Doppler. Bubble study was not performed. Valves: There are no more dynamically significant valvular lesions Great Vessels : IVC is normal in size and collapses >50% with inspiration. There was no evidence of a cardiovascular source of emboli. If suspicion remains high would suggest JUAN M or surface study with bubbles. There is no prior echocardiogram available for comparison. Anesthesia Assessment and Plan Anesthesia History Personal History: PONV Family History: No Family History of Anesthesia Complications Exercise Tolerance Exercise Tolerance: Metabolic Equivalents>4 Pertinent Negatives Pertinent Negatives: No Symptoms of GERD, No Major Cardiovascular Symptoms or Complaints and No Major Pulmonary Symptoms or Complaints Cardiac & Pulmonary Exam Cardiac Exam: Normal S1/S2 Heart Sounds Pulmonary Exam: Clear Bilateral Breath Sounds Implantable Cardiac Device Does patient have a Pacemaker or an ICD?: No Airway Exam Known Difficult Airway: No Mallampati Class: 1 Mouth Opening: Normal (> 3cm) Thyromental Distance: Greater than 3 cm Neck Range of Motion: Full ROM Neck Circumference: Normal Teeth Condition: Normal Dentition ASA Classification ASA Score: ASA 3 Emergency Case?: No NPO Status NPO Status: NPO Clears >2 hours, Solids >8 hours Anesthesia Plan Resuscitation Status: Full Code Anesthesia Technique: Spinal Anesthesia Airway Planned: Natural Airway Pain Management: Surgeon and patient request nerve block Monitors Used: Standard Monitors
[2023-08-22] MEDS: Celecoxib 200 MG CAP 400 MG PO (09:07)
[2023-08-22] MEDS: Lactated Ringers 1,000 ML 80 ML IV (09:25)
--- NOTE | 2023-08-22 09:29 | W.PM.DSUDISC ---
Date of service: 08/22/23 Time of Service: 09:29 Discharge Plan Disposition Patient Disposition: Home Condition: Good Discharge Details Reason For Visit: R TKR Attending Provider: En Grider Home Meds and New Rx's Prescriptions: New aspirin 81 mg tablet,delayed release (DR/EC) 81 mg PO BID Qty: 60 0RF tramadol 50 mg tablet 50 mg PO Q4H PRNQty: 20 0RF acetaminophen 500 mg tablet 1,000 mg PO TID Qty: 90 3RF pantoprazole 40 mg tablet,delayed release (DR/EC) 40 mg PO DAILY Qty: 30 0RF dexamethasone 4 mg tablet 4 mg PO DAILY Qty: 2 0RF gabapentin 300 mg capsule 300 mg PO QHS Qty: 14 0RF ibuprofen 600 mg tablet 600 mg PO TID PRNQty: 90 3RF Continued Qulipta 10 mg tablet 10 mg PO DAILY Qty: 30 5RF magnesium oxide [MagOx] 400 mg (241.3 mg magnesium) tablet 400 mg PO DAILY aripiprazole 5 mg tablet 5 mg PO HS vitamin B complex 1 EACH capsule 2 ea PO BID atorvastatin [Lipitor] 40 mg Tablet 40 mg PO QPM Qty: 30 0RF citalopram 20 mg tablet 20 mg PO HS Discontinued meloxicam 15 mg tablet 15 mg PO DAILY Qty: 30 2RF Rx Instructions: Take one tablet daily for inflammation and pain ibuprofen 600 mg tablet 600 mg PO BID indomethacin 25 mg capsule 25 mg PO TID PRN (Reason: headache) Qty: 30 0RF Rx Instructions: administer with food or milk aspirin 81 MG tablet,chewable 81 mg PO HS Discharge Instructions Additional Instructions: Total Knee Discharge Instructions Activity: The most important activity is to walk and to work on gentle motion (both flexion and extension). You should try to take short walks a few times a day. It is important that when resting you work on keeping the knee straight. Avoid putting a pillow behind the knee as this will encourage flexion. Work on range of motion exercises as provided by Physical Therapy. - Start outpatient physical therapy within 2 weeks. - You should wear the MARY hose on both legs for 2 weeks. You may remove these at night. You may also use any compression sock in place of the MARY hose. - Utilize [employer] to review exercises, see videos on exercises and obtain basic information pertaining to your surgery and your recovery. Dressing: Remove the Nicholas wrap by 2 days after your surgery and put on the MARY stocking given to you from the hospital. Keep the surgical dressing (underneath the NICHOLAS wrap) in place for at least one week. After the first week it may be removed and replaced with light gauze and tape or nothing. The wound and dressing may get wet after 3 days but avoid soaking the dressing or otherwise it will need to be changed. Many people prefer covering the dressing with cling wrap (saran wrap) to minimize it from getting soaked. If it gets wet, just pat dry. If it starts to peel off then it will need to be changed. Medications: - You should take Tylenol and anti-inflammatory ibuprofen as your primary pain control medications. - You have been prescribed a stronger pain medication tramadol for breakthrough pain, take as needed as prescribed. - You have also been prescribed a stomach acid reduction agent Pantoprozole to help reduce stomach acid and reflux. - You have been prescribed Gabapentin to take at night for restlessness and nerve pain. - You will be taking Aspirin 81mg twice a day for DVT prevention unless instructed otherwise. - You have also been prescribed Decadron to take to control post-operative nausea and pain. You will start this tomorrow. - If you have constipation you should take Colace or Miralax (both [id number]). It takes most people 3-4 days to have a bowel movement. Follow-up: 2 weeks If you have any acute concerns or questions, please do not hesitate to contact the office at [phone]. You may contact Dr. Grider with any questions after hours through the hospital at [phone] or on his cell phone at [phone]. Stand Alone Forms: Anesthesia Discharge Inst., Abril.Nerve Block Instructions, Dustin Wills ([facility]) Referrals: En Grider MD [ [facility] STAFF PHYSICIAN] - 09/06/23 2:00 pm Equipment/Supplies: Walker Activity:: Activity as Tolerated Shower/Bathe:: 72 hours Diet:: As Tolerated DS: Diagnosis Discharge Diagnosis (1) Degenerative joint disease of right knee: Status: Acute
--- NOTE | 2023-08-22 10:06 | W.ANESNERVE ---
Nerve Block Single Injection Procedure Date and Time Date Performed: 08/22/23 Procedure Start: 09:45 Location Where Procedure Performed Procedure Location: Day Surgery Unit Reason Performed: Postoperative Analgesia Requesting Provider: En Grider Timeout Performed Timeout Performed: Yes Monitoring Used ECG, Blood Pressure, SpO2 and See EMR for corresponding vital signs Sterility Sterility: Hand Hygiene, Surgical Cap, Surgical Mask, Sterile Gloves and Chlorhexidine Sedation Given During Procedure Sedation Given (Indicate Dose Given): Versed IV Dose:: 2mg and Precedex IV Dose:: 8mcg Patient Mental Status Patient Mental Status: Sedate with meaningful communication Nerve Block 1st Nerve Block: Laterality: Right Block Type: Adductor Canal Ultrasound Image Saved?: Yes Needle / Catheter Used: 120mm SonoPlex II Local Anesthetic Bolus (Indicate Dose Given): Lidocaine used for local infiltration of skin, Injected in 3-5ml increments after negative blood aspiration and Bupivacaine 0.25% Dose:: 15ml Additives (Indicate Dose Given): None Ultrasound: Sterile probe cover and gel used Nerve Stimulator: Not Used Paresthesia: None Procedure Tolerated: No Complications and Patient tolerated well Procedure Outcome: Successful Performed By: Leroy Cm
[2023-08-22] MEDS: ceFAZolin 3,000 MG in Normal Saline 100 ML 200 MG IVPB (10:20)
--- NOTE | 2023-08-22 11:50 | W.PM.OP ---
Date of service: 08/22/23 Time of Service: 10:30 Operative Note Operative Note DATE OF PROCEDURE: 08/22/23 PRE-OP DIAGNOSIS: Right Knee Osteoarthritis POST-OP DIAGNOSIS: same PROCEDURE: Right Total Knee Replacement SURGEON: En Grider SOFTWARE ASSET MANAGEMENT ANALYST: Ziggy Doss ANESTHESIA TYPE: Spinal Refer to Anesthesia Record ESTIMATED BLOOD LOSS: 100 PATHOLOGY: none sent TOURNIQUET TIME: 0 COMPLICATIONS: None Patient was transported to: PACU Patient's condition: stable Implants: 1. Depuy Attune Cementless Cruciate Retaining Femoral Component, Size 5 2. Depuy Attune Cementless Fixed Bearing Tibial Component, Size 4 3. Depuy Attune 5x6 CR/FB Poly 4. Depuy Attune Patellar Component, Size 35 Indications: I have seen Carlee in clinic for symptoms of knee arthritis, confirmed with radiographic findings. She has exhausted nonoperative methods and was having significant limitations in daily function and desired better function and less pain. I discussed the technical details of a knee replacement. I explained the risks of the procedure to include, but not limited to, bleeding, infection, pain, stiffness, fracture, damage to nerves and vessels, damage to muscles and tendons, loosening, need for repeat procedure, blood clot and cardiopulmonary demise. Despite these risks, Carlee elected to proceed. Findings: There was significant signs of arthritis throughout the knee in all 3 compartments. Procedure Description: Carlee was greeted in the preoperative holding area where the correct side was identified and marked. The consent was reviewed with the patient and signed. The history and physical was updated. All questions were answered. Preoperative medications were administered: Acetaminophen 1000mg, Celebrex 400mg, and Gabapentin 300mg. An adductor canal block was then administered by the anesthesia team in the PACU. Carlee was taken back to the operating room. A spinal anesthestic was then administered. The patient was placed into the supine position on the operating room table. A nonsterile tourniquet was placed high onto the leg but only used for cementing. Posts were placed for positioning during the procedure. All bony prominences were well padded. Prophylactic antibiotics in the form of Cefazolin were administered. 1g of Tranxemic Acid was given intravenously within 30 minutes of incision. The right leg was then prepped with Chloraprep and draped in a standard fashion with impervious stockinette. A second prep with Chloraprep was performed prior to application of Iodine impregnated skin protection. A timeout to confirm correct identity, side and site, procedure, allergies, anesthesia, and medical concerns was performed. With the knee in some flexion, a midline incision was made overlying the knee. Full thickness skin flaps were raised once the extensor mechanism was encountered. These were raised medially and laterally. Any bleeding was controlled with electrocautery. Once the extensor mechanism was fully exposed, a medial parapatellar arthrotomy was performed in a flexed position. All bleeding from the arthrotomy and the geniculate arteries was coagulated. A medial subperiosteal peel was performed with electrocautery to the midcoronal plane. Due to the significant varus deformity the entire medial tibial plateau was exposed. The fat pad was removed while keeping the patellar tendon protected. The anterior distal femur synovium was removed for later visualization. The ACL and PCL were resected and the anterior horn of the lateral meniscus was transected. The knee was then flexed with the patella everted. Large osteophytes from the tibia were removed. Large osteophytes from the femur were removed. Using a step drill, and based on preoperative templating, the femoral canal was entered. This was done with a step drill without any difficulty. The intramedullary distal femoral cut guide was inserted, set to a 4 degree valgus cut and 9mm cut thickness. The distal femoral cut guide was then held in position and pinned. With the soft tissues protected, the distal cut was performed. This was passed over a few times to ensure a planar cut. I then turned attention to the tibia. The extramedullary guide was placed onto the leg. The distal aspect was slid medial to adjust for position of center of ankle and stay in line with shaft of the tibia. Approximately 3-5 degrees of posterior slope was kept in the proximal cutting guide. The center of the guide was aligned with the PCL. The stylus was used to assess cut thickness. The medial side, most involved side, was set for a 4mm cut. This was then held in position and pinned into place with 2 additional pins and a cross pin for stability. The medial and lateral collateral ligaments were protected and the cut was performed. With this completed, it was assessed and noted to be of appropriate dimensions. The guide was removed. A spacer block was inserted and the knee was brought into extension. The 6mm spacer block provided full extension, without hyperextension and with stability of both the medial and lateral collateral ligaments was assessed. The pins from the femur and the tibia were then removed. The distal femur was then sized. The anterior stylus was placed onto the lateral ridge of the anterior femur. This indicated a size 5 femur. The external rotation of the guide was adjusted to 3 degrees to match the epicondylar axis, perpendicular to [place]?s line. The 4-in-1 cutting guide was the placed. The posterior medial femur cut was evaluated and appeared of good thickness. The spacer block was inserted underneath the cutting guide and stability was confirmed in 90 degrees of flexion. An del wing was used to confirm appropriate position of the anterior cut to avoid notching. This cutting guide was ensured to be flush on the cut surface and then pinned into place with headed pins. While protecting the soft tissues, quad tendon, and collateral ligaments, the anterior and posterior cuts were performed with a saw. The central two pins were removed and the posterior and anterior chamfers were cut next. The notch-cutting guide was placed. This was pinned to lateralize the femoral component as much as possible while keeping it flush on the cut surface. This was then pinned into position. A reciprocating saw was used to make the notch cut. A rasp smoothed the cut surfaces. The medial and lateral menisci were removed. A trial femoral component was then inserted, impacted down to the cut surfaces, and the lug holes were drilled. A provisional trial tibial component was placed and the knee was brought through range of motion. There was noted to be excellent extension and flexion. There was no significant instability. The patella was tracking without thumbs. A size 6mm polyethylene component provided the best range of motion and stability with less than 2mm gapping with medial and lateral stress and full extension without significant hyperextension. The tibial cut surface was fully exposed. The tibia was then sized as a 4. The tibia had been previously marked during trialing to correspond to the center of the tibial component to help with rotation. The trial was aligned to this ziggy, approximately rotated to the medial 1/3rd of the tibial tubercle. The trial was pinned into place. The tibia was prepared with a reamer and a keel punch and lug holes. The knee was then brought into extension and the patella was measured as 25mm. Using the patellar clamp and cut guide, this was resected to a flat surface with at least 13mm of thickness remaining. The size 35 patella fit the best. This was oriented and then clamped into position. The lugs were drilled. The trial components were removed. The final components were opened on the back table. The periosteal and capsular tissues, especially posteriorly, around the knee were then systematically injected with a periarticular cocktail consisting of 246mg of Ropivacaine, 0.5mg of Epinephrine, 0.08mg of Clonidine, and 30mg of Ketorolac, diluted to 100cc. On the back table, with the implants opened, the cement was mixed. One batch of high viscosity cement was prepared with vacuum assistance. After the cement was ready a small amount was placed on the cut surface of the patella and the patellar button was clamped into position and held. While the cement was hardening, the cementless knee components were placed. Starting with the tibial component, the tibia was subluxed anteriorly and the lug holes of the component were lined up. The tibia was then impacted with an impactor and mallet until the tibial component was in contact with the tibia. The final polyethylene component was inserted. Then, the femoral component was inserted. The lug holes were aligned and the component was impacted into position. The knee was irrigated with Surgiphor Betadine solution. This was allowed to sit in the knee for 3 minutes and then it was irrigated out with saline. After the cement had finally cured, approximately 15min, the clamp was removed from the patella and the knee was taken through range of motion. The patella was tracking with a no-thumbs technique. The capsule was then reapproximated with a No. 1 Vicryl at multiple locations. The capsule was finally closed with a No. 2 Stratafix, barbed suture. The second dosing of 1g TXA was started. Deep tissues were then reapproximated with 0 Vicryl and 2-0 Vicryl. The skin was closed with a running 3-0 Monocryl in a subcuticular fashion. This was reinforced with skin glue. A Mepilex silver dressing was applied along with a [id number] PRINCE wrap. A CryoCuff was applied. Carlee was transferred to the hospital bed without difficulty an suffering no apparent complication. Carlee has a good prognosis. Physical therapy will start today and without restrictions, weight-bearing as tolerated. Aspirin 81mg BID will be used for DVT prophylaxis.
--- NOTE | 2023-08-22 14:06 | W.ANESPOSTOP ---
Postoperative Evaluation Date, Time and Location Date Performed: 08/22/23 Time Performed: 14:06 Patient Location: Day Surgery Unit Vital Signs Most Recent Imported Vital Signs: Most Recent Vital Signs Temp Pulse Resp BP Pulse Ox 36.1 C L 71 16 134/66 98 08/22/23 13:10 08/22/23 13:10 08/22/23 13:10 08/22/23 13:10 08/22/23 13:10 Pain Score Most Recent Pain Score: Most Recent Pain Score Pain Level 0 08/22/23 13:10 Assessment Mental Status: Awake (Alert & Oriented to Patient Baseline) Airway and Respiratory Function: Patent airway with normal (patient baseline) respiratory exam Cardiovascular Function: Hemodynamically Stable Hydration Status: Adequately Hydrated Nausea & Vomiting: No Nausea or Vomiting Pain: Pt. Denies Any Pain Peripheral Nerve Block: Regional nerve block not resolved at time of post operative discharge
--- NOTE | 2023-08-22 14:18 | IN_ITS ---
PT Notes Visit Reasons: R TKR Physical Therapy Day Surgery Initial Evaluation Date: 08/22/2023 Referring Doctor: DANIELLA Carias PT Orders: PT CONSULT: S/P Ortho surgery Precautions: WBAT on right LE with AD. Patient Profile/Admitting Diagnosis: Carlee is a 58-year-old female with degenerative joint disease status post a rthroplasty on postoperative day 0. PMHX: Medical History (Updated 08/10/23 @ 10:48 by DANIELLA Carias) Sleep apnea ORAL APPLIANCE High cholesterol Asthma pt. 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 Independent with all aspects of ADLs although with increasing difficulty due to worsening arthritic process. Equipment Owned/DME: None Subjective: Reports being achy at 1-2/10 in the R knee at rest and with weight bearing. Objective: General Observation: Resting on bedside chair. PRINCE wraps to right LE. TEDS to left leg. Sister Janine present in room throughout session. Mental Status: A and O x 4 Pain: As above ROM: Right Lower Extremity: Hip flexion WFL. Hip abduction WFL. Knee flexion 0-95 degrees. Knee extension 95 degrees to 0. Ankle dorsiflexion WFL. Ankle plantarflexion WFL. Left Lower Extremity: Hip flexion WFL. Hip abduction WFL. Knee flexion WFL. Ankle dorsiflexion WFL. Ankle plantarflexion WFL. Strength: Right Lower Extremity: Hip flexors 4/5. Hip abductors 4/5. Knee flexors 3-/5. Knee extensors 4-/5. Ankle dorsiflexors 5/5. Ankle plantarflexors 5/5. Left Lower Extremity:Hip flexors 5/5. Hip abductors 5/5. Knee flexors 5/5. Knee extensors 5/5. Ankle dorsiflexors 5/5. Ankle plantarflexors 5/5. Sensation: Intact as to pain and light pressure in bilateral lower extremities Bed Mobility/Transfers: Minimal cueing provided for use of B hands as needed for support, movement sequence, AD management, and and posture to reduce fall risk and minimize pain report Supine to sit stand by assist standby assist with FWW Sit to stand standby assist with FWW Stand to sit standby assist with FWW Bed to chair standby assist with FWW Gait: Facilitated safe and correct performance of level surface ambulation covering a distance of 150 walker with reciprocal step through heel-toe gait pattern requiring only standby assist with minimal cueing for limb advancement, increased knee flexion during swing, and posture to reduce fall risk and minimize report of pain. Stairs: Guided patient with safe and correct negotiation 6 x 4 inch steps and 4 x 6 inch steps holding onto 1 rail with 1 hand and using a single-point cane with the other hand with step to gait pattern requiring minimal verbal cueing for movement sequence, increased knee flexion on the right during each ascent, and AD management to reduce fall risk and minimize report of pain. Balance: Static Sitting: Normal Dynamic Sitting: Normal Static Standing: fair Dynamic Standing: Fair Special Tests: Mobility Limitations Standardized Measure [facility] 6 clicks Basic Mobility Inpatient Short Form: Raw Score: 24 CMS Score: 0% deficit Informed Consent/Education: Trained patient with correct performance of exercises below to maximize motor control, joint flexibility, soft tissue extensibility of the R knee musculature: Access Code: [email or web address] URL: [email or web address] Date: 08/22 patient reports using front wheeled walker for mobility/2022 Prepared by: Grace Rosales Exercises - Supine Quad Set - 1 x daily - 7 x weekly - 1 sets - 10 reps - 5 hold - Supine Heel Slide - 1 x daily - 7 x weekly - 1 sets - 10 reps - 5 hold - Supine Ankle Pumps - 1 x daily - 7 x weekly - 1 sets - 10 reps - 5 hold - Small Range Straight Leg Raise - 1 x daily - 7 x weekly - 1 sets - 10 reps - 5 hold - Seated March - 1 x daily - 7 x weekly - 1 sets - 10 reps - 5 hold Patient instructed in purpose of PT consult. Packet containing TKA exercise protocol has been given to patient. Education and training on initial set of exercises that can be done at home have been completed with patient. ASSESSMENT: Performance maximize independence and reduce fall risk. Patient presents with clinical signs and symptoms consistent with current/admitting diagnoses that have resulted to mobility limitations, gait instability, generalized weakness, and impairment of motor control as demonstrated by the following impairment level findings: 1. Decreased strength to R knee major muscle groups 2. Impaired standing balance 3. Limitation of joint range of motion in R knee Impairments are contributing to the following functional limitations: 1. Inability to safely ambulate without assistive device 2. Increase completion time for mobility ADL performance 3. Increased fall risk Patient is assessed as a 72448 moderate complexity based on the following: History: 58-year-old female with impairment level findings, functional limitations, and past medical history as indicated above Examination: Demonstrable impairment in strength, balance, and mobility level with underlying impairments and functional limitations as documented above Presentation: Ev[employer] Decision Makin moderate complexity Goals: N/A. PT evaluation and 1-2 treatment sessions only for functional mobility training using recommended AD and for HEP instruction. Plan of Care/Treatment Plan: N/A. PT evaluation and 1-2 treatment session only for functional mobility training using recommended AD and for HEP instruction. DISCHARGE RECOMMENDATIONS: Home when medically cleared by orthopedic surgeon. Recommend outpatient PT services in order to optimize functional mobility outcomes and facilitate return to independent community ambulation without an assistive device. TREATMENT CODE/TIME: 69669 x 20 minutes for 1 unit, 02283 x 10 minutes for 1 unit beginning at 14:18 PM. Thank you for the opportunity to participate in the care of this patient. Grace Rosales PT, DPT, CLT [facility] [place], [place]
== END 2023-08-22 15:22 | disposition home or self-care (01) ==
PROVIDERS: Visit Provider Student in an Organized Health Care Education/Training Program
PROC: (CPT 27447; principal; 2023-08-22 09:45)
DX: M17.11 Unilateral primary osteoarthritis, right knee (principal); E66.01 Morbid (severe) obesity due to excess calories; E78.00 Pure hypercholesterolemia, unspecified; G47.33 Obstructive sleep apnea (adult) (pediatric)
CPT/HCPCS: 27447; C1776; 76942; 97162; 97530; J0690; J1100; J2250; J2405

== ENCOUNTER 2023-09-06 14:20 | Outpatient (CLI) | payer MEDICARE, SELFPAY ==
--- NOTE | 2023-09-06 13:45 | DI.RAD_ITS ---
Exam(s) XR KNEE RT 1V XR STANDING ALIGNMENT EXAM: XR STANDING ALIGNMENT CLINICAL HISTORY: 1ST POST OP R TKA. TECHNIQUE: 2D digital imaging was performed. Standing AP views were performed from the pelvis throu gh the ankles. Lateral view of the right knee COMPARISON: CR XR STANDING ALIGNMENT from 07/23/2023 CR XR KNEE RT 3V AP,LAT,ANDREW from 07/23/2023 CR XR KNEE RT 1V from 09/06/2023 FINDINGS: BONES: No acute fracture is present. No bony destructive lesion is seen. Leg length discrepancy: The right femoral head projects approximately 10 millimeter superior to the l eft. JOINTS: Knees: Status post placement of right knee prosthesis. The alignment appears satisfactory le ft knee again shows severe medial femoral tibial joint space narrowing with varus angulation. The ankle joints are unremarkable. The hip joints are unremarkable. SOFT TISSUE: Mild right lower leg edema. IMPRESSION: Severe degenerative changes of the right medial femoral tibial joint. Right knee prosthesis show sat isfactory alignment.. Approximately 1 centimeter overall leg length discrepancy. DATA REPOSITORY: RADIATION DOSE DELIVERED:
== END 2023-09-06 14:21 | disposition home or self-care (01) ==
LOC: DIORS 14:20
PROVIDERS: Visit Provider Physician Assistant
DX: Z96.651 Presence of right artificial knee joint (principal); Z47.1 Aftercare following joint replacement surgery
CPT/HCPCS: 73560; 77073

== ENCOUNTER → 2023-10-04 10:40 | Outpatient (BNVA) | payer MEDICARE, SELFPAY | PROVIDERS: Visit Provider Student in an Organized Health Care Education/Training Program | DX: Z47.1 Aftercare following joint replacement surgery (principal); Z96.651 Presence of right artificial knee joint ==

== ENCOUNTER → 2023-10-16 10:04 | Outpatient (BNVA) | payer MEDICARE, SELFPAY | PROVIDERS: Referring Provider Neuromusculoskeletal Medicine & OMM; Visit Provider Psychiatry & Neurology Neurology | DX: R26.89 Other abnormalities of gait and mobility (principal); F80.81 Childhood onset fluency disorder; G43.909 Migraine, unspecified, not intractable, without status migrainosus; F44.7 Conversion disorder with mixed symptom presentation; M54.81 Occipital neuralgia | CPT/HCPCS: 99213 ==

== ENCOUNTER → 2023-11-01 10:23 | Outpatient (BNVA) | payer MEDICARE, SELFPAY | PROVIDERS: Visit Provider Student in an Organized Health Care Education/Training Program | DX: Z47.1 Aftercare following joint replacement surgery (principal); Z96.651 Presence of right artificial knee joint ==

== ENCOUNTER → 2024-01-15 13:16 | Outpatient (BNVA) | payer MEDICARE, SELFPAY | PROVIDERS: Visit Provider Psychiatry & Neurology Neurology | DX: R26.89 Other abnormalities of gait and mobility (principal); F80.81 Childhood onset fluency disorder; G43.909 Migraine, unspecified, not intractable, without status migrainosus; F44.7 Conversion disorder with mixed symptom presentation; M54.81 Occipital neuralgia | CPT/HCPCS: 99214 ==

== ENCOUNTER → 2024-04-02 12:33 | Outpatient (BNVA) | payer MEDICARE, SELFPAY | PROVIDERS: Visit Provider Psychiatry & Neurology Neurology | DX: G43.909 Migraine, unspecified, not intractable, without status migrainosus (principal); R26.89 Other abnormalities of gait and mobility; F80.81 Childhood onset fluency disorder; F44.7 Conversion disorder with mixed symptom presentation; M54.81 Occipital neuralgia | CPT/HCPCS: 99213 ==

== ENCOUNTER → 2024-06-30 13:41 | Outpatient (BNVA) | payer MEDICARE, SELFPAY | PROVIDERS: Visit Provider Psychiatry & Neurology Neurology | DX: G43.909 Migraine, unspecified, not intractable, without status migrainosus (principal); R26.89 Other abnormalities of gait and mobility; F80.81 Childhood onset fluency disorder; M54.81 Occipital neuralgia | CPT/HCPCS: 99212 ==

== ENCOUNTER → 2024-10-01 08:26 | Outpatient (BNVA) | payer MEDICARE, SELFPAY | PROVIDERS: Visit Provider Psychiatry & Neurology Neurology | DX: G43.909 Migraine, unspecified, not intractable, without status migrainosus (principal) | CPT/HCPCS: 99213 ==

== ENCOUNTER 2025-04-03 00:26 | Outpatient (CLI) | payer MEDICARE, SELFPAY ==
--- NOTE | 2025-04-03 12:05 | DI.MAMMO_ITS ---
Exam(s) MAMMO SCREENING EXAM: MAMMO SCREENING CLINICAL HISTORY: screening TECHNIQUE: Mammograms were interpreted according to the usual protocol including computer analysis with CAD system, tomosynthesis and C-view imaging. COMPARISON: 2017 and 2021 FINDINGS: The breasts are composed of mainly fatty density , Breast Density category A. No suspicious masses or suspicious microcalcifications are seen. No skin thickening or abnormal axillary lymph nodes are seen. There has been no significant change from prior exams. IMPRESSION: BI-RADS Category 1, Negative mammogram Yearly screening mammography is recommended. Breast Density- Category A - The breast are almost entirely fatty. Breast density Category C or D implies that the patient has dense breast tissue. Dense breast tissue can make it harder to find cancer on a mammogram. Dense breast tissue is also associated with an increased risk of breast cancer. This information about the result of the mammogram report was provided to the patient to raise their awareness. Use this report when you speak with the patient about their risks for breast cancer, which includes their family history. At that time, you may recommend additional screening tests (Ultrasound or MRI) as these tests may add significant information. A negative radiographic report should not delay biopsy if a dominant or clinically suspicious mass is present. Up to ten percent of cancers are not identified on mammography. A negative report may reinforce clinical impression. Adenosis and dense breasts may obscure an underlying neoplasm. False positive reports average 6 to 10%. Patient will receive a letter notifying them of these results.
== END 2025-04-03 00:46 ==
LOC: DI 00:27
PROVIDERS: Visit Provider Obstetrics & Gynecology
DX: Z12.31 Encounter for screening mammogram for malignant neoplasm of breast (principal); R92.313 Mammographic fatty tissue density, bilateral breasts
CPT/HCPCS: 77063; 77067